=== PATIENT | female | born 1945 | race Caucasian/White ===

== ENCOUNTER 2024-10-20 11:34 | Emergency (ER) | payer MEDICARE, MEDICAID, SELFPAY ==
[2024-10-20 11:34] VITALS: BP 163/87; PULSE 62; TEMP 36.4; O2SAT 97; BMI 58.2
[2024-10-20 11:39] VITALS: O2SAT 97
[2024-10-20 11:56] LABS: Basophils Absolute Auto 0.1 10^3/uL (0.0-0.1); Basophils Percent Auto 0.9 % (0.2-2.0); Eosinophils Absolute Auto 0.3 10^3/uL (0.0-0.7); Eosinophils Percent Auto 4.3 % (0.9-7.0); Hematocrit 43.7 % (36.0-48.0); Hemoglobin 13.5 g/dL (12.0-16.0); Immature Granulocytes Abs Auto 0.02 10^3/uL (0.00-0.03); Immature Granulocytes Pct Auto 0.3 % (0.0-0.5); Lymphocytes Absolute Auto 1.3 10^3/uL (1.2-3.8); Mean Corpuscular HGB Conc 30.9 g/dL (29.9-35.2); Mean Corpuscular Hemoglobin 28.8 pg (26.7-34.0); Mean Corpuscular Volume 93.4 fL (81.0-99.0); Mean Platelet Volume 10.5 fL (9.5-13.5); Monocytes Absolute Auto 0.4 10^3/uL (0.3-0.8); Monocytes Percent Auto 5.5 % (1.7-12.0); Neutrophils Absolute Auto 4.4 10^3/uL (1.4-6.5); Platelet Count 215 10^3/uL (150-450); Red Blood Count 4.68 10^6/uL (4.20-5.40); White Blood Count 6.3 10^3/uL (4.0-11.0)
[2024-10-20 12:16] LABS: Alanine Aminotransferase 19 U/L (14-59); Albumin Globulin Ratio 0.6; Albumin Level 2.6 g/dL (3.4-5.0); Alkaline Phosphatase 56 U/L (46-116); Anion Gap 7.1; Aspartate Amino Transferase 19 U/L (15-37); BUN Creatinine Ratio 21.7; Bilirubin Total 0.4 mg/dL (0.2-1.0); Calcium 8.5 mg/dL (8.5-10.1); Carbon Dioxide 34.8 mmol/L (21.0-32.0); Chloride 106 mmol/L (98-107); Estimated GFR (African America 37 (>=60 mL/min/1.73m^2); Estimated GFR (Non-African Ame 31 (>=60 mL/min/1.73m^2); Globulin 4.5 g/dL; Glucose 82 mg/dL (74-106); Potassium 3.9 mmol/L (3.5-5.1); Sodium 144 mmol/L (136-145); Total Protein 7.1 g/dL (6.4-8.2)
[2024-10-20 12:19] LABS: Lactate/Lactic Acid 1.1 mmol/L (0.4-2.0)
--- NOTE | 2024-10-20 13:29 | ED_ITS ---
HPI - Altered Mental Status General Chief Complaint: Altered Mental Status Stated Complaint: altered mental status Time Seen by Provider: 10/20/24 11:42 Source: patient Mode of arrival: ambulance Limitations: no limitations History of Present Illness HPI narrative: Patient [facility] us [facility] for concern of altered mental status, although the patient is awake and she was just diagnosed y esterday with UTI and another facility discharged home after she was provided with IV antibiotic 1 dose and p.o. antibiotic prescription to go to the retirement The patient according to the penitentiary facility is not acting herself but here she is awake able to tell us that she was in the hospital yesterday and she is oriented x 3, The patient denies having any complaint and she does not know why she is in the hospital Related Data Home Medications ?Medication ?Instructions ?Recorded ?Confirmed L.acidoph,paracasei,B.animalis 10 10 cell PO DAILY 10/20/24 10/20/24 billion cell capsule acetaminophen 500 mg capsule 500 mg PO Q6H PRN fever or pain 10/20/24 10/20/24 albuterol sulfate 2.5 mg/3 mL 2.5 mg inhalation Q6H PRN 10/20/24 10/20/24 (0.083 %) solution for nebulization shortness of breath or wheezing bisacodyl 10 mg rectal suppository 10 mg ND DAILY PRN constipation 10/20/24 10/20/24 (Dulcolax (bisacodyl)) calcium carbonate 1,500 mg PO Q6H PRN dyspepsia 10/20/24 10/20/24 carvedilol 6.25 mg tablet 6.25 mg PO BID 10/20/24 10/20/24 cephalexin 500 mg capsule 500 mg PO TID 10/20/24 10/20/24 cetirizine 10 mg tablet (Zyrtec) 10 mg PO DAILY 10/20/24 10/20/24 chlorthalidone 25 mg tablet 12.5 mg PO QAM 10/20/24 10/20/24 cholecalciferol (vitamin D3) 25 25 mcg PO DAILY 10/20/24 10/20/24 mcg (1,000 unit) capsule dapagliflozin propanediol 10 mg 10 mg PO QAM 10/20/24 10/20/24 tablet (Farxiga) diclofenac sodium 1 % topical gel 4 g topical BID 10/20/24 10/20/24 (Voltaren Arthritis Pain) ferrous sulfate 325 mg (65 mg 325 mg PO DAILY 10/20/24 10/20/24 iron) tablet fluticasone propionate 50 1 spray intranasal DAILY PRN 10/20/24 10/20/24 mcg/actuation nasal allergy symptoms spray,suspension (Allergy Relief (fluticasone)) ipratropium 20 mcg-albuterol 100 2 puff inhalation Q6H PRN 10/20/24 10/20/24 mcg/actuation mist for inhalation shortness of breath or wheezing (Combivent Respimat) levothyroxine 50 mcg capsule 50 mcg PO DAILY 10/20/24 10/20/24 miconazole nitrate 2 % topical 1 applic topical BID 10/20/24 10/20/24 cream (Antifungal (miconazole)) multivitamin,tx-minerals (Super 1 tab PO DAILY 10/20/24 10/20/24 Thera Shayy M tablet) olopatadine 0.1 % eye drops 1 drp ophthalmic (eye) BID 10/20/24 10/20/24 ondansetron 4 mg disintegrating 4 mg PO Q6H 10/20/24 10/20/24 tablet pregabalin 50 mg capsule 50 mg PO BID 10/20/24 10/20/24 sennosides 8.6 mg-docusate sodium 2 tab-cap PO DAILY 10/20/24 10/20/24 50 mg capsule (Senna Plus) tramadol 50 mg tablet 50 mg PO BID 10/20/24 10/20/24 Allergies Allergy/AdvReac Type Severity Reaction Status Date / Time No Known Drug Allergies Allergy Verified 10/20/24 11:40 Review of Systems ROS Status of ROS 10 or more systems reviewed and unremark able except as noted in history and below Exam Narrative Exam Narrative: Nurses notes and vital signs reviewed and patient is not hypoxic. General: Well-appearing and in no apparent distress. Skin: Warm, dry, no pallor noted. No rash. Head: Normocephalic, atraumatic. Neck: Supple, non-tender. Eye: Pupils are equal, round and EOMI. No scleral icterus. Ears, Nose, Mouth, and Throat: TM are clear, no nasal mucosal hypertrophy. Dry mucous membranes Cardiovascular: Regular Rate and Rhythm without murmur, gallop or rub. Respiratory: Distant breathing sound bilaterally Back: No midline thoracic or lumbar vertebral tenderness. No CVA tenderness Musculoskeletal: normal ROM, no calf or popliteal tenderness, and chronic lower extremity changes GI: Abdomen is soft, non-distended. Normal bowel sounds. No masses appreciated. Neurological: A&O x3No cranial nerve dysfunction observed. Moves all extremities. Sensation intact. Psychiatric: Cooperative but she is screaming when she is trying to get anything instead of asking politely Constitutional Vital Signs, click to edit/add: Last Vital Signs Temp 97.5 F L 10/20/24 11:34 Pulse 62 10/20/24 11:34 Resp 18 10/20/24 11:34 BP 163/87 H 10/20/24 11:34 Pulse Ox 97 10/20/24 11:39 O2 Del Method Nasal Cannula 10/20/24 11:39 O2 Flow Rate 2 10/20/24 11:39 Course Vital Signs Vital signs: Vital Signs Temperature 97.5 F L 10/20/24 11:34 Pulse Rate 62 10/20/24 11:34 Respiratory Rate 18 10/20/24 11:34 Blood Pressure 163/87 H 10/20/24 11:34 Pulse Oximetry 97 10/20/24 11:34 Oxygen Delivery Method Room Air 10/20/24 11:34 Temperature 97.5 F L 10/20/24 11:34 Pulse Rate 62 10/20/24 11:34 Respiratory Rate 18 10/20/24 11:34 Blood Pressure 163/87 H 10/20/24 11:34 Pulse Oximetry 97 10/20/24 11:39 Oxygen Delivery Method Nasal Cannula 10/20/24 11:39 Oxygen Delivery Flow Rate 2 10/20/24 11:39 MDM - Altered Mental Status MDM Narrative Medical decision making narrative: Other than the fact the patient screams every time she wants any attention the patient did not have any clinical findings on exam that shows any neurological deficit The patient blood workup showed no acute pathology and she does have a history of chronic kidney disease with a creatinine 1.6 The patient also had no leukocytosis no no lactic acid elevation and the patient CT head showed no acute pathology Right now just recommended the patient take her Keflex as UTI treatment and monitoring in the penitentiary facility The patient is to follow up with primary care physician in next 2-3 days or to return to the emergency department should any of the signs or symptoms worsen or new symptoms develop. The patient agrees with the following Diagnosis and Treatment plan and the patient will be discharged home. Lab Data Labs: Lab Results 10/20/24 Range/Units 11:47 WBC 6.3 (4.0-11.0) 10^3/uL RBC 4.68 (4.20-5.40) 10^6/uL Hgb 13.5 (12.0-16.0) g/dL Hct 43.7 (36.0-48.0) % MCV 93.4 (81.0-99.0) fL MCH 28.8 (26.7-34.0) pg MCHC 30.9 (29.9-35.2) g/dL RDW 15.0 (11.0-15.0) % Plt Count 215 (150-450) 10^3/uL MPV 10.5 (9.5-13.5) fL Neut % (Auto) 69.0 (43.0-75.0) % Lymph % (Auto) 20.0 L (20.5-60.0) % [place] % (Auto) 5.5 (1.7-12.0) % Eos % (Auto) 4.3 (0.9-7.0) % Baso % (Auto) 0.9 (0.2-2.0) % Neut # (Auto) 4.4 (1.4-6.5) 10^3/uL Lymph # (Auto) 1.3 (1.2-3.8) 10^3/uL [place] # (Auto) 0.4 (0.3-0.8) 10^3/uL Eos # (Auto) 0.3 (0.0-0.7) 10^3/uL Baso # (Auto) 0.1 (0.0-0.1) 10^3/uL Abs Immat Gran (auto) 0.02 (0.00-0.03) 10^3/uL Imm/Tot Granulo (auto) 0.3 (0.0-0.5) % Sodium 144 (136-145) mmol/L Potassium 3.9 (3.5-5.1) mmol/L Chloride 106 (98-107) mmol/L Carbon Dioxide 34.8 H (21.0-32.0) mmol/L Anion Gap 7.1 BUN 35.0 H (7.0-18.0) mg/dL Creatinine 1.61 H (0.55-1.02) mg/dL Est GFR ( Amer) 37 L (>=60 mL/min/1.73m^2) Est GFR (Non-Af Amer) 31 L (>=60 mL/min/1.73m^2) BUN/Creatinine Ratio 21.7 Glucose 82 (74-106) mg/dL Lactate 1.1 (0.4-2.0) mmol/L Calcium 8.5 (8.5-10.1) mg/dL Total Bilirubin 0.4 (0.2-1.0) mg/dL AST 19 (15-37) U/L ALT 19 (14-59) U/L Alkaline Phosphatase 56 (46-116) U/L Total Protein 7.1 (6.4-8.2) g/dL Albumin 2.6 L (3.4-5.0) g/dL Globulin 4.5 g/dL Albumin/Globulin Ratio 0.6 Discharge Plan Discharge Chief Complaint: Altered Mental Status Clinical Impression: UTI (urinary tract infection) Patient Disposition: Home, Self-Care Time of Disposition Decision: 13:40 Condition: Good Prescriptions / Home Meds: No Action acetaminophen 500 mg capsule 500 mg PO Q6H PRN (Reason: fever or pain) albuterol sulfate 2.5 mg /3 mL (0.083 %) solution for nebulization 2.5 mg inhalation Q6H PRN (Reason: shortness of breath or wheezing) calcium carbonate 500 mg calcium (1,250 mg) tablet 1,500 mg PO Q6H PRN (Reason: dyspepsia) carvedilol 6.25 mg tablet 6.25 mg PO BID Rx Instructions: must administer with a meal/food cephalexin 500 mg capsule 500 mg PO TID chlorthalidone 25 mg tablet 12.5 mg PO QAM Combivent Respimat 20-100 mcg/actuation mist 2 puff inhalation Q6H PRN (Reason: shortness of breath or wheezing) bisacodyl [Dulcolax (bisacodyl)] 10 mg suppository 10 mg ND DAILY PRN (Reason: constipation) dapagliflozin propanediol [Farxiga] 10 mg tablet 10 mg PO QAM ferrous sulfate 325 mg (65 mg iron) tablet 325 mg PO DAILY fluticasone propionate [Allergy Relief (fluticasone)] 50 mcg/actuation spray,suspension 1 spray intranasal DAILY PRN (Reason: allergy symptoms) Rx Instructions: administer into each nostril L.acidoph,paracasei,B.animalis 10 billion cell capsule 10 cell PO DAILY levothyroxine 50 mcg capsule 50 mcg PO DAILY miconazole nitrate [Antifungal (miconazole)] 2 % cream 1 applic topical BID olopatadine 0.1 % drops 1 drp ophthalmic (eye) BID Rx Instructions: separate doses by at least 6-8 hours ondansetron 4 mg tablet,disintegrating 4 mg PO Q6H pregabalin 50 mg capsule 50 mg PO BID Senna Plus 8.6-50 mg capsule 2 tab-cap PO DAILY Super Thera Shayy M Tablet 1 tab PO DAILY tramadol 50 mg tablet 50 mg PO BID cholecalciferol (vitamin D3) 25 mcg (1,000 unit) capsule 25 mcg PO DAILY diclofenac sodium [Voltaren Arthritis Pain] 1 % gel 4 g topical BID Rx Instructions: apply to KORY knees and feet do not exceed 32grams/day over all extremities cetirizine [Zyrtec] 10 mg tablet 10 mg PO DAILY Print Language: Czech Instructions: Urinary Tract Infection in Older Adults (ED) Referrals: Maine Knowles MD [Primary Care Provider] - 1 week
== END 2024-10-20 14:58 | disposition home or self-care (01) ==
PROVIDERS: Emergency Provider Emergency Medicine; PCP Internal Medicine
DX: R41.82 Altered mental status, unspecified (principal); N39.0 Urinary tract infection, site not specified
CPT/HCPCS: 36415; 70450; 80053; 83605; 85025; 99285

== ENCOUNTER 2024-11-15 12:07 | Outpatient (REF) | payer MEDICARE, MEDICAID, SELFPAY ==
--- OUTSIDE RECORDS SUMMARY | 2024-11-15 12:13 | XMS_ITS | CCD ---
Author Organization [facility] ion Partnership [facility] Care Team Providers Care Ammonia Print Operator Name Role Phone CrtOli W Unavailable Unavailable Haupricht, Oli W Unavailable Unavailable KAVYA TORRES Consulting Unavailable VANCE, RIP S Admitting Unavailable VANCE, RIP S Attending Unavailable VANCE, RIP S Consulting Unavailable Unavailable Primary Care Provider UnavailJohnson Aquino Attending Unavailable Johnson Gallo Referring Unavailable Sabino ARIZMENDI, PhD, Johnson Unavailable RAJINDER Cantor JR Referring Unavailable RAJINDER LUDWIG JR Primary Care Unavailable LANCE LOUIS Attending Unavailable SANAULLAH, BEATRIS Primary Care Unavailable SHALOM FUNEZ Admitting Unavailable ONLY), IP WOUND CARE SERVICES (INPATIENT Consult ing Unavailable LANCE LOUIS Attending Unavailable LANCE LOUIS Referring Unavailable SANAULLAH, BEATRIS Primary Care Unavailable HUFDHI, RAIED Primary Care Unavailable REJI MENDOZA Attending Unavailable VÍCTOR, ROBBIE M Admitting Unavailable ONLY), IP WOUND CARE SERVICES (INPATIENT Consult ing Unavailable VIDA AGUILAR Attending Unavailable VIDA AGUILAR Referring Unavailable HUFDHI, RAIED Primary Care Unavailable VIDA AGUILAR Attending Unavailable VIDA AGUILAR Referring Unavailable HUFDHI, RAIED Primary Care Unavailable JESUS RILEY Attending Unavailable JESUS RILEY Referring Unavailable HUFDHI, RAIED Primary Care Unavailable HUFDHI, RAIED Primary Care Unavailable DARRELL KOHLI Attending Unavailable HUFDHI, RAIED Primary Care Unavailable SHREE CRANE Attending Unavailable PHYSICIAN, UNKNOWN Referring Unavailable RAJINDER LUDWIG JR Primary Care Unavailable JENNIE GHOTRA Referring Unavailable SANAULLAH, BEATRIS Primary Care Unavailable DARRELL KOHLI Referring Unavailable HUFDHI, RAIED Primary Care Unavailable SHRUTHI MILLS Referring Unavailable HUFDHI, RAIED Primary [facility] Unavailable REF PROV, NOT IN SYSTEM Referring Unavaila ble [facility] Primary Care Unavailable SHREE CRANE Referring Unavailable [facility] Primary Care Unavailable Allergies Allergy Classification Reported Allergen(s) Allergy Type Date of Onset Reaction(s) Facility (1 source) Other Propensity to adverse reactions 02-11-2020 [facility], [place] Medications Current Medications Medication Drug Class(es) Dates Sig (Normalized) Sig (Original) Acetaminophen (2 sources) Start: 02-10-2020 acetaminophen (TYLENOL) tablet 650 mg take 2 tablets by mo uth every six hours as needed Tylenol Extra Strength 500 mg tablet shlomo e 2 tablet by oral route every 6 hours as needed 1000 MG - Active 120 actuat albuterol 0.1 mg/actuat / ipratropium bromide 0.02 mg/actuat inhalation spray (1 source) Anticholinergic, beta2-Adrenergic Agonist take 1 puff(s) by inhalation four times daily as needed, then take 6 puff(s) by inhalation every twenty-four hours as needed Combivent Respimat 20 mcg-100 mcg/actuation solution for inhalation inhale 1 puff by inhalation route 4 times every day ; may take additional puffs as needed not to exceed 6 puffs in 24hrs 1.00 puff - Active amLODIPine 2.5 mg oral tablet (1 source) Dihydropyridine Calcium Channel Amira take 1 tablet by mouth once daily amlodipine 2.5 mg tablet take 1 tablet by oral route every day 2.5 MG - Active 12 hr amoxicillin 1000 mg / clavulanate 62.5 mg extended release oral tablet (1 source) Penicillin-class Antibacterial Start : 02-14 End: 02-19 take 1 tablet by mouth twice daily amoxicillin-clavul anate (AUGMENTIN XR) 1000-62.5 MG per extended release tablet Take 1 tablet by mouth 2 times daily for 5 days 10 tablet 0 02/15/2020 02/20/2020 Active carvedilol 25 mg oral tablet (1 source) alpha-Adrenergic Amira, beta-Adrenergic Amira take 1 tablet by mouth twice daily at mealtime carvedilol 25 mg tablet take 1 tablet by oral route 2 times every day with food 25 MG - Active cetirizine hydrochloride 10 mg oral capsule (1 source) Histamine-1 Receptor Antagonist take 1 capsule by mouth once daily Zyrtec 10 mg capsule take 1 capsule by oral route every day 1 capsule - Active dapagliflozin 10 mg oral tablet (1 source) Sodium-Glucose Cotransporter 2 Inhibitor take 1 tablet by mouth once daily in the morning Farxiga 10 mg tablet take 1 tablet by oral route every day in the morning 10 MG - Active diclofenac sodium 0.01 mg/mg topical gel (1 source) Nonsteroidal Anti-inflammatory Drug Voltaren Arthritis Pain 1 % topical gel apply 2 gram by topical route 4 times every day to the affected area(s) 2.00 gram - Active ferrous sulfate 325 mg oral tablet (1 source) take 1 tablet by mouth once daily ferrous sulfate 325 mg (65 mg iron) tablet take 1 tablet by oral route every day 325 MG - Active 30 actuat fluticasone furoate 0.05 mg/actuat dry powder inhaler (1 source) Corticosteroid take 1 [IU] by mouth twice daily Arnuity Ellipta 50 mcg/actuation powder for inhalation inhale 1 unit by oral route 2 times every day 1 unit - Active furosemide 20 mg oral tablet (1 source) Loop Diuretic take 1 tablet by mouth once daily Lasix 20 mg tablet take 1 tablet by oral route every day 20 MG - Active gabapentin 100 mg oral capsule (3 sources) Anti-epileptic Agent Start : 02-09 End: 04-15 take 1 capsule by mouth four times daily gabapentin (NEURONTIN) 100 MG capsule Take 1 capsule by mouth 4 times daily for 60 days. 120 capsule 1 02/15/2020 04/15/2020 Active 1 ml heparin sodium, porcine 5000 unt/ml prefilled syringe (1 source) Unfractionated Heparin, Anti-coagulant Start : 02-09 inject 1 dose by subcutaneous injection three times daily 5,000 Units, Subcutaneous, EVERY 8 HOURS SCHEDULED (3 times per day), First dose on Sat02/10/20 at 1630 hydroCHLOROthiazide 12.5 mg / lisinopril 10 mg oral tablet (1 source) Thiazide Diuretic, Angiotensin Converting Enzyme Inhibitor take 10-12.5 mg by mouth once lisinopril-hydroCH LOROthiazide (ZESTORETIC) 10-12.5 MG per tablet Take 1 tablet by mouth daily 0 Active Lactobacillus acidophilus (1 source) Acidophilus capsule - Active levothyroxine sodium 0.025 mg oral capsule (1 source) l-Thyroxine take 1 capsule by mouth once daily levothyroxine 25 mcg capsule take 1 capsule by oral route every day 25 MCG - Active loperamide hydrochloride 2 mg oral capsule (1 source) Opioid Agonist take 2 capsules by mouth once daily loperamide 2 mg capsule take 2 capsule by oral route after 1st loose stool, followed by 1 capsule after each subsequent loose stool not to exceed 16 mg/day 4 MG - Active magnesium hydroxide 1200 mg chewable tablet (2 sources) End: 04-01 Milk Of Magnesia Concentrated 2,400 mg/10 mL oral suspension as needed as needed - No Longer Active Dulcolax (magnes ium hydroxide) 1,200 mg chewable tablet - Active melatonin 3 mg oral capsule (1 source) melatonin 3 mg c apsule as needed - Active miconazole nitrate 0.02 mg/mg topical powder (3 sources) Azole Antifungal Start: 02-15-2020 miconazole (MICOTIN) 2 % powder Apply topically 2 times daily. 45 g 1 02/15/2020 Active Start: 02-10-2020 End: 02-12-2020 miconazole (MICOTIN) 2 % pow yordy Multiple Vitamin (THERAPEUTIC MULTIVITAMIN PO) (1 source) Multiple Vitamin (THERAPEUTIC MULTIVITAMIN PO) Take 1 tablet by mouth 0 Active Multivitamin 50 Plus tablet (1 source) Multivitamin 50 Plus tablet as needed - Active olmesartan medoxomil 40 mg oral tablet (1 source) Angiotensin 2 Receptor Amira take 1 tablet by mouth once daily Benicar 40 mg tablet take 1 tablet by oral route every day 40 MG - Active polyethylene glycol 3350 25190 mg powder for oral solution (1 source) Osmotic Laxative Start: 02-10-20 20 17 g, Oral, DAILY PRN, Constipation, Starting Sat02/10/20 at 1604 First line therapy for constipation Potassium Chloride (1 source) Start: 02-10-20 potassium chloride (KLOR-CON M) extended release tablet 40 mEq pregabalin 150 mg oral capsule (1 source) take 1 capsule by mouth twice daily pregabalin 150 mg capsule take 1 capsule by oral route 2 times every day 150 MG - Active Promethazine (1 source) Phenothiazine Start: 02-10-20 promethazine (PHENERGAN) tablet 12.5 mg 3 ml sodium chloride 9 mg/ml injection (6 sources) Start: 06-17-20 20 10 mL, Intravenous, EVERY 12 HOURS SCHEDULED (2 times per day), First dose on Sat02/10/20 at 2100 Start: 02-10-2020 Intravenous, a t 100 mL/hr, CONTINUOUS, Starting Sat02/10/20 at 1630 Start: 02-10-2020 take 10 mL intraveno us route once as needed 10 mL, Intravenous, PRN, Line Care, After every IV line use, Starting Sat02/10/20 at 1604 Start: 02-10-2020 sodium chlorid e flush 0.9 % injection 10 mL Start: 02-10-2020 End: 02-10-2020 0.9 % sodium chloride bolus spironolactone 25 mg oral tablet (1 source) Aldosterone Antagonist take 1 tablet by mouth once daily Aldactone 25 mg tablet take 1 tablet by oral route every day 25 MG - Active Completed/Discontinued Medications Medication Drug Class(es) Dates Sig (Normalized) Sig (Original) ampicillin-sulbacta m (UNASYN) 3 g ivpb minibag (2 sources) Start: 02-10-2020 3 g, Intravenous, EVERY 6 HOURS, First dose on Sat02/10/20 at 1630, Until Discontinued Start: 02-10-2020 End: 02-10-2020 ampicillin-sulbactam (UNASYN ) 3 g ivpb minibag sugar-free cholestyramine resin 4000 mg powder for oral suspension (1 source) Bile Acid Sequestrant End: 04-01-2024 Cholestyramine Light 4 gram oral powder take 1/2 packet by oral route every day dissolved in 2 to 6 ounces of water or noncarbonated beverage before meals 2 G - No Longer Active ioversol (OPTIRAY) 74 % injection 75 mL (1 source) Start: 02-10-2020 End: 02-10-2020 ioversol (OPTIRAY) 74 % injection 75 mL Problems Active Problems Problem Classification Problem Date Documented Da te Episodic/Chronic Cardiac dysrhythmias (1 source) Tachycardia, unspecified; Translations: [Tachycardia, unspecified] Onset: 08-26-2024 Episodic Cataract (3 sources) Combined forms of age-related cataract, bilateral; Translations: [Combined forms of age-related cataract, bilateral] Onset: 04-01-2024 Chronic Chronic kidney disease (1 source) Chronic kidney disease, stage 4 (severe); Translations: [Chronic kidney disease, stage 4 (severe)] Onset: 07-01-2022 Chronic Chronic obstructive pulmonary disease and bronchiectasis (1 source) Chronic obstructive pulmonary disease, unspecified; Translations: [Chronic obstructive pulmonary disease, unspecified] Onset: 11-25-2023 Chronic External cause codes: Fall (1 source) Fall; Translations: [Fall, initial encounter] Inflammation; infection of eye (except that caused by tuberculosis or sexually transmitteddisease) (1 source) Unspecified optic neuritis; 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 Nausea and vomiting (2 sources) Nausea with vomiting, unspecified; Translations: [Vomiting] Onset: 09-22-2024 Episodic Other diseases of kidney and ureters (2 sources) Acute renal insufficiency; Translations: [Acute renal insufficiency] 02-15-2020 Other lower respiratory disease (1 source) Cough Onset: 08-26-2024 Episodic Other nutritional; endocrine; and metabolic disorders (2 sources) Body mass index 40+ - severely obese; Translations: [Morbid obesity with BMI of 50.0-59.9, adult (HCC)] Onset: 02-13-2020 02-13-2020 Chronic Residual codes; unclassified (1 source) Disorientation, unspecified; Translations: [Disorientation, unspecified] Onset: 10-19-2024 Episodic Residual codes; unclassified (1 source) Illness, unspecified; Translations: [Illness, unspecified] Onset: 10-19-2024 Episodic Retinal detachments; defects; vascular occlusion; and retinopathy (3 sources) Puckering of macula, left eye; Translations: [Epiretinal membrane (ERM) of left eye] Onset: 04-01-2024 Chronic Skin and subcutaneous tissue infections (7 sources) Cellulitis of face; Translations: [Cellulitis] Onset: 02-10-2020 02-10-2020 Episodic Unclassified (1 source) Protein level - finding; Translations: [Elevated troponin] Unclassified (1 source) Medical Screening Onset: 10-19-2024 Unclassified (1 source) EMS Onset: 03-14-2024 Urinary tract infections (1 source) Urinary tract infection, site not specified; Translations: [Urinary tract infection, site not specified] Onset: 10-19-2024 Episodic Past or Other Problems Problem Classification Problem Date Documented Da te Episodic/Chronic Acute and unspecified renal failure (1 source) Acute kidney failure, unspecified; Translations: [Acute kidney failure, unspecified] Onset: 03-14-2024 Episodic Fever of unknown origin (1 source) Fever, unspecified; Translations: [Fever, unspecified] Onset: 03-10-2024 Episodic Other circulatory disease (1 source) Low blood pressure Onset: 03-14-2024 Episodic Other lower respiratory disease (1 source) Shortness of breath; Translations: [Shortness of breath] Onset: 03-10-2024 Episodic Pneumonia (except that caused by tuberculosis or sexually transmitted disease) (1 source) Pneumonia, unspecified organism; Translations: [Pneumonia, unspecified organism] Onset: 03-19-2024 Episodic Residual codes; unclassified (1 source) Other specified personal risk factors, not elsewhere classified; Translations: [Other specified personal risk factors, not elsewhere classified] Onset: 03-14-2024 Episodic Septicemia (except in labor) (1 source) Sepsis, unspecified organism; Translations: [Sepsis, unspecified organism] Onset: 03-19-2024 Episodic Shock (1 source) Severe sepsis with septic shock; Translations: [Severe sepsis with septic shock] Onset: 03-19-2024 Episodic Unclassified (1 source) puckering of the macula (chief complaint) Onset: 04-01-2024 Unclassified (1 source) Retinal issues (chief complaint) Onset: 02-28-2023 Results Test Name Value Interpretation Reference Range Facility BLOOD CULTUREon 10-19-2024 Bacteria identified Aer cx Nom (Bld) CULTURE RESULTS NO GROWTH 5 DAYS Normal [facility] Bacteria identified Aer cx Nom (Bld) SPECIMEN NOTES SUBOPTIMAL VOLUME OF BLOOD COLLECTED, RESULTS MAY BE AFFECTED. CULTURE RESULTS NO GROWTH 5 DAYS Normal [facility] Comment on above: Performed By: #### C BRIE MONDRAGON, 36688-1, 11358-7 #### [facility] ([id number]) [address] [place] [address], [place] [address] CBC AND AUTO DIFFon 10-19-19 25 ABSOLUTE BASOPHIL 0.1 X10E9/L Normal 0.0-0.2 [facility] Comment on above: Performed By: #### C BRIE MONDRAGON, 21714-7, 72056-5 #### [facility] ([id number]) [address] [place] [address] 94526 ABSOLUTE NEUTROPHIL 5.2 X10E9/L Normal 1.5-6.[address] [facility] Comment on above: Performed By: #### C GIANCARLO, [facility], 87313-4, 75560-7 #### [facility] ([id number]) [address] [place] [address] 17257 Basophils/100 WBC (Bld) 1.1 % Normal [facility] Comment on above: Performed By: #### C GIANCARLO, [facility], 96272-4, 21156-7 #### [facility] ([id number]) [address] [place] [address] 24168 Eosinophils (Bld) [#/Vol] 0.2 10*3/uL Normal 0.0-0.[address] [facility] Comment on above: Performed By: #### C GIANCARLO, [facility], 32230-1, 87539-5 #### [facility] ([id number]) [address] [place] [address] 26348 Eosinophils/100 WBC (Bld) 2.8 % Normal [facility] Comment on above: Performed By: #### C GIANCARLO, [facility], 04120-3, 56790-4 #### [facility] ([id number]) [address] [place] [address] 82685 Erythrocyte distribution width (RBC) [Ratio] 16.0 % High 11.5-15.[address] [facility] Comment on above: Performed By: #### C GIANCARLO, [facility], 20155-6, 86297-4 #### [facility] ([id number]) [address] [place] [address] 61071 Hematocrit (Bld) [Volume fraction] 41.2 % Normal 35-[address] [facility] Comment on above: Performed By: #### C GIANCARLO, BMP, 10392-5, 21554-5 #### [facility] ([id number]) [address] [place] [address] 58736 Hemoglobin (Bld) [Mass/Vol] 13.3 g/dL Normal 11.7-15.[address] [facility] Comment on above: Performed By: #### C GIANCARLO [facility], 67446-5, 60832-6 #### [facility] ([id number]) [address] [place] [address] 14844 Lymphocytes (Bld) [#/Vol] 2.0 10*3/uL Normal 1.0-3.[address] [facility] Comment on above: Performed By: #### Federico MONDRAGON [facility], 06279-2, 95427-5 #### [facility] ([id number]) [address] [place] [address] 63734 Lymphocytes/100 WBC (Bld) 25.0 % Normal [facility] Comment on above: Performed By: #### Federico MONDRAGON [facility], 63061-4, 27246-3 #### [facility] ([id number]) [address] [place] [address] 36242 MCH (RBC) [Entitic mass] 29.3 pg Normal 27-[address] [facility] Comment on above: Performed By: #### Federico MONDRAGON [facility], 12944-5, 96847-3 #### [facility] ([id number]) [address] [place] [address] 20791 MCHC (RBC) [Mass/Vol] 32.3 g/dL Normal 32-[address] [facility] Comment on above: Performed By: #### Federico MONDRAGON [facility], 95518-8, 07376-8 #### [facility] ([id number]) [address] [place] [address] 04546 MCV (RBC) [Entitic vol] 91 fL Normal 80-[address] [facility] Comment on above: Performed By: #### C GIANCARLO, BMP, 80823-5, 41994-3 #### [facility] ([id number]) [address] [place] [address] 67047 Monocytes (Bld) [#/Vol] 0.5 10*3/uL Normal 0-0.[address] [facility] Comment on above: Performed By: #### Federico MONDRAGON, BMP, 68217-1, 24660-5 #### [facility] ([id number]) [address] [place] [address] 17946 Monocytes/100 WBC (Bld) 6.3 % Normal [facility] Comment on above: Performed By: #### Federico MONDRAGON, BMP, 28876-5, 56066-0 #### [facility] ([id number]) [address] [place] [address] 98894 Neutrophils/100 WBC (Bld) 64.8 % Normal [facility] Comment on above: Performed By: #### Federico MONDRAGON, [facility], 50594-1, 29188-6 #### [facility] ([id number]) [address] [place] [address] 96911 Platelet mean volume (Bld) [Entitic vol] 9.1 fL Normal 7-[address] [facility] Comment on above: Performed By: #### Federico MONDRAGON, BMP, 44348-0, 12943-8 #### [facility] ([id number]) [address] [place] [address] 96701 Platelets (Bld) [#/Vol] 230 10*3/uL Normal 150-[address] [facility] Comment on above: Performed By: #### Federico BCA, BMP, 64648-7, 71127-5 #### [facility] ([id number]) [address] [place] [address] 73807 RBC COUNT 4.55 X10E12/L Normal 3.80-5.[address] [facility] Comment on above: Performed By: #### C BCA, BMP, 00702-5, 84530-5 #### [facility] ([id number]) [address] [place] [address] 82506 WBC (Bld) [#/Vol] 8.0 10*3/uL Normal 4.0-11.0 [facility] Comment on above: Performed By: #### C BCA, BMP, 03035-4, 11822-9 #### [facility] ([id number]) [address] [place] [address] 15829 COMPREHENSIVE METABOLIC PANE Fernando 10-19-2024 Albumin [Mass/Vol] 3.3 g/dL Normal 3.2-5.[address] [facility] Comment on above: Performed By: #### C BCA, BMP, 76688-0, 33634-0 #### [facility] ([id number]) [address] [place] [address] 68543 ALP [Catalytic activity/Vol] 51 U/L Normal 39-[address] [facility] Comment on above: Performed By: #### C BCA, BMP, 57160-3, 39531-8 #### [facility] ([id number]) [address] [place] [address] 59315 ALT [Catalytic activity/Vol] 15 U/L Normal 0-[address] [facility] Comment on above: Performed By: #### C BCA, BMP, 64599-0, 59750-5 #### [facility] ([id number]) [address] [place] [address] 35169 Anion gap [Moles/Vol] 7 mmol/L Normal 5-[address] [facility] Comment on above: Performed By: #### C BCA, BMP, 38196-3, 81913-1 #### [facility] ([id number]) [address] [place] [address] 67888 AST [Catalytic activity/Vol] 22 U/L Normal 0-[address] [facility] Comment on above: Performed By: #### C BCA, BMP, 78760-3, 76799-4 #### [facility] ([id number]) [address] [place] [address] 96530 Bilirubin [Mass/Vol] 0.8 mg/dL Normal 0.3-1.[address] [facility] Comment on above: Performed By: #### C BCA, BMP, 13209-7, 49285-1 #### [facility] ([id number]) [address] [place] [address] 64735 Calcium [Mass/Vol] 8.2 mg/dL Low 8.5-10.[address] [facility] Comment on above: Performed By: #### C BCA, BMP, 67257-9, 39753-9 #### [facility] ([id number]) [address] [place] [address] 69776 Chloride [Moles/Vol] 102 mmol/L Normal 98-[address] [facility] Comment on above: Performed By: #### C BCA, BMP, 57427-6, 61678-7 #### [facility] ([id number]) [address] [place] [address] 56731 CO2 [Moles/Vol] 31 mmol/L Normal 22-[address] [facility] Comment on above: Performed By: #### C BCA, BMP, 41200-0, 64144-7 #### [facility] ([id number]) [address] [place] [address] 82553 Creatinine [Mass/Vol] 1.74 mg/dL High 0.40-1.[address] [facility] Comment on above: Result Comment: METH OD TRACEABLE TO IDMS STANDARD Performed By: #### C BCA, BMP, 04132-3, 68040-1 #### [facility] ([id number]) [address] [place] [address] 90976 GFR/1.73 sq M.predicted among non-blacks MDRD (S/P/Bld) [Vol rate/Area] 29 mL/min/{1.73_m2} Low >[address] [facility] Comment on above: Result Comment: Reported eGFR is based on the CKD-EPI 2020 equation that does not use a race coefficient. Performed By: #### C BRIE MONDRAGON, 63627-7, 53466-3 #### [facility] ([id number]) [address] [place] [address] 62773 Glucose [Mass/Vol] 93 mg/dL Normal 65-[address] [facility] Comment on above: Performed By: #### C BRIE MONDRAGON, 29890-3, 40372-8 #### [facility] ([id number]) [address] [place] [address] 10829 Potassium [Moles/Vol] 3.7 mmol/L Normal 3.5-5.[address] [facility] Comment on above: Performed By: #### C BRIE MONDRAGON, 88700-3, 64517-3 #### [facility] ([id number]) [address] [place] [address] 10290 Protein [Mass/Vol] 7.1 g/dL Normal 6.0-8.[address] [facility] Comment on above: Performed By: #### C BRIE MONDRAGON, 00683-4, 07701-0 #### [facility] ([id number]) [address] [place] [address] 86932 Sodium [Moles/Vol] 140 mmol/L Normal 134-[address] [facility] [facility] Comment on above: Performed By: #### C BRIE MONDRAGON, 89154-8, 69991-9 #### [facility] ([id number]) [address] [place] [address] 60345 Urea nitrogen [Mass/Vol] 37 mg/dL High 5-27 [facility] Comment on above: Performed By: #### C BRIE MONDRAGON, 33663-4, 04355-3 #### [facility] ([id number]) [address] [place] [address], [place] [address] CT [address] [place] CONT[place] CT BRAIN WO CONT CT BRAIN WO CONT CT BRAIN WO CONT: 10/19/2024 PROVIDED HISTORY: * 79 years old Female * Mental status change, unknown cause COMPARISON: CT brain 03/04/2020 TECHNIQUE: 1. CT of the Head without intravenous contrast. Sagittal and coronal reformats created and reviewed in brain, bone, and soft tissue windows. 2. All CT scans at this facility use dose modulation, iterative reconstruction, and/or weight based dosing when appropriate to reduce radiation dose to as low as reasonably achievable. FINDINGS: Examination degraded due to motion, habitus, and artifact from the calvarium, particularly limiting evaluations of the posterior fossa and parietal lobes. No acute intracranial hemorrhage. No territorial loss of wilkins-white differentiation. Brain parenchymal volume loss. Dilated supratentorial ventricular system, though concordant with brain parenchymal volume and degree of sulcal prominence (likely ex vacuo). Periventricular, subcortical, and deep white matter hypodensities, nonspecific, though can be seen in the setting of chronic microangiopathy. Nonspecific flattening of the pituitary parenchyma along the floor of the sella. No shift of midline structures. No extra-axial fluid collections. Basal cisterns are patent. No displaced or depressed calvarial fracture. Intracranial atherosclerosis. Visualized orbits are unremarkable for technique. Visualized mastoid air cells are well aerated. Visualized paranasal sinuses are well aerated. IMPRESSION: No acute intracranial abnormality, within limitations described. Please note, MRI is more sensitive for the detection of acute/occult intracranial processes. Finalized by Delbert Robbins MD on 10/19/2024 5:44 PM [address] [facility] Lactate (P west) [Moles/Vol]o n 10-19-2024 LACTATE W/REFLEX 0.9 mmol/L Normal 0.4-2.0 [facility] Comment on above: Result Comment: Result did not trigger repeat Lactate, re-order if needed. Performed By: #### C BRIE MONDRAGON, 16178-2, 27370-2 #### [facility] ([id number]) [address] [place] [address] 17578 MAGNESIUMon 10-19-2024 Magnesium [Mass/Vol] 2.1 mg/dL Normal 1.8-2.[address] [facility] Comment on above: Performed By: #### C BRIE MONDRAGON, 52428-9, 29684-7 #### [facility] ([id number]) [address] [place] [address] 65612 Natriuretic peptide B [Mass/ Vol]on 10-19-2024 Natriuretic peptide B (Bld) [Mass/Vol] 328 pg/mL High <100.[address] [facility] Comment on above: Performed By: #### C BRIE MONDRAGON, 58769-7, 44206-7 #### [facility] ([id number]) [address] [place] [address] 19486 PROTIME AND INRon 10-19-2024 INR Coag (PPP) [Relative time] 1.2 {INR} Normal 0.9-1.[address] [facility] Comment on above: Performed By: #### C BIRE MONDRAGON, 48502-0, 16763-7 #### [facility] ([id number]) [address] [place] [address] 68711 PT Coag (PPP) [Time] 13.9 s High 9.8-13.[address] [facility] Comment on above: Result Comment: NEW REFERENCE RANGE Performed By: #### C BRIE MONDRAGON, 91070-1, 81853-4 #### [facility] ([id number]) [address] [place] [address] 51237 RESP PATHOGENS/YQKT-[id number]-[id number] 10-19-2024 Respiratory pathogens DNA and RNA panel LETICIA+non-probe (Nph) SPECIMEN SOURCE NASO PHARYNX ADENOVIRUS Not detected (qualifier value) CORONAVIRUS 229E Not detected (qualifier value) CORONAVIRUS HKU1 Not detected (qualifier value) CORONAVIRUS NL63 Not detected (qualifier value) CORONAVIRUS OC43 Not detected (qualifier value) HUMAN METAPNEUVIRUS Not detected (qualifier value) RHINO/ENTEROVIRUS Not detected (qualifier value) INFLUENZA A Not detected (qualifier value) INFLUENZA B Not detected (qualifier value) PARAINFLUENZA 1 Not detected (qualifier value) PARAINFLUENZA 2 Not detected (qualifier value) PARAINFLUENZA 3 Not detected (qualifier value) PARAINFLUENZA 4 Not detected (qualifier value) RESP SYNCYTIAL VIRUS Not detected (qualifier value) BORD PARAPERTUSSIS Not detected (qualifier value) BORDETELLA PERTUSSIS Not detected (qualifier value) CHLAM.PNEUMONIAE Not detected (qualifier value) MYCO. PNEUMONIAE Not detected (qualifier value) SARS CoV 2 Not detected (qualifier value) NOTE The [employer] Respiratory Panel 2.1 (RP2.1) is a multiplexed nucleic acid test intended for the simultaneous qualitative detection and differentiation of nucleic acid from multiple viral and bacterial respiratory organisms, including nucleic acid from Severe Acute Respiratory Syndrome Coronavirus 2 (SARS-CoV-2), in nasopharyngeal swabs obtained from individuals suspected of COVID-19 by their healthcare provider. Testing is limited to laboratories certified under the Clinical Laboratory Improvement Amendments of 1988 (CLIA), to perform high complexity or moderate complexity tests. SARS-CoV-2 RNA and nucleic acids from the other respiratory viral and bacterial organisms identified by this test are generally detectable in nasopharyngeal swabs during the acute phase of infection. The detection and identification of specific viral and bacterial nucleic acids from individuals exhibiting signs and/or symptoms of respiratory infection is indicative of the presence of the identified microorganism and aids in the diagnosis of respiratory infection if used in conjunction with other clinical and epidemiological information. Positive results are indicative of the presence of the identified organism, but do not rule out co-infection with other pathogens. The agent(s) detected by the [employer] RP2.1 may not be the definite cause of disease and clinical correlation with patient history and other diagnostic information is necessary to determine patient infection status. Negative results in the setting of a respiratory illness may be due to infection with pathogens not detected by this test, or lower respiratory tract infection that may not be detected by a nasopharyngeal specimen. Negative results do not preclude SARS-CoV-2 infection and should not be used as the sole basis for patient management decisions. Negative ESTEFANIA-CoV-2 results must be combined with clinical observations, patient history and epidemiological information. Negative results for other organisms identified by the test may require additional laboratory testing when evaluating a patient with possible respiratory tract infection. Normal [facility] Comment on above: Performed By: #### 8 2159-5 #### [facility] ([id number]) [address] [facility], [address] [place] [address] Troponin I.cardiac High sens itivity method [Mass/Vol]on 10-19-2024 1 HOUR TROP I, HIGH SENSITIVITY 16 ng/L High <[address] [facility] Comment on above: Result Comment: Elevations of hs-Troponin may be due to causes other than myocardial ischemia. Recommend serial hs-Troponin testing be performed. For the initial evaluation and management of chest pain patients, refer to the algorithms linked below. Emergency Patient: [email or web address] [email or web address] Inpatient: [email or web address] aea Performed By: #### C BRIE MONDRAGON, 98602-9, 41254-0 #### [facility] ([id number]) [address] [place] [address], [place] [address] TROPONIN I, HIGH SENSITIVITY 18 ng/L High <[address] [facility] Comment on above: Result Comment: Elevations of hs-Troponin may be due to causes other than myocardial ischemia. Recommend serial hs-Troponin testing be performed. For the initial evaluation and management of chest pain patients, refer to the algorithms linked below. Emergency Patient: [email or web address] aea Inpatient: [email or web address] aea Performed By: #### C BRIE MONDRAGON, 40086-1, 71325-7 #### [facility] ([id number]) [address] [place] [address] 30578 URINE CULTUREon 10-19-2024 Bacteria identified Cx Nom (U) CULTURE RESULTS >100,000 ORGANISMS/mL ESCHERICHIA COLI [ S = SUSCEPTIBLE R = RESISTANT I = INTERMEDIATE S-DO = Susceptible-dose dependent NS = Non-suscceptible NO = No Interpretation ] Organism: ESCHERICHIA COLI Antibiotic Interpretation DARRIN Status AMPICILLIN S 4 F AMP/SULBACTAM S <=2/1 F CEFAZOLIN S <=4 F CEFTRIAXONE S <=0.25 F CIPROFLOXACIN R >=4 F GENTAMICIN S <=1 F LEVOFLOXACIN R >=8 F NITROFURANTOIN S <=16 F PIPERACIL/TAZOBACTAM S <=4 F TOBRAMYCIN S <=1 F TRIMETH/SULFAMETHOXAZOLE S <=/19 F Susceptible [facility] Comment on above: Performed By: #### C GIANCARLO [facility], 20062-4, 02637-0 #### [facility] ([id number]) [address] [place] [address] 25528 URN MACROSCOPIC NURon 2024 BILIRUBIN LYDIA Negative Normal [facility] Comment on above: Performed By: #### C GIANCARLO [facility], 83484-9, 54416-2 #### [facility] ([id number]) [address] [place] [address] 22730 BLOOD/HGB LYDIA MODERATE Abnormal NEG [facility] Comment on above: Performed By: #### C BRIE MONDRAGON, 75190-2, 32512-5 #### [facility] ([id number]) [address] [place] [address] 33390 GLUCOSE LYDIA 500 mg/dL Abnormal NEG [facility] Comment on above: Performed By: #### C BRIE MONDRAGON, 13238-4, 99379-9 #### [facility] ([id number]) [address] [place] [address] 88788 KETONES LYDIA Negative Normal NEG [facility] Comment on above: Performed By: #### C BCA, BMP, 15147-4, 47534-8 #### [facility] ([id number]) [address] [place] [address] [place] [address] LEUKOCYTE ESTERASE LYDIA Large Abnormal NEG [facility] Comment on above: Performed By: #### C BCA, BMP, 15832-1, 34199-7 #### [facility] ([id number]) [address] [place] [address] [place] [address] NITRITE LYDIA Positive Abnormal NEG [facility] Comment on above: Performed By: #### C BCA, BMP, 78110-9, 73256-2 #### [facility] ([id number]) [address] [place] [address] 87243 PH LYDIA 6.0 Normal 5.0-8.[address] [facility] Comment on above: Performed By: #### C BCA, BMP, 18151-9, 60698-5 #### [facility] ([id number]) [address] [place] [address] 14971 PROTEIN LYDIA >=[address] Ab[address]G [facility] Comment on above: Performed By: #### C BCA, BMP, 63866-5, 03367-7 #### [facility] ([id number]) [address] [place] [address] 89000 SPECIFIC GRAVITY LYDIA 1.025 Normal 1.003-1.[address] [facility] Comment on above: Performed By: #### C BCA, BMP, 52584-4, 86102-7 #### [facility] ([id number]) [address] [place] [address] 97207 UROBILINOGEN LYDIA 0.2 eu/dL Normal <1.1 [facility] Comment on above: Performed By: #### C BCA, BMP, 89153-0, 80859-9 #### [facility] ([id number]) [address] [place] [address] 44913 aPTT Coag (PPP) [Time]on aPTT Coag (Bld) [Time] 27 s Normal 26-[address] [facility] Comment on above: Result Comment: NEW REFERENCE RANGE Performed By: #### BRIE Caballero BCA, 76463-2, 46279-8 #### [facility] ([id number]) [address] [place] [address] 64902 CBC AND AUTO DIFFon 09-22-19 25 ABSOLUTE BASOPHIL 0.0 X10E9/L Normal 0.0-0.2 [facility] Comment on above: Performed By: #### Federico MONDRAGON [facility], 27241-9, 47381-7 #### [facility] ([id number]) [address] [place] [address] 24983 ABSOLUTE NEUTROPHIL 6.9 X10E9/L High 1.5-6.[address] [facility] Comment on above: Performed By: #### Federico MONDRAGON [facility], 61661-6, 43090-3 #### [facility] ([id number]) [address] [place] [address] 42110 Basophils/100 WBC (Bld) 0.2 % Normal [facility] Comment on above: Performed By: #### Federico MONDRAGON [facility], 37180-6, 10985-6 #### [facility] ([id number]) [address] [place] [address] 87596 Eosinophils (Bld) [#/Vol] 0.0 10*3/uL Normal 0.0-0.[address] [facility] Comment on above: Performed By: #### BRIE Caballero BCA, 40377-1, 28910-5 #### [facility] ([id number]) [address] [place] [address] 00706 Eosinophils/100 WBC (Bld) 0.3 % Normal [facility] Comment on above: Performed By: #### C GIANCARLO, [facility], 68267-8, 49025-6 #### [facility] ([id number]) [address] [place] [address] 16778 Erythrocyte distribution width (RBC) [Ratio] 16.3 % High 11.5-15.[address] [facility] Comment on above: Performed By: #### C GIANCARLO, [facility], 47004-5, 04754-1 #### [facility] ([id number]) [address] [place] [address] 14108 Hematocrit (Bld) [Volume fraction] 43.0 % Normal 35-[address] [facility] Comment on above: Performed By: #### C GIANCARLO [facility], , 43054-7 #### [facility] ([id number]) [address] [place] [address] 58129 Hemoglobin (Bld) [Mass/Vol] 14.2 g/dL Normal 11.7-15.[address] [facility] Comment on above: Performed By: #### C GIANCARLO [facility], , 47314-1 #### [facility] ([id number]) [address] [place] [address] 73915 Lymphocytes (Bld) [#/Vol] 0.8 10*3/uL Low 1.0-3.[address] [facility] Comment on above: Performed By: #### C GIANCARLO [facility], 78221-2, 48748-7 #### [facility] ([id number]) [address] [place] [address] 88124 Lymphocytes/100 WBC (Bld) 10.3 % Normal [facility] Comment on above: Performed By: #### C GIANCARLO, BRIE, 74061-7, 72115-6 #### [facility] ([id number]) [address] [place] [address] 49777 MCH (RBC) [Entitic mass] 29.5 pg Normal 27-[address] [facility] Comment on above: Performed By: #### BRIE Caballero BCA, 48395-9, 65139-2 #### [facility] ([id number]) [address] [place] [address] 67641 MCHC (RBC) [Mass/Vol] 33.1 g/dL Normal 32-[address] [facility] Comment on above: Performed By: #### BRIE Caballero BCA, 71147-3, 78886-1 #### [facility] ([id number]) [address] [place] [address] 23642 MCV (RBC) [Entitic vol] 89 fL Normal 80-[address] [facility] Comment on above: Performed By: #### BRIE Caballero BCA, 80488-0, 72639-7 #### [facility] ([id number]) [address] [place] [address] 25457 Monocytes (Bld) [#/Vol] 0.2 10*3/uL Normal 0-0.[address] [facility] Comment on above: Performed By: #### BRIE Caballero BCA, 55692-2, 48508-9 #### [facility] ([id number]) [address] [place] [address] 46167 Monocytes/100 WBC (Bld) 2.7 % Normal [facility] Comment on above: Performed By: #### BRIE Caballero BCA, , 00871-5 #### [facility] ([id number]) [address] [place] [address] 52190 Neutrophils/100 WBC (Bld) 86.5 % Normal [facility] Comment on above: Performed By: #### BRIE Caballero BCA, 45621-2, 55487-3 #### [facility] ([id number]) [address] [place] [address] 25001 Platelet mean volume (Bld) [Entitic vol] 8.4 fL Normal 7-[address] [facility] Comment on above: Performed By: #### C BCA, BMP, 06830-1, 96556-9 #### [facility] ([id number]) [address] [place] [address] 31501 Platelets (Bld) [#/Vol] 231 10*3/uL Normal 150-[address] [facility] Comment on above: Performed By: #### C BCA, BMP, 39527-4, 65533-2 #### [facility] ([id number]) [address] [place] [address] 38974 RBC COUNT 4.83 X10E12/L Normal 3.80-5.[address] [facility] Comment on above: Performed By: #### Federico BCA, BMP, 32357-4, 32958-9 #### [facility] ([id number]) [address] [place] [address] 14859 WBC (Bld) [#/Vol] 8.0 10*3/uL Normal 4.0-11.0 [facility] Comment on above: Performed By: #### C BCA, BMP, 84203-8, 55703-9 #### [facility] ([id number]) [address] [place] [address] 33063 COMPREHENSIVE METABOLIC PANE Fernando 09-22-2024 Albumin [Mass/Vol] 3.5 g/dL Normal 3.2-5.[address] [facility] Comment on above: Performed By: #### C BCA, BMP, 91114-4, 85074-8 #### [facility] ([id number]) [address] [place] [address] 42614 ALP [Catalytic activity/Vol] 55 U/L Normal 39-[address] [facility] Comment on above: Performed By: #### C BCA, BMP, 01867-2, 49757-6 #### [facility] ([id number]) [address] [place] [address] 78820 ALT [Catalytic activity/Vol] 16 U/L Normal 0-[address] [facility] Comment on above: Performed By: #### C BCA, BMP, 16590-6, 40003-1 #### [facility] ([id number]) [address] [place] [address] 74021 Anion gap [Moles/Vol] 9 mmol/L Normal 5-[address] [facility] Comment on above: Performed By: #### C BCA, BMP, 11161-0, 94522-0 #### [facility] ([id number]) [address] [place] [address] 45253 AST [Catalytic activity/Vol] 25 U/L Normal 0-[address] [facility] Comment on above: Performed By: #### C BCA, BMP, 97319-8, 74250-2 #### [facility] ([id number]) [address] [place] [address] 75986 Bilirubin [Mass/Vol] 0.9 mg/dL Normal 0.3-1.[address] [facility] Comment on above: Performed By: #### C BCA, BMP, 89958-2, 80432-5 #### [facility] ([id number]) [address] [place] [address] 34989 Calcium [Mass/Vol] 8.6 mg/dL Normal 8.5-10.[address] [facility] Comment on above: Performed By: #### C BCA, BMP, 79718-6, 06896-9 #### [facility] ([id number]) [address] [place] [address] 17022 Chloride [Moles/Vol] 101 mmol/L Normal 98-[address] [facility] Comment on above: Performed By: #### C BCA, BMP, 71920-0, 37467-9 #### [facility] ([id number]) [address] [place] [address] CO2 [Moles/Vol] 29 mmol/L Normal 22-[address] [facility] Comment on above: Performed By: #### C BRIE MONDRAGON, 79954-2, 25045-0 #### [facility] ([id number]) [address] [place] [address] 73612 Creatinine [Mass/Vol] 1.26 mg/dL High 0.40-1.[address] [facility] Comment on above: Result Comment: METH OD TRACEABLE TO IDMS STANDARD Performed By: #### C BRIE MONDRAGON, 63527-4, 11277-5 #### [facility] ([id number]) [address] [place] [address] 58470 GFR/1.73 sq M.predicted among non-blacks MDRD (S/P/Bld) [Vol rate/Area] 44 mL/min/{1.73_m2} Low >[address] [facility] Comment on above: Result Comment: Reported eGFR is based on the CKD-EPI 2020 equation that does not use a race coefficient. Performed By: #### C BRIE MONDRAGON, 55752-4, 12431-1 #### [facility] ([id number]) [address] [place] [address] 23171 Glucose [Mass/Vol] 121 mg/dL High 65-[address] [facility] Comment on above: Performed By: #### C BRIE MONDRAGON, 27951-0, 05780-3 #### [facility] ([id number]) [address] [place] [address] 70841 Potassium [Moles/Vol] 3.7 mmol/L Normal 3.5-5.[address] [facility] Comment on above: Performed By: #### C GIANCARLO BMP, 79206-8, 25378-6 #### [facility] ([id number]) [address] [place] [address] 36448 Protein [Mass/Vol] 7.5 g/dL Normal 6.0-8.[address] [facility] Comment on above: Performed By: #### C GIANCARLO BMP, 77330-1, 79551-6 #### [facility] ([id number]) [address] [place] [address] 24263 Sodium [Moles/Vol] 139 mmol/L Normal 134-[address] [facility] Comment on above: Performed By: #### C GIANCARLO, BMP, 90268-4, 95404-2 #### [facility] ([id number]) [address] [place] [address] 73494 Urea nitrogen [Mass/Vol] 21 mg/dL Normal 5-[address] [facility] Comment on above: Performed By: #### C GIANCARLO BMP, 93456-5, 07065-6 #### [facility] ([id number]) [address] [place] [address] 22743 LIPASEon 09-22-2024 Lipase [Catalytic activity/Vol] 25 U/L Normal 17-[address] [facility] Comment on above: Performed By: #### C BRIE MONDRAGON, 59862-7, 00039-7 #### [facility] ([id number]) [address] [place] [address] 39417 Natriuretic peptide B [Mass/ Vol]on 09-22-2024 Natriuretic peptide B (Bld) [Mass/Vol] 184 pg/mL High <100.[address] [facility] Comment on above: Performed By: #### C GIANCARLO, BMP, 84033-7, 02286-5 #### [facility] ([id number]) [address] [place] [address] 01976 Troponin I.cardiac High sens itivity method [Mass/Vol]on 09-22-2024 1 HOUR TROP I, HIGH SENSITIVITY 5 ng/L Normal <[address] [facility] Comment on above: Performed By: #### C GIANCARLO, BMP, 46447-5, 92971-3 #### [facility] ([id number]) [address] [facility], [place] [address] TROPONIN I, HIGH SENSITIVITY 5 ng/L Normal <16 [facility] Comment on above: Performed By: #### C BCA, BMP, 56661-6, 26736-6 #### [facility] ([id number]) 715 [facility], [place] [address] CBC With Platelet and Differ entialon 09-11-2024 Basophils (Bld) [#/Vol] 0.0 10*3/uL Normal 0.0-0.2 [facility] Comment on above: Order Comment: [facility]. [phone], FAX: [phone] CALL doctor [facility] tel. [phone], FAX: [phone] Performed By: #### C BCWD #### [facility] [address] [place] [address] Basophils/100 WBC (Bld) 0.7 % Normal [facility] Comment on above: Order Comment: CALL doctor [facility] tel. [phone], FAX: [phone] CALL doctor [facility] tel. [phone], FAX: [phone] Performed By: #### C BCWD #### [facility] [address] [place] [address] Eosinophils (Bld) [#/Vol] 0.2 10*3/uL Normal 0.0-0.7 [facility] Comment on above: Order Comment: [facility] tel. [phone], FAX: [phone] [facility] tel. [phone], FAX: [phone] Performed By: #### C BCWD #### [facility] [address] [place] [address] Eosinophils/100 WBC (Bld) 2.8 % Normal [facility] Comment on above: Order Comment: CALL doctor [facility] tel. [phone], FAX: [phone] CALL doctor [facility] tel. [phone], FAX: [phone] Performed By: #### C BCWD #### [facility] [address] [place] [address] Erythrocyte distribution width (RBC) [Ratio] 15.2 % Critically high 11.5-14.5 [facility] Comment on above: Order Comment: CALL doctor [facility] tel. [phone], FAX: [phone] CALL doctor [facility] tel. [phone], FAX: [phone] Performed By: #### C BCWD #### [facility] [address] [place] [address] Hematocrit (Bld) [Volume fraction] 44.6 % Normal 37.0-47.0 [facility] Comment on above: Order Comment: CALL doctor [facility] tel. [phone], FAX: [phone] CALL doctor [facility] tel. [phone], FAX: [phone] Performed By: #### C BCWD #### [facility] [address] [place] [address] Hemoglobin (Bld) [Mass/Vol] 13.6 g/dL Normal 12.0-16.0 [facility] Comment on above: Order Comment: CALL doctor [facility] tel. [phone], FAX: [phone] CALL doctor [facility] tel. [phone], FAX: [phone] Performed By: #### C BCWD #### [facility] [address] [place] [address] Lymphocytes (Bld) [#/Vol] 1.4 10*3/uL Normal 1.0-4.8 [facility] Comment on above: Order Comment: CALL doctor [facility] tel. [phone], FAX: [phone] CALL doctor [facility] tel. [phone], FAX: [phone] Performed By: #### C BCWD #### [facility] [address] [place] [address] Lymphocytes/100 WBC (Bld) 23.4 % Normal [facility] Comment on above: Order Comment: CALL doctor [facility] tel. [phone], FAX: [phone] CALL doctor [facility] tel. [phone], FAX: [phone] Performed By: #### C BCWD #### [facility] [address] [place] [address] MCH (RBC) [Entitic mass] 28.1 pg Normal 27.0-31.3 [facility] Comment on above: Order Comment: CALL doctor [facility] tel. [phone], FAX: [phone] CALL doctor [facility] tel. [phone], FAX: [phone] Performed By: #### C BCWD #### [facility] [address] [place] [address] MCHC 30.5 % Low 33.0-37.0 [facility] Comment on above: Order Comment: CALL doctor [facility] tel. [phone], FAX: [phone] CALL doctor [facility] tel. [phone], FAX: [phone] Performed By: #### C BCWD #### [facility] [address] [place] [address] MCV (RBC) [Entitic vol] 92.1 fL Normal 79.4-94.8 [facility] Comment on above: Order Comment: CALL doctor [facility] tel. [phone], FAX: [phone] CALL doctor [facility] tel. [phone], FAX: [phone] Performed By: #### C BCWD #### [facility] [address] [place] [address] Monocytes (Bld) [#/Vol] 0.5 10*3/uL Normal 0.2-0.8 [facility] Comment on above: Order Comment: CALL doctor [facility] tel. [phone], FAX: [phone] [facility] tel. [phone], FAX: [phone] Performed By: #### C BCWD #### [facility] [address] [place] [address] Monocytes/100 WBC (Bld) 8.6 % Normal [facility] Comment on above: Order Comment: [facility] tel. [phone], FAX: [phone] [facility] tel. [phone], FAX: [phone] Performed By: #### C BCWD #### [facility] [address] [place] [address] Neutrophils (Bld) [#/Vol] 3.9 10*3/uL Normal 1.4-6.5 [facility] Comment on above: Order Comment: CALL doctor [facility] tel. [phone], FAX: [phone] CALL doctor [facility] tel. [phone], FAX: [phone] Performed By: #### C BCWD #### [facility] [address] [place] [address] Neutrophils/100 WBC (Bld) 64.2 % Normal [facility] Comment on above: Order Comment: [facility] tel. [phone], FAX: [phone] CALL doctor [facility] tel. [phone], FAX: [phone] Performed By: #### C BCWD #### [facility] [address] [place] [address] Platelets (Bld) [#/Vol] 238 10*3/uL Normal 130-400 [facility] Comment on above: Order Comment: CALL doctor [facility] tel. [phone], FAX: [phone] CALL doctor [facility] tel. [phone], FAX: [phone] Performed By: #### C BCWD #### [facility] [address] [place] [address] RBC (Bld) [#/Vol] 4.84 10*6/uL Normal 4.20-5.40 [facility] Comment on above: Order Comment: [facility] tel. [phone], FAX: [phone] [facility] tel. [phone], FAX: [phone] Performed By: #### C BCWD #### [facility] [address] [place] [address] WBC (Bld) [#/Vol] 6.1 10*3/uL Normal 4.8-10.8 [facility] Comment on above: Order Comment: [facility] tel. [phone], FAX: [phone] [facility] tel. [phone], FAX: [phone] Performed By: #### C BCWD #### [facility] [address] [place] [address] Comprehensive Metabolic Pane fernando 09-11-2024 Albumin [Mass/Vol] 3.6 g/dL Normal 3.5-4.6 [facility] Comment on above: Order Comment: [facility] tel. [phone], FAX: [phone] [facility] tel. [phone], FAX: [phone] Performed By: #### C MP #### [facility] [address] [place] [address] ALP [Catalytic activity/Vol] 58 U/L Normal 40-130 [facility] Comment on above: Order Comment: [facility] tel. [phone], FAX: [phone] CALL doctor [facility] tel. [phone], FAX: [phone] Performed By: #### C MP #### [facility] [address] [place] [address] ALT [Catalytic activity/Vol] 9 U/L Normal 0-33 [facility] Comment on above: Order Comment: CALL doctor LC[facility] tel. [phone], FAX: [phone] [facility] tel. [phone], FAX: [phone] Performed By: #### C MP #### [facility] [address] [place] [address] Anion gap [Moles/Vol] 12 mmol/L Normal 9-15 [facility] Comment on above: Order Comment: [facility] tel. [phone], FAX: [phone] CALL doctor [facility] tel. [phone], FAX: [phone] Performed By: #### C MP #### [facility] [address] [place] [address] AST [Catalytic activity/Vol] 19 U/L Normal 0-35 [facility] Comment on above: Order Comment: CALL doctor [facility] tel. [phone], FAX: [phone] CALL doctor [facility] tel. [phone], FAX: [phone] Performed By: #### C MP #### [facility] [address] [place] [address] Bilirubin [Mass/Vol] 0.4 mg/dL Normal 0.2-0.7 [facility] Comment on above: Order Comment: [facility] tel. [phone], FAX: [phone] CALL doctor [facility] tel. [phone], FAX: [phone] Performed By: #### C MP #### [facility] [address] [place] [address] Calcium [Mass/Vol] 8.7 mg/dL Normal 8.5-9.9 [facility] Comment on above: Order Comment: CALL doctor [facility] tel. [phone], FAX: [phone] CALL doctor [facility] tel. [phone], FAX: [phone] Performed By: #### C MP #### [facility] [address] [place] [address] Chloride [Moles/Vol] 99 mmol/L Normal 95-107 [facility] Comment on above: Order Comment: CALL doctor [facility] tel. [phone], FAX: [phone] CALL doctor [facility] tel. [phone], FAX: [phone] Performed By: #### C MP #### [facility] [address] [place] [address] CO2 [Moles/Vol] 31 mmol/L Normal 20-31 [facility] Comment on above: Order Comment: [facility] tel. [phone], FAX: [phone] [facility] tel. [phone], FAX: [phone] Performed By: #### C MP #### [facility] [address] [place] [address] Creatinine [Mass/Vol] 1.44 mg/dL Critically high 0.50-0.90 [facility] Comment on above: Order Comment: CALL doctor [facility] tel. [phone], FAX: [phone] [facility] tel. [phone], FAX: [phone] Performed By: #### C MP #### [facility] [address] [place] [address] GFR 37.0 Low >60 [facility] Comment on above: Order Comment: [facility] tel. [phone], FAX: [phone] [facility] tel. [phone], FAX: [phone] Result Comment: Pedi atric calculator link https://www.kidney.org/professionals/kdoqi/gfr_calculatorped Effective May 28, 2022 These results are not intended for use in patients <18 years of age. eGFR results are calculated without a race factor using the 2020 CKD-EPI equation. Careful clinical correlation is recommended, particularly when comparing to results calculated using previous equations. The CKD-EPI equation is less accurate in patients with extremes of muscle mass, extra-renal metabolism of creatinine, excessive creatinine ingestion, or following therapy that affects renal tubular secretion. Performed By: #### C MP #### [facility] [address] [place] [address] Globulin (S) [Mass/Vol] 3.1 g/dL Normal 2.3-3.5 [facility] Comment on above: Order Comment: [facility] tel. [phone], FAX: [phone] [facility] tel. [phone], FAX: [phone] Performed By: #### C MP #### [facility] [address] [place] [address] Glucose [Mass/Vol] 127 mg/dL Critically high 70-99 [facility] Comment on above: Order Comment: [facility] tel. [phone], FAX: [phone] CALL doctor [facility] tel. [phone], FAX: [phone] Performed By: #### C MP #### [facility] [address] [place] [address] Potassium [Moles/Vol] 3.7 mmol/L Normal 3.4-4.9 [facility] Comment on above: Order Comment: [facility] tel. [phone], FAX: [phone] [facility] tel. [phone], FAX: [phone] Performed By: #### C MP #### [facility] [address] [place] [address] Protein [Mass/Vol] 6.7 g/dL Normal 6.3-8.0 [facility] Comment on above: Order Comment: [facility] tel. [phone], FAX: [phone] [facility] doctor [facility] tel. [phone], FAX: [phone] Performed By: #### C MP #### [facility] [address] [place] [address] Sodium [Moles/Vol] 142 mmol/L Normal 135-144 [facility] Comment on above: Order Comment: CALL doctor [facility] tel. [phone], FAX: [phone] CALL doctor [facility] tel. [phone], FAX: [phone] Performed By: #### C MP #### [facility] [address] [place] [place] [address] Urea nitrogen [Mass/Vol] 23 mg/dL Normal 8-23 [facility] Comment on above: Order Comment: CALL doctor [facility] tel. [phone], FAX: [phone] CALL doctor [facility] tel. [phone], FAX: [phone] Performed By: #### C MP #### [facility] [address] [place] [address] CBC AND AUTO DIFFon 08-31-19 25 ABSOLUTE BASOPHIL 0.1 X10E9/L Normal 0.0-0.2 [facility] Comment on above: Performed By: #### C GIANCARLO BMP, 78277-8, 44674-7 #### [facility] ([id number]) [address] [place] [address] ABSOLUTE NEUTROPHIL 3.8 X10E9/L Normal 1.5-6.[address] [facility] Comment on above: Performed By: #### C GIANCARLO BMP, 82403-8, 67482-5 #### [facility] ([id number]) [address] [place] [address] Basophils/100 WBC (Bld) 0.9 % Normal [facility] Comment on above: Performed By: #### C GIANCARLO, BMP, 95278-7, 48446-7 #### [facility] ([id number]) [address] [place] [address] Eosinophils (Bld) [#/Vol] 0.2 10*3/uL Normal 0.0-0.[address] [facility] Comment on above: Performed By: #### C GIANCARLO BMP, 26430-0, 24928-4 #### [facility] ([id number]) [address] [place] [address] Eosinophils/100 WBC (Bld) 3.8 % Normal [facility] Comment on above: Performed By: #### C GIANCARLO, [facility], 58064-0, 25965-9 #### [facility] ([id number]) [address] [place] [address] Erythrocyte distribution width (RBC) [Ratio] 15.3 % High 11.5-15.[address] [facility] Comment on above: Performed By: #### C GIANCARLO, [facility], 15644-9, 03367-9 #### [facility] ([id number]) [address] [place] [address] Hematocrit (Bld) [Volume fraction] 39.5 % Normal 35-[address] [facility] Comment on above: Performed By: #### C GIANCARLO, [facility], 10005-7, 80319-6 #### [facility] ([id number]) [address] [place] [address] Hemoglobin (Bld) [Mass/Vol] 13.1 g/dL Normal 11.7-15.[address] [facility] Comment on above: Performed By: #### C GIANCARLO, [facility], 98021-4, 55533-7 #### [facility] ([id number]) [address] [place] [address]76[address] Lymphocytes (Bld) [#/Vol] 1.8 10*3/uL Normal 1.0-3.[address] [facility] Comment on above: Performed By: #### C GIANCARLO, [facility], 90196-3, 17677-8 #### [facility] ([id number]) [address] [place] [address] Lymphocytes/100 WBC (Bld) 27.9 % Normal [facility] Comment on above: Performed By: #### C GIANCARLO, BMP, 08437-7, 44514-3 #### [facility] ([id number]) [address] [place] [address] MCH (RBC) [Entitic mass] 29.5 pg Normal 27-[address] [facility] Comment on above: Performed By: #### C BCA, BMP, 73444-5, 16211-0 #### [facility] ([id number]) [address] [place] [address]63[address] MCHC (RBC) [Mass/Vol] 33.0 g/dL Normal 32-[address] [facility] Comment on above: Performed By: #### C BCA, BMP, 05749-4, 74200-9 #### [facility] ([id number]) [address] [place] [address] MCV (RBC) [Entitic vol] 89 fL Normal 80-[address] [facility] Comment on above: Performed By: #### C BCA, BMP, 44949-8, 29861-4 #### [facility] ([id number]) [address] [place] [address]30[address] Monocytes (Bld) [#/Vol] 0.5 10*3/uL Normal 0-0.[address] [facility] Comment on above: Performed By: #### C BCA, BMP, 35361-7, 70720-9 #### [facility] ([id number]) [address] [place] [address] 34596 Monocytes/100 WBC (Bld) 8.1 % Normal [facility] Comment on above: Performed By: #### C BCA, BMP, 07662-4, 77451-7 #### [facility] ([id number]) [address] [place] [address] Neutrophils/100 WBC (Bld) 59.3 % Normal [facility] Comment on above: Performed By: #### C BCA, BMP, 99965-4, 70455-5 #### [facility] ([id number]) [address] [place] [address] 59681 Platelet mean volume (Bld) [Entitic vol] 8.2 fL Normal 7-[address] [facility] Comment on above: Performed By: #### C BCA, BMP, 27488-3, 23260-3 #### [facility] ([id number]) [address] [place] [address] 68222 Platelets (Bld) [#/Vol] 195 10*3/uL Normal 150-[address] [facility] Comment on above: Performed By: #### Federico MONDRAGON, BMP, 83138-4, 97817-9 #### [facility] ([id number]) [address] [place] [address] 00049 RBC COUNT 4.44 X10E12/L Normal 3.80-5.[address] [facility] Comment on above: Performed By: #### C GIANCARLO, BMP, 80499-8, 36064-6 #### [facility] ([id number]) [address] [place] [address] 86835 WBC (Bld) [#/Vol] 6.4 10*3/uL Normal 4.0-11.0 [facility] Comment on above: Performed By: #### Federico MONDRAGON, BMP, 09701-2, 28549-9 #### [facility] ([id number]) [address] [place] [address] 86956 COMPREHENSIVE METABOLIC PANE Fernando 08-31-2024 Albumin [Mass/Vol] 3.0 g/dL Low 3.2-5.[address] [facility] Comment on above: Performed By: #### C BCA, BMP, 90478-3, 87602-1 #### [facility] ([id number]) [address] [place] [address] 57459 ALP [Catalytic activity/Vol] 41 U/L Normal 39-[address] [facility] Comment on above: Performed By: #### C GIANCARLO, BMP, 58799-9, 38955-5 #### [facility] ([id number]) [address] [place] [address] 79472 ALT [Catalytic activity/Vol] 6 U/L Normal 0-[address] [facility] Comment on above: Performed By: #### C BCA, BMP, 59929-7, 27407-9 #### [facility] ([id number]) [address] [place] [address] 00962 Anion gap [Moles/Vol] 10 mmol/L Normal 5-[address] [facility] Comment on above: Performed By: #### C BCA, BMP, 58329-4, 99470-8 #### [facility] ([id number]) [address] [place] [address] 33136 AST [Catalytic activity/Vol] 25 U/L Normal 0-[address] [facility] Comment on above: Performed By: #### C GIANCARLO, BMP, 90124-1, 34455-9 #### [facility] ([id number]) [address] [place] [address] 70112 Bilirubin [Mass/Vol] 0.7 mg/dL Normal 0.3-1.[address] [facility] Comment on above: Performed By: #### C BCA, BMP, 63836-9, 11864-0 #### [facility] ([id number]) [address] [place] [address] 39929 Calcium [Mass/Vol] 8.4 mg/dL Low 8.5-10.[address] [facility] Comment on above: Performed By: #### C BCA, BMP, 54424-9, 00155-9 #### [facility] ([id number]) [address] [place] [address] 21219 Chloride [Moles/Vol] 103 mmol/L Normal 98-[address] [facility] Comment on above: Performed By: #### C BRIE MONDRAGON, 48338-1, 39368-9 #### [facility] ([id number]) [address] [place] [address] 41691 CO2 [Moles/Vol] 26 mmol/L Normal 22-[address] [facility] Comment on above: Performed By: #### C BRIE MONDRAGON, 40724-6, 92266-7 #### [facility] ([id number]) [address] [place] [address] 29820 Creatinine [Mass/Vol] 1.18 mg/dL High 0.40-1.[address] [facility] Comment on above: Result Comment: METH OD TRACEABLE TO IDMS STANDARD Performed By: #### C BRIE MONDRAGON, 23240-4, 76911-8 #### [facility] ([id number]) [address] [place] [address] 24632 GFR/1.73 sq M.predicted among non-blacks MDRD (S/P/Bld) [Vol rate/Area] 47 mL/min/{1.73_m2} Low >[address] [facility] Comment on above: Result Comment: Reported eGFR is based on the CKD-EPI 2020 equation that does not use a race coefficient. Performed By: #### C BRIE MONDRAGON, 15873-3, 25132-1 #### [facility] ([id number]) [address] [place] [address] 66577 Glucose [Mass/Vol] 90 mg/dL Normal 65-[address] [facility] Comment on above: Performed By: #### C BRIE MONDRAGON, 35817-2, 62292-8 #### [facility] ([id number]) [address] [place] [address] 72816 Potassium [Moles/Vol] 3.8 mmol/L Normal 3.5-5.[address] [facility] Comment on above: Performed By: #### C BRIE MONDRAGON, 16994-2, 61681-9 #### [facility] ([id number]) [address] [place] [address] 38777 Protein [Mass/Vol] 6.4 g/dL Normal 6.0-8.[address] [facility] Comment on above: Performed By: #### C BRIE MONDRAGON, 63623-1, 36676-5 #### [facility] ([id number]) [address] [place] [address] 30521 Sodium [Moles/Vol] 139 mmol/L Normal 134-[address] [facility] Comment on above: Performed By: #### C BRIE OMNDRAGON, , 43575-5 #### [facility] ([id number]) [address] [place] [address] 78435 Urea nitrogen [Mass/Vol] 16 mg/dL Normal 5-[address] [facility] Comment on above: Performed By: #### [facility], 27104-1, 82251-7 #### [facility] ([id number]) [address] [place] [address] 19397 MAGNESIUMon 08-31-2024 Magnesium [Mass/Vol] 2.6 mg/dL Normal 1.8-2.[address] [facility] Comment on above: Performed By: #### BRIE Caballero [facility], 52511-2, 15706-4 #### [facility] ([id number]) [address] [place] [address] 65078 Magnesium [Mass/Vol] 1.9 mg/dL Normal 1.8-2.[address] [facility] Comment on above: Performed By: #### C GIANCARLO, BRIE, , 69244-0 #### [facility] ([id number]) [address] [place] [address] 60169 POTASSIUMon 08-31-2024 Potassium [Moles/Vol] 3.9 mmol/L Normal 3.5-5.[address] [facility] Comment on above: Performed By: #### C BCA, BMP, 56391-3, 68622-1 #### [facility] ([id number]) [address] [place] [address] 08404 CBC AND AUTO DIFFon 08-30-19 25 ABSOLUTE BASOPHIL 0.0 X10E9/L Normal 0.0-0.2 [facility] Comment on above: Performed By: #### B MP, LIVR, 3016-3 #### [facility] ([id number]) [address] [place] [address] 95583 #### 18140-2, 94733-3 #### [facility] ([id number]) [address], [address] [place] [address] ABSOLUTE NEUTROPHIL 3.4 X10E9/L Normal 1.5-6.[address] [facility] Comment on above: Performed By: #### Rosa Isela MP, LIVR, 3016-3 #### [facility] ([id number]) [address] [place] [address] 57365 #### 58613-4, 37635-5 #### [facility] ([id number]) [address], [address] [place] [address] Basophils/100 WBC (Bld) 0.8 % Normal [facility] Comment on above: Performed By: #### Rosa Isela MP, LIVR, 3016-3 #### [facility] ([id number]) [address] [place] [address] 48832 #### 48964-0, 85293-1 #### [facility] ([id number]) [address], [address] [place] [address] Eosinophils (Bld) [#/Vol] 0.3 10*3/uL Normal 0.0-0.[address] [facility] Comment on above: Performed By: #### B MP, LIVR, 3016-3 #### [facility] ([id number]) [address] [place] [address] 55228 #### 17749-9, 40299-6 #### [facility] ([id number]) [address], [address] [place] [address] Eosinophils/100 WBC (Bld) 4.5 % Normal [facility] Comment on above: Performed By: #### B TYREL, LIVR, 6-3 #### [facility] ([id number]) [address] [place] [address] 79876 #### 71539-0, 73437-6 #### [facility] ([id number]) [address], [address] [place] [address] Erythrocyte distribution width (RBC) [Ratio] 15.5 % High 11.5-15.[address] [facility] Comment on above: Performed By: #### Rosa Isela SARAH, LIVR, 6-3 #### [facility] ([id number]) [address] [place] [address] 59877 #### 45933-0, 57709-6 #### [facility] ([id number]) [address] [place] [address] Hematocrit (Bld) [Volume fraction] 39.0 % Normal 35-[address] [facility] Comment on above: Performed By: #### Rosa Isela SARAH, LIVR, 6-3 #### [facility] ([id number]) [address] [place] [address] 19111 #### 19571-3, 78510-7 #### [facility] ([id number]) [address] [place] [address] Hemoglobin (Bld) [Mass/Vol] 12.9 g/dL Normal 11.7-15.[address] [facility] Comment on above: Performed By: #### B MP, LIVR, 3016-3 #### [facility] ([id number]) [address] [place] [address] 81495 #### 60526-4, 49944-8 #### [facility] ([id number]) [address], [address] [place] [address] Lymphocytes (Bld) [#/Vol] 1.5 10*3/uL Normal 1.0-3.[address] [facility] Comment on above: Performed By: #### B TYREL, LIVR, 3016-3 #### [facility] ([id number]) [address] [place] [address] 75163 #### 30500-8, 59942-7 #### [facility] ([id number]) [address], [address] [place] [address] Lymphocytes/100 WBC (Bld) 26.6 % Normal [facility] Comment on above: Performed By: #### Rosa Isela SARAH, LIVR, 3016-3 #### [facility] ([id number]) [address] [place] [address] 27293 #### 01437-8, 75376-1 #### [facility] ([id number]) [address], [address] [place] [address] MCH (RBC) [Entitic mass] 29.5 pg Normal 27-[address] [facility] Comment on above: Performed By: #### Rosa Isela MP, LIVR, 3016-3 #### [facility] ([id number]) [address] [place] [address] 54215 #### 09971-0, 58975-0 #### [facility] ([id number]) [address], [address] [place] [address] MCHC (RBC) [Mass/Vol] 33.0 g/dL Normal 32-[address] [facility] Comment on above: Performed By: #### Rosa Isela SARAH, LIVR, 6-3 #### [facility] ([id number]) [address] [place] [address] 38834 #### 76689-8, 52475-6 #### [facility] ([id number]) [address], [address] [place] [address] MCV (RBC) [Entitic vol] 89 fL Normal 80-[address] [facility] Comment on above: Performed By: #### B TYREL, LIVR, 3015-3 #### [facility] ([id number]) [address] [place] [address] 69834 #### 78660-8, 72757-0 #### [facility] ([id number]) [address], [address] [place] [address] Monocytes (Bld) [#/Vol] 0.4 10*3/uL Normal 0-0.[address] [facility] Comment on above: Performed By: #### Rosa Isela SARAH, LIVR, 6-3 #### [facility] ([id number]) [address] [place] [address] 58706 #### 25932-6, 97471-6 #### [facility] ([id number]) [address], [address] [place] [address] Monocytes/100 WBC (Bld) 7.4 % Normal [facility] Comment on above: Performed By: #### Rosa Isela SARAH, LIVR, 6-3 #### [facility] ([id number]) [address] [place] [address] 44839 #### 08256-2, 43910-1 #### [facility] ([id number]) [address], [address] [place] [address] Neutrophils/100 WBC (Bld) 60.7 % Normal [facility] Comment on above: Performed By: #### Rosa Isela SARAH, LIVR, 6-3 #### [facility] ([id number]) [address] [place] [address] 00543 #### 62175-7, 99456-0 #### [facility] ([id number]) [address], [address] [place] [address] Platelet mean volume (Bld) [Entitic vol] 8.4 fL Normal 7-[address] [facility] Comment on above: Performed By: #### B TYREL, LIVR, 6-3 #### [facility] ([id number]) [address] [place] [address] 49100 #### 96234-9, 07390-2 #### [facility] ([id number]) [address], [address] [place] [address] Platelets (Bld) [#/Vol] 201 10*3/uL Normal 150-[address] [facility] Comment on above: Performed By: #### Rosa Isela SARAH, LIVR, 3016-3 #### [facility] ([id number]) [address] [place] [address] 94135 #### 41660-7, 92708-2 #### [facility] ([id number]) [address] [place] [address] RBC COUNT 4.37 X10E12/L Normal 3.80-5.[address] [facility] Comment on above: Performed By: #### Rosa Isela SARAH, LIVR, 3016-3 #### [facility] ([id number]) [address] [place] [address] 09811 #### 05413-7, 66267-5 #### [facility] ([id number]) [address], [address] [place] [address] WBC (Bld) [#/Vol] 5.6 10*3/uL Normal 4.0-11.0 [facility] Comment on above: Performed By: #### B TYREL, LIVR, 3016-3 #### [facility] ([id number]) [address] [place] [address] 47525 #### 79519-4, 53911-6 #### [facility] ([id number]) [address] [facility], [address] [place] [address] COMPREHENSIVE METABOLIC P[facility] 08-30-2024 Albumin [Mass/Vol] 3.1 g/dL Low 3.2-5.[address] [facility] Comment on above: Performed By: #### C BCA, BMP, 50683-8, 18905-0 #### [facility] ([id number]) [address] [place] [address] 06483 ALP [Catalytic activity/Vol] 44 U/L Normal 39-[address] [facility] Comment on above: Performed By: #### C BCA, BMP, 36102-3, 03337-5 #### [facility] ([id number]) [address] [place] [address] 27980 ALT [Catalytic activity/Vol] 6 U/L Normal 0-[address] [facility] Comment on above: Performed By: #### C BCA, BMP, 35607-7, 35871-5 #### [facility] ([id number]) [address] [place] [address] 35245 Anion gap [Moles/Vol] 8 mmol/L Normal 5-[address] [facility] Comment on above: Performed By: #### C BCA, BMP, 12742-0, 97970-0 #### [facility] ([id number]) [address] [place] [address] 66710 AST [Catalytic activity/Vol] 18 U/L Normal 0-[address] [facility] Comment on above: Performed By: #### C BCA, BMP, 98528-2, 10562-3 #### [facility] ([id number]) [address] [place] [address] 26589 Bilirubin [Mass/Vol] 0.6 mg/dL Normal 0.3-1.[address] [facility] Comment on above: Performed By: #### C BCA, BMP, 09731-9, 91243-3 #### [facility] ([id number]) [address] [place] [address] 13461 Calcium [Mass/Vol] 8.5 mg/dL Normal 8.5-10.[address] [facility] Comment on above: Performed By: #### C BCA, BMP, 49697-5, 02280-9 #### [facility] ([id number]) [address] [place] [address] 96060 Chloride [Moles/Vol] 102 mmol/L Normal 98-[address] [facility] Comment on above: Performed By: #### C BCA, BMP, 05334-9, 55028-2 #### [facility] ([id number]) [address] [place] [address] 55716 CO2 [Moles/Vol] 30 mmol/L Normal 22-[address] [facility] Comment on above: Performed By: #### C BCA, BMP, 51943-1, 97145-0 #### [facility] ([id number]) [address] [place] [address] 70820 Creatinine [Mass/Vol] 1.24 mg/dL High 0.40-1.[address] [facility] Comment on above: Result Comment: METH OD TRACEABLE TO IDMS STANDARD Performed By: #### C GIANCARLO, BMP, 90092-9, 92393-6 #### [facility] ([id number]) [address] [place] [address] 40840 GFR/1.73 sq M.predicted among non-blacks MDRD (S/P/Bld) [Vol rate/Area] 45 mL/min/{1.73_m2} Low >[address] [facility] Comment on above: Result Comment: Reported eGFR is based on the CKD-EPI 2020 equation that does not use a race coefficient. Performed By: #### C BRIE [place], 09213-6, 53072-7 #### [facility] ([id number]) [address] [place] [address] 68785 Glucose [Mass/Vol] 95 mg/dL Normal 65-[address] [facility] Comment on above: Performed By: #### C BRIE MONDRAGON, 95112-5, 02871-2 #### [facility] ([id number]) [address] [place] [address] 32260 Potassium [Moles/Vol] 3.5 mmol/L Normal 3.5-5.[address] [facility] Comment on above: Performed By: #### C GIANCARLO BMP, 87146-3, 85310-9 #### [facility] ([id number]) [address] [place] [address] 03198 Protein [Mass/Vol] 6.7 g/dL Normal 6.0-8.[address] [facility] Comment on above: Performed By: #### C GIANCARLO BMP, 29549-5, 14639-7 #### [facility] ([id number]) [address] [place] [address] 88071 Sodium [Moles/Vol] 140 mmol/L Normal 134-[address] [facility] Comment on above: Performed By: #### C GIANCARLO, BMP, 94149-0, 75599-3 #### [facility] ([id number]) [address] [place] [address] 77414 Urea nitrogen [Mass/Vol] 18 mg/dL Normal 5-[address] [facility] Comment on above: Performed By: #### C GIANCARLO, BMP, 66411-1, 16173-2 #### [facility] ([id number]) [address] [place] [address] 59733 MAGNESIUMon 08-30-2024 Magnesium [Mass/Vol] 2.2 mg/dL Normal 1.8-2.[address] [facility] Comment on above: Performed By: #### C BCA, BMP, 96965-6, 77726-3 #### [facility] ([id number]) [address] [place] [address] 45672 CBC AND AUTO DIFFon 08-29-19 25 ABSOLUTE BASOPHIL 0.0 X10E9/L Normal 0.0-0.2 [facility] Comment on above: Performed By: #### ROLAND Natarajan MP, 3016-3 #### [facility] ([id number]) [address] [place] [address] 51871 #### 85857-1, 96957-2 #### [facility] ([id number]) [address] [facility], [address] [place] [address] ABSOLUTE NEUTROPHIL 3.7 X10E9/L Normal 1.5-6.[address] [facility] Comment on above: Performed By: #### ROLAND Natarajan MP, 6-3 #### [facility] ([id number]) [address] [place] [address] 85725 #### 72093-5, 48818-0 #### [facility] ([id number]) [address] [facility], [address] [place] [address] Basophils/100 WBC (Bld) 0.7 % Normal [facility] Comment on above: Performed By: #### Rosa Isela SARAH LIVR, 6-3 #### [facility] ([id number]) [address] [place] [address] 53526 #### 70650-1, 59400-2 #### [facility] ([id number]) [address] [facility], [address] [place] [address] Eosinophils (Bld) [#/Vol] 0.2 10*3/uL Normal 0.0-0.[address] [facility] Comment on above: Performed By: #### ROLAND Natarajan MP, 3015-10 #### [facility] ([id number]) [address] [place] [address] 27595 #### 00667-9, 50003-7 #### [facility] ([id number]) [address] [facility], [address] [place] [address] Eosinophils/100 WBC (Bld) 4.0 % Normal [facility] Comment on above: Performed By: #### ROLAND Natarajan MP, 3015-10 #### [facility] ([id number]) [address] [place] [address] 07301 #### 11151-6, 71957-0 #### [facility] ([id number]) [address] [facility], [address] [place] [address] Erythrocyte distribution width (RBC) [Ratio] 15.5 % High 11.5-15.[address] [facility] Comment on above: Performed By: #### ROLAND Natarajan MP, 3 #### [facility] ([id number]) [address] [place] [address] 82278 #### 89506-1, 62073-5 #### [facility] ([id number]) [address] [facility], [address] [place] [address] Hematocrit (Bld) [Volume fraction] 38.3 % Normal 35-[address] [facility] Comment on above: Performed By: #### ROLAND Natarajan MP, 3 #### [facility] ([id number]) [address] [place] [address] 03465 #### 40351-1, 63123-5 #### [facility] ([id number]) [address] [place] [address] Hemoglobin (Bld) [Mass/Vol] 12.8 g/dL Normal 11.7-15.[address] [facility] Comment on above: Performed By: #### ROLAND Natarajan MP, 6-3 #### [facility] ([id number]) [address] [place] [address] 23617 #### 47292-2, 41454-1 #### [facility] ([id number]) [address] [place] [address] Lymphocytes (Bld) [#/Vol] 1.4 10*3/uL Normal 1.0-3.[address] [facility] Comment on above: Performed By: #### ROLAND Natarajan MP, 3015-10 #### [facility] ([id number]) [address] [place] [address] 13955 #### 27658-7, 50794-3 #### [facility] ([id number]) [address] [place] [address] Lymphocytes/100 WBC (Bld) 23.7 % Normal [facility] Comment on above: Performed By: #### ROLAND Natarajan MP, 63 #### [facility] ([id number]) [address] [place] [address] 92557 #### 88361-4, 17306-3 #### [facility] ([id number]) [address] [place] [address] MCH (RBC) [Entitic mass] 29.6 pg Normal 27-[address] [facility] Comment on above: Performed By: #### ROLAND Natarajan MP, 63 #### [facility] ([id number]) [address] [place] [address] 33232 #### 44458-9, 37715-3 #### [facility] ([id number]) [address] [place] [address] MCHC (RBC) [Mass/Vol] 33.4 g/dL Normal 32-[address] [facility] Comment on above: Performed By: #### Rosa Isela SARAH LIVR, 3016-3 #### [facility] ([id number]) [address] [place] [address] 24358 #### 69937-7, 40973-2 #### [facility] ([id number]) [address] [facility], [address] [place] [address] MCV (RBC) [Entitic vol] 89 fL Normal 80-[address] [facility] Comment on above: Performed By: #### Rosa Isela SARAH LIVR, 6-3 #### [facility] ([id number]) [address] [place] [address] 17845 #### 34812-6, 23972-7 #### [facility] ([id number]) [address] [facility], [address] [place] [address] Monocytes (Bld) [#/Vol] 0.4 10*3/uL Normal 0-0.[address] [facility] Comment on above: Performed By: #### Rosa Isela SARAH LIVR, 6-3 #### [facility] ([id number]) [address] [place] [address] 69423 #### 91681-8, 32090-9 #### [facility] ([id number]) [address] [facility], [address] [place] [address] Monocytes/100 WBC (Bld) 7.7 % Normal [facility] Comment on above: Performed By: #### Rosa Isela SARAH, LIVR, 6-3 #### [facility] ([id number]) [address] [place] [address] 73710 #### 74817-2, 76585-1 #### [facility] ([id number]) [address] [place] [address] Neutrophils/100 WBC (Bld) 63.9 % Normal [facility] Comment on above: Performed By: #### Rosa Isela SARAH LIVR, 3016-3 #### [facility] ([id number]) [address] [place] [address] 41480 #### 15408-4, 75340-3 #### [facility] ([id number]) [address] [facility], [address] [place] [address] Platelet mean volume (Bld) [Entitic vol] 9.1 fL Normal 7-[address] [facility] Comment on above: Performed By: #### Rosa Isela SARAH LIVR, 3016-3 #### [facility] ([id number]) [address] [place] [address] 09321 #### 89503-1, 32157-9 #### [facility] ([id number]) [address] [facility], [address] [place] [address] Platelets (Bld) [#/Vol] 174 10*3/uL Normal 150-[address] [facility] Comment on above: Performed By: #### Rosa Isela SARAH LIVR, 3016-3 #### [facility] ([id number]) [address] [place] [address] 86916 #### 92386-3, 61676-5 #### [facility] ([id number]) [address] [facility], [address] [place] [address] RBC COUNT 4.31 X10E12/L Normal 3.80-5.[address] [facility] Comment on above: Performed By: #### Rosa Isela SARAH, LIVR, 3016-3 #### [facility] ([id number]) [address] [place] [address] 41955 #### 74238-4, 26138-6 #### [facility] ([id number]) [address] [place] [address] WBC (Bld) [#/Vol] 5.8 10*3/uL Normal 4.0-11.0 [facility] Comment on above: Performed By: #### Rosa Isela SARAH, LIVR, 6-3 #### [facility] ([id number]) [address] [place] [address] #### 39347-9, 81729-9 #### [facility] ([id number]) [address] [facility], [address] [place] [address] COMPREHENSIVE METABOLIC PANE Fernando 08-29-2024 Albumin [Mass/Vol] 2.9 g/dL Low 3.2-5.[address] [facility] Comment on above: Performed By: #### Rosa Isela SARAH, LIVR, 6-3 #### [facility] ([id number]) [address] [place] [address] #### 71245-3, 21587-4 #### [facility] ([id number]) [address] [facility], [address] [place] [address] ALP [Catalytic activity/Vol] 46 U/L Normal 39-[address] [facility] Comment on above: Performed By: #### Rosa Isela SARAH, LIVR, 6-3 #### [facility] ([id number]) [address] [place] [address] #### 89951-0, 60610-2 #### [facility] ([id number]) [address] [facility], [address] [place] [address] ALT [Catalytic activity/Vol] 5 U/L Normal 0-[address] [facility] Comment on above: Performed By: #### Rosa Isela SARAH, LIVR, 6-3 #### [facility] ([id number]) [address] [place] [address] #### 85672-9, 58551-5 #### [facility] ([id number]) [address] [place] [address], [address] [place] [address] Anion gap [Moles/Vol] 9 mmol/L Normal 5-[address] [facility] Comment on above: Performed By: #### Rosa Isela SARAH LIVR, 3016-3 #### [facility] ([id number]) [address] [place] [address] #### 14001-7, 59006-2 #### [facility] ([id number]) [address] [place] [address], [address] [place] [address] AST [Catalytic activity/Vol] 19 U/L Normal 0-[address] [facility] Comment on above: Performed By: #### Rosa Isela SARAH LIVR, 3016-3 #### [facility] ([id number]) [address] [place] [address] #### 62936-8, 12135-8 #### [facility] ([id number]) [address] [place] [address], [address] [place] [address] Bilirubin [Mass/Vol] 0.3 mg/dL Normal 0.3-1.[address] [facility] Comment on above: Performed By: #### Rosa Isela SARAH, LIVR, 3016-3 #### [facility] ([id number]) [address] [place] [address] #### 74471-5, 12288-8 #### [facility] ([id number]) [address] [place] [address], [address] [place] [address] Calcium [Mass/Vol] 8.2 mg/dL Low 8.5-10.[address] [facility] Comment on above: Performed By: #### Rosa Isela SARAH, LIVR, 3016-3 #### [facility] ([id number]) [address] [place] [address] [place] [address] #### 65319-8, 47292-0 #### [facility] ([id number]) [address] [facility], [address] [place], [place] [address] Chloride [Moles/Vol] 100 mmol/L Normal 98-[address] [facility] Comment on above: Performed By: #### ROLAND Natarajan MP, 3016-3 #### [facility] ([id number]) [address] [place] [address] 94514 #### 38039-6, 19490-3 #### [facility] ([id number]) Critical access hospital0 [facility], [address] [place] [address] CO2 [Moles/Vol] 29 mmol/L Normal 22-[address] [facility] Comment on above: Performed By: #### ROLAND Natarajan MP, 3016-3 #### [facility] ([id number]) [address] [place] [address] 66610 #### 65034-1, 33221-1 #### [facility] ([id number]) [address] [place] [address], [address] [place] [address] Creatinine [Mass/Vol] 1.24 mg/dL High 0.40-1.[address] [facility] Comment on above: Result Comment: METH OD TRACEABLE TO IDMS STANDARD Performed By: #### ROLAND Natarajan MP, 3016-3 #### [facility] ([id number]) [address] [place] [address] 90363 #### 93951-8, 35744-1 #### [facility] ([id number]) [address] [facility], [address] [place] [address] GFR/1.73 sq M.predicted among non-blacks MDRD (S/P/Bld) [Vol rate/Area] 45 mL/min/{1.73_m2} Low >[address] [facility] Comment on above: Result Comment: Reported eGFR is based on the CKD-EPI 2020 equation that does not use a race coefficient. Performed By: #### ROLAND Natarajan MP, 6-3 #### [facility] ([id number]) [address] [place] [address] 97732 #### 95723-0, 35834-9 #### [facility] ([id number]) [address], [address] [place] [address] Glucose [Mass/Vol] 92 mg/dL Normal 65-[address] [facility] Comment on above: Performed By: #### ROLAND Natarajan MP, 6-3 #### [facility] ([id number]) [address] [place] [address] 78232 #### 71641-2, 75819-1 #### [facility] ([id number]) [address], [address] [place] [address] Potassium [Moles/Vol] 3.0 mmol/L Low 3.5-5.[address] [facility] Comment on above: Performed By: #### ROLAND Natarajan MP, 6-3 #### [facility] ([id number]) [address] [place] [address] 34818 #### 50656-9, 54262-7 #### [facility] ([id number]) [address], [address] [place] [address] Protein [Mass/Vol] 6.4 g/dL Normal 6.0-8.[address] [facility] Comment on above: Performed By: #### ROLAND Natarajan MP, 3016-3 #### [facility] ([id number]) [address] [place] [address] 84564 #### 61929-7, 42670-0 #### [facility] ([id number]) [address], [address] [place] [address] Sodium [Moles/Vol] 138 mmol/L Normal 134-[address] [facility] Comment on above: Performed By: #### ROLAND Natarajan MP, 3015-10 #### [facility] ([id number]) [address] [place] [address] 92044 #### 62063-0, 25332-9 #### [facility] ([id number]) [address] [facility], [address] [place] [address] Urea nitrogen [Mass/Vol] 23 mg/dL Normal 5-[address] [facility] Comment on above: Performed By: #### ROLAND Natarajan MP, 3015-10 #### [facility] ([id number]) [address] [place] [address]10 #### 97992-2, 13166-5 #### [facility] ([id number]) [address] [facility], [address] [place] [address] CRP [Mass/Vol]on 08-29-2024 C REACTIVE PROTEIN 11.3 mg/dL High 0.000-0.[address] [facility] Comment on above: Performed By: #### ROLAND Natarajan MP, 3015-10 #### [facility] ([id number]) [address] [place] [address] 30768 #### 92486-0, 86812-6 #### [facility] ([id number]) [address], [address] [place] [address] ESR Photometric method (Bld) [Velocity]on 08-29-2024 ESR, ERYTHROCYTE SEDIMENTATION RATE 53 mm/h High 0-[address] [facility] Comment on above: Performed By: #### ROLAND Natarajan MP, 3 #### [facility] ([id number]) [address] [place] [address] 39394 #### 57589-2, 74379-0 #### [facility] ([id number]) [address], [address] [place] [address] MAGNESIUMon 08-29-2024 Magnesium [Mass/Vol] 2.3 mg/dL Normal 1.8-2.[address] [facility] Comment on above: Performed By: #### Rosa Isela SARAH, LIVR, 3016-3 #### [facility] ([id number]) [address] [place] [address] 05875 #### 71494-5, 83071-0 #### [facility] ([id number]) [address] [facility], [address] [place] [address] POTASSIUMon 08-29-2024 Potassium [Moles/Vol] 3.7 mmol/L Normal 3.5-5.[address] [facility] Comment on above: Performed By: #### Rosa Isela SARAH, LIVR, 6-3 #### [facility] ([id number]) [address] [place] [address] 36311 #### 02675-8, 68068-7 #### [facility] ([id number]) [address] [facility], [address] [place] [address] BLOOD CULTUREon 08-28-2024 Bacteria identified Aer cx Nom (Bld) SPECIMEN NOTES LHAND CULTURE RESULTS NO GROWTH 5 DAYS Normal [facility] Comment on above: Performed By: #### Rosa Isela SARAH, LIVR, 3016-3 #### [facility] ([id number]) [address] [place] [address] 56853 #### 83696-9, 22140-1 #### [facility] ([id number]) [address] [facility], [address] [place] [address] Bacteria identified Aer cx Nom (Bld) SPECIMEN NOTES lac CULTURE RESULTS NO GROWTH 5 DAYS Normal [facility] Comment on above: Performed By: #### Rosa Isela SARAH, LIVR, 3016-3 #### [facility] ([id number]) [address] [place] [address] #### 91244-7, 41064-4 #### [facility] ([id number]) [address], [address] [place] [address] CBC AND AUTO DIFFon 08-28-19 25 ABSOLUTE BASOPHIL 0.1 X10E9/L Normal 0.0-0.2 [facility] Comment on above: Performed By: #### ROLAND Natarajan MP, 3016-3 #### [facility] ([id number]) [address] [place] [address] 35985 #### 79188-6, 94468-5 #### [facility] ([id number]) [address] [facility], [address] [place] [address] ABSOLUTE NEUTROPHIL 7.0 X10E9/L High 1.5-6.[address] [facility] Comment on above: Performed By: #### ROLAND Natarajan MP, 3015-3 #### [facility] ([id number]) [address] [place] [address] 76826 #### 02265-5, 94475-7 #### [facility] ([id number]) [address] [facility], [address] [place] [address] Basophils/100 WBC (Bld) 0.6 % Normal [facility] Comment on above: Performed By: #### Rosa Isela SARAH LIVR, 6-3 #### [facility] ([id number]) [address] [place] [address] 53773 #### 92685-7, 79766-2 #### [facility] ([id number]) [address] [facility], [address] [place] [address] Eosinophils (Bld) [#/Vol] 0.2 10*3/uL Normal 0.0-0.[address] [facility] Comment on above: Performed By: #### Rosa Isela ASRAH, LIVR, 3015-3 #### [facility] ([id number]) [address] [place] [address] 86848 #### 25664-3, 40506-3 #### [facility] ([id number]) [address] [facility], [address] [place] [address] Eosinophils/100 WBC (Bld) 1.9 % Normal [facility] Comment on above: Performed By: #### ROLAND Natarajan MP, 3015-3 #### [facility] ([id number]) [address] [place] [address] 20830 #### 60088-2, 96517-9 #### [facility] ([id number]) [address] [facility], [address] [place] [address] Erythrocyte distribution width (RBC) [Ratio] 15.8 % High 11.5-15.[address] [facility] Comment on above: Performed By: #### ROLAND Natarajan MP, 3 #### [facility] ([id number]) [address] [place] [address] 66154 #### 18437-2, 40556-4 #### [facility] ([id number]) [address] [facility], [address] [place] [address] Hematocrit (Bld) [Volume fraction] 38.5 % Normal 35-[address] [facility] Comment on above: Performed By: #### ROLAND Natarajan MP, 3 #### [facility] ([id number]) [address] [place] [address] 92211 #### 62219-0, 01956-4 #### [facility] ([id number]) [address], [address] [place] [address] Hemoglobin (Bld) [Mass/Vol] 12.5 g/dL Normal 11.7-15.[address] [facility] Comment on above: Performed By: #### ROLAND Natarajan MP, 3015-3 #### [facility] ([id number]) [address] [place] [address] 74604 #### 68233-2, 34170-0 #### [facility] ([id number]) [address], [address] [place] [address] Lymphocytes (Bld) [#/Vol] 1.4 10*3/uL Normal 1.0-3.[address] [facility] Comment on above: Performed By: #### B MP, LIVR, 6-3 #### [facility] ([id number]) [address] [place] [address] 64672 #### 68455-1, 27364-4 #### [facility] ([id number]) [address], [address] [place] [address] Lymphocytes/100 WBC (Bld) 15.7 % Normal [facility] Comment on above: Performed By: #### Rosa Isela MP, LIVR, 3016-3 #### [facility] ([id number]) [address] [place] [address] 05741 #### 91041-9, 04816-0 #### [facility] ([id number]) [address], [address] [place] [address] MCH (RBC) [Entitic mass] 29.1 pg Normal 27-[address] [facility] Comment on above: Performed By: #### Rosa Isela MP, LIVR, 6-3 #### [facility] ([id number]) [address] [place] [address] 84035 #### 34238-2, 72858-6 #### [facility] ([id number]) [address], [address] [place] [address] MCHC (RBC) [Mass/Vol] 32.5 g/dL Normal 32-[address] [facility] Comment on above: Performed By: #### B MP, LIVR, 6-3 #### [facility] ([id number]) [address] [place] [address] 96345 #### 31426-6, 63573-8 #### [facility] ([id number]) [address], [address] [place] [address] MCV (RBC) [Entitic vol] 90 fL Normal 80-[address] [facility] Comment on above: Performed By: #### B MP, LIVR, 6-3 #### [facility] ([id number]) [address] [place] [address] 62000 #### 64859-1, 25940-8 #### [facility] ([id number]) [address], [address] [place] [address] Monocytes (Bld) [#/Vol] 0.4 10*3/uL Normal 0-0.[address] [facility] Comment on above: Performed By: #### Rosa Isela SARAH, LIVR, 6-3 #### [facility] ([id number]) [address] [place] [address] 87580 #### 94934-1, 02950-4 #### [facility] ([id number]) [address], [address] [place] [address] Monocytes/100 WBC (Bld) 4.6 % Normal [facility] Comment on above: Performed By: #### Rosa Isela MP, LIVR, 6-3 #### [facility] ([id number]) [address] [place] [address] 84369 #### 08185-9, 47736-4 #### [facility] ([id number]) [address], [address] [place] [address] Neutrophils/100 WBC (Bld) 77.2 % Normal [facility] Comment on above: Performed By: #### B MP, LIVR, 3016-3 #### [facility] ([id number]) [address] [place] [address] 67142 #### 13112-0, 36254-1 #### [facility] ([id number]) [address], [address] [place] [address] Platelet mean volume (Bld) [Entitic vol] 9.1 fL Normal 7-[address] [facility] Comment on above: Performed By: #### B MP, LIVR, 3016-3 #### [facility] ([id number]) [address] [place] [address] 67533 #### 65380-7, 73902-9 #### [facility] ([id number]) [address], [address] [place] [address] Platelets (Bld) [#/Vol] 158 10*3/uL Normal 150-[address] [facility] Comment on above: Performed By: #### B TYREL, LIVR, 3016-3 #### [facility] ([id number]) [address] [place] [address] 52712 #### 83882-8, 18026-4 #### [facility] ([id number]) [address], [address] [place] [address] RBC COUNT 4.29 X10E12/L Normal 3.80-5.[address] [facility] Comment on above: Performed By: #### B TYREL, LIVR, 3016-3 #### [facility] ([id number]) [address] [place] [address] 42584 #### 64743-0, 91209-4 #### [facility] ([id number]) [address], [address] [place] [address] WBC (Bld) [#/Vol] 9.0 10*3/uL Normal 4.0-11.0 [facility] Comment on above: Performed By: #### Rosa Isela SARAH LIVR, 6-3 #### [facility] ([id number]) [address] [place] [address] 30491 #### 02826-5, 08087-7 #### [facility] ([id number]) [address], [address] [place] [address] COMPREHENSIVE METABOLIC PANE Fernando 08-28-2024 Albumin [Mass/Vol] 2.9 g/dL Low 3.2-5.[address] [facility] Comment on above: Performed By: #### Rosa Isela SARAH LIVR, 6-3 #### [facility] ([id number]) [address] [place] [address] 83370 #### 77171-2, 06331-9 #### [facility] ([id number]) [address], [address] [place] [address] ALP [Catalytic activity/Vol] 45 U/L Normal 39-[address] [facility] Comment on above: Performed By: #### Rosa Isela SARAH, LIVR, 6-3 #### [facility] ([id number]) [address] [place] [address] 25595 #### 68976-7, 81263-8 #### [facility] ([id number]) [address], [address] [place] [address] ALT [Catalytic activity/Vol] 10 U/L Normal 0-[address] [facility] Comment on above: Performed By: #### Rosa Isela SARAH, LIVR, 6-3 #### [facility] ([id number]) [address] [place] [address] 77067 #### 10218-3, 01384-6 #### [facility] ([id number]) [address], [address] [place] [address] Anion gap [Moles/Vol] 9 mmol/L Normal 5-[address] [facility] Comment on above: Performed By: #### Rosa Isela SARAH LIVR, 3016-3 #### [facility] ([id number]) [address] [place] [address] 68203 #### 37169-1, 15384-4 #### [facility] ([id number]) [address], [address] [place] [address] AST [Catalytic activity/Vol] 17 U/L Normal 0-[address] [facility] Comment on above: Performed By: #### Rosa Isela SARAH LIVR, 3016-3 #### [facility] ([id number]) [address] [place] [address] 52111 #### 53792-6, 82007-4 #### [facility] ([id number]) [address], [address] [place] [address] Bilirubin [Mass/Vol] 0.3 mg/dL Normal 0.3-1.[address] [facility] Comment on above: Performed By: #### PERLA Natarajan MPR, 3016-3 #### [facility] ([id number]) [address] [place] [address] 71200 #### 83086-3, 17186-8 #### [facility] ([id number]) [address], [address] [place] [address] Calcium [Mass/Vol] 8.1 mg/dL Low 8.5-10.[address] [facility] Comment on above: Performed By: #### Rosa Isela SARAH LIVR, 3016-3 #### [facility] ([id number]) [address] [place] [address] 79917 #### 51452-9, 69131-9 #### [facility] ([id number]) [address], [address] [place] [address] Chloride [Moles/Vol] 103 mmol/L Normal 98-[address] [facility] Comment on above: Performed By: #### B ROLAND SARAH, 3015-3 #### [facility] ([id number]) [address] [place] [address] 12721 #### 53450-8, 88161-1 #### [facility] ([id number]) [address], [address] [place] [address] CO2 [Moles/Vol] 29 mmol/L Normal 22-[address] [facility] Comment on above: Performed By: #### ROLAND Natarajan MP, 3 #### [facility] ([id number]) [address] [place] [address] 11406 #### 00095-4, 18338-8 #### [facility] ([id number]) [address] [facility], [address] [place] [address] Creatinine [Mass/Vol] 1.44 mg/dL High 0.40-1.[address] [facility] Comment on above: Result Comment: METH OD TRACEABLE TO IDMS STANDARD Performed By: #### B ROLAND SARAH, 3015-10 #### [facility] ([id number]) [address] [place] [address] 04356 #### 14284-4, 12860-4 #### [facility] ([id number]) [address], [address] [place] [address] GFR/1.73 sq M.predicted among non-blacks MDRD (S/P/Bld) [Vol rate/Area] 37 mL/min/{1.73_m2} Low >[address] [facility] Comment on above: Result Comment: Reported eGFR is based on the CKD-EPI 2020 equation that does not use a race coefficient. Performed By: #### ROLAND Natarajan MP, 3015-3 #### [facility] ([id number]) [address] [place] [address] 80135 #### 78337-1, 01527-6 #### [facility] ([id number]) [address] [place] [address], [address] [place] [address] Glucose [Mass/Vol] 99 mg/dL Normal 65-[address] [facility] Comment on above: Performed By: #### Rosa Isela SARAH LIVR, 3016-3 #### [facility] ([id number]) [address] [place] [address] 73661 #### 33985-2, 75655-9 #### [facility] ([id number]) [address] [place] [address], [address] [place] [address] Potassium [Moles/Vol] 3.3 mmol/L Low 3.5-5.[address] [facility] Comment on above: Performed By: #### ROLAND Natarajan MP, 3016-3 #### [facility] ([id number]) [address] [place] [address] 96731 #### 46530-4, 48309-6 #### [facility] ([id number]) [address] [place] [address], [address] [place] [address] Protein [Mass/Vol] 6.3 g/dL Normal 6.0-8.[address] [facility] Comment on above: Performed By: #### ROLAND Natarajan MP, 3016-3 #### [facility] ([id number]) [address] [place] [address] 26253 #### 99545-8, 33294-3 #### [facility] ([id number]) [address] [place] [address], [address] [place] [address] Sodium [Moles/Vol] 141 mmol/L Normal 134-[address] [facility] Comment on above: Performed By: #### Rosa Isela SARAH LIVR, 3016-3 #### [facility] ([id number]) [address] [place] [address] [place] [address] #### 76558-2, 18017-3 #### [facility] ([id number]) [address] [facility], [address] [place] [address] Urea nitrogen [Mass/Vol] 28 mg/dL High 5-[address] [facility] Comment on above: Performed By: #### B ROLAND SARAH, 3016-3 #### [facility] ([id number]) [address] [place] [address] 75502 #### 31435-8, 94937-5 #### [facility] ([id number]) [address] [facility], [address] [place] [address] CRP [Mass/Vol]on 08-28-2024 C REACTIVE PROTEIN 19.1 mg/dL High 0.000-0.[address] [facility] Comment on above: Performed By: #### ROLAND Natarajan MP, 6-3 #### [facility] ([id number]) [address] [place] [address] 37170 #### [id number], [id number] #### [facility] ([id number]) [address] [facility], [address] [place] [address] ESR Photometric method (Bld) [Velocity]on 08-28-2024 ESR, ERYTHROCYTE SEDIMENTATION RATE 67 mm/h High 0-[address] [facility] Comment on above: Performed By: #### Rosa Isela SARAH LIVR, 6-3 #### [facility] ([id number]) [address] [place] [address] #### [id number], 00280-6 #### [facility] ([id number]) [address] [facility], [address] [place] [address] MAGNESIUMon 08-28-2024 Magnesium [Mass/Vol] 2.3 mg/dL Normal 1.8-2.[address] [facility] Comment on above: Performed By: #### B TYREL, LIVR, 6-3 #### [facility] ([id number]) [address] [place] [address] #### 25003-3, 87506-8 #### [facility] ([id number]) [address], [address] [place] [address] CBC AND AUTO DIFFon 08-27-19 25 ABSOLUTE BASOPHIL 0.0 X10E9/L Normal 0.0-0.2 [facility] Comment on above: Performed By: #### B TYREL, LIVR, 63 #### [facility] ([id number]) [address] [place] [address] #### [id number], 35582-4 #### [facility] ([id number]) [address] [facility], [address] [place] [address] ABSOLUTE NEUTROPHIL 15.1 X10E9/L High 1.5-6.[address] [facility] Comment on above: Performed By: #### Rosa Isela SARAH, LIVR, 6-3 #### [facility] ([id number]) [address] [place] [address] #### 79906-7, 08585-9 #### [facility] ([id number]) [address], [address] [place] [address] Basophils/100 WBC (Bld) 0.2 % Normal [facility] Comment on above: Performed By: #### Rosa Isela MP, LIVR, 6-3 #### [facility] ([id number]) [address] [place] [address] #### 46557-4, 53208-0 #### [facility] ([id number]) [address], [address] [place] [address] Eosinophils (Bld) [#/Vol] 0.0 10*3/uL Normal 0.0-0.[address] [facility] Comment on above: Performed By: #### Rosa Isela SARAH, LIVR, 3016-3 #### [facility] ([id number]) [address] [place] [address] #### 19779-8, 44011-5 #### [facility] ([id number]) [address], [address] [place] [address] Eosinophils/100 WBC (Bld) 0.1 % Normal [facility] Comment on above: Performed By: #### B TYREL, LIVR, 6-3 #### [facility] ([id number]) [address] [place] [address] #### 56481-4, 33509-5 #### [facility] ([id number]) [address], [address] [place] [address] Erythrocyte distribution width (RBC) [Ratio] 15.5 % High 11.5-15.[address] [facility] Comment on above: Performed By: #### Roas Isela SARAH, LIVR, 6-3 #### [facility] ([id number]) [address] [place] [address] #### 94586-9, 94833-0 #### [facility] [facility] ([id number]) [address], [address] [place] [address] Hematocrit (Bld) [Volume fraction] 39.4 % Normal 35-[address] [facility] Comment on above: Performed By: #### Rosa Isela SARAH, LIVR, 3016-3 #### [facility] ([id number]) [address] [place] [address] 55216 #### 98430-0, 08501-4 #### [facility] ([id number]) [address], [address] [place] [address] Hemoglobin (Bld) [Mass/Vol] 12.8 g/dL Normal 11.7-15.[address] [facility] Comment on above: Performed By: #### ROLAND Natarajan MP, 6-3 #### [facility] ([id number]) [address] [place] [address] 75992 #### 55941-1, 70882-2 #### [facility] ([id number]) [address], [address] [place] [address] Lymphocytes (Bld) [#/Vol] 1.1 10*3/uL Normal 1.0-3.[address] [facility] Comment on above: Performed By: #### ROLAND Natarajan MP, 63 #### [facility] ([id number]) [address] [place] [address] 30641 #### 85716-5, 84043-4 #### [facility] ([id number]) [address], [address] [place] [address] Lymphocytes/100 WBC (Bld) 6.4 % Normal [facility] Comment on above: Performed By: #### ROLAND Natarajan MP, 63 #### [facility] ([id number]) [address] [place] [address] 90237 #### 69336-9, 77350-9 #### [facility] ([id number]) [address], [address] [place] [address] MCH (RBC) [Entitic mass] 29.0 pg Normal 27-[address] [facility] Comment on above: Performed By: #### ROLAND Natarajan MP, 6-3 #### [facility] ([id number]) [address] [place] [address] 78020 #### 61123-2, 80586-3 #### [facility] ([id number]) [address], [address] [place] [address] MCHC (RBC) [Mass/Vol] 32.4 g/dL Normal 32-[address] [facility] Comment on above: Performed By: #### ROLAND Natarajan MP, 63 #### [facility] ([id number]) [address] [place] [address] 15641 #### 63503-2, 66922-1 #### [facility] ([id number]) [address], [address] [place] [address] MCV (RBC) [Entitic vol] 90 fL Normal 80-[address] [facility] Comment on above: Performed By: #### ROLAND Natarajan MP, 3015-10 #### [facility] ([id number]) [address] [place] [address] 03145 #### 20277-5, 48137-8 #### [facility] ([id number]) [address], [address] [place] [address] Monocytes (Bld) [#/Vol] 0.6 10*3/uL Normal 0-0.[address] [facility] Comment on above: Performed By: #### ROLAND Natarajan MP, 3015-10 #### [facility] ([id number]) [address] [place] [address] 58637 #### 80412-1, 42014-3 #### [facility] ([id number]) [address], [address] [place] [address] Monocytes/100 WBC (Bld) 3.3 % Normal [facility] Comment on above: Performed By: #### ROLAND Natarajan MP, 3 #### [facility] ([id number]) [address] [place] [address] 77818 #### 00789-9, 50655-1 #### [facility] ([id number]) [address], [address] [place] [address] Neutrophils/100 WBC (Bld) 90.0 % Normal [facility] Comment on above: Performed By: #### ROLAND Natarajan MP, 3016-3 #### [facility] ([id number]) [address] [place] [address] 83521 #### 49188-1, 96057-4 #### [facility] ([id number]) [address] [facility], [address] [place] [address] Platelet mean volume (Bld) [Entitic vol] 9.3 fL Normal 7-[address] [facility] Comment on above: Performed By: #### ROLAND Natarajan MP, 63 #### [facility] ([id number]) [address] [place] [address] 53025 #### 77275-2, 44105-6 #### [facility] ([id number]) [address] [facility], [address] [place] [address] Platelets (Bld) [#/Vol] 172 10*3/uL Normal 150-[address] [facility] Comment on above: Performed By: #### ROLAND Natarajan MP, 6-3 #### [facility] ([id number]) [address] [place] [address] 24779 #### 72469-4, 03352-5 #### [facility] ([id number]) [address], [address] [place] [address] RBC COUNT 4.40 X10E12/L Normal 3.80-5.[address] [facility] Comment on above: Performed By: #### ROLAND Natarajan MP, 3016-3 #### [facility] ([id number]) [address] [place] [address] 23838 #### 03097-5, 62065-7 #### [facility] ([id number]) [address] [facility], [address] [place] [address] WBC (Bld) [#/Vol] 16.8 10*3/uL High 4.0-11.0 [facility] Comment on above: Performed By: #### ROLAND Natarajan MP, 6-3 #### [facility] ([id number]) [address] [place] [address] 64657 #### 52217-7, 88725-4 #### [facility] ([id number]) [address] [facility], [address] [place] [address] COMPREHENSIVE METABOLIC PANE Fernando 08-27-2024 Albumin [Mass/Vol] 3.0 g/dL Low 3.2-5.[address] [facility] Comment on above: Performed By: #### ROLAND Natarajan MP, 63 #### [facility] ([id number]) [address] [place] [address] 21657 #### 40529-3, 69129-0 #### [facility] ([id number]) [address] [facility], [address] [place] [address] ALP [Catalytic activity/Vol] 47 U/L Normal 39-[address] [facility] Comment on above: Performed By: #### ROLAND Natarajan MP, 6-3 #### [facility] ([id number]) [address] [place] [address] 89199 #### 10617-2, 78463-7 #### [facility] ([id number]) [address] [facility], [address] [place] [address] ALT [Catalytic activity/Vol] 16 U/L Normal 0-[address] [facility] Comment on above: Performed By: #### Rosa Isela SARAH LIVR, 6-3 #### [facility] ([id number]) [address] [place] [address] 23568 #### 47546-4, 89546-0 #### [facility] ([id number]) [address] [facility], [address] [place] [address] Anion gap [Moles/Vol] 9 mmol/L Normal 5-[address] [facility] Comment on above: Performed By: #### Rosa Isela SARAH LIVRowan, 3016-3 #### [facility] ([id number]) [address] [place] [address] 43600 #### 82077-2, 38526-5 #### [facility] ([id number]) [address] [facility], [address] [place] [address] AST [Catalytic activity/Vol] 22 U/L Normal 0-[address] [facility] Comment on above: Performed By: #### ROLAND Natarajan MP, 3016-3 #### [facility] ([id number]) [address] [place] [address] 26986 #### 21446-3, 81575-5 #### [facility] ([id number]) [address] [facility], [address] [place] [address] Bilirubin [Mass/Vol] 0.4 mg/dL Normal 0.3-1.[address] [facility] Comment on above: Performed By: #### Rosa Isela SARAH LIVRowan, 3016-3 #### [facility] ([id number]) [address] [place] [address] 24521 #### 29608-9, 53492-7 #### [facility] ([id number]) [address] [place] [address], [address] [place] [address] Calcium [Mass/Vol] 8.0 mg/dL Low 8.5-10.[address] [facility] Comment on above: Performed By: #### Rosa Isela SARAH LIVR, 3016-3 #### [facility] ([id number]) [address] [place] [address] 61032 #### 54321-9, 35306-9 #### [facility] ([id number]) [address] [place] [address] Chloride [Moles/Vol] 101 mmol/L Normal 98-[address] [facility] Comment on above: Performed By: #### B ROLAND SARAH, 3016-3 #### [facility] ([id number]) [address] [place] [address] 95901 #### 74693-7, 32861-6 #### [facility] ([id number]) [address], [address] [place] [address] CO2 [Moles/Vol] 29 mmol/L Normal 22-[address] [facility] Comment on above: Performed By: #### B ROLAND SARAH, 3016-3 #### [facility] ([id number]) [address] [place] [address] 89344 #### 43681-1, 64771-1 #### [facility] ([id number]) [address], [address] [place] [address] Creatinine [Mass/Vol] 1.54 mg/dL High 0.40-1.[address] [facility] Comment on above: Result Comment: METH OD TRACEABLE TO IDMS STANDARD Performed By: #### B ROLAND SARAH, 3016-3 #### [facility] ([id number]) [address] [place] [address] 90277 #### 77643-5, 32983-3 #### [facility] ([id number]) [address], [address] [place] [address] GFR/1.73 sq M.predicted among non-blacks MDRD (S/P/Bld) [Vol rate/Area] 34 mL/min/{1.73_m2} Low >[address] [facility] Comment on above: Result Comment: Reported eGFR is based on the CKD-EPI 2020 equation that does not use a race coefficient. Performed By: #### B MP, LIVR, 6-3 #### [facility] ([id number]) [address] [place] [address] 18716 #### 30218-0, 88457-9 #### [facility] ([id number]) [address] [place] [address] Glucose [Mass/Vol] 129 mg/dL High 65-[address] [facility] Comment on above: Performed By: #### Rosa Isela SARAH, LIVR, 6-3 #### [facility] ([id number]) [address] [place] [address] 92519 #### 16866-2, 49312-4 #### [facility] ([id number]) [address] [place] [address] Potassium [Moles/Vol] 3.5 mmol/L Normal 3.5-5.[address] [facility] Comment on above: Performed By: #### Rosa Isela SARAH, LIVR, 6-3 #### [facility] ([id number]) [address] [place] [address] 39464 #### 47664-4, 26450-1 #### [facility] ([id number]) [address] [place] [address] Protein [Mass/Vol] 6.3 g/dL Normal 6.0-8.[address] [facility] Comment on above: Performed By: #### Rosa Isela SARAH, LIVR, 6-3 #### [facility] ([id number]) [address] [place] [address] 64854 #### 14292-9, 18039-9 #### [facility] ([id number]) [address] [place] [address] Sodium [Moles/Vol] 139 mmol/L Normal 134-[address] [facility] Comment on above: Performed By: #### B TYREL, LIVR, 3015-10 #### [facility] ([id number]) [address] [place] [address] 86715 #### 96916-0, 20424-3 #### [facility] ([id number]) [address], [address] [place] [address] Urea nitrogen [Mass/Vol] 30 mg/dL High 5-[address] [facility] Comment on above: Performed By: #### Rosa Isela SARAH LIVR, 3015-10 #### [facility] ([id number]) [address] [place] [address] 48370 #### 31235-3, 29341-7 #### [facility] ([id number]) [address], [address] [place] [address] CRP [Mass/Vol]on 08-27-2024 C REACTIVE PROTEIN 18.0 mg/dL High 0.000-0.[address] [facility] Comment on above: Performed By: #### Rosa Isela SARAH LIVR, 3 #### [facility] ([id number]) [address] [place] [address] 98181 #### 21708-8, 21752-8 #### [facility] ([id number]) [address] [place] [address] Calcium.ionized (Bld) [Moles /Vol]on 08-27-2024 PORTABLE ICA 4.3 mg/dL Low 4.5-5.[address] [facility] Comment on above: Performed By: #### Rosa Isela SARAH, LIVR, 3 #### [facility] ([id number]) [address] [place] [address] 20135 #### 34463-0, 45668-7 #### [facility] ([id number]) [address] [place] [address] ESR Photometric method (Bld) [Velocity]on 08-27-2024 ESR, ERYTHROCYTE SEDIMENTATION RATE 47 mm/h High 0-[address] [facility] Comment on above: Performed By: #### ROLAND Natarajan MP, 6-3 #### [facility] ([id number]) [address] [place] [address] 97857 #### 18579-1, 37192-0 #### [facility] ([id number]) [address] [place] [address], [facility] [address] [place] [address] MAGNESIUMon 08-27-2024 Magnesium [Mass/Vol] 1.8 mg/dL Normal 1.8-2.[address] [facility] Comment on above: Performed By: #### ROLAND Natarajan MP, 6-3 #### [facility] ([id number]) [address] [place] [address] 45895 #### 35483-4, 33809-1 #### [facility] ([id number]) [address] [place] [address], [facility] [address] [place] [address] BLOOD CULTUREon 08-26-2024 Bacteria identified Aer cx Nom (Bld) SPECIMEN NOTES 5ML LH 2ND CULTURE RESULTS STREPTOCOCCUS AGALACTIAE (GROUP B) Streptococcus agalactiae detected by PCR. [ S = SUSCEPTIBLE R = RESISTANT I = INTERMEDIATE S-DO = Susceptible-dose dependent NS = Non-suscceptible NO = No Interpretation ] Organism: STREPTOCOCCUS AGALACTIAE (GROUP B) Antibiotic Interpretation DARRIN Status AMPICILLIN S <=0.25 F LEVOFLOXACIN S 1 F ERYTHROMYCIN R >=8 F CLINDAMYCIN R >=1 F VANCOMYCIN S 0.5 F Susceptible [facility] Comment on above: Performed By: #### ROLAND Natarajan MP, 6-3 #### [facility] ([id number]) [address] [place] [address] 99299 #### 75487-2, 27374-8 #### [facility] ([id number]) [address] [place] [address] [address] [place] [address] Bacteria identified Aer cx Nom (Bld) SPECIMEN NOTES 5ML LH 1ST CULTURE RESULTS NO GROWTH 5 DAYS Normal [facility] Comment on above: Performed By: #### ROLAND Natarajan MP, 6-3 #### [facility] ([id number]) [address] [place] [address] 37657 #### 46884-9, 04805-4 #### [facility] ([id number]) [address], [address] [place] [address] CBC AND AUTO DIFFon 08-26-19 25 ABSOLUTE BASOPHIL 0.0 X10E9/L Normal 0.0-0.2 [facility] Comment on above: Performed By: #### ROLAND Natarajan MP, 3015-10 #### [facility] ([id number]) [address] [place] [address] 20341 #### 65782-5, 87672-6 #### [facility] ([id number]) [address], [address] [place] [address] ABSOLUTE NEUTROPHIL 12.7 X10E9/L High 1.5-6.[address] [facility] Comment on above: Performed By: #### ROLAND Natarajan MP, 3015-10 #### [facility] ([id number]) [address] [place] [address] 18631 #### 05662-8, 55382-1 #### [facility] ([id number]) [address], [address] [place] [address] Basophils/100 WBC (Bld) 0.3 % Normal [facility] Comment on above: Performed By: #### ROLAND Natarajan MP, 3 #### [facility] ([id number]) [address] [place] [address] 36981 #### 88543-3, 69887-4 #### [facility] ([id number]) [address], [address] [place] [address] Eosinophils (Bld) [#/Vol] 0.1 10*3/uL Normal 0.0-0.[address] [facility] Comment on above: Performed By: #### Rosa Isela SARAH LIVR, 3016-3 #### [facility] ([id number]) [address] [place] [address] 91395 #### 50868-5, 52655-4 #### [facility] ([id number]) [address] [facility], [address] [place] [address] Eosinophils/100 WBC (Bld) 0.6 % Normal [facility] Comment on above: Performed By: #### Rosa Isela SARAH LIVR, 3016-3 #### [facility] ([id number]) [address] [place] [address] 71650 #### 06854-0, 68693-3 #### [facility] ([id number]) [address] [facility], [address] [place] [address] Erythrocyte distribution width (RBC) [Ratio] 15.5 % High 11.5-15.[address] [facility] Comment on above: Performed By: #### Rosa Isela SAARH LIVR, 6-3 #### [facility] ([id number]) [address] [place] [address] 91587 #### 01001-2, 41989-2 #### [facility] ([id number]) [address] [facility], [address] [place] [address] Hematocrit (Bld) [Volume fraction] 43.3 % Normal 35-[address] [facility] Comment on above: Performed By: #### Rosa Isela SARAH, LIVR, 6-3 #### [facility] ([id number]) [address] [place] [address] 60049 #### 28803-9, 88331-7 #### [facility] ([id number]) [address], [address] [place] [address] Hemoglobin (Bld) [Mass/Vol] 14.0 g/dL Normal 11.7-15.[address] [facility] Comment on above: Performed By: #### Rosa Isela SARAH, LIVR, 6-3 #### [facility] ([id number]) [address] [place] [address] 78888 #### 55594-7, 74975-3 #### [facility] ([id number]) [address] [place] [address] Lymphocytes (Bld) [#/Vol] 0.7 10*3/uL Low 1.0-3.[address] [facility] Comment on above: Performed By: #### Rosa Isela SARAH, LIVR, 6-3 #### [facility] ([id number]) [address] [place] [address] 96605 #### 93884-4, 34693-2 #### [facility] ([id number]) [address], [address] [place] [address] Lymphocytes/100 WBC (Bld) 4.8 % Normal [facility] Comment on above: Performed By: #### Rosa Isela SARAH, LIVR, 6-3 #### [facility] ([id number]) [address] [place] [address] 21429 #### 79899-5, 69966-1 #### [facility] ([id number]) [address], [address] [place] [address] MCH (RBC) [Entitic mass] 28.8 pg Normal 27-[address] [facility] Comment on above: Performed By: #### Rosa Isela SARAH, LIVR, 6-3 #### [facility] ([id number]) [address] [place] [address] 11135 #### 46062-9, 76979-8 #### [facility] ([id number]) [address] [facility], [address] [place] [address] MCHC (RBC) [Mass/Vol] 32.3 g/dL Normal 32-[address] [facility] Comment on above: Performed By: #### Rosa Isela SARAH, LIVR, 3016-3 #### [facility] ([id number]) [address] [place] [address] 20996 #### 68053-8, 10777-2 #### [facility] ([id number]) [address] [facility], [address] [place] [address] MCV (RBC) [Entitic vol] 89 fL Normal 80-[address] [facility] Comment on above: Performed By: #### Rosa Isela SARAH, LIVR, 6-3 #### [facility] ([id number]) [address] [place] [address] 41821 #### 53483-2, 74574-1 #### [facility] ([id number]) [address] [facility], [address] [place] [address] Monocytes (Bld) [#/Vol] 0.7 10*3/uL Normal 0-0.[address] [facility] Comment on above: Performed By: #### Rosa Isela SARAH, LIVR, 3015-3 #### [facility] ([id number]) [address] [place] [address] 14277 #### 04262-0, 33260-2 #### [facility] ([id number]) Critical access hospital0 [facility], [address] [place] [address] Monocytes/100 WBC (Bld) 4.7 % Normal [facility] Comment on above: Performed By: #### Rosa Isela SARAH, LIVR, 3015-3 #### [facility] ([id number]) [address] [place] [address] 49746 #### 02819-9, 13080-1 #### [facility] ([id number]) [address], [address] [place] [address] Neutrophils/100 WBC (Bld) 89.6 % Normal [facility] Comment on above: Performed By: #### Rosa Isela SARAH, LIVR, 3016-3 #### [facility] ([id number]) [address] [place] [address] #### 77507-9, 76120-8 #### [facility] ([id number]) [address] [facility] [address], [address] [place] [address] Platelet mean volume (Bld) [Entitic vol] 9.2 fL Normal 7-[address] [facility] Comment on above: Performed By: #### Rosa Isela SARAH, LIVR, 3016-3 #### [facility] ([id number]) [address] [place] [address] #### 19922-0, 50570-5 #### [facility] ([id number]) [address] [place] [address], [address] [place] [address] Platelets (Bld) [#/Vol] 177 10*3/uL Normal 150-[address] [facility] Comment on above: Performed By: #### Rosa Isela SARAH, LIVR, 3016-3 #### [facility] ([id number]) [address] [place] [address] #### 30563-6, 00011-3 #### [facility] ([id number]) [address] [place] [address], [address] [place] [address] RBC COUNT 4.85 X10E12/L Normal 3.80-5.[address] [facility] Comment on above: Performed By: #### Rosa Isela SARAH, LIVR, 6-3 #### [facility] ([id number]) [address] [place] [address]95[address] #### 14710-8, 58163-9 #### [facility] ([id number]) [address], [address] [place] [address] WBC (Bld) [#/Vol] 14.2 10*3/uL High 4.0-11.0 [facility] Comment on above: Performed By: #### ROLAND Natarajan MP, 3015-3 #### [facility] ([id number]) [address] [place] [address] #### 84350-7, 95430-1 #### [facility] ([id number]) [address], [address] [place] [address] COMPREHENSIVE METABOLIC PANE Fernando 08-26-2024 Albumin [Mass/Vol] 3.6 g/dL Normal 3.2-5.[address] [facility] Comment on above: Performed By: #### Rosa Isela SARAH LIVRowan, 3015-3 #### [facility] ([id number]) [address] [place] [address] #### 36149-9, 49992-9 #### [facility] ([id number]) [address], [address] [place] [address] ALP [Catalytic activity/Vol] 58 U/L Normal 39-[address] [facility] Comment on above: Performed By: #### Rosa Isela SARAH LIVR, 3 #### [facility] ([id number]) [address] [place] [address] #### 41313-0, 97169-6 #### [facility] ([id number]) [address], [address] [place] [address] ALT [Catalytic activity/Vol] 19 U/L Normal 0-[address] [facility] Comment on above: Performed By: #### Rosa Isela SARAH, LIVR, 3015-3 #### [facility] ([id number]) [address] [place] [address] #### 82010-3, 59375-6 #### [facility] ([id number]) [address] [facility], [address] [place] [address] Anion gap [Moles/Vol] 12 mmol/L Normal 5-[address] [facility] Comment on above: Performed By: #### ROLAND Natarajan MP, 3015-3 #### [facility] ([id number]) [address] [place] [address] 86698 #### 14814-9, 20991-4 #### [facility] ([id number]) [address] [facility], [address] [place] [address] AST [Catalytic activity/Vol] 31 U/L Normal 0-[address] [facility] Comment on above: Performed By: #### ROLAND Natarajan MP, 3 #### [facility] ([id number]) [address] [place] [address] 13853 #### 87531-4, 56458-4 #### [facility] ([id number]) [address] [facility], [address] [place] [address] Bilirubin [Mass/Vol] 0.8 mg/dL Normal 0.3-1.[address] [facility] Comment on above: Performed By: #### ROLAND Natarajan MP, 3 #### [facility] ([id number]) [address] [place] [address] 97977 #### 21776-3, 11429-2 #### [facility] ([id number]) [address] [facility], [address] [place] [address] Calcium [Mass/Vol] 8.7 mg/dL Normal 8.5-10.[address] [facility] Comment on above: Performed By: #### Rosa Isela SARAH LIVR, 3015-3 #### [facility] ([id number]) [address] [place] [address] 15334 #### 62718-8, 36038-5 #### [facility] ([id number]) [address] [facility], [address] [place] [address] Chloride [Moles/Vol] 100 mmol/L Normal 98-[address] [facility] Comment on above: Performed By: #### ROLAND Natarajan MP, 3016-3 #### [facility] ([id number]) [address] [place] [address] 45739 #### 14008-0, 57501-7 #### [facility] ([id number]) [address] [facility], [address] [place] [address] CO2 [Moles/Vol] 27 mmol/L Normal 22-[address] [facility] Comment on above: Performed By: #### ROLAND Natarajan MP, 3016-3 #### [facility] ([id number]) [address] [place] [address] 28573 #### 75322-4, 88796-4 #### [facility] ([id number]) [address] [facility], [address] [place] [address] Creatinine [Mass/Vol] 1.49 mg/dL High 0.40-1.[address] [facility] Comment on above: Result Comment: METH OD TRACEABLE TO IDMS STANDARD Performed By: #### ROLAND Natarajan MP, 6-3 #### [facility] ([id number]) [address] [place] [address] 05587 #### 31779-2, 41136-3 #### [facility] ([id number]) [address] [facility], [address] [place] [address] GFR/1.73 sq M.predicted among non-blacks MDRD (S/P/Bld) [Vol rate/Area] 36 mL/min/{1.73_m2} Low >[address] [facility] Comment on above: Result Comment: Reported eGFR is based on the CKD-EPI 2020 equation that does not use a race coefficient. Performed By: #### ROLAND Natarajan MP, 6-3 #### [facility] ([id number]) [address] [place] [address] 41707 #### 63229-1, 98129-2 #### [facility] ([id number]) [address] [facility], [address] [place] [address] Glucose [Mass/Vol] 149 mg/dL High 65-[address] [facility] Comment on above: Performed By: #### ROLAND Natarajan MP, 63 #### [facility] ([id number]) [address] [place] [address] 75599 #### 64298-8, 35866-0 #### [facility] ([id number]) [address] [facility], [address] [place] [address] Potassium [Moles/Vol] 3.5 mmol/L Normal 3.5-5.[address] [facility] Comment on above: Performed By: #### ROLAND Natarajan MP, 6-3 #### [facility] ([id number]) [address] [place] [address] 94515 #### 73895-1, 14395-7 #### [facility] ([id number]) [address] [facility], [address] [place] [address] Protein [Mass/Vol] 7.5 g/dL Normal 6.0-8.[address] [facility] Comment on above: Performed By: #### ROLAND Natarajan MP, 3016-3 #### [facility] ([id number]) [address] [place] [address] 71774 #### 25768-3, 78861-9 #### [facility] ([id number]) [address] [facility], [address] [place] [address] Sodium [Moles/Vol] 139 mmol/L Normal 134-[address] [facility] Comment on above: Performed By: #### B ROLAND SARAH, 3016-3 #### [facility] ([id number]) [address] [place] [address] #### 07211-0, 98376-0 #### [facility] ([id number]) [address] [facility], [address] [place] [address] Urea nitrogen [Mass/Vol] 29 mg/dL High 5-[address] [facility] Comment on above: Performed By: #### B ROLAND SARAH, 3016-3 #### [facility] ([id number]) [address] [place] [address] 95743 #### 40201-0, 66885-0 #### [facility] ([id number]) [address] [facility], [address] [place] [address] CT ABDOMEN AND PELVIS WO CON Ton 08-26-2024 CT ABDOMEN AND PELVIS WO CONT CT ABDOMEN AND PELVIS WO CONT CLINICAL INFORMATION: Abdominal pain, acute, nonlocalized. TECHNIQUE: CT Abdomen and Pelvis without intravenous contrast. All CT scans at this facility use dose modulation, iterative reconstruction, and/or weight based dosing when appropriate to reduce radiation dose to as low as reasonably achievable. COMPARISON: 07/19/2022. FINDINGS: Assessment in the absence of intravenous contrast is suboptimal, especially with respect to vasculature, metastatic disease, and infectious precesses [if clinically relevant]. Despite this constraint, best attempt is made: Confluent bibasilar opacities. Moderate cardiomegaly. Unremarkable adrenal glands. Pancreatic parenchymal volume loss, no peripancreatic inflammatory change. Normal spleen. Hepatic steatosis, pneumobilia, as on prior. Mild renal parenchymal volume loss, no substantial collecting system dilatation. Grossly unremarkable uterus. Pelvic floor weakness. Diverticulosis sigmoid colon. Irbi-ys-qgwxsxjl colonic stool burden. No dilatation or wall thickening the bowel. Normal appendix. Diastases recti, broad ventral hernia with a Vargas-type involvement of nonobstructed small bowel loops. No aggressive osseous lesions, diffuse idiopathic skeletal hyperostosis. IMPRESSION: * No convincing acute process within the abdomen or pelvis. * Substantial hepatic steatosis. Pneumobilia, presumably sequelae prior hepatobiliary interventions [such as sphincterotomy]. Finalized by Jj White MD on 08/26/2024 8:23 PM Normal [facility] HGB A1C (GLYCO-HGB)on 2024 Glucose [Mass/Vol] 123 mg/dL Normal [facility] Comment on above: Performed By: #### B ROLAND SARAH, 3016-3 #### [facility] ([id number]) [address] [place] [address] 80899 #### 01934-7, 49701-9 #### [facility] ([id number]) [address], [address] [place] [address] HbA1c (Bld) [Mass fraction] 5.9 % High 4.4-5.[address] [facility] Comment on above: Result Comment: NOTE ADA Guidelines Result HgbA1c Normal : less than 5.7 % Prediabetes : 5.7 % to 6.4 % Diabetes : > 6.4 % Use with caution in patients with abnormal hemoglobin variants as the half-life of red blood cells and in vivo glycation rates are affected. Performed By: #### B ROLAND SARAH, 3016-3 #### [facility] ([id number]) [address] [place] [address] 21725 #### 24766-3, 88142-1 #### [facility] ([id number]) [address], [address] [place] [address] Lactate (P west) [Moles/Vol]o n 08-26-2024 LACTATE W/REFLEX 2.0 mmol/L Normal 0.4-2.0 [facility] Comment on above: Result Comment: Result did not trigger repeat Lactate, re-order if needed. Performed By: #### B TYREL LIVR, 6-3 #### [facility] ([id number]) [address] [place] [address] 48692 #### 03193-3, 33959-7 #### [facility] ([id number]) [address], [address] [place] [address] MAGNESIUMon 08-26-2024 Magnesium [Mass/Vol] 1.8 mg/dL Normal 1.8-2.[address] [facility] Comment on above: Performed By: #### B ROLAND SARAH, 6-3 #### [facility] ([id number]) [address] [place] [address] 47173 #### 46752-7, 53202-0 #### [facility] ([id number]) [address], [address] [place] [address] Natriuretic peptide B [Mass/ Vol]on 08-26-2024 Natriuretic peptide B (Bld) [Mass/Vol] 70 pg/mL Normal <100.[address] [facility] Comment on above: Performed By: #### B ROLAND SARAH, 6-3 #### [facility] ([id number]) [address] [place] [address] 04086 #### 48728-9, 47696-4 #### [facility] ([id number]) [address], [address] [place] [address] SARS/FLU A+B/RSV by NAAT/Mol ecularon 08-26-2024 SARS/FLU A+B/RSV by NAAT/Molecular FLU A PCR Negative (qualifier value) FLU B PCR Negative (qualifier value) RSV by PCR Negative (qualifier value) SARS CoV 2 Not detected (qualifier value) NOTE The Xpert Xpress SARS-CoV-2/Flu/RSV Plus test is a rapid, multiplexed real-time RT-PCR test intended for the simultaneous qualitative detection and differentiation of SARS-CoV-2, influenza A, influenza B and respiratory syncytial virus (RSV) viral RNA from individuals suspected of respiratory viral infection consistent with COVID-19 by their healthcare provider. This test has not been validated in asymptomatic patients. The Xpert Xpress SARS-CoV-2 test is intended for use by qualified and trained operators who are performing tests using either [employer] or [employer] systems and is limited to laboratories that meet the CLIA requirements to perform high and moderate complexity tests. The Xpert Xpress SARS-CoV-2/Flu/RSV Plus is only for use under the Food and Drug Administration's Emergency Use Authorization. Results are for the simultaneous detection and differentiation of SARS-CoV-2, influenza A, influenza B and RSV nucleic acids in clinical specimens. SARS-CoV-2, influenza A, influenza B and RSV RNA identified by this test are generally detectable in upper respiratory samples during the acute phase of infection. Positive results are indicative of the presence of the identified virus, but do not rule out bacterial infection or co-infection with other pathogens not detected by this test. Clinical correlation with patient history and other diagnostic information is necessary to determine patient infection status. The agent detected may not be the definite cause of disease. Negative results do not preclude SARS-CoV-2, influenza A, influenza B and RSV infection and should not be used as the sole basis for treatment or other patient management decisions. Negative results must be combined with clinical observations, patient history and epidemiological information. An Invalid result may occur with specimen-associated inhibition unable to be resolved with specimen repeat. Fact Sheet for Healthcare Providers: https://www.fda.gov/media/1521 62/download Fact Sheet for Patients: https://www.fda.gov/media/1521 66/download Normal [facility] Comment on above: Performed By: #### B ROLAND SARAH, 3016-3 #### [facility] ([id number]) [address] [facility], [place] [address] #### 63431-5, 39560-4 #### [facility] ([id number]) [address] [facility], [address] [place] [address] CLINT Ferrer 2024 BILIRUBIN LYDIA Negative Normal NEG [facility] Comment on above: Performed By: #### Rosa Isela SARAH, LIVR, 3015-10 #### [facility] ([id number]) [address] [place] [address] 09924 #### 80893-6, 63495-2 #### [facility] ([id number]) [address] [place] [address] BLOOD/HGB LYDIA Trace Abnormal NEG [facility] Comment on above: Performed By: #### Rosa Isela SARAH, LIVR, 3 #### [facility] ([id number]) [address] [place] [address] 77390 #### 05887-7, 74905-9 #### [facility] ([id number]) [address] [place] [address] GLUCOSE LYDIA >=[address] [facility] Comment on above: Performed By: #### Ros aIsela SARAH, LIVR, 3015-10 #### [facility] ([id number]) [address] [place] [address] 10903 #### 31411-8, 43965-1 #### [facility] ([id number]) [address] [place] [address] KETONES LYDIA Negative Normal NEG [facility] Comment on above: Performed By: #### Rosa Isela SARAH, LIVR, 3 #### [facility] ([id number]) [address] [place] [address] 83889 #### 01870-4, 22835-6 #### [facility] ([id number]) [address] [place] [address] LEUKOCYTE ESTERASE LYDIA Negative Normal NEG [facility] Comment on above: Performed By: #### Rosa Isela MP, LIVR, 3015-3 #### [facility] ([id number]) [address] [place] [address] 49102 #### 75950-8, 38755-3 #### [facility] ([id number]) [address], [address] [place] [address] NITRITE LYDIA Negative Normal NEG [facility] Comment on above: Performed By: #### B TYREL, LIVR, 3 #### [facility] ([id number]) [address] [place] [address] 20984 #### 89928-4, 04816-5 #### [facility] ([id number]) [address] [facility], [address] [place] [address] PH LYDIA 6.0 Normal 5.0-8.[address] [facility] Comment on above: Performed By: #### Rosa Isela SARAH, LIVR, 3 #### [facility] ([id number]) [address] [place] [address] 56068 #### 28858-6, 17320-8 #### [facility] ([id number]) [address] [facility], [address] [place] [address] PROTEIN LYDIA Negative Normal NEG [facility] Comment on above: Performed By: #### Rosa Isela SARAH, LIVR, 3015-10 #### [facility] ([id number]) [address] [place] [address] 37908 #### 94568-3, 77262-4 #### [facility] ([id number]) [address], [address] [place] [address] SPECIFIC GRAVITY LYDIA 1.015 Normal 1.003-1.[address] [facility] Comment on above: Performed By: #### Rosa Isela MP, LIVR, 3015-3 #### [facility] ([id number]) [address] [place] [address] 54822 #### 10911-5, 34625-1 #### [facility] ([id number]) [address] [facility], [address] [place] [address] UROBILINOGEN LYDIA 0.2 eu/dL Normal <1.1 [facility] Comment on above: Performed By: #### ROLAND Natarajan MP, 3016-3 #### [facility] ([id number]) [address] [place] [address] 03382 #### 94479-1, 69010-6 #### [facility] ([id number]) [address] [facility], [address] [place] [address] XR CHEST 1 VWon 08-26-2024 XR CHEST 1 VW XR CHEST 1 VW Single view chest History: Difficulty breathing, shortness of breath Comparison: 03/14/2024 Impression: No acute pulmonary process. No pneumothorax or pleural effusion. Mild cardiomegaly. Finalized by Jj White MD on 08/26/2024 6:54 PM Normal [facility] CBC AND AUTO DIFFon 03-19-20 24 ABSOLUTE BASOPHIL 0.1 X10E9/L Normal 0.0-0.2 [facility] Comment on above: Performed By: #### ROLAND Natarajan MP, 3016-3 #### [facility] ([id number]) [address] [place] [address] 83587 #### 37065-9, 22935-6 #### [facility] ([id number]) [address] [facility], [address] [place] [address] Basophils/100 WBC (Bld) 1.0 % Normal [facility] Comment on above: Performed By: #### ROLAND Natarajan MP, 3016-3 #### [facility] ([id number]) [address] [place] [address] 19294 #### 32099-5, 82191-8 #### [facility] ([id number]) [address] [facility], [address] [place] [address] Eosinophils (Bld) [#/Vol] 0.4 10*3/uL Normal 0.0-0.[address] [facility] Comment on above: Performed By: #### ROLAND Natarajan MP, 3015-10 #### [facility] ([id number]) [address] [place] [address] 19440 #### 89053-9, 18511-7 #### [facility] ([id number]) [address] [facility], [address] [place] [address] Eosinophils/100 WBC (Bld) 4.0 % Normal [facility] Comment on above: Performed By: #### ROLAND Natarajan MP, 3015-10 #### [facility] ([id number]) [address] [place] [address] 51446 #### 17045-8, 34426-3 #### [facility] ([id number]) [address] [facility], [address] [place] [address] Erythrocyte distribution width (RBC) [Ratio] 14.5 % Normal 11.5-15.[address] [facility] Comment on above: Performed By: #### ROLAND Natarajan MP, 3 #### [facility] ([id number]) [address] [place] [address] 90506 #### 11463-2, 50937-8 #### [facility] ([id number]) [address] [facility], [address] [place] [address] Hematocrit (Bld) [Volume fraction] 36.6 % Normal 35-[address] [facility] Comment on above: Performed By: #### ROLAND Natarajan MP, 3 #### [facility] ([id number]) [address] [place] [address] 27982 #### 83223-5, 95528-8 #### [facility] ([id number]) [address] [place] [address] Hemoglobin (Bld) [Mass/Vol] 12.1 g/dL Normal 11.7-15.[address] [facility] Comment on above: Performed By: #### ROLAND Natarajan MP, 6-3 #### [facility] ([id number]) [address] [place] [address] 60740 #### 87663-1, 54839-3 #### [facility] ([id number]) [address] [place] [address] Lymphocytes (Bld) [#/Vol] 1.4 10*3/uL Normal 1.0-3.[address] [facility] Comment on above: Performed By: #### ROLAND Natarajan MP, 3015-10 #### [facility] ([id number]) [address] [place] [address] 65548 #### 82429-8, 63075-3 #### [facility] ([id number]) [address] [place] [address] Lymphocytes/100 WBC (Bld) 14.0 % Normal [facility] Comment on above: Performed By: #### ROLAND Natarajan MP, 63 #### [facility] ([id number]) [address] [place] [address] 69135 #### 91721-9, 55775-8 #### [facility] ([id number]) [address] [place] [address] MCH (RBC) [Entitic mass] 30.3 pg Normal 27-[address] [facility] Comment on above: Performed By: #### ROLAND Natarajan MP, 63 #### [facility] ([id number]) [address] [place] [address] 82318 #### 72715-2, 99774-4 #### [facility] ([id number]) [address], [address] [place] [address] MCHC (RBC) [Mass/Vol] 33.1 g/dL Normal 32-[address] [facility] Comment on above: Performed By: #### Rosa Isela SARAH LIVR, 3016-3 #### [facility] ([id number]) [address] [place] [address] 38774 #### 52795-5, 28639-2 #### [facility] ([id number]) [address] [facility], [address] [place] [address] MCV (RBC) [Entitic vol] 92 fL Normal 80-[address] [facility] Comment on above: Performed By: #### Rosa Isela SARAH LIVRowan, 3016-3 #### [facility] ([id number]) [address] [place] [address]87 #### 54389-3, 94261-6 #### [facility] ([id number]) [address] [facility], [address] [place] [address] Monocytes (Bld) [#/Vol] 1.0 10*3/uL High 0-0.[address] [facility] Comment on above: Performed By: #### Rosa Isela SARAH LIVR, 6-3 #### [facility] ([id number]) [address] [place] [address] 98066 #### 63935-5, 64405-8 #### [facility] ([id number]) [address] [facility], [address] [place] [address] Monocytes/100 WBC (Bld) 10.0 % Normal [facility] Comment on above: Performed By: #### Rosa Isela SARAH, LIVR, 6-3 #### [facility] ([id number]) [address] [place] [address]9986 #### 34426-5, 02003-0 #### [facility] ([id number]) [address] [place] [address] Neutrophils (Bld) [#/Vol] 7.0 10*3/uL High 1.5-6.[address] [facility] Comment on above: Performed By: #### Rosa Isela SARAH, LIVR, 3016-3 #### [facility] ([id number]) [address] [place] [address] #### 64596-6, 49280-4 #### [facility] ([id number]) [address] [place] [address] Platelet mean volume (Bld) [Entitic vol] 8.4 fL Normal 7-[address] [facility] Comment on above: Performed By: #### Rosa Isela SARAH, LIVR, 3016-3 #### [facility] ([id number]) [address] [place] [address]99 #### 39771-2, 12252-4 #### [facility] ([id number]) [address], [address] [place] [address] Platelets (Bld) [#/Vol] 400 10*3/uL Normal 150-[address] [facility] Comment on above: Performed By: #### Rosa Isela SARAH, LIVR, 3016-3 #### [facility] ([id number]) [address] [place] [address] #### 60465-7, 89172-5 #### [facility] ([id number]) [address], [address] [place] [address] RBC COUNT 3.99 X10E12/L Normal 3.80-5.[address] [facility] Comment on above: Performed By: #### Rosa Isela SARAH, LIVR, 3016-3 #### [facility] ([id number]) [address] [place] [address] #### 50505-4, 46717-9 #### [facility] ([id number]) [address], [address] [place] [address] SEG NEUTROPHIL 71.0 % Normal [facility] Comment on above: Performed By: #### Rosa Isela SARAH, LIVR, 3016-3 #### [facility] ([id number]) [address] [place] [address] #### [id number], 88271-9 #### [facility] ([id number]) [address], [address] [place] [address] STOMATOCYTE 2+ Abnormal NONE [facility] Comment on above: Performed By: #### Rosa Isela SARAH, LIVR, 3016-3 #### [facility] ([id number]) [address] [place] [address] 55047 #### 60939-2, 02750-2 #### [facility] ([id number]) [address], [address] [place] [address] WBC (Bld) [#/Vol] 10.3 10*3/uL Normal 4.0-11.0 [facility] Comment on above: Performed By: #### Rosa Isela SARAH, LIVR, 3016-3 #### [facility] ([id number]) [address] [place] [address] 40580 #### 94703-5, 89832-0 #### [facility] ([id number]) [address], [address] [place] [address] COMPREHENSIVE METABOLIC PANE Fernando 03-19-2024 Albumin [Mass/Vol] 3.2 g/dL Normal 3.2-5.[address] [facility] Comment on above: Performed By: #### Rosa Isela SARAH, LIVR, 6-3 #### [facility] ([id number]) [address] [place] [address] 82959 #### 55895-8, 45015-2 #### [facility] ([id number]) [address] [facility], [address] [place] [address] ALP [Catalytic activity/Vol] 67 U/L Normal 39-[address] [facility] Comment on above: Performed By: #### Rosa Isela SARAH, LIVR, 6-3 #### [facility] ([id number]) [address] [place] [address] 78393 #### 58007-8, 73979-1 #### [facility] ([id number]) [address] [facility], [address] [place] [address] ALT [Catalytic activity/Vol] 23 U/L Normal 0-[address] [facility] Comment on above: Performed By: #### Rosa Isela SARAH, LIVR, 6-3 #### [facility] ([id number]) [address] [place] [address] 98351 #### 91837-2, 02893-2 #### [facility] ([id number]) [address] [facility], [address] [place] [address] Anion gap [Moles/Vol] 13 mmol/L Normal 5-[address] [facility] Comment on above: Performed By: #### Rosa Isela SARAH, LIVR, 6-3 #### [facility] ([id number]) [address] [place] [address] 08723 #### 12097-0, 54821-7 #### [facility] ([id number]) [address] [facility], [address] [place] [address] AST [Catalytic activity/Vol] 32 U/L Normal 0-[address] [facility] Comment on above: Performed By: #### Rosa Isela MP, LIVR, 6-3 #### [facility] ([id number]) [address] [place] [address] 08364 #### 58647-7, 54778-8 #### [facility] ([id number]) [address], [address] [place] [address] Bilirubin [Mass/Vol] 0.6 mg/dL Normal 0.3-1.[address] [facility] Comment on above: Performed By: #### Rosa Isela SARAH, LIVR, 6-3 #### [facility] ([id number]) [address] [place] [address] 62455 #### 99305-8, 36198-2 #### [facility] ([id number]) [address] [facility], [address] [place] [address] Calcium [Mass/Vol] 8.7 mg/dL Normal 8.5-10.[address] [facility] Comment on above: Performed By: #### Rosa Isela SARAH, LIVR, 6-3 #### [facility] ([id number]) [address] [place] [address] 09161 #### 87011-1, 14933-3 #### [facility] ([id number]) [address] [facility], [address] [place] [address] Chloride [Moles/Vol] 99 mmol/L Normal 98-[address] [facility] Comment on above: Performed By: #### Rosa Isela SARAH, LIVR, 6-3 #### [facility] ([id number]) [address] [place] [address] 39996 #### 52043-9, 51103-5 #### [facility] ([id number]) [address], [address] [place] [address] CO2 [Moles/Vol] 30 mmol/L Normal 22-[address] [facility] Comment on above: Performed By: #### Rosa Isela SARAH, LIVR, 3015-3 #### [facility] ([id number]) [address] [place] [address] 50614 #### 66193-8, 65769-6 #### [facility] ([id number]) [address], [address] [place] [address] Creatinine [Mass/Vol] 1.73 mg/dL High 0.40-1.[address] [facility] Comment on above: Result Comment: METH OD TRACEABLE TO IDMS STANDARD Performed By: #### B ROLAND SARAH, 3016-3 #### [facility] ([id number]) [address] [place] [address] 76577 #### 27269-0, 32041-0 #### [facility] ([id number]) [address], [facility] [address] [place] [address] GFR/1.73 sq M.predicted among non-blacks MDRD (S/P/Bld) [Vol rate/Area] 30 mL/min/{1.73_m2} Low >[address] [facility] Comment on above: Result Comment: Reported eGFR is based on the CKD-EPI 1 equation that does not use a race coefficient. Performed By: #### ROLAND Natarajan MP, 6-3 #### [facility] ([id number]) [address] [place] [address] 50869 #### 73405-6, 02638-8 #### [facility] ([id number]) [address], [address] [place] [address] Glucose [Mass/Vol] 110 mg/dL High 65-[address] [facility] Comment on above: Performed By: #### ROLAND Natarajan MP, 3016-3 #### [facility] ([id number]) [address] [place] [address] 80329 #### 25126-6, 46694-8 #### [facility] ([id number]) [address], [address] [place] [address] Potassium [Moles/Vol] 3.4 mmol/L Low 3.5-5.[address] [facility] Comment on above: Performed By: #### Rosa Isela SARAH LIVR, 3016-3 #### [facility] ([id number]) [address] [place] [address] 97298 #### 36953-8, 18321-1 #### [facility] ([id number]) [address], [address] [place] [address] Protein [Mass/Vol] 7.9 g/dL Normal 6.0-8.[address] [facility] Comment on above: Performed By: #### Rosa Isela SARAH, LIVR, 3016-3 #### [facility] ([id number]) [address] [place] [address] 16783 #### 38131-3, 53188-1 #### [facility] ([id number]) [address], [address] [place] [address] Sodium [Moles/Vol] 142 mmol/L Normal 134-[address] [facility] Comment on above: Performed By: #### Rosa Isela SARAH, LIVR, 3016-3 #### [facility] ([id number]) [address] [place] [address] 33220 #### 00809-3, 08546-4 #### [facility] ([id number]) [address], [address] [place] [address] Urea nitrogen [Mass/Vol] 44 mg/dL High 5-[address] [facility] Comment on above: Performed By: #### Rosa Isela SARAH, LIVR, 3016-3 #### [facility] ([id number]) [address] [place] [address] 33927 #### 19657-8, 87331-7 #### [facility] ([id number]) [address], [address] [place] [address] Vancomycin trough [Mass/Vol] on 03-19-2024 VANCOMYCIN TROUGH 14.9 ug/mL Normal 5.0-20.0 [facility] Comment on above: Performed By: #### ROLAND Natarajan MP, 3 #### [facility] ([id number]) [address] [place] [address] 89476 #### 24839-6, 44640-1 #### [facility] ([id number]) [address], [address] [place] [address] CBC AND AUTO DIFFon 03-17-20 Eosinophils (Bld) [#/Vol] 0.2 10*3/uL Normal 0.0-0.[address] [facility] Comment on above: Performed By: #### ROLAND Natarajan MP, 3015-10 #### [facility] ([id number]) [address] [place] [address] 20385 #### 67369-1, 40853-6 #### [facility] ([id number]) [address], [address] [place] [address] Eosinophils/100 WBC (Bld) 2.0 % Normal [facility] Comment on above: Performed By: #### ROLAND Natarajan MP, 3015-10 #### [facility] ([id number]) [address] [place] [address] 04619 #### 72956-2, 68294-4 #### [facility] ([id number]) [address], [address] [place] [address] Erythrocyte distribution width (RBC) [Ratio] 14.4 % Normal 11.5-15.[address] [facility] Comment on above: Performed By: #### ROLAND Natarajan MP, 3 #### [facility] ([id number]) [address] [place] [address] 94584 #### 07811-1, 39926-1 #### [facility] ([id number]) [address], [address] [place] [address] Hematocrit (Bld) [Volume fraction] 32.5 % Low 35-[address] [facility] Comment on above: Performed By: #### Rosa Isela SARAH LIVR, 3 #### [facility] ([id number]) [address] [place] [address] 40644 #### 94777-9, 23331-0 #### [facility] ([id number]) [address], [address] [place] [address] Hemoglobin (Bld) [Mass/Vol] 10.5 g/dL Low 11.7-15.[address] [facility] Comment on above: Performed By: #### Rosa Isela SARAH LIVRowan, 3015-10 #### [facility] ([id number]) [address] [place] [address] 92798 #### 67438-9, 35089-4 #### [facility] ([id number]) [address], [address] [place] [address] Lymphocytes (Bld) [#/Vol] 1.8 10*3/uL Normal 1.0-3.[address] [facility] Comment on above: Performed By: #### Rosa Isela SARAH LIVR, 3015-10 #### [facility] ([id number]) [address] [place] [address] 55702 #### 65056-7, 36974-8 #### [facility] ([id number]) [address], [address] [place] [address] Lymphocytes/100 WBC (Bld) 18.6 % Normal [facility] Comment on above: Performed By: #### Rosa Isela SARAH, LIVR, 3 #### [facility] ([id number]) [address] [place] [address] 95911 #### 36335-1, 82424-1 #### [facility] ([id number]) [address], [address] [place] [address] MCH (RBC) [Entitic mass] 29.6 pg Normal 27-[address] [facility] Comment on above: Performed By: #### PERLA Natarajan MPR, 6-3 #### [facility] ([id number]) [address] [place] [address] 41263 #### 44652-7, 27707-0 #### [facility] ([id number]) [address] [facility], [address] [place] [address] MCHC (RBC) [Mass/Vol] 32.2 g/dL Normal 32-[address] [facility] Comment on above: Performed By: #### ROLAND Natarajan MP, 6-3 #### [facility] ([id number]) [address] [place] [address] 96703 #### 19538-9, 37727-5 #### [facility] ([id number]) [address] [facility], [address] [place] [address] MCV (RBC) [Entitic vol] 92 fL Normal 80-[address] [facility] Comment on above: Performed By: #### ROLAND Natarajan MP, 6-3 #### [facility] ([id number]) [address] [place] [address] 39564 #### 92722-4, 82451-0 #### [facility] ([id number]) [address] [facility], [address] [place] [address] Metamyelocytes/10 0 WBC (Bld) 2.0 % Normal [facility] Comment on above: Performed By: #### Rosa Isela SARAH, LIVR, 6-3 #### [facility] ([id number]) [address] [place] [address] 68693 #### 54494-3, 87621-2 #### [facility] ([id number]) [address] [place] [address] Monocytes (Bld) [#/Vol] 0.7 10*3/uL Normal 0-0.[address] [facility] Comment on above: Performed By: #### Rosa Isela SARAH, LIVR, 3016-3 #### [facility] ([id number]) [address] [place] [address] 53413 #### 75938-5, 72661-5 #### [facility] ([id number]) [address], [address] [place] [address] Monocytes/100 WBC (Bld) 6.9 % Normal [facility] Comment on above: Performed By: #### Rosa Isela SARAH, LIVR, 3016-3 #### [facility] ([id number]) [address] [place] [address] 02010 #### 21998-9, 02688-7 #### [facility] ([id number]) [address], [address] [place] [address] MYELOCYTE 5.9 % Normal [facility] Comment on above: Performed By: #### Rosa Isela SARAH, LIVR, 3016-3 #### [facility] ([id number]) [address] [place] [address] 80496 #### 81328-5, 44041-7 #### [facility] ([id number]) [address] [place] [address] Neutrophils (Bld) [#/Vol] 6.2 10*3/uL Normal 1.5-6.[address] [facility] Comment on above: Performed By: #### Rosa Isela SARAH, LIVR, 6-3 #### [facility] ([id number]) [address] [place] [address] 82591 #### 06511-1, 06481-1 #### [facility] ([id number]) [address], [address] [place] [address] Platelet mean volume (Bld) [Entitic vol] 8.3 fL Normal 7-[address] [facility] Comment on above: Performed By: #### Rosa Isela SARAH, LIVR, 6-3 #### [facility] ([id number]) [address] [place] [address] 71325 #### 31157-3, 50869-4 #### [facility] ([id number]) [address], [address] [place] [address] Platelets (Bld) [#/Vol] 311 10*3/uL Normal 150-[address] [facility] Comment on above: Performed By: #### Rosa Isela SARAH, LIVR, 3 #### [facility] ([id number]) [address] [place] [address] 09779 #### 85640-5, 26639-4 #### [facility] ([id number]) [address] [place] [address] POLYCHROMASIA 1+ Abnormal NONE [facility] Comment on above: Performed By: #### Rosa Isela SARAH, LIVR, 6-3 #### [facility] ([id number]) [address] [place] [address] 85065 #### 67792-2, 52692-9 #### [facility] ([id number]) [address], [address] [place] [address] RBC COUNT 3.53 X10E12/L Low 3.80-5.[address] [facility] Comment on above: Performed By: #### Rosa Isela SARAH, LIVR, 3015-3 #### [facility] ([id number]) [address] [place] [address] 02618 #### 37844-6, 19955-8 #### [facility] ([id number]) [address] [place] [address] SEG NEUTROPHIL 64.6 % Normal [facility] Comment on above: Performed By: #### Rosa Isela SARAH LIVR, 3015-3 #### [facility] ([id number]) [address] [place] [address] 93209 #### 62577-8, 66957-8 #### [facility] ([id number]) [address] [place] [address] WBC (Bld) [#/Vol] 9.6 10*3/uL Normal 4.0-11.0 [facility] Comment on above: Performed By: #### Rosa Isela SARAH LIVR, 3015-10 #### [facility] ([id number]) [address] [place] [address] 98571 #### 58459-8, 62012-8 #### [facility] ([id number]) [address] [place] [address] COMPREHENSIVE METABOLIC PANE Fernando 03-17-2024 Albumin [Mass/Vol] 2.7 g/dL Low 3.2-5.[address] [facility] Comment on above: Performed By: #### Rosa Isela SARAH LIVR, 3 #### [facility] ([id number]) [address] [place] [address] 55257 #### 30848-8, 52356-4 #### [facility] ([id number]) [address] [place] [address] ALP [Catalytic activity/Vol] 62 U/L Normal 39-[address] [facility] Comment on above: Performed By: #### Rosa Isela SARAH, LIVR, 3015-3 #### [facility] ([id number]) [address] [place] [address] 31177 #### 16236-1, 10545-8 #### [facility] ([id number]) [address] [facility], [address] [place] [address] ALT [Catalytic activity/Vol] 20 U/L Normal 0-[address] [facility] Comment on above: Performed By: #### Rosa Isela SARAH, LIVR, 3016-3 #### [facility] ([id number]) [address] [place] [address] 06824 #### 00393-7, 93603-4 #### [facility] ([id number]) [address] [facility], [address] [place] [address] Anion gap [Moles/Vol] 6 mmol/L Normal 5-[address] [facility] Comment on above: Performed By: #### Rosa Isela SARAH, LIVR, 3016-3 #### [facility] ([id number]) [address] [place] [address] 01119 #### 40246-0, 47570-2 #### [facility] ([id number]) [address] [facility], [address] [place] [address] AST [Catalytic activity/Vol] 26 U/L Normal 0-[address] [facility] Comment on above: Performed By: #### Rosa Isela SARAH, LIVR, 3016-3 #### [facility] ([id number]) [address] [place] [address] 17707 #### 95224-7, 68430-5 #### [facility] ([id number]) [address] [facility], [address] [place] [address] Bilirubin [Mass/Vol] 0.4 mg/dL Normal 0.3-1.[address] [facility] Comment on above: Performed By: #### Rosa Isela SARAH, LIVR, 6-3 #### [facility] ([id number]) [address] [place] [address] 26436 #### 72127-3, 22893-4 #### [facility] ([id number]) [address] [place] [address] Calcium [Mass/Vol] 8.1 mg/dL Low 8.5-10.[address] [facility] Comment on above: Performed By: #### Rosa Isela SARAH, LIVR, 3016-3 #### [facility] ([id number]) [address] [place] [address] 90749 #### 22187-2, 99974-5 #### [facility] ([id number]) [address] [facility], [address] [place] [address] Chloride [Moles/Vol] 107 mmol/L Normal 98-[address] [facility] Comment on above: Performed By: #### Rosa Isela SARAH, LIVR, 3016-3 #### [facility] ([id number]) [address] [place] [address] 33127 #### 09986-1, 07944-1 #### [facility] ([id number]) [address] [facility], [address] [place] [address] CO2 [Moles/Vol] 28 mmol/L Normal 22-[address] [facility] Comment on above: Performed By: #### Rosa Isela SARAH, LIVR, 3016-3 #### [facility] ([id number]) [address] [place] [address] 41464 #### 30649-7, 41874-0 #### [facility] ([id number]) [address] [place] [address] Creatinine [Mass/Vol] 1.59 mg/dL High 0.40-1.[address] [facility] Comment on above: Result Comment: METH OD TRACEABLE TO IDMS STANDARD Performed By: #### Rosa Isela SARAH, LIVR, 3016-3 #### [facility] ([id number]) [address] [place] [address] 61545 #### 14164-5, 41667-9 #### [facility] ([id number]) [address] [place] [address] GFR/1.73 sq M.predicted among non-blacks MDRD (S/P/Bld) [Vol rate/Area] 33 mL/min/{1.73_m2} Low >[address] [facility] Comment on above: Result Comment: Reported eGFR is based on the CKD-EPI 2020 equation that does not use a race coefficient. Performed By: #### Rosa Isela SARAH LIVR, 3016-3 #### [facility] ([id number]) [address] [place] [address] 72499 #### 04197-4, 54996-4 #### [facility] ([id number]) [address] [place] [address] Glucose [Mass/Vol] 93 mg/dL Normal 65-[address] [facility] Comment on above: Performed By: #### Rosa Isela SARAH LIVR, 3016-3 #### [facility] ([id number]) [address] [place] [address] 79888 #### 08854-9, 53544-4 #### [facility] ([id number]) [address] [place] [address] Potassium [Moles/Vol] 3.9 mmol/L Normal 3.5-5.[address] [facility] Comment on above: Performed By: #### Rosa Isela SARAH, LIVR, 3016-3 #### [facility] ([id number]) [address] [place] [address] #### 97148-8, 17651-2 #### [facility] ([id number]) [address], [address] [place] [address] Protein [Mass/Vol] 6.6 g/dL Normal 6.0-8.[address] [facility] Comment on above: Performed By: #### Rosa Isela SARAH, LIVR, 3016-3 #### [facility] ([id number]) [address] [place] [address] #### 22149-8, 34705-3 #### [facility] ([id number]) [address], [address] [place] [address] Sodium [Moles/Vol] 141 mmol/L Normal 134-[address] [facility] Comment on above: Performed By: #### Rosa Isela SARAH, LIVR, 3016-3 #### [facility] ([id number]) [address] [place] [address] #### 54328-1, 39745-2 #### [facility] ([id number]) [address], [address] [place] [address] Urea nitrogen [Mass/Vol] 47 mg/dL High 5-[address] [facility] Comment on above: Performed By: #### Rosa Isela SARAH, LIVR, 3016-3 #### [facility] ([id number]) [address] [place] [address] #### 77109-8, 09165-6 #### [facility] ([id number]) [address], [address] [place] [address] MAGNESIUMon 03-17-2024 Magnesium [Mass/Vol] 2.4 mg/dL Normal 1.8-2.[address] [facility] Comment on above: Performed By: #### Rosa Isela SARAH, LIVR, 3016-3 #### [facility] ([id number]) [address] [place] [address] #### 46270-9, 55943-9 #### [facility] ([id number]) [address] [place] [address] CBC AND AUTO DIFFon 07-22-20 24 Eosinophils (Bld) [#/Vol] 0.2 10*3/uL Normal 0.0-0.[address] [facility] Comment on above: Performed By: #### ROLAND Natarajan MP, 6-3 #### [facility] ([id number]) [address] [place] [address] #### 46852-0, 59803-4 #### [facility] ([id number]) [address] [facility], [address] [place] [address] Eosinophils/100 WBC (Bld) 2.0 % Normal [facility] Comment on above: Performed By: #### ROLAND Natarajan MP, 3 #### [facility] ([id number]) [address] [place] [address] #### 86317-4, 68890-1 #### [facility] ([id number]) [address] [facility], [address] [place] [address] Erythrocyte distribution width (RBC) [Ratio] 14.8 % Normal 11.5-15.[address] [facility] Comment on above: Performed By: #### ROLAND Natarajan MP, 3 #### [facility] ([id number]) [address] [place] [address] #### 18501-0, 34847-0 #### [facility] ([id number]) [address] [facility], [address] [place] [address] Hematocrit (Bld) [Volume fraction] 32.3 % Low 35-[address] [facility] Comment on above: Performed By: #### ROLAND Natarajan MP, 63 #### [facility] [facility] ([id number]) [address] [place] [address] 10351 #### 10491-1, 63408-3 #### [facility] ([id number]) [address] [facility], [address] [place] [address] Hemoglobin (Bld) [Mass/Vol] 10.6 g/dL Low 11.7-15.[address] [facility] Comment on above: Performed By: #### ROLAND Natarajan MP, 3015-10 #### [facility] ([id number]) [address] [place] [address] 05242 #### 73140-5, 23386-2 #### [facility] ([id number]) [address] [facility], [address] [place] [address] LYMPHOCYTE, ATYPICAL 1.0 % Normal [facility] Comment on above: Performed By: #### ROLAND Natarajan MP, 3015-10 #### [facility] ([id number]) [address] [place] [address] 77510 #### 29905-8, 18006-6 #### [facility] ([id number]) [address] [facility], [address] [place] [address] Lymphocytes (Bld) [#/Vol] 1.3 10*3/uL Normal 1.0-3.[address] [facility] Comment on above: Performed By: #### ROLAND Natarajan MP, 3 #### [facility] ([id number]) [address] [place] [address] 25490 #### 72731-3, 41384-8 #### [facility] ([id number]) [address] [facility], [address] [place] [address] Lymphocytes/100 WBC (Bld) 11.0 % Normal [facility] Comment on above: Performed By: #### ROLAND Natarajan MP, 3 #### [facility] ([id number]) [address] [place] [address] 93651 #### 76481-7, 40392-9 #### [facility] ([id number]) [address], [address] [place] [address] MCH (RBC) [Entitic mass] 30.2 pg Normal 27-[address] [facility] Comment on above: Performed By: #### ROLAND Natarajan MP, 3015-10 #### [facility] ([id number]) [address] [place] [address] 61987 #### 76684-0, 11856-2 #### [facility] ([id number]) [address], [address] [place] [address] MCHC (RBC) [Mass/Vol] 32.8 g/dL Normal 32-[address] [facility] Comment on above: Performed By: #### ROLAND Natarajan MP, 3015-10 #### [facility] ([id number]) [address] [place] [address] 81699 #### 09539-0, 52396-4 #### [facility] ([id number]) [address], [address] [place] [address] MCV (RBC) [Entitic vol] 92 fL Normal 80-[address] [facility] Comment on above: Performed By: #### ROLAND Natarajan MP, 3015-10 #### [facility] ([id number]) [address] [place] [address] 37060 #### 18894-4, 01753-1 #### [facility] ([id number]) [address], [address] [place] [address] Monocytes (Bld) [#/Vol] 1.0 10*3/uL High 0-0.[address] [facility] Comment on above: Performed By: #### ROLAND Natarajan MP, 3015-10 #### [facility] ([id number]) [address] [place] [address] 42360 #### 02474-5, 64745-5 #### [facility] ([id number]) [address], [address] [place] [address] Monocytes/100 WBC (Bld) 9.0 % Normal [facility] Comment on above: Performed By: #### ROLAND Natarajan MP, 6-3 #### [facility] ([id number]) [address] [place] [address] 09462 #### 79739-1, 16045-0 #### [facility] ([id number]) [address] [facility], [address] [place] [address] Neutrophils (Bld) [#/Vol] 8.1 10*3/uL High 1.5-6.[address] [facility] Comment on above: Performed By: #### Rosa Isela SARAH LIVRowan, 6-3 #### [facility] ([id number]) [address] [place] [address] 87773 #### 43933-6, 90724-5 #### [facility] ([id number]) [address], [address] [place] [address] Platelet mean volume (Bld) [Entitic vol] 8.3 fL Normal 7-[address] [facility] Comment on above: Performed By: #### Rosa Isela SARAH LIVR, 6-3 #### [facility] ([id number]) [address] [place] [address] 85157 #### 07945-2, 44217-8 #### [facility] ([id number]) [address], [address] [place] [address] Platelets (Bld) [#/Vol] 297 10*3/uL Normal 150-[address] [facility] Comment on above: Performed By: #### Rosa Isela SARAH, LIVR, 6-3 #### [facility] ([id number]) [address] [place] [address] 92152 #### 46024-5, 56923-6 #### [facility] ([id number]) [address], [address] [place] [address] RBC COUNT 3.50 X10E12/L Low 3.80-5.[address] [facility] Comment on above: Performed By: #### PERLA Natarajan MPR, 3016-3 #### [facility] ([id number]) [address] [place] [address] 19344 #### 83327-2, 09702-5 #### [facility] ([id number]) [address], [address] [place] [address] RBC morphology finding Nom (Bld) REVIEWED Normal [facility] Comment on above: Performed By: #### ROLAND Natarajan MP, 3016-3 #### [facility] ([id number]) [address] [place] [address] 88155 #### 26216-3, 64426-9 #### [facility] ([id number]) [address], [address] [place] [address] SEG NEUTROPHIL 77.0 % Normal [facility] Comment on above: Performed By: #### Rosa Isela SARAH LIVR, 6-3 #### [facility] ([id number]) [address] [place] [address] 66928 #### 73660-7, 80479-9 #### [facility] ([id number]) [address], [address] [place] [address] WBC (Bld) [#/Vol] 10.6 10*3/uL Normal 4.0-11.0 [facility] Comment on above: Performed By: #### Rosa Isela SARAH, LIVR, 6-3 #### [facility] ([id number]) [address] [place] [address] 54863 #### 97753-5, 02619-3 #### [facility] ([id number]) [address], [address] [place] [address] COMPREHENSIVE METABOLIC PANE Fernando 03-16-2024 Albumin [Mass/Vol] 2.6 g/dL Low 3.2-5.[address] [facility] Comment on above: Performed By: #### Rosa Isela SARAH, LIVR, 3016-3 #### [facility] ([id number]) [address] [place] [address] 19778 #### 85825-1, 16428-4 #### [facility] ([id number]) [address] [facility], [address] [place] [address] ALP [Catalytic activity/Vol] 66 U/L Normal 39-[address] [facility] Comment on above: Performed By: #### Rosa Isela SARAH, LIVR, 6-3 #### [facility] ([id number]) [address] [place] [address] 20537 #### 03047-1, 28636-6 #### [facility] ([id number]) [address] [facility], [address] [place] [address] ALT [Catalytic activity/Vol] 19 U/L Normal 0-[address] [facility] Comment on above: Performed By: #### Rosa Isela SARAH, LIVR, 6-3 #### [facility] ([id number]) [address] [place] [address] 53561 #### 75658-3, 07592-6 #### [facility] ([id number]) [address], [address] [place] [address] Anion gap [Moles/Vol] 9 mmol/L Normal 5-[address] [facility] Comment on above: Performed By: #### Rosa Isela MP, LIVR, 6-3 #### [facility] ([id number]) [address] [place] [address] 87685 #### 67421-0, 16694-0 #### [facility] ([id number]) [address], [address] [place] [address] AST [Catalytic activity/Vol] 29 U/L Normal 0-[address] [facility] Comment on above: Performed By: #### Rosa Isela SARAH, LIVR, 3016-3 #### [facility] ([id number]) [address] [place] [address] 32469 #### 03666-9, 14871-5 #### [facility] ([id number]) [address] [facility], [address] [place] [address] Bilirubin [Mass/Vol] 0.4 mg/dL Normal 0.3-1.[address] [facility] Comment on above: Performed By: #### RosaI sela SARAH LIVR, 6-3 #### [facility] ([id number]) [address] [place] [address] 00436 #### 83503-0, 05430-1 #### [facility] ([id number]) [address] [facility], [address] [place] [address] Calcium [Mass/Vol] 8.3 mg/dL Low 8.5-10.[address] [facility] Comment on above: Performed By: #### Rosa Isela SARAH LIVR, 6-3 #### [facility] ([id number]) [address] [place] [address] 74715 #### 70896-9, 81517-5 #### [facility] ([id number]) [address], [address] [place] [address] Chloride [Moles/Vol] 112 mmol/L High 98-[address] [facility] Comment on above: Performed By: #### Rosa Isela SARAH, LIVR, 6-3 #### [facility] ([id number]) [address] [place] [address] 02588 #### 47910-4, 94928-5 #### [facility] ([id number]) [address], [address] [place] [address] CO2 [Moles/Vol] 22 mmol/L Normal 22-[address] [facility] Comment on above: Performed By: #### ROLAND Natarajan MP, 3016-3 #### [facility] ([id number]) [address] [place] [address] 33633 #### 26709-0, 82691-3 #### [facility] ([id number]) [address], [address] [place] [address] Creatinine [Mass/Vol] 1.68 mg/dL High 0.40-1.[address] [facility] Comment on above: Result Comment: METH OD TRACEABLE TO IDMS STANDARD Performed By: #### ROLAND Natarajan MP, 3016-3 #### [facility] ([id number]) [address] [place] [address] 72761 #### 11318-7, 06885-1 #### [facility] ([id number]) [address], [address] [place] [address] GFR/1.73 sq M.predicted among non-blacks MDRD (S/P/Bld) [Vol rate/Area] 31 mL/min/{1.73_m2} Low >[address] [facility] Comment on above: Result Comment: Reported eGFR is based on the CKD-EPI 2020 equation that does not use a race coefficient. Performed By: #### B ROLAND SARAH, 3016-3 #### [facility] ([id number]) [address] [place] [address] 01642 #### 42951-3, 52346-0 #### [facility] ([id number]) [address], [address] [place] [address] Glucose [Mass/Vol] 92 mg/dL Normal 65-[address] [facility] Comment on above: Performed By: #### Rosa Isela SARAH, LIVR, 6-3 #### [facility] ([id number]) [address] [place] [address] 84021 #### 01627-2, 11840-4 #### [facility] ([id number]) [address], [address] [place] [address] Potassium [Moles/Vol] 4.2 mmol/L Normal 3.5-5.[address] [facility] Comment on above: Performed By: #### Rosa Isela SARAH, LIVR, 6-3 #### [facility] ([id number]) [address] [place] [address] 94887 #### 22541-9, 37266-6 #### [facility] ([id number]) [address], [address] [place] [address] Protein [Mass/Vol] 6.6 g/dL Normal 6.0-8.[address] [facility] Comment on above: Performed By: #### Rosa Isela SARAH, LIVR, 6-3 #### [facility] ([id number]) [address] [place] [address] 39752 #### 68304-8, 56352-9 #### [facility] ([id number]) [address], [address] [place] [address] Sodium [Moles/Vol] 143 mmol/L Normal 134-[address] [facility] Comment on above: Performed By: #### Rosa Isela SARAH, LIVR, 6-3 #### [facility] ([id number]) [address] [place] [address] 64593 #### 36355-3, 02074-1 #### [facility] ([id number]) [address], [address] [place] [address] Urea nitrogen [Mass/Vol] 56 mg/dL High 5-[address] [facility] Comment on above: Performed By: #### ROLAND Natarajan MP, 3 #### [facility] ([id number]) [address] [place] [address] 77477 #### 47488-1, 24065-3 #### [facility] ([id number]) [address], [address] [place] [address] MAGNESIUMon 03-16-2024 Magnesium [Mass/Vol] 2.6 mg/dL Normal 1.8-2.[address] [facility] Comment on above: Performed By: #### ROLAND Natarajan MP, 3015-10 #### [facility] ([id number]) [address] [place] [address] 78043 #### 58256-7, 97790-5 #### [facility] ([id number]) [address] [facility], [address] [place] [address] Vancomycin trough [Mass/Vol] on 03-16-2024 VANCOMYCIN TROUGH 11.7 ug/mL Normal 5.0-20.0 [facility] Comment on above: Performed By: #### ROLAND Natarajan MP, 3015-10 #### [facility] ([id number]) [address] [place] [address] 93420 #### 82887-8, 67488-9 #### [facility] ([id number]) [address], [address] [place] [address] CBC AND AUTO DIFFon 03-15-20 24 ABSOLUTE BASOPHIL 0.1 X10E9/L Normal 0.0-0.2 [facility] Comment on above: Performed By: #### Rosa Isela SARAH, LIVR, 3 #### [facility] ([id number]) [address] [place] [address] 06238 #### 93675-3, 57731-1 #### [facility] ([id number]) [address], [address] [place] [address] Basophils/100 WBC (Bld) 1.0 % Normal [facility] Comment on above: Performed By: #### ROLAND Natarajan MP, 6-3 #### [facility] ([id number]) [address] [place] [address] 38876 #### 40112-1, 62659-9 #### [facility] ([id number]) [address], [address] [place] [address] Eosinophils (Bld) [#/Vol] 1.0 10*3/uL High 0.0-0.[address] [facility] Comment on above: Performed By: #### ROLAND Natarajan MP, 3015-10 #### [facility] ([id number]) [address] [place] [address] 83070 #### 44910-2, 86409-7 #### [facility] ([id number]) [address], [address] [place] [address] Eosinophils/100 WBC (Bld) 7.7 % Normal [facility] Comment on above: Performed By: #### ROLAND Natarajan MP, 63 #### [facility] ([id number]) [address] [place] [address] 65827 #### 46193-2, 24214-9 #### [facility] ([id number]) [address], [address] [place] [address] Erythrocyte distribution width (RBC) [Ratio] 14.8 % Normal 11.5-15.[address] [facility] Comment on above: Performed By: #### ROLAND Natarajan MP, 3016-3 #### [facility] ([id number]) [address] [place] [address] 57161 #### 07384-1, 71087-1 #### [facility] ([id number]) [address], [address] [place] [address] Hematocrit (Bld) [Volume fraction] 33.9 % Low 35-[address] [facility] Comment on above: Performed By: #### ROLAND Natarajan MP, 3 #### [facility] ([id number]) [address] [place] [address] 34412 #### 04140-0, 81735-3 #### [facility] ([id number]) [address], [address] [place] [address] Hemoglobin (Bld) [Mass/Vol] 10.8 g/dL Low 11.7-15.[address] [facility] Comment on above: Performed By: #### ROLAND Natarajan MP, 3015-10 #### [facility] ([id number]) [address] [place] [address] 81276 #### 61041-2, 58584-4 #### [facility] ([id number]) [address], [address] [place] [address] Lymphocytes (Bld) [#/Vol] 2.1 10*3/uL Normal 1.0-3.[address] [facility] Comment on above: Performed By: #### ROLAND Natarajan MP, 3015-10 #### [facility] ([id number]) [address] [place] [address] 36472 #### 87245-6, 87501-0 #### [facility] ([id number]) [address], [address] [place] [address] Lymphocytes/100 WBC (Bld) 15.4 % Normal [facility] Comment on above: Performed By: #### Rosa Isela SARAH, LIVR, 3 #### [facility] ([id number]) [address] [place] [address] 26340 #### 66392-3, 30742-6 #### [facility] ([id number]) [address], [address] [place] [address] MCH (RBC) [Entitic mass] 29.6 pg Normal 27-[address] [facility] Comment on above: Performed By: #### ROLAND Natarajan MP, 6-3 #### [facility] ([id number]) [address] [place] [address] 20019 #### 49841-6, 41089-9 #### [facility] ([id number]) [address] [facility], [address] [place] [address] MCHC (RBC) [Mass/Vol] 31.7 g/dL Low 32-[address] [facility] Comment on above: Performed By: #### ROLAND Natarajan MP, 63 #### [facility] ([id number]) [address] [place] [address] 06499 #### 74666-5, 90938-7 #### [facility] ([id number]) [address] [facility], [address] [place] [address] MCV (RBC) [Entitic vol] 93 fL Normal 80-[address] [facility] Comment on above: Performed By: #### ROLAND Natarajan MP, 63 #### [facility] ([id number]) [address] [place] [address] 20573 #### 73606-4, 72668-0 #### [facility] ([id number]) [address], [address] [place] [address] Metamyelocytes/10 0 WBC (Bld) 2.9 % Normal [facility] Comment on above: Performed By: #### ROLAND Natarajan MP, 3 #### [facility] ([id number]) [address] [place] [address] 77512 #### 42940-4, 67835-9 #### [facility] ([id number]) [address], [address] [place] [address] Monocytes (Bld) [#/Vol] 0.9 10*3/uL Normal 0-0.[address] [facility] Comment on above: Performed By: #### Rosa Isela SARAH, LIVR, 3016-3 #### [facility] ([id number]) [address] [place] [address] 32403 #### 36446-9, 41272-3 #### [facility] ([id number]) [address] [facility], [address] [place] [address] Monocytes/100 WBC (Bld) 6.7 % Normal [facility] Comment on above: Performed By: #### Rosa Isela SARAH, LIVR, 3016-3 #### [facility] ([id number]) [address] [place] [address] 98625 #### 04958-9, 13395-8 #### [facility] ([id number]) [address] [facility] [place] [address] Neutrophils (Bld) [#/Vol] 9.0 10*3/uL High 1.5-6.[address] [facility] Comment on above: Performed By: #### Rosa Isela SARAH, LIVR, 3016-3 #### [facility] ([id number]) [address] [place] [address] 76106 #### 89173-2, 70288-7 #### [facility] ([id number]) [address] [place] [address] Platelet mean volume (Bld) [Entitic vol] 8.3 fL Normal 7-[address] [facility] Comment on above: Performed By: #### Rosa Isela SARAH, LIVR, 3016-3 #### [facility] ([id number]) [address] [place] [address] 57752 #### 14745-4, 35114-6 #### [facility] ([id number]) [address] [place] [address] Platelets (Bld) [#/Vol] 274 10*3/uL Normal 150-[address] [facility] Comment on above: Performed By: #### Rosa Isela SARAH, LIVR, 3016-3 #### [facility] ([id number]) [address] [place] [address] 14365 #### 22603-9, 97761-5 #### [facility] ([id number]) [address] [facility] [address] [place] [address] RBC COUNT 3.64 X10E12/L Low 3.80-5.[address] [facility] Comment on above: Performed By: #### Rosa Isela SARAH, LIVR, 3016-3 #### [facility] ([id number]) [address] [place] [address] 21831 #### [id number], 36195-8 #### [facility] ([id number]) [address] [place] [address] SEG NEUTROPHIL 66.3 % Normal [facility] Comment on above: Performed By: #### Rosa Isela SARAH, LIVR, 3016-3 #### [facility] ([id number]) [address] [place] [address] 52369 #### [id number], 58585-1 #### [facility] ([id number]) [address] [facility], [address] [place] [address] WBC (Bld) [#/Vol] 13.5 10*3/uL High 4.0-11.0 [facility] Comment on above: Performed By: #### Rosa Isela MP, LIVR, 3016-3 #### [facility] ([id number]) [address] [place] [address]1374 #### 15175-4, 24393-7 #### [facility] ([id number]) [address] [facility], [address] [place] [address] COMPREHENSIVE METABOLIC PANE Fernando 03-15-2024 Albumin [Mass/Vol] 2.9 g/dL Low 3.2-5.[address] [facility] Comment on above: Performed By: #### ROLAND Natarajan MP, 3016-3 #### [facility] ([id number]) [address] [place] [address]3272 #### 53529-0, 30807-3 #### [facility] ([id number]) [address] [facility], [address] [place] [address] ALP [Catalytic activity/Vol] 73 U/L Normal 39-[address] [facility] Comment on above: Performed By: #### ROLAND Natarajan MP, 3 #### [facility] ([id number]) [address] [place] [address] 49473 #### [id number], 39210-5 #### [facility] ([id number]) [address] [facility], [address] [place] [address] ALT [Catalytic activity/Vol] 20 U/L Normal 0-[address] [facility] Comment on above: Performed By: #### Rosa Isela SARAH LIVR, 3 #### [facility] ([id number]) [address] [place] [address] 81976 #### [id number], 41414-9 #### [facility] ([id number]) [address] [facility], [address] [place] [address] Anion gap [Moles/Vol] 10 mmol/L Normal 5-[address] [facility] Comment on above: Performed By: #### Rosa Isela SARAH, LIVR, 3015-3 #### [facility] ([id number]) [address] [place] [address]6319 #### 07070-7, 76289-6 #### [facility] ([id number]) [address] [facility], [address] [place] [address] AST [Catalytic activity/Vol] 24 U/L Normal 0-[address] [facility] Comment on above: Performed By: #### ROLAND Natarajan MP, 3016-3 #### [facility] ([id number]) [address] [place] [address] 40694 #### 74701-0, 58176-4 #### [facility] ([id number]) [address] [facility], [address] [place] [address] Bilirubin [Mass/Vol] 0.5 mg/dL Normal 0.3-1.[address] [facility] Comment on above: Performed By: #### ROLAND Natarajan MP, 3 #### [facility] ([id number]) [address] [place] [address] 22220 #### 69914-9, 45321-9 #### [facility] ([id number]) Critical access hospital0 [facility], [address] [place] [address] Calcium [Mass/Vol] 8.2 mg/dL Low 8.5-10.[address] [facility] Comment on above: Performed By: #### ROLAND Natarajan MP, 3 #### [facility] ([id number]) [address] [place] [address] 60603 #### 08931-0, 86102-9 #### [facility] ([id number]) [address] [facility], [address] [place] [address] Chloride [Moles/Vol] 111 mmol/L High 98-[address] [facility] Comment on above: Performed By: #### Rosa Isela SARAH LIVR, 3015-3 #### [facility] ([id number]) [address] [place] [address] 37712 #### 95523-3, 64640-3 #### [facility] ([id number]) [address], [address] [place] [address] CO2 [Moles/Vol] 21 mmol/L Low 22-[address] [facility] Comment on above: Performed By: #### ROLAND Natarajan MP, 3016-3 #### [facility] ([id number]) [address] [place] [address] 46409 #### 44721-3, 86881-7 #### [facility] ([id number]) [address], [address] [place] [address] Creatinine [Mass/Vol] 2.08 mg/dL High 0.40-1.[address] [facility] Comment on above: Result Comment: METH OD TRACEABLE TO IDMS STANDARD Performed By: #### ROLAND Natarajan MP, 3 #### [facility] ([id number]) [address] [place] [address] 95436 #### 61382-9, 83832-2 #### [facility] ([id number]) [address], [address] [place] [address] GFR/1.73 sq M.predicted among non-blacks MDRD (S/P/Bld) [Vol rate/Area] 24 mL/min/{1.73_m2} Low >[address] [facility] Comment on above: Result Comment: Reported eGFR is based on the CKD-EPI 1 equation that does not use a race coefficient. Performed By: #### RLOAND Natarajan MP, 6-3 #### [facility] ([id number]) [address] [place] [address] 06086 #### 74206-6, 85631-3 #### [facility] ([id number]) [address], [address] [place] [address] Glucose [Mass/Vol] 83 mg/dL Normal 65-[address] [facility] Comment on above: Performed By: #### ROLAND Natarajan MP, 6-3 #### [facility] ([id number]) [address] [place] [address] 99748 #### 18757-8, 81894-1 #### [facility] ([id number]) [address], [address] [place] [address] Potassium [Moles/Vol] 4.2 mmol/L Normal 3.5-5.[address] [facility] Comment on above: Performed By: #### ROLAND Natarajan MP, 3 #### [facility] ([id number]) [address] [place] [address] 59757 #### 36772-8, 26996-9 #### [facility] ([id number]) [address], [address] [place] [address] Protein [Mass/Vol] 6.8 g/dL Normal 6.0-8.[address] [facility] Comment on above: Performed By: #### ROLAND Natarajan MP, 3 #### [facility] ([id number]) [address] [place] [address] 35359 #### 56795-3, 25569-6 #### [facility] ([id number]) [address], [address] [place] [address] Sodium [Moles/Vol] 142 mmol/L Normal 134-[address] [facility] Comment on above: Performed By: #### ROLAND Natarajan MP, 6-3 #### [facility] ([id number]) [address] [place] [address] 77936 #### 97924-8, 69884-0 #### [facility] ([id number]) [address], [address] [place] [address] Urea nitrogen [Mass/Vol] 65 mg/dL High 5-[address] [facility] Comment on above: Performed By: #### ROLAND Natarajan MP, 3016-3 #### [facility] ([id number]) [address] [place] [address] 25467 #### 34767-4, 43058-6 #### [facility] ([id number]) [address] [place] [address], [address] [place] [address] MAGNESIUMon 03-15-2024 Magnesium [Mass/Vol] 2.6 mg/dL Normal 1.8-2.[address] [facility] Comment on above: Performed By: #### ROLAND Natraajan MP, 3016-3 #### [facility] ([id number]) [address] [place] [address] 53684 #### 22026-4, 01162-3 #### [facility] ([id number]) [address] [place] [address], [address] [place] [address] BASIC METABOLIC PANLon 03-14 Anion gap [Moles/Vol] 11 mmol/L Normal 5-[address] [facility] Comment on above: Performed By: #### C BCA, BMP, 32129-9, 56062-1 #### [facility] ([id number]) [address] [place] [address] Calcium [Mass/Vol] 8.3 mg/dL Low 8.5-10.[address] [facility] Comment on above: Performed By: #### C BCA, BMP, 02365-7, 53708-4 #### [facility] ([id number]) [address] [place] [address] Chloride [Moles/Vol] 108 mmol/L Normal 98-[address] [facility] Comment on above: Performed By: #### C BCA, BMP, 73033-8, 64813-6 #### [facility] ([id number]) [address] [place] [address] CO2 [Moles/Vol] 23 mmol/L Normal 22-[address] [facility] Comment on above: Performed By: #### C BRIE MONDRAGON, 24885-0, 77785-6 #### [facility] ([id number]) [address] [place] [address] Creatinine [Mass/Vol] 2.51 mg/dL High 0.40-1.[address] [facility] Comment on above: Result Comment: METH OD TRACEABLE TO IDMS STANDARD Performed By: #### C BRIE MONDRAGON, 47086-1, 77063-3 #### [facility] ([id number]) [address] [place] [address] GFR/1.73 sq M.predicted among non-blacks MDRD (S/P/Bld) [Vol rate/Area] 19 mL/min/{1.73_m2} Low >[address] [facility] Comment on above: Result Comment: Reported eGFR is based on the CKD-EPI 2020 equation that does not use a race coefficient. Performed By: #### C BRIE MONDRAGON, 61659-1, 43067-2 #### [facility] ([id number]) [address] [place] [address] 02653 Glucose [Mass/Vol] 99 mg/dL Normal 65-[address] [facility] Comment on above: Performed By: #### C BRIE MONDRAGON, 06833-6, 46453-5 #### [facility] ([id number]) [address] [place] [address] 77766 Potassium [Moles/Vol] 4.1 mmol/L Normal 3.5-5.[address] [facility] Comment on above: Performed By: #### C BRIE MONDRAGON, 75296-1, 31188-4 #### [facility] ([id number]) [address] [place] [address] 79032 Sodium [Moles/Vol] 142 mmol/L Normal 134-[address] [facility] Comment on above: Performed By: #### C GIANCARLO BMP, 72190-7, 89127-0 #### [facility] ([id number]) [address] [place] [address] Urea nitrogen [Mass/Vol] 66 mg/dL High 5-[address] [facility] Comment on above: Performed By: #### C BCA, BMP, 87455-7, 76937-5 #### [facility] ([id number]) [address] [place] [address] 18741 BLOOD CULTUREon 03-14-2024 Bacteria identified Aer cx Nom (Bld) SPECIMEN NOTES left wrist CULTURE RESULTS NO GROWTH 5 DAYS Normal [facility] Comment on above: Performed By: #### B TYREL, LIVR, 3016-3 #### [facility] ([id number]) [address] [place] [address] 88498 #### 43738-2, 22544-0 #### [facility] ([id number]) [address] [facility], [address] [place] [address] Bacteria identified Aer cx Nom (Bld) SPECIMEN NOTES RIGHT AC CULTURE RESULTS NO GROWTH 5 DAYS Normal [facility] Comment on above: Performed By: #### B TYREL, LIVR, 3016-3 #### [facility] ([id number]) [address] [place] [address] 85557 #### 69303-3, 56475-5 #### [facility] ([id number]) [address] [facility], [address] [place] [address] CBC AND AUTO DIFFon 03-14-20 24 Eosinophils (Bld) [#/Vol] 0.2 10*3/uL Normal 0.0-0.[address] [facility] Comment on above: Performed By: #### C GIANCARLO, BMP, 61686-0, 59353-4 #### [facility] ([id number]) [address] [place] [address] 82146 Eosinophils/100 WBC (Bld) 1.0 % Normal [facility] Comment on above: Performed By: #### C GIANCARLO, BRIE, 14842-2, 27712-0 #### [facility] ([id number]) [address] [place] [address] 24604 Erythrocyte distribution width (RBC) [Ratio] 14.7 % Normal 11.5-15.[address] [facility] Comment on above: Performed By: #### C GIANCARLO, [facility], 49980-4, 68314-0 #### [facility] ([id number]) [address] [place] [address] 85768 Hematocrit (Bld) [Volume fraction] 33.6 % Low 35-[address] [facility] Comment on above: Performed By: #### C GIANCARLO, [facility], , 74537-8 #### [facility] ([id number]) [address] [place] [address] 07141 Hemoglobin (Bld) [Mass/Vol] 10.8 g/dL Low 11.7-15.[address] [facility] Comment on above: Performed By: #### Federico MONDRAGON, BRIE, , 86985-7 #### [facility] ([id number]) [address] [place] [address] 99829 Lymphocytes (Bld) [#/Vol] 1.0 10*3/uL Normal 1.0-3.[address] [facility] Comment on above: Performed By: #### C GIANCARLO, BMP, 00049-3, 39518-9 #### [facility] ([id number]) [address] [place] [address] 41668 Lymphocytes/100 WBC (Bld) 5.8 % Normal [facility] Comment on above: Performed By: #### C GINACARLO, BMP, 04290-2, 08632-8 #### [facility] ([id number]) [address] [place] [address] 92377 MCH (RBC) [Entitic mass] 29.6 pg Normal 27-[address] [facility] Comment on above: Performed By: #### C GIANCARLO, BMP, 60718-4, 29951-9 #### [facility] ([id number]) [address] [place] [address] 54855 MCHC (RBC) [Mass/Vol] 32.1 g/dL Normal 32-[address] [facility] Comment on above: Performed By: #### C GIANCARLO, BMP, 77479-4, 27666-3 #### [facility] ([id number]) [address] [place] [address] 93511 MCV (RBC) [Entitic vol] 92 fL Normal 80-[address] [facility] Comment on above: Performed By: #### C GIANCARLO, BMP, 96171-1, 28058-0 #### [facility] ([id number]) [address] [place] [address] 25583 Monocytes (Bld) [#/Vol] 0.7 10*3/uL Normal 0-0.[address] [facility] Comment on above: Performed By: #### Federico MONDRAGON, BMP, 23043-5, 50459-4 #### [facility] ([id number]) [address] [place] [address] 61287 Monocytes/100 WBC (Bld) 3.9 % Normal [facility] Comment on above: Performed By: #### C BCA, BMP, 25261-6, 54240-1 #### [facility] ([id number]) [address] [place] [address] 91783 MYELOCYTE 2.9 % Normal [facility] Comment on above: Performed By: #### Federico MONDRAGON, BMP, 06173-5, 94620-9 #### [facility] ([id number]) [address] [place] [address] 33096 Neutrophils (Bld) [#/Vol] 14.5 10*3/uL High 1.5-6.[address] [facility] Comment on above: Performed By: #### C GIANCARLO, BMP, 85214-2, 89327-5 #### [facility] ([id number]) [address] [place] [address] 47768 Platelet mean volume (Bld) [Entitic vol] 8.2 fL Normal 7-[address] [facility] Comment on above: Performed By: #### C GIANCARLO, BMP, 96752-5, 97571-6 #### [facility] ([id number]) [address] [place] [address] 89496 Platelets (Bld) [#/Vol] 263 10*3/uL Normal 150-[address] [facility] Comment on above: Performed By: #### Federico BCA, BMP, 47449-0, 42859-6 #### [facility] ([id number]) [address] [place] [address] 48946 RBC COUNT 3.65 X10E12/L Low 3.80-5.[address] [facility] Comment on above: Performed By: #### Federico MONDRAGON, BMP, 33871-2, 03994-5 #### [facility] ([id number]) [address] [place] [address] 46193 SEG NEUTROPHIL 86.4 % Normal [facility] Comment on above: Performed By: #### Federico BCA, BMP, 27782-7, 14881-9 #### [facility] ([id number]) [address] [place] [address] 21774 WBC (Bld) [#/Vol] 16.8 10*3/uL High 4.0-11.0 [facility] Comment on above: Performed By: #### C BCA, BMP, 13455-4, 82128-9 #### [facility] ([id number]) [address] [place] [address] 08008 Glucose Glucometer (BldC) [M ass/Vol]on 03-14-2024 Glucose [Mass/Vol] 83 mg/dL Normal 65-[address] [facility] Lactate (P west) [Moles/Vol]o n 03-14-2024 LACTATE W/REFLEX 1.3 mmol/L Normal 0.4-2.0 [facility] Comment on above: Result Comment: Result did not trigger repeat Lactate, re-order if needed. Performed By: #### C BRIE MONDRAGON, 64212-2, 12362-4 #### [facility] ([id number]) [address] [place] [address] 07371 Procalcitonin IA [Mass/Vol]o n 03-14-2024 PROCALCITONIN 2.59 ng/mL High <0.[address] [facility] Comment on above: Result Comment: NOTE <0.50 ng/mL - Low risk of severe sepsis and/or septic shock. <2.00 ng/mL - Recommend retesting within 6-24 hours. >2.00 ng/mL - High risk of sepsis and/or septic shock. Performed By: #### C BRIE MONDRAGON, 82909-5, 44919-5 #### [facility] ([id number]) [address] [place] [address] 07583 URINE CULTUREon 03-14-2024 Bacteria identified Cx Nom (U) CULTURE RESULTS NO GROWTH AT <1000 CFU/mL Normal [facility] Comment on above: Performed By: #### B MP, LIVR, 3016-3 #### [facility] ([id number]) [address] [place] [address] 08785 #### 13464-3, 95242-3 #### [facility] ([id number]) [address], [address] [place] [address] XR CHEST 1 VWon 03-14-2024 XR CHEST 1 VW XR CHEST 1 VW XR CHEST 1 VW 03/14/2024 10:44 AM INDICATION: f/u pna COMPARISON: Priors dating back to 02/08/2017 TECHNIQUE: AP portable upright view the chest was obtained FINDINGS: Low lung volumes and patient positioning likely accentuated bibasilar strandy opacities. No focal consolidations.There is no pneumothorax. There is no pleural effusion. The cardiomediastinal silhouette is unremarkable. No acute osseous abnormalities. IMPRESSION: Basilar stranding patchy opacities are nonspecific possibly related to infectious process. However patient positioning of the lung volumes limit evaluation. Finalized by Johnson Watts on 03/14/2024 10:56 AM Normal [facility] BASIC METABOLIC PANLon 11-24 Anion gap [Moles/Vol] 5 mmol/L Normal 5-[address] [facility] Comment on above: Performed By: #### ROLAND Natarajan MP, 3016-3 #### [facility] ([id number]) [address] [place] [address] 39199 #### 06713-9, 36629-4 #### [facility] ([id number]) [address] [facility], [address] [place] [address] Calcium [Mass/Vol] 8.3 mg/dL Low 8.5-10.[address] [facility] Comment on above: Performed By: #### ROLAND Natarajan MP, 3016-3 #### [facility] ([id number]) [address] [place] [address] 59415 #### 67221-9, 14739-8 #### [facility] ([id number]) [address] [facility], [address] [place] [address] Chloride [Moles/Vol] 108 mmol/L Normal 98-[address] [facility] Comment on above: Performed By: #### ROLAND Natarajan MP, 3016-3 #### [facility] ([id number]) [address] [place] [address] 91504 #### 24153-1, 05153-2 #### [facility] ([id number]) [address], [address] [place] [address] CO2 [Moles/Vol] 24 mmol/L Normal 22-[address] [facility] Comment on above: Performed By: #### ROLAND Natarajan MP, 3016-3 #### [facility] ([id number]) [address] [place] [address] 69404 #### 86495-1, 13030-4 #### [facility] ([id number]) [address] [facility], [address] [place] [address] Creatinine [Mass/Vol] 1.53 mg/dL High 0.40-1.[address] [facility] Comment on above: Result Comment: METH OD TRACEABLE TO IDMS STANDARD Performed By: #### ROLAND Natarajan MP, 6-3 #### [facility] ([id number]) [address] [place] [address] 04488 #### 09033-4, 20940-5 #### [facility] ([id number]) [address] [facility], [address] [place] [address] 55672 GFR/1.73 sq M.predicted among non-blacks MDRD (S/P/Bld) [Vol rate/Area] 35 mL/min/{1.73_m2} Low >[address] [facility] Comment on above: Result Comment: Reported eGFR is based on the CKD-EPI 1 equation that does not use a race coefficient. Performed By: #### ROLAND Natarajan MP, 3016-3 #### [facility] ([id number]) [address] [place] [address] 42906 #### 45919-7, 33937-4 #### [facility] ([id number]) [address], [address] [place] [address] Glucose [Mass/Vol] 81 mg/dL Normal 65-[address] [facility] Comment on above: Performed By: #### Rosa Isela SARAH LIVR, 6-3 #### [facility] ([id number]) [address] [place] [address] 41861 #### 85043-3, 68697-2 #### [facility] ([id number]) [address], [address] [place] [address] Potassium [Moles/Vol] 5.1 mmol/L High 3.5-5.[address] [facility] Comment on above: Performed By: #### Rosa Isela SARAH LIVR, 6-3 #### [facility] ([id number]) [address] [place] [address] 91735 #### 55217-2, 77558-8 #### [facility] ([id number]) [address], [address] [place] [address] Sodium [Moles/Vol] 137 mmol/L Normal 134-[address] [facility] Comment on above: Performed By: #### Rosa Isela SARAH LIVR, 6-3 #### [facility] ([id number]) [address] [place] [address] 53156 #### 47421-1, 83864-7 #### [facility] ([id number]) [address], [address] [place] [address] Urea nitrogen [Mass/Vol] 37 mg/dL High 5-[address] [facility] Comment on above: Performed By: #### Rosa Isela SARAH, LIVR, 6-3 #### [facility] ([id number]) [address] [place] [address] 08407 #### 24267-9, 96379-7 #### [facility] ([id number]) [address], [address] [place] [address] HGB A1C (GLYCO-HGB)on 2023 Glucose [Mass/Vol] 108 mg/dL Normal [facility] Comment on above: Performed By: #### ROLAND Natarajan MP, 6-3 #### [facility] ([id number]) [address] [place] [address] 85776 #### 72673-8, 44995-1 #### [facility] ([id number]) [address], [address] [place] [address] HbA1c (Bld) [Mass fraction] 5.4 % Normal 4.4-5.[address] [facility] Comment on above: Result Comment: NOTE ADA Guidelines Result HgbA1c Normal : less than 5.7 % Prediabetes : 5.7 % to 6.4 % Diabetes : > 6.4 % Use with caution in patients with abnormal hemoglobin variants as the half-life of red blood cells and in vivo glycation rates are affected. Performed By: #### ROLAND Natarajan MP, 6-3 #### [facility] ([id number]) [address] [place] [address] 38114 #### 87525-6, 55426-4 #### [facility] ([id number]) [address], [address] [place] [address] LIVER PANELon 11-25-2023 Albumin [Mass/Vol] 3.2 g/dL Normal 3.2-5.[address] [facility] Comment on above: Performed By: #### ROLAND Natarajan MP, 6-3 #### [facility] ([id number]) [address] [place] [address] #### 79401-4, 36288-2 #### [facility] ([id number]) [address], [address] [place] [address] ALP [Catalytic activity/Vol] 57 U/L Normal 39-[address] [facility] Comment on above: Performed By: #### Rosa Isela SARAH, LIVR, 3016-3 #### [facility] ([id number]) [address] [place] [address]227 #### 41272-1, 75055-6 #### [facility] ([id number]) [address], [address] [place] [address] ALT [Catalytic activity/Vol] 15 U/L Normal 0-[address] [facility] Comment on above: Performed By: #### Rosa Isela SARAH, LIVR, 3016-3 #### [facility] ([id number]) [address] [place] [address] #### 06211-4, 37759-5 #### [facility] ([id number]) [address], [address] [place] [address] AST [Catalytic activity/Vol] 17 U/L Normal 0-[address] [facility] Comment on above: Performed By: #### Rosa Isela SARAH, LIVR, 3016-3 #### [facility] ([id number]) [address] [place] [address]24 #### 87484-7, 55319-0 #### [facility] ([id number]) [address], [address] [place] [address] Bilirubin [Mass/Vol] 0.4 mg/dL Normal 0.3-1.[address] [facility] Comment on above: Performed By: #### Rosa Isela SARAH, LIVR, 3016-3 #### [facility] ([id number]) [address] [place] [address]494 #### 71296-1, 71858-6 #### [facility] ([id number]) [address], [address] [place] [address] Bilirubin.direct [Mass/Vol] 0.1 mg/dL Normal 0.0-0.[address] [facility] Comment on above: Performed By: #### ROLAND Natarajan MP, 3016-3 #### [facility] ([id number]) [address] [place] [address] #### 22589-2, 43259-1 #### [facility] ([id number]) [address], [address] [place] [address] Protein [Mass/Vol] 6.5 g/dL Normal 6.0-8.[address] [facility] Comment on above: Performed By: #### ROLAND Natarajan MP, 3016-3 #### [facility] ([id number]) [address] [place] [address] #### 50188-8, 39753-4 #### [facility] ([id number]) [address] [facility], [address] [place] [address] Lipid 1996 panelon 4 Cholesterol [Mass/Vol] 176 mg/dL Normal 150-[address] [facility] Comment on above: Performed By: #### ROLAND Natarajan MP, 6-3 #### [facility] ([id number]) [address] [place] [address] #### 28778-4, 95207-3 #### [facility] ([id number]) [address], [address] [place] [address] Cholesterol in HDL [Mass/Vol] 42 mg/dL Normal >[address] [facility] Comment on above: Result Comment: HDL <40 mg/dL - High Risk HDL > or = 40mg/dL- Desirable HDL >60 mg/dL - Negative Risk Performed By: #### Rosa Isela SARAH, LIVRowan, 6-3 #### [facility] ([id number]) [address] [place] [address] #### 50200-5, 44210-4 #### [facility] ([id number]) [address], [address] [place] [address] Cholesterol in LDL [Mass/Vol] 113 mg/dL Normal <[address] [facility] Comment on above: Result Comment: LDL <100 mg/dL - Desirable LDL >160 mg/dL - High Risk Performed By: #### ROLAND Natarajna MP, 3016-3 #### [facility] ([id number]) [address] [place] [address]286 #### 59240-3, 18820-7 #### [facility] ([id number]) [address], [address] [place] [address] Cholesterol in VLDL [Mass/Vol] 21 mg/dL Normal 0-[address] [facility] Comment on above: Performed By: #### ROLAND Natarajan MP, 3016-3 #### [facility] ([id number]) [address] [place] [address] 62100 #### 75294-0, 89749-0 #### [facility] ([id number]) [address], [address] [place] [address] CHOLESTEROL:HDL 4.2 Normal 1.0-5.[address] [facility] Comment on above: Performed By: #### ROLAND Natarajan MP, 3016-3 #### [facility] ([id number]) [address] [place] [address] 13605 #### 42397-3, 90634-0 #### [facility] ([id number]) [address], [address] [place] [address] Triglyceride [Mass/Vol] 107 mg/dL Normal 27-[address] [facility] Comment on above: Performed By: #### ROLAND Natarajan MP, 3016-3 #### [facility] ([id number]) [address] [place] [address]234 #### 67328-7, 13720-7 #### [facility] ([id number]) [address] [facility], [address] [place] [address] TSH Qnon 11-25-2023 TSH 2.13 uIU/mL Normal 0.49-4.[address] [facility] Comment on above: Performed By: #### ROLAND Natarajan MP, 3016-3 #### [facility] ([id number]) [address] [place] [address]305 #### 08899-3, 12954-7 #### [facility] ([id number]) [address] [facility], [address] [place] [address] Vitamin D+Metabolites [Mass/ Vol]on 11-25-2023 VITAMIN D 25 HYD TOT 18.8 ng/mL Low 30-[address] [facility] Comment on above: Result Comment: Vitamin D status 25 [place] Vitamin D Deficiency <20 ng/mL Insufficiency 20-29 ng/mL Sufficiency 30-100 ng/mL Toxicity >100 ng/mL NOTE: A pediatric reference range has not been established by the instructional supervisor of this kit. The [place] [employer] recommends a Vitamin D level of = or >20ng/mL in infants and children. Performed By: #### ROLAND Natarajan MP, 3016-3 #### [facility] ([id number]) [address] [place] [address]1975 #### 57692-9, 27485-6 #### [facility] ([id number]) [address] [facility], [address] [place] [address] Basic Metab w/rfx MGon 02-15 (cont.) Normal [facility] Comment on above: Result Comment: Aver age GFR for 70 or more years old: 75 mL/min/1.73sq m Chronic Kidney Disease: <60 mL/min/1.73sq m Kidney failure: <15 mL/min/1.73sq m eGFR calculated using average adult body mass. Additional eGFR calculator available at: http://www.olook/multiple_crcl_2012.htm Performed By: #### ANNE PEREZ, CP #### [facility] [address] [facility] [place] [address] Livestock Feeder: Aftab Mack DO Anion gap [Moles/Vol] 10 mmol/L Normal 9-17 [facility] Comment on above: Performed By: #### ANNE PEREZ, CP #### [facility] [address] [facility] [place] [address] Livestock Feeder: Aftab Mack DO Calcium [Mass/Vol] 8.5 mg/dL Low 8.6-10.4 [facility] Comment on above: Performed By: #### ANNE PEREZ, CP #### [facility] [address] [facility] [place] [address] Livestock Feeder: Aftab Mack DO Chloride [Moles/Vol] 109 mmol/L High 98-107 [facility] Comment on above: Performed By: #### ANNE PEREZ, CP #### [facility] [address] [facility] [place] [address] Livestock Feeder: Aftab Mack DO CO2 [Moles/Vol] 24 mmol/L Normal 20-31 [facility] Comment on above: Performed By: #### ANNE PEREZ, CP #### [facility] [address] [facility] [place] [address] Livestock Feeder: Aftab Mack DO Creatinine [Mass/Vol] 0.67 mg/dL Normal 0.50-0.90 [facility] Comment on above: Performed By: #### ANNE PEREZ, CP #### [facility] [address] [place] [address] Livestock Feeder: Aftab Mack DO GFR, Amer >60 Normal >60 [facility] Comment on above: Performed By: #### ANNE PEREZ, CP #### [facility] [address] [place] [address] Livestock Feeder: Aftab Mack DO GFR,non Amer >60 Normal >60 [facility] Comment on above: Performed By: #### ANNE PEREZ, CP #### [facility] [address] [place] [address] Livestock Feeder: Aftab Mack DO Glucose [Mass/Vol] 84 mg/dL Normal 70-99 [facility] Comment on above: Performed By: #### ANNE PEREZ, CP #### [facility] [address] [place] [address] Livestock Feeder: Aftab Mack DO Potassium [Moles/Vol] 4.0 mmol/L Normal 3.7-5.3 [facility] Comment on above: Performed By: #### ANNE PEREZ, CP #### [facility] [address] [place] [address] Livestock Feeder: Aftab Mack DO Sodium [Moles/Vol] 143 mmol/L Normal 135-144 [facility] Comment on above: Performed By: #### ANNE PEREZ, CP #### [facility] [address] [place] [address] Livestock Feeder: Aftab Mack DO Urea nitrogen [Mass/Vol] 13 mg/dL Normal 8-23 [facility] Comment on above: Performed By: #### E ANNE ISAACS, CP #### [facility] [address] [facility] [place] [address] Livestock Feeder: Aftab Mack DO BUN/CRE Ratio NOT REPORTED Normal 9-20 [facility] Comment on above: Performed By: #### E ANNE ISAACS, CP #### [facility] [address] [facility] [place] [address] Livestock Feeder: Aftab Mack DO Staging: NOT REPORTED Normal [facility] Comment on above: Performed By: #### ANNE PEREZ, CP #### [facility] [address] [facility] [place] [address] Livestock Feeder: Aftab Mack DO Basic Metabolic Panel w/ Ref vidal to MGon 02-16-2020 Anion gap [Moles/Vol] 10 mmol/L 9 - 17 mmol/L [place] Bun/Cre Ratio NOT REPORTED [place] Calcium [Mass/Vol] 8.5 mg/dL Low 8.6 - 10.4 mg/dL [place] Chloride [Moles/Vol] 109 mmol/L High 98 - 107 mmol/L [place] CO2 [Moles/Vol] 24 mmol/L 20 - 31 mmol/L [place] Creatinine [Mass/Vol] 0.67 mg/dL 0.5 - 0.9 mg/dL [place] GFR >60 >60 mL/min [place] GFR Non- >60 >60 mL/min [place] GFR/1.73 sq M predicted among non-blacks MDRD (S/P/Bld) [Vol rate/Area] NOT REPORTED [place] GFR/1.73 sq M predicted among non-blacks MDRD (S/P/Bld) [Vol rate/Area] [place] Comment on above: Average GFR for 70 o r more years old: 75 mL/min/1.73sq m Chronic Kidney Disease: <60 mL/min/1.73sq m Kidney failure: <15 mL/min/1.73sq m eGFR calculated using average adult body mass. Additional eGFR calculator available at: http://www.olook/multiple_crcl_2012.htm Glucose [Mass/Vol] 84 mg/dL 70 - 99 mg/dL [place] Interpretation and review of laboratory results Abnormal [place] Potassium [Moles/Vol] 4.0 mmol/L 3.7 - 5.3 mmol/L [place] Sodium [Moles/Vol] 143 mmol/L 135 - 144 mmol/L [place] Urea nitrogen [Mass/Vol] 13 mg/dL 8 - 23 mg/dL [place] CBC auto differentialon 01-25 Basophils (Bld) [#/Vol] 0.10 10*3/uL [place] Basophils/100 WBC (Bld) 1 % 0 - 2 % [place] Differential Type NOT REPORTED [place] Eosinophils (Bld) [#/Vol] 0.30 10*3/uL [place] Eosinophils/100 WBC (Bld) 5 % High 0 - 4 % [place] Erythrocyte distribution width (RBC) [Ratio] 15.2 % High 11.5 - 14.9 % [place] Hematocrit (Bld) [Volume fraction] 33.8 % Low 36 - 46 % [place] Hemoglobin (Bld) [Mass/Vol] 10.6 g/dL Low 12 - 16 g/dL [place] Interpretation and review of laboratory results Abnormal [place] Lymphocytes (Bld) [#/Vol] 2.00 10*3/uL [place] Lymphocytes/100 WBC (Bld) 30 % 24 - 44 % [place] MCH (RBC) [Entitic mass] 27.2 pg 26 - 34 pg [place] MCHC (RBC) [Mass/Vol] 31.5 g/dL 31 - 37 g/dL [place] MCV (RBC) [Entitic vol] 86.3 fL 80 - 100 fL [place] Monocytes (Bld) [#/Vol] 0.50 10*3/uL [place] Monocytes/100 WBC (Bld) 7 % 1 - 7 % [place] Platelet mean volume (Bld) [Entitic vol] 7.4 fL 6 - 12 fL [place] Platelets (Bld) [#/Vol] NOT REPORTED [place] Platelets (Bld) [#/Vol] 298 10*3/uL [place] RBC (Bld) [#/Vol] 3.92 10*6/uL Low 4 - 5.2 m/uL [place] RBC morphology finding Nom (Bld) NOT REPORTED [place] Segmented neutrophils/100 WBC (Bld) 57 % 36 - 66 % [place] Segs Absolute 3.90 [place] WBC (Bld) [#/Vol] 6.7 10*3/uL [place] WBC (Bld) [#/Vol] NOT REPORTED per 100 WBC [place] WBC Morphology NOT REPORTED [place] CBC with Diffon 02-16-2020 Abs. Basophil 0.10 k/uL Normal 0.0-0.2 [facility] Comment on above: Performed By: #### E ANNE ISAACS, CP #### [facility] [address] [facility] [place] [address] Livestock Feeder: Aftab Mack DO Abs.Neutrophil (Seg) 3.90 k/uL Normal 1.3-9.1 [facility] Comment on above: Performed By: #### E ANNE ISAACS, CP #### [facility] [address] [facility] [place] [address] Livestock Feeder: Aftab Mack DO Basophils/100 WBC (Bld) 1 % Normal 0-2 [facility] Comment on above: Performed By: #### ANNE PEREZ, CP #### [facility] [facility] [place] [address] Livestock Feeder: Aftab Mack DO Eosinophils (Bld) [#/Vol] 0.30 10*3/uL Normal 0.0-0.4 [facility] Comment on above: Performed By: #### ANNE PEREZ, CP #### [facility] [address] [place] [address] Livestock Feeder: Aftab Mack DO Eosinophils/100 WBC (Bld) 5 % High 0-4 [facility] Comment on above: Performed By: #### ANNE PEREZ, CP #### [facility] [address] [place] [address] Livestock Feeder: Aftab Mack DO Erythrocyte distribution width (RBC) [Ratio] 15.2 % High 11.5-14.9 [facility] Comment on above: Performed By: #### ANNE PEREZ, CP #### [facility] [address] [place] [address] Livestock Feeder: Aftab Mack DO Hematocrit (Bld) [Volume fraction] 33.8 % Low 36-46 [facility] Comment on above: Performed By: #### ANNE PEREZ, CP #### [facility] [address] [place] [address] Livestock Feeder: Aftab Mack DO Hemoglobin (Bld) [Mass/Vol] 10.6 g/dL Low 12.0-16.0 [facility] Comment on above: Performed By: #### ANNE PEREZ, CP #### [facility] [address] [place] [address] Livestock Feeder: Aftab Mack DO Lymphocytes (Bld) [#/Vol] 2.00 10*3/uL Normal 1.0-4.8 [facility] Comment on above: Performed By: #### ANNE PEREZ, CP #### [facility] [address] [place] [address] Livestock Feeder: Aftab Mack DO Lymphocytes/100 WBC (Bld) 30 % Normal 24-44 [facility] Comment on above: Performed By: #### ANNE PEREZ, CP #### [facility] [address] [place] [address] Livestock Feeder: Aftab Mack DO MCH (RBC) [Entitic mass] 27.2 pg Normal 26-34 [facility] Comment on above: Performed By: #### ANNE PEREZ, CP #### [facility] [address] [place] [address] Livestock Feeder: Aftab Mack DO MCHC (RBC) [Mass/Vol] 31.5 g/dL Normal 31-37 [facility] Comment on above: Performed By: #### ANNE PEREZ, CP #### [facility] [address] [place] [address] Livestock Feeder: Aftab Mack DO MCV (RBC) [Entitic vol] 86.3 fL Normal 80-100 [facility] Comment on above: Performed By: #### ANNE PEREZ, CP #### [facility] [address] [place] [address] Livestock Feeder: Aftab Mack DO Monocytes (Bld) [#/Vol] 0.50 10*3/uL Normal 0.1-1.3 [facility] Comment on above: Performed By: #### ANNE PEREZ, CP #### [facility] [address] [place] [address] Livestock Feeder: Aftab Mack DO Monocytes/100 WBC (Bld) 7 % Normal 1-7 [facility] Comment on above: Performed By: #### ANNE PEREZ, CP #### [facility] [address] [place] [address] Livestock Feeder: Aftab Mack DO Neutrophil (Seg) 57 % Normal 36-66 [facility] Comment on above: Performed By: #### ANNE PEREZ, CP #### [facility] [address] [place] [address] Livestock Feeder: Aftab Mack DO Platelet mean volume (Bld) [Entitic vol] 7.4 fL Normal 6.0-12.0 [facility] Comment on above: Performed By: #### ANNE PEREZ, CP #### [facility] [facility] [place] [address] Livestock Feeder: Aftab Mack DO Platelets (Bld) [#/Vol] 298 10*3/uL Normal 150-450 [facility] Comment on above: Performed By: #### ANNE PEREZ, CP #### [facility] [place] [address] Livestock Feeder: Aftab Mack DO RBC (Bld) [#/Vol] 3.92 10*6/uL Low 4.0-5.2 [facility] Comment on above: Performed By: #### ANNE PERZE, CP #### [facility] [place] [address] Livestock Feeder: Aftab Mack DO WBC (Bld) [#/Vol] 6.7 10*3/uL Normal 3.5-11.0 [facility] Comment on above: Performed By: #### ANNE PEREZ, CP #### [facility] [place] [address] Livestock Feeder: Aftab Mack DO Abs.Imm.Granulocy te NOT REPORTED Normal 0.00-0.30 [facility] Comment on above: Performed By: #### ANNE PEREZ, CP #### [facility] [address] [place] [address] Livestock Feeder: Aftab Mack DO Auto Diff Performed NOT REPORTED Normal [facility] Comment on above: Performed By: #### ANNE PEREZ, CP #### [facility] [address] [place] [address] Livestock Feeder: Aftab Mack DO Immature granulocytes (Bld) [#/Vol] NOT REPORTED Normal 0 [facility] Comment on above: Performed By: #### ANNE PEREZ, CP #### [facility] [address] [place] [address] Livestock Feeder: Aftab Mack DO NRBC Automated NOT REPORTED Normal [facility] Comment on above: Performed By: #### ANNE PEREZ, CP #### [facility] [address] [place] [address] Livestock Feeder: Aftab Mack DO Platelets (Bld) [#/Vol] NOT REPORTED Normal [facility] Comment on above: Performed By: #### ANNE PEREZ, CP #### [facility] [address] [place] [address] Livestock Feeder: Aftab Mack DO RBC morphology finding Nom (Bld) NOT REPORTED Normal [facility] Comment on above: Performed By: #### ANNE PEREZ, CP #### [facility] [address] [place] [address] Livestock Feeder: Aftab Mack DO WBC Morphology NOT REPORTED Normal [facility] Comment on above: Performed By: #### ANNE PEREZ, CP #### [facility] [address] [facility] [place] [address] Livestock Feeder: Aftab Mack DO Otheron 02-16-2020 Immature granulocytes (Bld) [#/Vol] NOT REPORTED 0 % [facility], [place] Basic Metab w/rfx MGon 02-14 (cont.) Normal [facility] Comment on above: Result Comment: Aver age GFR for 70 or more years old: 75 mL/min/1.73sq m Chronic Kidney Disease: <60 mL/min/1.73sq m Kidney failure: <15 mL/min/1.73sq m eGFR calculated using average adult body mass. Additional eGFR calculator available at: http://www.olook/multiple_crcl_2012.htm Performed By: #### ANNE PEREZ, CP #### [facility] [address] [facility] [place] [address] Livestock Feeder: Aftab Mack DO Anion gap [Moles/Vol] 11 mmol/L Normal 9-17 [facility] Comment on above: Performed By: #### ANNE PEREZ, CP #### [facility] [address] [facility] [place] [address] Livestock Feeder: Aftab Mack DO Calcium [Mass/Vol] 8.5 mg/dL Low 8.6-10.4 [facility] Comment on above: Performed By: #### ANNE PEREZ, CP #### [facility] [address] [facility] [place] [address] Livestock Feeder: Aftab Mack DO Chloride [Moles/Vol] 106 mmol/L Normal 98-107 [facility] Comment on above: Performed By: #### ANNE PEREZ, CP #### [facility] [address] [facility] [place] [address] Livestock Feeder: Aftab Mack DO CO2 [Moles/Vol] 23 mmol/L Normal 20-31 [facility] Comment on above: Performed By: #### ANNE PEREZ, CP #### [facility] [address] [place] [address] Livestock Feeder: Aftab Mack DO Creatinine [Mass/Vol] 0.67 mg/dL Normal 0.50-0.90 [facility] Comment on above: Performed By: #### ANNE PEREZ, CP #### [facility] [address] [place] [address] Livestock Feeder: Aftab Mack DO GFR, Amer >60 Normal >60 [facility] Comment on above: Performed By: #### ANNE PEREZ, CP #### [facility] [address] [place] [address] Livestock Feeder: Aftab Mack DO GFR,non Amer >60 Normal >60 [facility] Comment on above: Performed By: #### ANNE PEREZ, CP #### [facility] [address] [place] [address] Livestock Feeder: Aftab Mack DO Glucose [Mass/Vol] 83 mg/dL Normal 70-99 [facility] Comment on above: Performed By: #### ANNE PEREZ, CP #### [facility] [address] [place] [address] Livestock Feeder: Aftab Mack DO Potassium [Moles/Vol] 3.9 mmol/L Normal 3.7-5.3 [facility] Comment on above: Performed By: #### ANNE PEREZ, CP #### [facility] [address] [place] [address] Livestock Feeder: Aftab Mack DO Sodium [Moles/Vol] 140 mmol/L Normal 135-144 [facility] Comment on above: Performed By: #### ANNE PEREZ, CP #### [facility] [address] [facility] [place] [address] Livestock Feeder: Aftab Mack DO Urea nitrogen [Mass/Vol] 11 mg/dL Normal 8-23 [facility] Comment on above: Performed By: #### ANNE PEREZ, CP #### [facility] [address] [facility] [place] [address] Livestock Feeder: Atfab Mack DO BUN/CRE Ratio NOT REPORTED Normal 9-20 [facility] Comment on above: Performed By: #### ANNE PEREZ, CP #### [facility] [address] [facility] [place] [address] Livestock Feeder: Aftab Mack DO Staging: NOT REPORTED Normal [facility] Comment on above: Performed By: #### ANEN PEERZ, CP #### [facility] [address] [facility] [place] [address] Livestock Feeder: Aftab Mack DO Basic Metabolic Panel w/ Ref vidal to MGon 02-15-2020 Anion gap [Moles/Vol] 11 mmol/L 9 - 17 mmol/L [place] Bun/Cre Ratio NOT REPORTED [place] Calcium [Mass/Vol] 8.5 mg/dL Low 8.6 - 10.4 mg/dL [place] Chloride [Moles/Vol] 106 mmol/L 98 - 107 mmol/L [place] CO2 [Moles/Vol] 23 mmol/L 20 - 31 mmol/L [place] Creatinine [Mass/Vol] 0.67 mg/dL 0.5 - 0.9 mg/dL [place] GFR >60 >60 mL/min [place] GFR Non- >60 >60 mL/min [place] GFR/1.73 sq M predicted among non-blacks MDRD (S/P/Bld) [Vol rate/Area] NOT REPORTED [place] GFR/1.73 sq M predicted among non-blacks MDRD (S/P/Bld) [Vol rate/Area] [place] Comment on above: Average GFR for 70 o r more years old: 75 mL/min/1.73sq m Chronic Kidney Disease: <60 mL/min/1.73sq m Kidney failure: <15 mL/min/1.73sq m eGFR calculated using average adult body mass. Additional eGFR calculator available at: http://www.olook/multiple_crcl_2011.htm Glucose [Mass/Vol] 83 mg/dL 70 - 99 mg/dL [place] Interpretation and review of laboratory results Abnormal [place] Potassium [Moles/Vol] 3.9 mmol/L 3.7 - 5.3 mmol/L [place] Sodium [Moles/Vol] 140 mmol/L 135 - 144 mmol/L [place] Urea nitrogen [Mass/Vol] 11 mg/dL 8 - 23 mg/dL [place] CBC auto differentialon 01-25 Basophils (Bld) [#/Vol] 0.10 10*3/uL [place] Basophils/100 WBC (Bld) 1 % 0 - 2 % [place] Differential Type NOT REPORTED [place] Eosinophils (Bld) [#/Vol] 0.20 10*3/uL [place] Eosinophils/100 WBC (Bld) 4 % 0 - 4 % [place] Erythrocyte distribution width (RBC) [Ratio] 15.1 % High 11.5 - 14.9 % [place] Hematocrit (Bld) [Volume fraction] 33.5 % Low 36 - 46 % [place] Hemoglobin (Bld) [Mass/Vol] 10.6 g/dL Low 12 - 16 g/dL [place] Interpretation and review of laboratory results Abnormal [place] Lymphocytes (Bld) [#/Vol] 1.60 10*3/uL [place] Lymphocytes/100 WBC (Bld) 25 % 24 - 44 % [place] MCH (RBC) [Entitic mass] 27.4 pg 26 - 34 pg [place] MCHC (RBC) [Mass/Vol] 31.7 g/dL 31 - 37 g/dL [place] MCV (RBC) [Entitic vol] 86.4 fL 80 - 100 fL [place] Monocytes (Bld) [#/Vol] 0.40 10*3/uL [place] Monocytes/100 WBC (Bld) 7 % 1 - 7 % [place] Platelet mean volume (Bld) [Entitic vol] 7.7 fL 6 - 12 fL [place] Platelets (Bld) [#/Vol] NOT REPORTED [place] Platelets (Bld) [#/Vol] 270 10*3/uL [place] RBC (Bld) [#/Vol] 3.88 10*6/uL Low 4 - 5.2 m/uL [place] RBC morphology finding Nom (Bld) NOT REPORTED [place] Segmented neutrophils/100 WBC (Bld) 63 % 36 - 66 % [place] Segs Absolute 4.00 [place] WBC (Bld) [#/Vol] NOT REPORTED per 100 WBC [place] WBC (Bld) [#/Vol] 6.3 10*3/uL [place] WBC Morphology NOT REPORTED [place] CBC with Diffon 02-15-2020 Abs. Basophil 0.10 k/uL Normal 0.0-0.2 [facility] Comment on above: Performed By: #### ANNE PEREZ CP #### [facility] [address] [place] [address] Livestock Feeder: Aftab Mack DO Abs.Neutrophil (Seg) 4.00 k/uL Normal 1.3-9.1 [facility] Comment on above: Performed By: #### ANNE PEREZ, CP #### [facility] [address] [facility] [place] [address] Livestock Feeder: Aftab Mack DO Basophils/100 WBC (Bld) 1 % Normal 0-2 [facility] Comment on above: Performed By: #### ANNE PEREZ, CP #### [facility] [place] [address] Livestock Feeder: Aftab Mack DO Eosinophils (Bld) [#/Vol] 0.20 10*3/uL Normal 0.0-0.4 [facility] Comment on above: Performed By: #### ANNE PEREZ, CP #### [facility] [place] [address] Livestock Feeder: Aftab Mack DO Eosinophils/100 WBC (Bld) 4 % Normal 0-4 [facility] Comment on above: Performed By: #### ANNE PEREZ, CP #### [facility] [address] [place] [address] Livestock Feeder: Aftab Mack DO Erythrocyte distribution width (RBC) [Ratio] 15.1 % High 11.5-14.9 [facility] Comment on above: Performed By: #### ANNE PEREZ, CP #### [facility] [address] [place] [address] Livestock Feeder: Aftab Mack DO Hematocrit (Bld) [Volume fraction] 33.5 % Low 36-46 [facility] Comment on above: Performed By: #### ANNE PEREZ, CP #### [facility] [address] [place] [address] Livestock Feeder: Aftab Mack DO Hemoglobin (Bld) [Mass/Vol] 10.6 g/dL Low 12.0-16.0 [facility] Comment on above: Performed By: #### ANNE PEREZ, CP #### [facility] [place] [address] Livestock Feeder: Aftab Mack DO Lymphocytes (Bld) [#/Vol] 1.60 10*3/uL Normal 1.0-4.8 [facility] Comment on above: Performed By: #### ANNE PEREZ, CP #### [facility] [address] [place] [address] Livestock Feeder: Aftab Mack DO Lymphocytes/100 WBC (Bld) 25 % Normal 24-44 [facility] Comment on above: Performed By: #### ANNE PEREZ, CP #### [facility] [address] [place] [address] Livestock Feeder: Aftab Mack DO MCH (RBC) [Entitic mass] 27.4 pg Normal 26-34 [facility] Comment on above: Performed By: #### ANNE PEREZ, CP #### [facility] [address] [place] [address] Livestock Feeder: Aftab Mack DO MCHC (RBC) [Mass/Vol] 31.7 g/dL Normal 31-37 [facility] Comment on above: Performed By: #### ANNE PEREZ, CP #### [facility] [address] [place] [address] Livestock Feeder: Aftab Mack DO MCV (RBC) [Entitic vol] 86.4 fL Normal 80-100 [facility] Comment on above: Performed By: #### ANNE PEREZ, CP #### [facility] [address] [place] [address] Livestock Feeder: Aftab Mack DO Monocytes (Bld) [#/Vol] 0.40 10*3/uL Normal 0.1-1.3 [facility] Comment on above: Performed By: #### ANNE PEREZ, CP #### [facility] [address] [facility] [place] [address] Livestock Feeder: Aftab Mack DO Monocytes/100 WBC (Bld) 7 % Normal 1-7 [facility] Comment on above: Performed By: #### ANNE PEREZ, CP #### [facility] [address] [place] [address] Livestock Feeder: Aftab Mack DO Neutrophil (Seg) 63 % Normal 36-66 [facility] Comment on above: Performed By: #### ANNE PEREZ, CP #### [facility] [place] [address] Livestock Feeder: Aftab Mack DO Platelet mean volume (Bld) [Entitic vol] 7.7 fL Normal 6.0-12.0 [facility] Comment on above: Performed By: #### ANNE PEREZ, CP #### [facility] [address] [place] [address] Livestock Feeder: Aftab Mack DO Platelets (Bld) [#/Vol] 270 10*3/uL Normal 150-450 [facility] Comment on above: Performed By: #### ANNE PEREZ, CP #### [facility] [address] [place] [address] Livestock Feeder: Aftab Mack DO RBC (Bld) [#/Vol] 3.88 10*6/uL Low 4.0-5.2 [facility] Comment on above: Performed By: #### ANNE PEREZ, CP #### [facility] [place] [address] Livestock Feeder: Aftab Mack DO WBC (Bld) [#/Vol] 6.3 10*3/uL Normal 3.5-11.0 [facility] Comment on above: Performed By: #### ANNE PEREZ, CP #### [facility] [place] [address] Livestock Feeder: Aftab Mack DO Abs.Imm.Granulocy te NOT REPORTED Normal 0.00-0.30 [facility] Comment on above: Performed By: #### ANNE PEREZ, CP #### [facility] [address] [place] [address] Livestock Feeder: Aftab Mack DO Auto Diff Performed NOT REPORTED Normal [facility] Comment on above: Performed By: #### ANNE PEREZ, CP #### [facility] [address] [place] [address] Livestock Feeder: Aftab Mack DO Immature granulocytes (Bld) [#/Vol] NOT REPORTED Normal 0 [facility] Comment on above: Performed By: #### ANNE PEREZ, CP #### [facility] [address] [place] [address] Livestock Feeder: Aftab Mack DO NRBC Automated NOT REPORTED Normal [facility] Comment on above: Performed By: #### ANNE PEREZ, CP #### [facility] [address] [place] [address] Livestock Feeder: Aftab Mack DO Platelets (Bld) [#/Vol] NOT REPORTED Normal [facility] Comment on above: Performed By: #### ANNE PEREZ, CP #### [facility] [address] [place] [address] Livestock Feeder: Aftab Mack DO RBC morphology finding Nom (Bld) NOT REPORTED Normal [facility] Comment on above: Performed By: #### ANNE PEREZ, [place] #### [facility] [address] [facility] [place] [address] Livestock Feeder: Aftab Mack DO WBC Morphology NOT REPORTED Normal [facility] Comment on above: Performed By: #### ANNE PEREZ, CP #### [facility] [address] [facility] [place] [address] Livestock Feeder: Aftab Mack DO Otheron 02-15-2020 Immature granulocytes (Bld) [#/Vol] NOT REPORTED [facility] [place], [place] Basic Metab w/rfx MGon 02-13 (cont.) Normal [facility] Comment on above: Result Comment: Aver age GFR for 70 or more years old: 75 mL/min/1.73sq m Chronic Kidney Disease: <60 mL/min/1.73sq m Kidney failure: <15 mL/min/1.73sq m eGFR calculated using average adult body mass. Additional eGFR calculator available at: http://www.Pegastech.Syniverse/multiple_crcl_2012.htm Performed By: #### ANNE PEREZ, [place] #### [facility] [address] [facility] [place] [address] Livestock Feeder: Aftab Mack DO Anion gap [Moles/Vol] 10 mmol/L Normal 9-17 [facility] Comment on above: Performed By: #### ANNE PEREZ, [place] #### [facility] [address] [facility] [place] [address] Livestock Feeder: Aftab Mack DO Calcium [Mass/Vol] 8.4 mg/dL Low 8.6-10.4 [facility] Comment on above: Performed By: #### ANNE PEREZ, [place] #### [facility] [address] [facility] [place] [address] Livestock Feeder: Aftab Mack DO Chloride [Moles/Vol] 106 mmol/L Normal 98-107 [facility] Comment on above: Performed By: #### ANNE PEREZ, CP #### [facility] [address] [place] [address] Livestock Feeder: Aftab Mack DO CO2 [Moles/Vol] 23 mmol/L Normal 20-31 [facility] Comment on above: Performed By: #### ANNE PEREZ, CP #### [facility] [address] [facility] [place] [address] Livestock Feeder: Aftab Mack DO Creatinine [Mass/Vol] 0.76 mg/dL Normal 0.50-0.90 [facility] Comment on above: Performed By: #### ANNE PEREZ, CP #### [facility] [address] [place] [address]. [place] [address] Livestock Feeder: Aftab Mack DO GFR, Amer >60 Normal >60 [facility] Comment on above: Performed By: #### ANNE PEREZ, CP #### [facility] [address] [place] [address]. [place] [address] Livestock Feeder: Aftab Mack DO GFR,non Amer >60 Normal >60 [facility] Comment on above: Performed By: #### ANNE PEREZ, CP #### [facility] [address] [place] [address] Livestock Feeder: Aftab Mack DO Glucose [Mass/Vol] 92 mg/dL Normal 70-99 [facility] Comment on above: Performed By: #### ANNE PEREZ, CP #### [facility] [place] [address] Livestock Feeder: Aftab Mack DO Potassium [Moles/Vol] 3.7 mmol/L Normal 3.7-5.3 [facility] Comment on above: Performed By: #### ANNE PEREZ, CP #### [facility] [address] [facility] [place] [address] Livestock Feeder: Aftab Mack DO Sodium [Moles/Vol] 139 mmol/L Normal 135-144 [facility] Comment on above: Performed By: #### ANNE PEREZ, CP #### [facility] [address] [facility] [place] [address] Livestock Feeder: Aftab Mack DO Urea nitrogen [Mass/Vol] 15 mg/dL Normal 8-23 [facility] Comment on above: Performed By: #### ANNE PEREZ, CP #### [facility] [address] [facility] [place] [address] Livestock Feeder: Aftab Mack DO BUN/CRE Ratio NOT REPORTED Normal - [facility] Comment on above: Performed By: #### ANNE PEREZ, CP #### [facility] [address] [facility] [place] [address] Livestock Feeder: Aftab Mack DO Staging: NOT REPORTED Normal [facility] Comment on above: Performed By: #### ANNE PEREZ, CP #### [facility] [address] [place] [address]. [place] [address] Livestock Feeder: Aftab Mack DO Basic Metabolic Panel w/ Ref vidal to MGon 02-14-2020 Anion gap [Moles/Vol] 10 mmol/L 9 - 17 mmol/L [facility], [place] Bun/Cre Ratio NOT REPORTED [place] Calcium [Mass/Vol] 8.4 mg/dL Low 8.6 - 10.4 mg/dL [place] Chloride [Moles/Vol] 106 mmol/L 98 - 107 mmol/L [facility], [place] CO2 [Moles/Vol] 23 mmol/L 20 - 31 mmol/L [place] Creatinine [Mass/Vol] 0.76 mg/dL 0.5 - 0.9 mg/dL [place] GFR >60 >60 mL/min [place] GFR Non- >60 >60 mL/min [place] GFR/1.73 sq M predicted among non-blacks MDRD (S/P/Bld) [Vol rate/Area] [place] Comment on above: Average GFR for 70 o r more years old: 75 mL/min/1.73sq m Chronic Kidney Disease: <60 mL/min/1.73sq m Kidney failure: <15 mL/min/1.73sq m eGFR calculated using average adult body mass. Additional eGFR calculator available at: http://www.olook/multiple_crcl_2012.htm GFR/1.73 sq M predicted among non-blacks MDRD (S/P/Bld) [Vol rate/Area] NOT REPORTED [place] Glucose [Mass/Vol] 92 mg/dL 70 - 99 mg/dL [place] Interpretation and review of laboratory results Abnormal [place] Potassium [Moles/Vol] 3.7 mmol/L 3.7 - 5.3 mmol/L [place] Sodium [Moles/Vol] 139 mmol/L 135 - 144 mmol/L [place] Urea nitrogen [Mass/Vol] 15 mg/dL 8 - 23 mg/dL [place] CBC auto differentialon 01-25 Basophils (Bld) [#/Vol] 0.10 10*3/uL [place] Basophils/100 WBC (Bld) 1 % 0 - 2 % [place] Differential Type NOT REPORTED [place] Eosinophils (Bld) [#/Vol] 0.20 10*3/uL [place] Eosinophils/100 WBC (Bld) 3 % 0 - 4 % [place] Erythrocyte distribution width (RBC) [Ratio] 14.9 % 11.5 - 14.9 % [place] Hematocrit (Bld) [Volume fraction] 32.6 % Low 36 - 46 % [place] Hemoglobin (Bld) [Mass/Vol] 10.5 g/dL Low 12 - 16 g/dL [place] Interpretation and review of laboratory results Abnormal [place] Lymphocytes (Bld) [#/Vol] 1.50 10*3/uL [place] Lymphocytes/100 WBC (Bld) 24 % 24 - 44 % [place] MCH (RBC) [Entitic mass] 28.0 pg 26 - 34 pg [place] MCHC (RBC) [Mass/Vol] 32.2 g/dL 31 - 37 g/dL [place] MCV (RBC) [Entitic vol] 87.1 fL 80 - 100 fL [place] Monocytes (Bld) [#/Vol] 0.50 10*3/uL [place] Monocytes/100 WBC (Bld) 8 % High 1 - 7 % [place] Platelet mean volume (Bld) [Entitic vol] 7.2 fL 6 - 12 fL [place] Platelets (Bld) [#/Vol] 257 10*3/uL [place] Platelets (Bld) [#/Vol] NOT REPORTED [place] RBC (Bld) [#/Vol] 3.74 10*6/uL Low 4 - 5.2 m/uL [place] RBC morphology finding Nom (Bld) NOT REPORTED [place] Segmented neutrophils/100 WBC (Bld) 64 % 36 - 66 % [place] Segs Absolute 3.90 [place] WBC (Bld) [#/Vol] 6.1 10*3/uL [place] WBC (Bld) [#/Vol] NOT REPORTED per 100 WBC [place] WBC Morphology NOT REPORTED [place] CBC with Diffon 02-14-2020 Abs. Basophil 0.10 k/uL Normal 0.0-0.2 [facility] Comment on above: Performed By: #### E SHITAL, CDP, CP #### [facility] [address] [facility] [place] [address] Livestock Feeder: Aftab Mack DO Abs.Neutrophil (Seg) 3.90 k/uL Normal 1.3-9.1 [facility] Comment on above: Performed By: #### ANNE PEREZ, CP #### [facility] [place] [address] Livestock Feeder: Aftab Mack DO Basophils/100 WBC (Bld) 1 % Normal 0-2 [facility] Comment on above: Performed By: #### ANNE PEREZ, CP #### [facility] [address] [place] [address]. [place] [address] Livestock Feeder: Aftab Mack DO Eosinophils (Bld) [#/Vol] 0.20 10*3/uL Normal 0.0-0.4 [facility] Comment on above: Performed By: #### ANNE PEREZ, CP #### [facility] [address] [place] [address] Livestock Feeder: Aftab Mack DO Eosinophils/100 WBC (Bld) 3 % Normal 0-4 [facility] Comment on above: Performed By: #### ANNE PEREZ, CP #### [facility] [address] [place] [address]. [place] [address] Livestock Feeder: Aftab Mack DO Erythrocyte distribution width (RBC) [Ratio] 14.9 % Normal 11.5-14.9 [facility] Comment on above: Performed By: #### ANNE PEREZ, CP #### [facility] [address] [place] [address] Livestock Feeder: Aftab Mack DO Hematocrit (Bld) [Volume fraction] 32.6 % Low 36-46 [facility] Comment on above: Performed By: #### ANNE PEREZ, CP #### [facility] [address] [place] [address] Livestock Feeder: Aftab Mack DO Hemoglobin (Bld) [Mass/Vol] 10.5 g/dL Low 12.0-16.0 [facility] Comment on above: Performed By: #### ANNE PEREZ, CP #### [facility] [facility] [place] [address] Livestock Feeder: Aftab Mack DO Lymphocytes (Bld) [#/Vol] 1.50 10*3/uL Normal 1.0-4.8 [facility] Comment on above: Performed By: #### ANNE PEREZ, CP #### [facility] [address] [place] [address]. [place] [address] Livestock Feeder: Aftab Mack DO Lymphocytes/100 WBC (Bld) 24 % Normal 24-44 [facility] Comment on above: Performed By: #### ANNE PEREZ, CP #### [facility] [address] [place] [address]. [place] [address] Livestock Feeder: Aftab Mack DO MCH (RBC) [Entitic mass] 28.0 pg Normal 26-34 [facility] Comment on above: Performed By: #### ANNE PEREZ, CP #### [facility] [address] [place] [address]. [place] [address] Livestock Feeder: Aftab Mack DO MCHC (RBC) [Mass/Vol] 32.2 g/dL Normal 31-37 [facility] Comment on above: Performed By: #### ANNE PEREZ, CP #### [facility] [address] [place], [place] [address] [place] [address] Livestock Feeder: Aftab Mack DO MCV (RBC) [Entitic vol] 87.1 fL Normal 80-100 [facility] Comment on above: Performed By: #### ANNE PEREZ, CP #### [facility] [address] [facility] [place] [address] Livestock Feeder: Aftab Mack DO Monocytes (Bld) [#/Vol] 0.50 10*3/uL Normal 0.1-1.3 [facility] Comment on above: Performed By: #### ANNE PEREZ, CP #### [facility] [place] [address] Livestock Feeder: Aftab Mack DO Monocytes/100 WBC (Bld) 8 % High 1-7 [facility] Comment on above: Performed By: #### ANNE PEREZ, CP #### [facility] [address] [place] [address] Livestock Feeder: Aftab Mack DO Neutrophil (Seg) 64 % Normal 36-66 [facility] Comment on above: Performed By: #### ANNE PEREZ, CP #### [facility] [address] [place] [address] Livestock Feeder: Aftab Mack DO Platelet mean volume (Bld) [Entitic vol] 7.2 fL Normal 6.0-12.0 [facility] Comment on above: Performed By: #### ANNE PEREZ, CP #### [facility] [address] [place] [address] Livestock Feeder: Aftab Mack DO Platelets (Bld) [#/Vol] 257 10*3/uL Normal 150-450 [facility] Comment on above: Performed By: #### ANNE PEREZ, CP #### [facility] [place] [address] Livestock Feeder: Aftab Mack DO RBC (Bld) [#/Vol] 3.74 10*6/uL Low 4.0-5.2 [facility] Comment on above: Performed By: #### ANNE PEREZ, CP #### [facility] [address] [place] [address] Livestock Feeder: Aftab Mack DO WBC (Bld) [#/Vol] 6.1 10*3/uL Normal 3.5-11.0 [facility] Comment on above: Performed By: #### ANNE PEREZ, CP #### [facility] [address] [place] [address] Livestock Feeder: Aftab Mack DO Abs.Imm.Granulocy te NOT REPORTED Normal 0.00-0.30 [facility] Comment on above: Performed By: #### ANNE PEREZ, CP #### [facility] [address] [place] [address] Livestock Feeder: Aftab Mack DO Auto Diff Performed NOT REPORTED Normal [facility] Comment on above: Performed By: #### ANNE PEREZ, CP #### [facility] [address] [place] [address] Livestock Feeder: Aftab Mack DO Immature granulocytes (Bld) [#/Vol] NOT REPORTED Normal 0 [facility] Comment on above: Performed By: #### ANNE PEREZ, CP #### [facility] [address] [place] [address] Livestock Feeder: Aftab Mack DO NRBC Automated NOT REPORTED Normal [facility] Comment on above: Performed By: #### ANNE PEREZ, CP #### [facility] [address] [place] [address] Livestock Feeder: Aftab Mack DO Platelets (Bld) [#/Vol] NOT REPORTED Normal [facility] Comment on above: Performed By: #### ANNE PEREZ, CP #### [facility] [address] [facility] [place] [address] Livestock Feeder: Aftab Mack DO RBC morphology finding Nom (Bld) NOT REPORTED Normal [facility] Comment on above: Performed By: #### ANNE PEREZ, CP #### [facility] [address] [facility] [place] [address] Livestock Feeder: Aftab Mack DO WBC Morphology NOT REPORTED Normal [facility] Comment on above: Performed By: #### ANNE PEREZ, CP #### [facility] [place] [address] Livestock Feeder: Aftab Mack DO Otheron 02-14-2020 Immature granulocytes (Bld) [#/Vol] NOT REPORTED [place] Basic Metab w/rfx MGon 02-12 (cont.) Normal [facility] Comment on above: Result Comment: Aver age GFR for 70 or more years old: 75 mL/min/1.73sq m Chronic Kidney Disease: <60 mL/min/1.73sq m Kidney failure: <15 mL/min/1.73sq m eGFR calculated using average adult body mass. Additional eGFR calculator available at: http://www.Pegastech.Syniverse/multiple_crcl_2012.htm Performed By: #### ANNE PEREZ, CP #### [facility] [address] [facility] [place] [address] Livestock Feeder: Aftab Mack DO Anion gap [Moles/Vol] 10 mmol/L Normal 9-17 [facility] Comment on above: Performed By: #### ANNE PEREZ, CP #### [facility] [address] [facility] [place] [address] Livestock Feeder: Aftab Mack DO Calcium [Mass/Vol] 8.3 mg/dL Low 8.6-10.4 [facility] Comment on above: Performed By: #### ANNE PEREZ, CP #### [facility] [address] [facility] [place] [address] Livestock Feeder: Aftab Mack DO Chloride [Moles/Vol] 108 mmol/L High 98-107 [facility] Comment on above: Performed By: #### ANNE PEREZ, CP #### [facility] [address] [place] [address] Livestock Feeder: Aftab Mack DO CO2 [Moles/Vol] 23 mmol/L Normal 20-31 [facility] Comment on above: Performed By: #### ANNE PEREZ, CP #### [facility] [place] [address] Livestock Feeder: Aftab Mack DO Creatinine [Mass/Vol] 0.83 mg/dL Normal 0.50-0.90 [facility] Comment on above: Performed By: #### ANNE PEREZ, CP #### [facility]0 [facility] [place] [address] Livestock Feeder: Aftab Mack DO GFR, Amer >60 Normal >60 [facility] Comment on above: Performed By: #### ANNE PEREZ, CP #### [facility]0 [facility] [place] [address] Livestock Feeder: Aftab Mack DO GFR,non Amer >60 Normal >60 [facility] Comment on above: Performed By: #### ANNE PEREZ, CP #### [facility] [address] [place] [address] Livestock Feeder: Aftab Mack DO Glucose [Mass/Vol] 90 mg/dL Normal 70-99 [facility] Comment on above: Performed By: #### E CENZ, CDP, CP #### [facility] [address] [facility] [place] [address] Livestock Feeder: Aftab Mack DO Potassium [Moles/Vol] 4.3 mmol/L Normal 3.7-5.3 [facility] Comment on above: Performed By: #### ANNE PEREZ, CP #### [facility] [address] [facility] [place] [address] Livestock Feeder: Aftab Mack DO Sodium [Moles/Vol] 141 mmol/L Normal 135-144 [facility] Comment on above: Performed By: #### ANNE PEREZ, CP #### [facility] [address] [place] [address]. [place] [address] Livestock Feeder: Aftab Mack DO Urea nitrogen [Mass/Vol] 17 mg/dL Normal 8-23 [facility] Comment on above: Performed By: #### ANNE PEREZ, CP #### [facility]0 [facility] [place] [address] Livestock Feeder: Aftab Mack DO BUN/CRE Ratio NOT REPORTED Normal - [facility] Comment on above: Performed By: #### ANNE PEREZ, CP #### [facility]0 [facility] [place] [address] Livestock Feeder: Aftab Mack DO Staging: NOT REPORTED Normal [facility] Comment on above: Performed By: #### NANE PEREZ, CP #### [facility] [address] [place] [address]. [place] [address] Livestock Feeder: Aftab Mack DO Basic Metabolic Panel w/ Ref vidal to MGon 02-13-2020 Anion gap [Moles/Vol] 10 mmol/L 9 - 17 mmol/L [facility], [place] Bun/Cre Ratio NOT REPORTED [place] Calcium [Mass/Vol] 8.3 mg/dL Low 8.6 - 10.4 mg/dL [place] Chloride [Moles/Vol] 108 mmol/L High 98 - 107 mmol/L [place] CO2 [Moles/Vol] 23 mmol/L 20 - 31 mmol/L [place] Creatinine [Mass/Vol] 0.83 mg/dL 0.5 - 0.9 mg/dL [place] GFR >60 >60 mL/min [place] GFR Non- >60 >60 mL/min [place] GFR/1.73 sq M predicted among non-blacks MDRD (S/P/Bld) [Vol rate/Area] [place] Comment on above: Average GFR for 70 o r more years old: 75 mL/min/1.73sq m Chronic Kidney Disease: <60 mL/min/1.73sq m Kidney failure: <15 mL/min/1.73sq m eGFR calculated using average adult body mass. Additional eGFR calculator available at: http://www.olook/multiple_crcl_2012.htm GFR/1.73 sq M predicted among non-blacks MDRD (S/P/Bld) [Vol rate/Area] NOT REPORTED [place] Glucose [Mass/Vol] 90 mg/dL 70 - 99 mg/dL [place] Interpretation and review of laboratory results Abnormal [place] Potassium [Moles/Vol] 4.3 mmol/L 3.7 - 5.3 mmol/L [place] Sodium [Moles/Vol] 141 mmol/L 135 - 144 mmol/L [place] Urea nitrogen [Mass/Vol] 17 mg/dL 8 - 23 mg/dL [place] CBC auto differentialon -2 0-2020 Basophils (Bld) [#/Vol] 0.10 10*3/uL [place] Basophils/100 WBC (Bld) 1 % 0 - 2 % [place] Differential Type NOT REPORTED [place] Eosinophils (Bld) [#/Vol] 0.20 10*3/uL [place] Eosinophils/100 WBC (Bld) 3 % 0 - 4 % [place] Erythrocyte distribution width (RBC) [Ratio] 14.9 % 11.5 - 14.9 % [place] Hematocrit (Bld) [Volume fraction] 31.7 % Low 36 - 46 % [place] Hemoglobin (Bld) [Mass/Vol] 10.2 g/dL Low 12 - 16 g/dL [place] Interpretation and review of laboratory results Abnormal [place] Lymphocytes (Bld) [#/Vol] 1.10 10*3/uL [place] Lymphocytes/100 WBC (Bld) 22 % Low 24 - 44 % [place] MCH (RBC) [Entitic mass] 27.8 pg 26 - 34 pg [place] MCHC (RBC) [Mass/Vol] 32.2 g/dL 31 - 37 g/dL [place] MCV (RBC) [Entitic vol] 86.1 fL 80 - 100 fL [place] Monocytes (Bld) [#/Vol] 0.40 10*3/uL [place] Monocytes/100 WBC (Bld) 8 % High 1 - 7 % [place] Platelet mean volume (Bld) [Entitic vol] 7.5 fL 6 - 12 fL [place] Platelets (Bld) [#/Vol] NOT REPORTED [place] Platelets (Bld) [#/Vol] 234 10*3/uL [place] RBC (Bld) [#/Vol] 3.68 10*6/uL Low 4 - 5.2 m/uL [place] RBC morphology finding Nom (Bld) NOT REPORTED [place] Segmented neutrophils/100 WBC (Bld) 66 % 36 - 66 % [place] Segs Absolute 3.40 [place] WBC (Bld) [#/Vol] 5.2 10*3/uL [place] WBC (Bld) [#/Vol] NOT REPORTED per 100 WBC [place] WBC Morphology NOT REPORTED [place] CBC with Diffon 02-13-2020 Abs. Basophil 0.10 k/uL Normal 0.0-0.2 [facility] Comment on above: Performed By: #### ANNE PEREZ, CP #### [facility] [address] [facility] [place] [address] Livestock Feeder: Aftab Mack DO Abs.Neutrophil (Seg) 3.40 k/uL Normal 1.3-9.1 [facility] Comment on above: Performed By: #### ANNE PEREZ, CP #### [facility] [address] [place] [address]. [place] [address] Livestock Feeder: Aftab Mack DO Basophils/100 WBC (Bld) 1 % Normal 0-2 [facility] Comment on above: Performed By: #### ANNE PEREZ, CP #### [facility] [place] [address] Livestock Feeder: Aftab Mack DO Eosinophils (Bld) [#/Vol] 0.20 10*3/uL Normal 0.0-0.4 [facility] Comment on above: Performed By: #### ANNE PEREZ, CP #### [facility] [address] [place] [address] Livestock Feeder: Aftab Mack DO Eosinophils/100 WBC (Bld) 3 % Normal 0-4 [facility] Comment on above: Performed By: #### ANNE PEREZ, CP #### [facility]0 [facility] [place] [address] Livestock Feeder: Aftab Mack DO Erythrocyte distribution width (RBC) [Ratio] 14.9 % Normal 11.5-14.9 [facility] Comment on above: Performed By: #### ANNE PEREZ, CP #### [facility] [address] [place] [address] Livestock Feeder: Aftab Mack DO Hematocrit (Bld) [Volume fraction] 31.7 % Low 36-46 [facility] Comment on above: Performed By: #### ANNE PEREZ, CP #### [facility] [address] [place] [facility] [place] [address] Livestock Feeder: Aftab Mack DO Hemoglobin (Bld) [Mass/Vol] 10.2 g/dL Low 12.0-16.0 [facility] Comment on above: Performed By: #### ANNE PEREZ, CP #### [facility]0 [place] [facility] [place] [address] Livestock Feeder: Aftab Mack DO Lymphocytes (Bld) [#/Vol] 1.10 10*3/uL Normal 1.0-4.8 [facility] Comment on above: Performed By: #### ANNE PEREZ, CP #### [facility]0 [facility] [place] [address] Livestock Feeder: Aftab Mack DO Lymphocytes/100 WBC (Bld) 22 % Low 24-44 [facility] Comment on above: Performed By: #### ANNE PEREZ, CP #### [facility] [address] [place] [address]. [place] [address] Livestock Feeder: Aftab Mack DO MCH (RBC) [Entitic mass] 27.8 pg Normal 26-34 [facility] Comment on above: Performed By: #### ANNE PEREZ, CP #### [facility] [facility] [place] [address] Livestock Feeder: Aftab Mack DO MCHC (RBC) [Mass/Vol] 32.2 g/dL Normal 31-37 [facility] Comment on above: Performed By: #### ANNE PEREZ, CP #### [facility] [address] [place] [address] Livestock Feeder: Aftab Mack DO MCV (RBC) [Entitic vol] 86.1 fL Normal 80-100 [facility] Comment on above: Performed By: #### ANNE PEREZ, CP #### [facility] [place] [address] Livestock Feeder: Aftab Mack DO Monocytes (Bld) [#/Vol] 0.40 10*3/uL Normal 0.1-1.3 [facility] Comment on above: Performed By: #### ANNE PEREZ, CP #### [facility] [place] [address] Livestock Feeder: Aftab Mack DO Monocytes/100 WBC (Bld) 8 % High 1-7 [facility] Comment on above: Performed By: #### ANNE PEREZ, CP #### [facility] [place] [address] Livestock Feeder: Aftab Mack DO Neutrophil (Seg) 66 % Normal 36-66 [facility] Comment on above: Performed By: #### ANNE PEREZ, CP #### [facility] [address] [place] [address] Livestock Feeder: Aftab Mack DO Platelet mean volume (Bld) [Entitic vol] 7.5 fL Normal 6.0-12.0 [facility] Comment on above: Performed By: #### ANNE PEREZ, CP #### [facility] [address] [place] [address] Livestock Feeder: Aftab Mack DO Platelets (Bld) [#/Vol] 234 10*3/uL Normal 150-450 [facility] Comment on above: Performed By: #### ANNE PEREZ, CP #### [facility] [address] [facility] [place] [address] Livestock Feeder: Aftab Mack DO RBC (Bld) [#/Vol] 3.68 10*6/uL Low 4.0-5.2 [facility] Comment on above: Performed By: #### ANNE PEREZ, CP #### [facility] [address] [place] [address] Livestock Feeder: Aftab Mack DO WBC (Bld) [#/Vol] 5.2 10*3/uL Normal 3.5-11.0 [facility] Comment on above: Performed By: #### ANNE PEREZ, CP #### [facility] [address] [place] [address] Livestock Feeder: Aftab Mack DO Abs.Imm.Granulocy te NOT REPORTED Normal 0.00-0.30 [facility] Comment on above: Performed By: #### ANNE PEREZ, CP #### [facility] [address] [place] [address] Livestock Feeder: Aftab Mack DO Auto Diff Performed NOT REPORTED Normal [facility] Comment on above: Performed By: #### ANNE PEREZ, CP #### [facility] [address] [place] [address] Livestock Feeder: Aftab Mack DO Immature granulocytes (Bld) [#/Vol] NOT REPORTED Normal 0 [facility] Comment on above: Performed By: #### ANNE PEREZ, CP #### [facility] [address] [place] [address] Livestock Feeder: Aftab Mack DO NRBC Automated NOT REPORTED Normal [facility] Comment on above: Performed By: #### ANNE PEREZ, CP #### [facility] [address] [facility] [place] [address] Livestock Feeder: Aftab Mack DO Platelets (Bld) [#/Vol] NOT REPORTED Normal [facility] Comment on above: Performed By: #### ANNE PEREZ, CP #### [facility] [address] [facility] [place] [address] Livestock Feeder: Aftab Mack DO RBC morphology finding Nom (Bld) NOT REPORTED Normal [facility] Comment on above: Performed By: #### ANNE PEREZ, CP #### [facility] [address] [facility] [place] [address] Livestock Feeder: Aftab Mack DO WBC Morphology NOT REPORTED Normal [facility] Comment on above: Performed By: #### ANNE PEREZ, CP #### [facility] [address] [facility] [place] [address] Livestock Feeder: Aftab Mack DO Otheron 02-13-2020 Immature granulocytes (Bld) [#/Vol] NOT REPORTED 0 % [place] Basic Metab w/rfx MGon 02-11 (cont.) Normal [facility] Comment on above: Result Comment: Aver age GFR for 70 or more years old: 75 mL/min/1.73sq m Chronic Kidney Disease: <60 mL/min/1.73sq m Kidney failure: <15 mL/min/1.73sq m eGFR calculated using average adult body mass. Additional eGFR calculator available at: http://www.Pegastech.com/multiple_crcl_2012.htm Performed By: #### ANNE PEREZ, CP #### [facility] [address] [facility] [place] [address] Livestock Feeder: Aftab Mack DO Anion gap [Moles/Vol] 11 mmol/L Normal 9-17 [facility] Comment on above: Performed By: #### ANNE PEREZ, CP #### [facility] [address] [facility] [place] [address] Livestock Feeder: Aftab Mack DO Calcium [Mass/Vol] 8.2 mg/dL Low 8.6-10.4 [facility] Comment on above: Performed By: #### ANNE PEREZ, CP #### [facility] [address] [place] [address] Livestock Feeder: Aftab Mack DO Chloride [Moles/Vol] 106 mmol/L Normal 98-107 [facility] Comment on above: Performed By: #### ANNE PEREZ, CP #### [facility]0 [facility] [place] [address] Livestock Feeder: Aftab Mack DO CO2 [Moles/Vol] 23 mmol/L Normal 20-31 [facility] Comment on above: Performed By: #### ANNE PEREZ, CP #### [facility]0 [facility] [place] [address] Livestock Feeder: Aftab Mack DO Creatinine [Mass/Vol] 0.84 mg/dL Normal 0.50-0.90 [facility] Comment on above: Performed By: #### ANNE PEREZ, CP #### [facility] [place] [address] Livestock Feeder: Aftab Mack DO GFR, Amer >60 Normal >60 [facility] Comment on above: Performed By: #### ANNE PEREZ, CP #### [facility] [address] [place] [address] Livestock Feeder: Aftab Mack DO GFR,non Amer >60 Normal >60 [facility] Comment on above: Performed By: #### ANNE PEREZ, CP #### [facility] [address] [facility] [place] [address] Livestock Feeder: Aftab Mack DO Glucose [Mass/Vol] 88 mg/dL Normal 70-99 [facility] Comment on above: Performed By: #### ANNE PEREZ, CP #### [facility] [address] [facility] [place] [address] Livestock Feeder: Aftab Mack DO Potassium [Moles/Vol] 3.8 mmol/L Normal 3.7-5.3 [facility] Comment on above: Performed By: #### ANNE PEREZ, CP #### [facility] [address] [facility] [place] [address] Livestock Feeder: Aftab Mack DO Sodium [Moles/Vol] 140 mmol/L Normal 135-144 [facility] Comment on above: Performed By: #### ANNE PEREZ, CP #### [facility] [address] [facility] [place] [address] Livestock Feeder: Aftab Mack DO Urea nitrogen [Mass/Vol] 20 mg/dL Normal 8-23 [facility] Comment on above: Performed By: #### ANNE PEREZ, CP #### [facility]0 [facility] [place] [address] Livestock Feeder: Aftab Mack DO BUN/CRE Ratio NOT REPORTED Normal 9-20 [facility] Comment on above: Performed By: #### ANNE PEREZ, CP #### [facility] [address] [facility] [place] [address] Livestock Feeder: Aftab Mack DO Staging: NOT REPORTED Normal [facility] Comment on above: Performed By: #### ANNE PEREZ, CP #### [facility] [address] [place] [address] Livestock Feeder: Aftab Mack DO Basic Metabolic Panel w/ Ref vidal to MGon 02-12-2020 Anion gap [Moles/Vol] 11 mmol/L 9 - 17 mmol/L [place] Bun/Cre Ratio NOT REPORTED [place] Calcium [Mass/Vol] 8.2 mg/dL Low 8.6 - 10.4 mg/dL [place] Chloride [Moles/Vol] 106 mmol/L 98 - 107 mmol/L [place] CO2 [Moles/Vol] 23 mmol/L 20 - 31 mmol/L [place] Creatinine [Mass/Vol] 0.84 mg/dL 0.5 - 0.9 mg/dL [place] GFR >60 >60 mL/min [place] GFR Non- >60 >60 mL/min [place] GFR/1.73 sq M predicted among non-blacks MDRD (S/P/Bld) [Vol rate/Area] NOT REPORTED [place] GFR/1.73 sq M predicted among non-blacks MDRD (S/P/Bld) [Vol rate/Area] [place] Comment on above: Average GFR for 70 o r more years old: 75 mL/min/1.73sq m Chronic Kidney Disease: <60 mL/min/1.73sq m Kidney failure: <15 mL/min/1.73sq m eGFR calculated using average adult body mass. Additional eGFR calculator available at: http://www.Pegastech.Syniverse/multiple_crcl_2012.htm Glucose [Mass/Vol] 88 mg/dL 70 - 99 mg/dL [place] Interpretation and review of laboratory results Abnormal [place] Potassium [Moles/Vol] 3.8 mmol/L 3.7 - 5.3 mmol/L [place] Sodium [Moles/Vol] 140 mmol/L 135 - 144 mmol/L [place] Urea nitrogen [Mass/Vol] 20 mg/dL 8 - 23 mg/dL [place] CBC auto differentialon 01-24 Basophils (Bld) [#/Vol] 0.00 10*3/uL [place] Basophils/100 WBC (Bld) 1 % 0 - 2 % [place] Differential Type NOT REPORTED [place] Eosinophils (Bld) [#/Vol] 0.10 10*3/uL [place] Eosinophils/100 WBC (Bld) 2 % 0 - 4 % [place] Erythrocyte distribution width (RBC) [Ratio] 14.9 % 11.5 - 14.9 % [place] Hematocrit (Bld) [Volume fraction] 31.6 % Low 36 - 46 % [place] Hemoglobin (Bld) [Mass/Vol] 10.4 g/dL Low 12 - 16 g/dL [place] Interpretation and review of laboratory results Abnormal [place] Lymphocytes (Bld) [#/Vol] 1.20 10*3/uL [place] Lymphocytes/100 WBC (Bld) 21 % Low 24 - 44 % [place] MCH (RBC) [Entitic mass] 28.4 pg 26 - 34 pg [place] MCHC (RBC) [Mass/Vol] 32.9 g/dL 31 - 37 g/dL [place] MCV (RBC) [Entitic vol] 86.3 fL 80 - 100 fL [place] Monocytes (Bld) [#/Vol] 0.60 10*3/uL [place] Monocytes/100 WBC (Bld) 9 % High 1 - 7 % [place] Platelet mean volume (Bld) [Entitic vol] 7.6 fL 6 - 12 fL [place] Platelets (Bld) [#/Vol] 216 10*3/uL [place] Platelets (Bld) [#/Vol] NOT REPORTED [place] RBC (Bld) [#/Vol] 3.66 10*6/uL Low 4 - 5.2 m/uL [place] RBC morphology finding Nom (Bld) NOT REPORTED [place] Segmented neutrophils/100 WBC (Bld) 67 % High 36 - 66 % [place] Segs Absolute 4.00 [place] WBC (Bld) [#/Vol] 6.0 10*3/uL [place] WBC (Bld) [#/Vol] NOT REPORTED per 100 WBC [place] WBC Morphology NOT REPORTED [place] CBC with Diffon 02-12-2020 Abs. Basophil 0.00 k/uL Normal 0.0-0.2 [facility] Comment on above: Performed By: #### ANNE PEREZ, CP #### [facility] [place] [address] Livestock Feeder: Aftab Mack DO Abs.Neutrophil (Seg) 4.00 k/uL Normal 1.3-9.1 [facility] Comment on above: Performed By: #### ANNE PEREZ, CP #### [facility] [address] [place] [address]. [place] [address] Livestock Feeder: Aftab Mack DO Basophils/100 WBC (Bld) 1 % Normal 0-2 [facility] Comment on above: Performed By: #### ANNE PEREZ, CP #### [facility] [address] [place] [address]. [place] [address] Livestock Feeder: Aftab Mack DO Eosinophils (Bld) [#/Vol] 0.10 10*3/uL Normal 0.0-0.4 [facility] Comment on above: Performed By: #### ANNE PEREZ, CP #### [facility] [address] [place] [address]. [place] [address] Livestock Feeder: Aftab Mack DO Eosinophils/100 WBC (Bld) 2 % Normal 0-4 [facility] Comment on above: Performed By: #### ANNE PEREZ, CP #### [facility] [address] [place] [address]. [place] [address] Livestock Feeder: Aftab Mack DO Erythrocyte distribution width (RBC) [Ratio] 14.9 % Normal 11.5-14.9 [facility] Comment on above: Performed By: #### ANNE PEREZ, CP #### [facility] [address] [place] [address] Livestock Feeder: Aftab Mack DO Hematocrit (Bld) [Volume fraction] 31.6 % Low 36-46 [facility] Comment on above: Performed By: #### NANE PEREZ, CP #### [facility] [address] [place] [address] Livestock Feeder: Aftab Mack DO Hemoglobin (Bld) [Mass/Vol] 10.4 g/dL Low 12.0-16.0 [facility] Comment on above: Performed By: #### ANNE PEREZ, CP #### [facility] [facility] [place] [address] Livestock Feeder: Aftab Mack DO Lymphocytes (Bld) [#/Vol] 1.20 10*3/uL Normal 1.0-4.8 [facility] Comment on above: Performed By: #### ANNE PEREZ, CP #### [facility] [facility] [place] [address] Livestock Feeder: Aftab Mack DO Lymphocytes/100 WBC (Bld) 21 % Low 24-44 [facility] Comment on above: Performed By: #### ANNE PEREZ, CP #### [facility] [place] [address] Livestock Feeder: Aftab Mack DO MCH (RBC) [Entitic mass] 28.4 pg Normal 26-34 [facility] Comment on above: Performed By: #### ANNE PEREZ, CP #### [facility] [address] [facility] [place] [address] Livestock Feeder: Aftab Mack DO MCHC (RBC) [Mass/Vol] 32.9 g/dL Normal 31-37 [facility] Comment on above: Performed By: #### ANNE PEREZ, CP #### [facility] [place] [address] Livestock Feeder: Aftab Mack DO MCV (RBC) [Entitic vol] 86.3 fL Normal 80-100 [facility] Comment on above: Performed By: #### ANNE PEREZ, CP #### [facility]0 [facility] [place] [address] Livestock Feeder: Aftab Mack DO Monocytes (Bld) [#/Vol] 0.60 10*3/uL Normal 0.1-1.3 [facility] Comment on above: Performed By: #### ANNE PEREZ, CP #### [facility] [place] [address] Livestock Feeder: Aftab Mack DO Monocytes/100 WBC (Bld) 9 % High 1-7 [facility] Comment on above: Performed By: #### ANNE PEREZ, CP #### [facility] [address] [place] [address] Livestock Feeder: Aftab Mack DO Neutrophil (Seg) 67 % High 36-66 [facility] Comment on above: Performed By: #### ANNE PEREZ, CP #### [facility] [address] [place] [address] Livestock Feeder: Aftab Mack DO Platelet mean volume (Bld) [Entitic vol] 7.6 fL Normal 6.0-12.0 [facility] Comment on above: Performed By: #### ANNE PEREZ, CP #### [facility] [address] [place] [address] Livestock Feeder: Aftab Mack DO Platelets (Bld) [#/Vol] 216 10*3/uL Normal 150-450 [facility] Comment on above: Performed By: #### ANNE PEREZ, CP #### [facility] [place] [address] Livestock Feeder: Aftab Mack DO RBC (Bld) [#/Vol] 3.66 10*6/uL Low 4.0-5.2 [facility] Comment on above: Performed By: #### ANNE PEREZ, CP #### [facility] [place] [address] Livestock Feeder: Aftab Mack DO WBC (Bld) [#/Vol] 6.0 10*3/uL Normal 3.5-11.0 [facility] Comment on above: Performed By: #### ANNE PEREZ, CP #### [facility] [address] [place] [address] Livestock Feeder: Aftab Mack DO Abs.Imm.Granulocy te NOT REPORTED Normal 0.00-0.30 [facility] Comment on above: Performed By: #### ANNE PEREZ, CP #### [facility] [address] [place] [address] Livestock Feeder: Aftab Mack DO Auto Diff Performed NOT REPORTED Normal [facility] Comment on above: Performed By: #### ANNE PEREZ, CP #### [facility] [address] [place] [address] Livestock Feeder: Aftab Mack DO Immature granulocytes (Bld) [#/Vol] NOT REPORTED Normal 0 [facility] Comment on above: Performed By: #### ANNE PEREZ, CP #### [facility] [address] [facility] [place] [address] Livestock Feeder: Aftab Mack DO NRBC Automated NOT REPORTED Normal [facility] Comment on above: Performed By: #### ANNE PEREZ, CP #### [facility] [place] [address] Livestock Feeder: Aftab Mack DO Platelets (Bld) [#/Vol] NOT REPORTED Normal [facility] Comment on above: Performed By: #### ANNE PEREZ, CP #### [facility] [place] [address] Livestock Feeder: Aftab Mack DO RBC morphology finding Nom (Bld) NOT REPORTED Normal [facility] Comment on above: Performed By: #### NANE PEREZ, CP #### [facility] [place] [address] Livestock Feeder: Aftba Mack DO WBC Morphology NOT REPORTED Normal [facility] Comment on above: Performed By: #### ANNE PEREZ, CP #### [facility] [place] [address] Livestock Feeder: Aftab Mack DO COVID-19on 02-12-2020 SARS-CoV-2 Not Detected Not Detected [place] Comment on above: The specimen is NEGATIVE for SARS-CoV-2, the novel coronavirus associated with COVID-19. A negative result does not rule out COVID-19. This test has been authorized by the FDA under an Emergency Use Authorization (EUA) for use by authorized laboratories. Fact sheet for Healthcare Providers: https://www.fda.gov/media/560182/download Fact sheet for Patients: https://www.fda.gov/media/312563/download METHODOLOGY: RT-PCR SARS-CoV-2, PCR [place] SARS-CoV-2, Rapid [place] Source .NASOPHARYNGEAL SWAB [place] Otheron 02-12-2020 Immature granulocytes (Bld) [#/Vol] NOT REPORTED 0 % [place] [id number] 02-12-2020 SARS-CoV-2 Normal [facility] Comment on above: Performed By: #### E ANNE ISAACS, CP #### [facility] [address] [facility]. [place], [place] [id number] Livestock Feeder: Aftab Mack DO SARS-CoV-2 Not Detected Normal NOTDET [facility] Comment on above: Result Comment: The specimen is NEGATIVE for SARS-CoV-2, the novel coronavirus associated with COVID-19. A negative result does not rule out COVID-19. This test has been authorized by the FDA under an Emergency Use Authorization (EUA) for use by authorized laboratories. Fact sheet for Healthcare Providers: https://www.fda.gov/media/022145/download Fact sheet for Patients: https://www.fda.gov/media/260248/download METHODOLOGY: RT-PCR Performed By: #### ANNE PEREZ, MO #### [facility] [address] [facility] [place] [address] Livestock Feeder: Aftab Mack DO Basic Metab w/rfx MGon 02-10 (cont.) Normal [facility] Comment on above: Result Comment: Aver age GFR for 70 or more years old: 75 mL/min/1.73sq m Chronic Kidney Disease: <60 mL/min/1.73sq m Kidney failure: <15 mL/min/1.73sq m eGFR calculated using average adult body mass. Additional eGFR calculator available at: http://www.Pegastech.com/multiple_crcl_2012.htm Performed By: #### E ANNE ISAACS, CP #### [facility] [address] [facility]. [place], [place] [id number] Livestock Feeder: Aftab Mack DO Anion gap [Moles/Vol] 14 mmol/L Normal 9-17 [facility] Comment on above: Performed By: #### ANNE PEREZ, CP #### [facility] [address] [place] [address] Livestock Feeder: Aftab Mack DO Calcium [Mass/Vol] 8.3 mg/dL Low 8.6-10.4 [facility] Comment on above: Performed By: #### ANNE PEREZ, CP #### [facility] [address] [place] [address] Livestock Feeder: Aftab Mack DO Chloride [Moles/Vol] 104 mmol/L Normal 98-107 [facility] Comment on above: Performed By: #### ANNE PEREZ, CP #### [facility] [address] [place] [address] Livestock Feeder: Aftab Mack DO CO2 [Moles/Vol] 22 mmol/L Normal 20-31 [facility] Comment on above: Performed By: #### ANNE PEREZ, CP #### [facility] [address] [facility] [place] [address] Livestock Feeder: Aftab Mack DO Creatinine [Mass/Vol] 1.05 mg/dL High 0.50-0.90 [facility] Comment on above: Performed By: #### ANNE PEREZ, CP #### [facility] [address] [place] [address] Livestock Feeder: Aftab Mack DO GFR, Amer >60 Normal >60 [facility] Comment on above: Performed By: #### ANNE PEREZ, CP #### [facility] [address] [place] [address] Livestock Feeder: Aftab Mack DO GFR,non Amer 51 mL/min Low >60 [facility] Comment on above: Performed By: #### ANNE PEREZ, CP #### [facility] [address] [facility] [place] [address] Livestock Feeder: Aftab Mack DO Glucose [Mass/Vol] 99 mg/dL Normal 70-99 [facility] Comment on above: Performed By: #### ANNE PEREZ, CP #### [facility] [address] [place] [address] Livestock Feeder: Aftab Mack DO Potassium [Moles/Vol] 3.8 mmol/L Normal 3.7-5.3 [facility] Comment on above: Performed By: #### ANNE PEREZ, CP #### [facility] [address] [place] [address] Livestock Feeder: Aftab Mack DO Sodium [Moles/Vol] 140 mmol/L Normal 135-144 [facility] Comment on above: Performed By: #### ANNE PEREZ, CP #### [facility] [place] [address] Livestock Feeder: Aftab Mack DO Urea nitrogen [Mass/Vol] 25 mg/dL High 8-23 [facility] Comment on above: Performed By: #### ANNE PEREZ, CP #### [facility] [address] [place] [address] Livestock Feeder: Aftab Mack DO BUN/CRE Ratio NOT REPORTED Normal 9-20 [facility] Comment on above: Performed By: #### ANNE PEREZ, CP #### [facility] [place] [address] Livestock Feeder: Aftab Mack DO Staging: NOT REPORTED Normal [facility] Comment on above: Performed By: #### E CENZ, CDP, CP #### [facility] [address] [place] [address] Livestock Feeder: Aftab Mack DO Basic Metabolic Panel w/ Ref vidal to MGon 02-11-2020 Anion gap [Moles/Vol] 14 mmol/L 9 - 17 mmol/L [place] Bun/Cre Ratio NOT REPORTED [place] Calcium [Mass/Vol] 8.3 mg/dL Low 8.6 - 10.4 mg/dL [place] Chloride [Moles/Vol] 104 mmol/L 98 - 107 mmol/L [place] CO2 [Moles/Vol] 22 mmol/L 20 - 31 mmol/L [place] Creatinine [Mass/Vol] 1.05 mg/dL High 0.5 - 0.9 mg/dL [place] GFR >60 >60 mL/min [place] GFR Non- 51 mL/min Low >60 [place] GFR/1.73 sq M predicted among non-blacks MDRD (S/P/Bld) [Vol rate/Area] [place] Comment on above: Average GFR for 70 o r more years old: 75 mL/min/1.73sq m Chronic Kidney Disease: <60 mL/min/1.73sq m Kidney failure: <15 mL/min/1.73sq m eGFR calculated using average adult body mass. Additional eGFR calculator available at: http://www.Pegastech.Syniverse/multiple_crcl_2012.htm GFR/1.73 sq M predicted among non-blacks MDRD (S/P/Bld) [Vol rate/Area] NOT REPORTED [place] Glucose [Mass/Vol] 99 mg/dL 70 - 99 mg/dL [place] Interpretation and review of laboratory results Abnormal [place] Potassium [Moles/Vol] 3.8 mmol/L 3.7 - 5.3 mmol/L [place] Sodium [Moles/Vol] 140 mmol/L 135 - 144 mmol/L [place] Urea nitrogen [Mass/Vol] 25 mg/dL High 8 - 23 mg/dL [place] CBC auto differentialon 01-24 Basophils (Bld) [#/Vol] 0.00 10*3/uL [place] Basophils/100 WBC (Bld) 0 % 0 - 2 % [place] Differential Type NOT REPORTED [place] Eosinophils (Bld) [#/Vol] 0.00 10*3/uL [place] Eosinophils/100 WBC (Bld) 0 % 0 - 4 % [place] Erythrocyte distribution width (RBC) [Ratio] 15.0 % High 11.5 - 14.9 % [place] Hematocrit (Bld) [Volume fraction] 32.7 % Low 36 - 46 % [place] Hemoglobin (Bld) [Mass/Vol] 10.7 g/dL Low 12 - 16 g/dL [place] Interpretation and review of laboratory results Abnormal [place] Lymphocytes (Bld) [#/Vol] 0.70 10*3/uL Low [place] Lymphocytes/100 WBC (Bld) 8 % Low 24 - 44 % [place] MCH (RBC) [Entitic mass] 28.3 pg 26 - 34 pg [place] MCHC (RBC) [Mass/Vol] 32.6 g/dL 31 - 37 g/dL [place] MCV (RBC) [Entitic vol] 86.9 fL 80 - 100 fL [place] Monocytes (Bld) [#/Vol] 0.50 10*3/uL [place] Monocytes/100 WBC (Bld) 5 % 1 - 7 % [place] Platelet mean volume (Bld) [Entitic vol] 7.4 fL 6 - 12 fL [place] Platelets (Bld) [#/Vol] 209 10*3/uL [place] Platelets (Bld) [#/Vol] NOT REPORTED [place] RBC (Bld) [#/Vol] 3.77 10*6/uL Low 4 - 5.2 m/uL [place] RBC morphology finding Nom (Bld) NOT REPORTED [place] Segmented neutrophils/100 WBC (Bld) 87 % High 36 - 66 % [place] Segs Absolute 8.00 [place] WBC (Bld) [#/Vol] NOT REPORTED per 100 WBC [place] WBC (Bld) [#/Vol] 9.3 10*3/uL [place] WBC Morphology NOT REPORTED [place] CBC with Diffon 02-11-2020 Abs. Basophil 0.00 k/uL Normal 0.0-0.2 [facility] Comment on above: Performed By: #### ANNE PEREZ, CP #### [facility] [address] [place] [address] Livestock Feeder: Aftab Mack DO Abs.Neutrophil (Seg) 8.00 k/uL Normal 1.3-9.1 [facility] Comment on above: Performed By: #### ANNE PEREZ, CP #### [facility] [address] [place] [address] Livestock Feeder: Aftab Mack DO Basophils/100 WBC (Bld) 0 % Normal 0-2 [facility] Comment on above: Performed By: #### ANNE PEREZ, CP #### [facility] [address] [place] [address] Livestock Feeder: Aftab Mack DO Eosinophils (Bld) [#/Vol] 0.00 10*3/uL Normal 0.0-0.4 [facility] Comment on above: Performed By: ###ANNE UNDERWOOD, CP #### [facility] [address] [place] [address] Livestock Feeder: Aftab Mack DO Eosinophils/100 WBC (Bld) 0 % Normal 0-4 [facility] Comment on above: Performed By: #### ANNE PEREZ, CP #### [facility] [address] [facility] [place] [address] Livestock Feeder: Aftab Mack DO Erythrocyte distribution width (RBC) [Ratio] 15.0 % High 11.5-14.9 [facility] Comment on above: Performed By: #### ANNE PEREZ, CP #### [facility] [place] [facility] [place] [address] Livestock Feeder: Aftab Mack DO Hematocrit (Bld) [Volume fraction] 32.7 % Low 36-46 [facility] Comment on above: Performed By: #### ANNE PEREZ, CP #### [facility] [address] [place], [place] [address] [place] [address] Livestock Feeder: Aftab Mack DO Hemoglobin (Bld) [Mass/Vol] 10.7 g/dL Low 12.0-16.0 [facility] Comment on above: Performed By: #### ANNE PEREZ, CP #### [facility] [address] [place] [address]. [place] [address] Livestock Feeder: Aftab Mack DO Lymphocytes (Bld) [#/Vol] 0.70 10*3/uL Low 1.0-4.8 [facility] Comment on above: Performed By: #### ANNE PEREZ, CP #### [facility] [address] [place] [address] Livestock Feeder: Aftba Mack DO Lymphocytes/100 WBC (Bld) 8 % Low 24-44 [facility] Comment on above: Performed By: #### ANNE PEREZ, CP #### [facility] [place] [address] Livestock Feeder: Aftab Mack DO MCH (RBC) [Entitic mass] 28.3 pg Normal 26-34 [facility] Comment on above: Performed By: #### ANNE PEREZ, CP #### [facility] [address] [place] [address] Livestock Feeder: Aftab Mack DO MCHC (RBC) [Mass/Vol] 32.6 g/dL Normal 31-37 [facility] Comment on above: Performed By: #### ANNE PEREZ, CP #### [facility] [place] [address] Livestock Feeder: Aftab Mack DO MCV (RBC) [Entitic vol] 86.9 fL Normal 80-100 [facility] Comment on above: Performed By: #### ANNE PEREZ, CP #### [facility] [address] [place] [address] Livestock Feeder: Aftab Mack DO Monocytes (Bld) [#/Vol] 0.50 10*3/uL Normal 0.1-1.3 [facility] Comment on above: Performed By: #### ANNE PEREZ, CP #### [facility] [place] [address] Livestock Feeder: Aftab Mack DO Monocytes/100 WBC (Bld) 5 % Normal 1-7 [facility] Comment on above: Performed By: #### ANNE PEREZ, CP #### [facility] [address] [place] [address] Livestock Feeder: Aftab Mack DO Neutrophil (Seg) 87 % High 36-66 [facility] Comment on above: Performed By: #### ANNE PEREZ, CP #### [facility] [place] [address] Livestock Feeder: Aftab Mack DO Platelet mean volume (Bld) [Entitic vol] 7.4 fL Normal 6.0-12.0 [facility] Comment on above: Performed By: #### ANNE PEREZ, CP #### [facility] [address] [place] [address] Livestock Feeder: Aftab Mack DO Platelets (Bld) [#/Vol] 209 10*3/uL Normal 150-450 [facility] Comment on above: Performed By: #### ANNE PEREZ, CP #### [facility] [address] [place] [address] Livestock Feeder: Aftab Mack DO RBC (Bld) [#/Vol] 3.77 10*6/uL Low 4.0-5.2 [facility] Comment on above: Performed By: #### ANNE PEREZ, CP #### [facility] [place] [address] Livestock Feeder: Aftab Mack DO WBC (Bld) [#/Vol] 9.3 10*3/uL Normal 3.5-11.0 [facility] Comment on above: Performed By: #### ANNE PEREZ, CP #### [facility] [place] [address] Livestock Feeder: Aftab Mack DO Abs.Imm.Granulocy te NOT REPORTED Normal 0.00-0.30 [facility] Comment on above: Performed By: #### ANNE PEREZ, CP #### [facility] [address] [place] [facility] [place] [address] Livestock Feeder: Aftab Mack DO Auto Diff Performed NOT REPORTED Normal [facility] Comment on above: Performed By: #### ANNE PEREZ, CP #### [facility] [address] [facility] [place] [address] Livestock Feeder: Fanelly, Aftab, DO Immature granulocytes (Bld) [#/Vol] NOT REPORTED Normal 0 [facility] Comment on above: Performed By: #### E ANNE ISAACS, CP #### [facility] [address] [facility] [place] [address] Livestock Feeder: Aftab Mack DO NRBC Automated NOT REPORTED Normal [facility] Comment on above: Performed By: #### ANNE PEREZ, CP #### [facility] [address] [facility] [place] [address] Livestock Feeder: Aftab Mack DO Platelets (Bld) [#/Vol] NOT REPORTED Normal [facility] Comment on above: Performed By: #### E ANNE ISAACS, CP #### [facility] [address] [facility] [place] [address] Livestock Feeder: Aftab Mack DO RBC morphology finding Nom (Bld) NOT REPORTED Normal [facility] Comment on above: Performed By: #### ANNE PEREZ, CP #### [facility] [address] [place] [address]. [place] [address] Livestock Feeder: Aftab Mack DO WBC Morphology NOT REPORTED Normal [facility] Comment on above: Performed By: #### E ANNE ISAACS, CP #### [facility] [address] [place] [address]. [place] [address] Livestock Feeder: Aftab Mack DO EKG 12 Leadon 02-11-2020 Atrial Rate [address] [facility] [place] P [place] [address] [facility] [place] P-R Interval [address] [facility] [place] Q-T Interval [address] [facility] [place] QRS Duration [address] [facility] [place] QTc Calculation ([place]az[place]) [address] [facility] [place] R [place] 36 degrees [facility] T [place] [address] [facility] [place] Ventricular Rate [address] [facility] [place], Mhpn Incoming E kg Results From [facility] [place] - 02/11/2020 9:03 AM EDT Poor data quality, interpretation may be adversely affected Sinus tachycardia Otherwise normal ECG When compared with ECG of 03-NOV-2018 12:56, No significant change was found [facility], [place] Poor data qualit y, interpretation may be adversely affected Sinus tachycardia Otherwise normal ECG When compared with ECG of 03-NOV-2018 12:56, No significant change was found [facility] Atrial Rate 91 BPM [facility], [place] P Sunset 59 degrees [facility], [place] P-R Interval 168 ms [facility] Q-T Interval 342 ms [facility] [place] QRS Duration 82 ms [facility] QTc Calculation (Bazett) 420 ms [facility], [place] R [place] 40 degrees [facility] [place] T [place] 57 degrees [facility] [place] Ventricular Rate 91 BPM [facility], [place] Jaxson, Mhpn Incoming E kg Results From [facility] - 02/11/2020 9:02 AM EDT Normal sinus rhythm Normal ECG When compared with ECG of 10-FEB-2020 10:40, (unconfirmed) No significant change was found [place] Normal sinus rhythm Normal ECG When compared with ECG of 10-FEB-2020 10:40, (unconfirmed) No significant change was found [place] Otheron 02-11-2020 Immature granulocytes (Bld) [#/Vol] NOT REPORTED [place] [id number] 02-11-2020 SARS-CoV-2,Rapid Normal [facility] Comment on above: Performed By: #### E ANNE ISAACS, CP #### [facility] [address] [facility] [place] [address] Livestock Feeder: Aftab Mack DO SARS-CoV-2 Source .NASOPHARYNGEAL SWAB Normal [facility] Comment on above: Performed By: #### E ANNE ISAACS, CP #### [facility] [address] [facility] [place] [address] Livestock Feeder: Aftab Mack DO Troponinon 02-11-2020 Troponin I.cardiac [Mass/Vol] 36 ng/L High 0-14 [facility] Comment on above: Result Comment: High Sensitivity Troponin values cannot be compared with other Troponin methodologies. Patients with high levels of Biotin oral intake (i.e >5mg/day) may have falsely decreased Troponin levels. Samples collected within 8 hours of biotin intake may require additional information for diagnosis. Performed By: #### E ANNE ISAACS, CP #### [facility] [address] [facility] [place] [address] Livestock Feeder: Aftab Mack DO Troponin I.cardiac [Mass/Vol] NOT REPORTED Normal [facility] Comment on above: Performed By: #### E ANNE ISAACS, CP #### [facility] [address] [facility] [place] [address] Livestock Feeder: Aftab Mack DO Interpretation and review of laboratory results Abnormal [place] Troponin I.cardiac [Mass/Vol] NOT REPORTED [place] Troponin T.cardiac [Mass/Vol] NOT REPORTED <0.03 ng/mL [place] Troponin, High Sensitivity 36 ng/L High 0 - 14 ng/L [place] Comment on above: High Sensitivity Troponin values cannot be compared with other Troponin methodologies. Patients with high levels of Biotin oral intake (i.e >5mg/day) may have falsely decreased Troponin levels. Samples collected within 8 hours of biotin intake may require additional information for diagnosis. CBC Auto Differentialon 01-24 Absolute Bands # 2.13 High [place] Bands 10 % 0 - 10 % [place] Basophils (Bld) [#/Vol] 0.00 10*3/uL [place] Basophils/100 WBC (Bld) 0 % 0 - 2 % [place] Differential Type NOT REPORTED [place] Eosinophils (Bld) [#/Vol] 0.00 10*3/uL [place] Eosinophils/100 WBC (Bld) 0 % 0 - 4 % [place] Interpretation and review of laboratory results Abnormal [place] Lymphocytes (Bld) [#/Vol] 0.85 10*3/uL Low [place] Lymphocytes/100 WBC (Bld) 4 % Low 24 - 44 % [place] Monocytes (Bld) [#/Vol] 1.28 10*3/uL [place] Monocytes/100 WBC (Bld) 6 % 1 - 7 % [place] Morphology Adam (Bld) [Interp] Normal [place] Platelets (Bld) [#/Vol] NOT REPORTED [place] RBC morphology finding Nom (Bld) NOT REPORTED [place] Segmented neutrophils/100 WBC (Bld) 80 % High 36 - 66 % [place] Segs Absolute 17.04 High [place] WBC (Bld) [#/Vol] NOT REPORTED per 100 WBC [place] WBC Morphology NOT REPORTED [place] CBC with Diffon 02-10-2020 Abs. Bands 2.13 k/uL High 0.0-1.0 [facility] Comment on above: Performed By: #### ANNE PEREZ, CP #### [facility] [address] [place] [id number] Livestock Feeder: Aftab Mack DO Abs. Basophil 0.00 k/uL Normal 0.0-0.2 [facility] Comment on above: Performed By: #### ANNE PEREZ, CP #### [facility] [place] [address] Livestock Feeder: Aftab Mack DO Abs.Neutrophil (Seg) 17.04 k/uL High 1.3-9.1 [facility] Comment on above: Performed By: #### ANNE PEREZ, CP #### [facility] [address] [place] [address] Livestock Feeder: Aftab Mack DO Bands 10 % Normal 0-10 [facility] Comment on above: Performed By: #### ANNE PEREZ, CP #### [facility] [address] [place] [address] Livestock Feeder: Aftab Mack DO Basophils/100 WBC (Bld) 0 % Normal 0-2 [facility] Comment on above: Performed By: #### ANNE PEREZ, CP #### [facility] [address] [place] [address] Livestock Feeder: Aftab Mack DO Eosinophils (Bld) [#/Vol] 0.00 10*3/uL Normal 0.0-0.4 [facility] Comment on above: Performed By: #### ANNE PEREZ, CP #### [facility] [address] [facility] [place] [address] Livestock Feeder: Aftab Mack DO Eosinophils/100 WBC (Bld) 0 % Normal 0-4 [facility] Comment on above: Performed By: #### ANNE PEREZ, CP #### [facility] [facility] [place] [address] Livestock Feeder: Aftab Mack DO Lymphocytes (Bld) [#/Vol] 0.85 10*3/uL Low 1.0-4.8 [facility] Comment on above: Performed By: #### ANNE PEREZ, CP #### [facility] [facility] [place] [address] Livestock Feeder: Aftab Mack DO Lymphocytes/100 WBC (Bld) 4 % Low 24-44 [facility] Comment on above: Performed By: #### ANNE PEREZ, CP #### [facility] [address] [facility] [place] [address] Livestock Feeder: Aftab Mack DO Monocytes (Bld) [#/Vol] 1.28 10*3/uL Normal 0.1-1.3 [facility] Comment on above: Performed By: #### ANNE PEREZ, CP #### [facility] [address] [place] [address] Livestock Feeder: Aftab Mack DO Monocytes/100 WBC (Bld) 6 % Normal 1-7 [facility] Comment on above: Performed By: #### ANNE PEREZ, CP #### [facility] [address] [place] [address] Livestock Feeder: Aftab Mack DO Morphology Adam (Bld) [Interp] Normal Normal [facility] Comment on above: Performed By: #### ANNE PEREZ, CP #### [facility] [address] [place] [address] Livestock Feeder: Aftab Mack DO Neutrophil (Seg) 80 % High 36-66 [facility] Comment on above: Performed By: #### ANNE PEREZ, CP #### [facility] [address] [place] [address] Livestock Feeder: Aftab Mack DO Abs.Imm.Granulocy te NOT REPORTED Normal 0.00-0.30 [facility] Comment on above: Performed By: #### ANNE PEREZ, CP #### [facility] [address] [place] [address] Livestock Feeder: Aftab Mack DO Auto Diff Performed NOT REPORTED Normal [facility] Comment on above: Performed By: #### ANNE PEREZ, CP #### [facility] [address] [place] [address] Livestock Feeder: Aftab Mack DO Immature granulocytes (Bld) [#/Vol] NOT REPORTED Normal 0 [facility] Comment on above: Performed By: #### ANNE PEREZ, CP #### [facility] [address] [facility] [place] [address] Livestock Feeder: Aftab Mack DO NRBC Automated NOT REPORTED Normal [facility] Comment on above: Performed By: #### ANNE PEREZ, CP #### [facility] [address] [facility] [place] [address] Livestock Feeder: Aftab Mack DO Platelets (Bld) [#/Vol] NOT REPORTED Normal [facility] Comment on above: Performed By: #### ANNE PEREZ, CP #### [facility] [address] [facility] [place] [address] Livestock Feeder: Aftab Mack DO RBC morphology finding Nom (Bld) NOT REPORTED Normal [facility] Comment on above: Performed By: #### ANNE PEREZ, CP #### [facility] [address] [facility] [place] [address] Livestock Feeder: Aftab Mack DO WBC Morphology NOT REPORTED Normal [facility] Comment on above: Performed By: #### ANNE PEREZ, CP #### [facility] [facility] [place] [address] Livestock Feeder: Aftab Mack DO Erythrocyte distribution width (RBC) [Ratio] 14.9 % Normal 11.5-14.9 [place] Comment on above: Performed By: #### ANNE PEREZ, CP #### [facility] [address] [facility] [place] [address] Livestock Feeder: Aftab Mack DO Hematocrit (Bld) [Volume fraction] 36.3 % Normal 36-46 [place] Comment on above: Performed By: #### ANNE PEREZ, CP #### [facility] [address] [facility] [place] [address] Livestock Feeder: Aftab Mack DO Hemoglobin (Bld) [Mass/Vol] 11.8 g/dL Low 12.0-16.0 [place] Comment on above: Performed By: #### ANNE PEREZ, CP #### [facility] [address] [place] [address] Livestock Feeder: Aftab Mack DO MCH (RBC) [Entitic mass] 27.9 pg Normal 26-34 [place] Comment on above: Performed By: #### ANNE PEREZ, CP #### [facility] [facility] [place] [address] Livestock Feeder: Aftab Mack DO MCHC (RBC) [Mass/Vol] 32.4 g/dL Normal 31-37 [place] Comment on above: Performed By: #### ANNE PEREZ, CP #### [facility] [facility] [place] [address] Livestock Feeder: Aftab Mack DO MCV (RBC) [Entitic vol] 86.0 fL Normal 80-100 [place] Comment on above: Performed By: #### ANNE PEREZ, CP #### [facility] [facility] [place] [address] Livestock Feeder: Aftab Mack DO Platelet mean volume (Bld) [Entitic vol] 7.8 fL Normal 6.0-12.0 [place] Comment on above: Performed By: #### ANNE PEREZ, CP #### [facility] [facility] [place] [address] Livestock Feeder: Aftab Mack DO Platelets (Bld) [#/Vol] 240 10*3/uL Normal 150-450 [place] Comment on above: Performed By: #### ANNE PEREZ, CP #### [facility] [address] [place] [address] Livestock Feeder: Aftab Mack DO RBC (Bld) [#/Vol] 4.22 10*6/uL Normal 4.0-5.2 [place] Comment on above: Performed By: #### ANNE PEREZ, CP #### [facility] [address] [place] [address] Livestock Feeder: Aftab Mack DO WBC (Bld) [#/Vol] 21.3 10*3/uL High 3.5-11.0 [place] Comment on above: Performed By: #### ANNE PEREZ, CP #### [facility] [address] [place] [address] Livestock Feeder: Aftab Mack DO CT FACIAL BONES W CONTRASTon 02-10-2020 CT FACIAL BONES W CONTRAST EXAMINATION: CT OF THE FACE WITH CONTRAST 02/10/2020 TECHNIQUE: CT of the face was performed with the administration of intravenous contrast. Multiplanar reformatted images are provided for review. Dose modulation, iterative reconstruction, and/or weight based adjustment of the mA/kV was utilized to reduce the radiation dose to as low as reasonably achievable. COMPARISON: None. HISTORY: ORDERING SYSTEM PROVIDED HISTORY: facial swelling TECHNOLOGIST PROVIDED HISTORY: facial swelling Reason for Exam: patient states that she fell out of bed this morning Acuity: Unknown Type of Exam: Unknown FINDINGS: PHARYNX/LARYNX: No abnormality identified. SALIVARY GLANDS: The parotid and submandibular glands appear unremarkable. LYMPH NODES: Small nonspecific submental and upper jugular chain lymph nodes, favored to be reactive. SOFT TISSUES: Right periorbital soft tissue swelling. Mild apparent upper lip swelling. Mild skin thickening overlying the right mandible. BRAIN/ORBITS/SINUSES: The visualized portion of the intracranial contents appear unremarkable. The visualized portion of the orbits, paranasal sinuses and mastoid air cells demonstrate no acute abnormality. BONES: No facial fracture identified. Advanced periodontal disease in the maxillary teeth with periapical lucency in the right maxillary incisor. Dental disease is also noted involving the mandibular teeth. Mucosal thickening in the right maxillary sinus. No layering fluid. IMPRESSION: 1. Soft tissue swelling near the right orbit and upper lip, presumably related to history of fall. Underlying advanced periodontal disease in the maxillary teeth is also noted in the possibility of odontogenic should also be considered in the appropriate clinical setting. 2. No facial fracture identified. 3. Mild right maxillary sinus mucosal thickening, which also may be odontogenic. Interpreted by: Dakota Obregon MD Signed by: Dakota Obregon MD 02/10/20 Final result Normal [facility] 1. Soft tissue swell ing near the right orbit and upper lip, presumably related to history of fall. Underlying advanced periodontal disease in the maxillary teeth is also noted in the possibility of odontogenic should also be considered in the appropriate clinical setting. 2. No facial fracture identified. 3. Mild right maxillary sinus mucosal thickening, which also may be odontogenic. [facility] [place] EXAMINATION: CT OF T HE FACE WITH CONTRAST 02/10/2020 TECHNIQUE: CT of the face was performed with the administration of intravenous contrast. Multiplanar reformatted images are provided for review. Dose modulation, iterative reconstruction, and/or weight based adjustment of the mA/kV was utilized to reduce the radiation dose to as low as reasonably achievable. COMPARISON: None. HISTORY: ORDERING SYSTEM PROVIDED HISTORY: facial swelling TECHNOLOGIST PROVIDED HISTORY: facial swelling Reason for Exam: patient states that she fell out of bed this morning Acuity: Unknown Type of Exam: Unknown FINDINGS: PHARYNX/LARYNX: No abnormality identified. SALIVARY GLANDS: The parotid and submandibular glands appear unremarkable. LYMPH NODES: Small nonspecific submental and upper jugular chain lymph nodes, favored to be reactive. SOFT TISSUES: Right periorbital soft tissue swelling. Mild apparent upper lip swelling. Mild skin thickening overlying the right mandible. BRAIN/ORBITS/SINUSES: The visualized portion of the intracranial contents appear unremarkable. The visualized portion of the orbits, paranasal sinuses and mastoid air cells demonstrate no acute abnormality. BONES: No facial fracture identified. Advanced periodontal disease in the maxillary teeth with periapical lucency in the right maxillary incisor. Dental disease is also noted involving the mandibular teeth. Mucosal thickening in the right maxillary sinus. No layering fluid. [facility] [place] [facility], [facility] Incoming R adiant Results From [facility] - 02/10/2020 12:19 PM EDT EXAMINATION: CT OF THE FACE WITH CONTRAST 02/10/2020 TECHNIQUE: CT of the face was performed with the administration of intravenous contrast. Multiplanar reformatted images are provided for review. Dose modulation, iterative reconstruction, and/or weight based adjustment of the mA/kV was utilized to reduce the radiation dose to as low as reasonably achievable. COMPARISON: None. HISTORY: ORDERING SYSTEM PROVIDED HISTORY: facial swelling TECHNOLOGIST PROVIDED HISTORY: facial swelling Reason for Exam: patient states that she fell out of bed this morning Acuity: Unknown Type of Exam: Unknown FINDINGS: PHARYNX/LARYNX: No abnormality identified. SALIVARY GLANDS: The parotid and submandibular glands appear unremarkable. LYMPH NODES: Small nonspecific submental and upper jugular chain lymph nodes, favored to be reactive. SOFT TISSUES: Right periorbital soft tissue swelling. Mild apparent upper lip swelling. Mild skin thickening overlying the right mandible. BRAIN/ORBITS/SINUSES: The visualized portion of the intracranial contents appear unremarkable. The visualized portion of the orbits, paranasal sinuses and mastoid air cells demonstrate no acute abnormality. BONES: No facial fracture identified. Advanced periodontal disease in the maxillary teeth with periapical lucency in the right maxillary incisor. Dental disease is also noted involving the mandibular teeth. Mucosal thickening in the right maxillary sinus. No layering fluid. IMPRESSION: 1. Soft tissue swelling near the right orbit and upper lip, presumably related to history of fall. Underlying advanced periodontal disease in the maxillary teeth is also noted in the possibility of odontogenic should also be considered in the appropriate clinical setting. 2. No facial fracture identified. 3. Mild right maxillary sinus mucosal thickening, which also may be odontogenic. [facility] [place] [place] Comp Metabolic Profon 2019 (cont.) Normal [facility] Comment on above: Result Comment: Aver age GFR for 70 or more years old: 75 mL/min/1.73sq m Chronic Kidney Disease: <60 mL/min/1.73sq m Kidney failure: <15 mL/min/1.73sq m eGFR calculated using average adult body mass. Additional eGFR calculator available at: http://www.Pegastech.Syniverse/multiple_crcl_2012.htm Performed By: #### E SHITAL, ANNE, CP #### [facility] [address] [place] [address] Livestock Feeder: Aftab Mack DO Albumin [Mass/Vol] 3.7 g/dL Normal 3.5-5.2 [facility] Comment on above: Performed By: #### ANNE PEREZ, CP #### [facility] [address] [place] [address] Livestock Feeder: Aftab Mack DO Alkaline Phos 61 U/L Normal 35-104 [facility] Comment on above: Performed By: #### ANNE PEREZ, CP #### [facility] [address] [place] [address] Livestock Feeder: Aftab Mack DO ALT [Catalytic activity/Vol] 9 U/L Normal 5-33 [facility] Comment on above: Performed By: #### ANNE PEREZ, CP #### [facility] [address] [place] [address] Livestock Feeder: Aftab Mack DO Anion gap [Moles/Vol] 15 mmol/L Normal 9-17 [facility] Comment on above: Performed By: #### ANNE PEREZ, CP #### [facility] [address] [place] [address] Livestock Feeder: Aftab Mack DO AST [Catalytic activity/Vol] 20 U/L Normal <32 [facility] Comment on above: Performed By: #### ANNE PEREZ, CP #### [facility] [address] [place] [address] Livestock Feeder: Aftab Mack DO Bilirubin Ql (U) 0.76 mg/dL Normal 0.3-1.2 [facility] Comment on above: Performed By: #### ANNE PEREZ, CP #### [facility] [address] [place] [address] Livestock Feeder: Aftab Mack DO Calcium [Mass/Vol] 8.9 mg/dL Normal 8.6-10.4 [facility] Comment on above: Performed By: #### ANNE PEREZ, CP #### [facility] [address] [place] [address] Livestock Feeder: Aftab Mack DO Chloride [Moles/Vol] 103 mmol/L Normal 98-107 [facility] Comment on above: Performed By: #### ANNE PEREZ, CP #### [facility] [address] [place] [address] Livestock Feeder: Aftab Mack DO CO2 [Moles/Vol] 23 mmol/L Normal 20-31 [facility] Comment on above: Performed By: #### ANNE PEREZ, CP #### [facility] [address] [facility] [place] [address] Livestock Feeder: Aftab Mack DO Creatinine [Mass/Vol] 1.38 mg/dL High 0.50-0.90 [facility] Comment on above: Performed By: #### ANNE PEREZ, CP #### [facility] [address] [facility] [place] [address] Livestock Feeder: Aftab Mack DO GFR, Amer 45 mL/min Low >60 [facility] Comment on above: Performed By: #### ANNE PEREZ, CP #### [facility] [address] [facility] [place] [address] Livestock Feeder: Aftab Mack DO GFR,non Amer 37 mL/min Low >60 [facility] Comment on above: Performed By: #### ANNE PEREZ, CP #### [facility] [address] [place] [address] Livestock Feeder: Aftab Mack DO Glucose [Mass/Vol] 107 mg/dL High 70-99 [facility] Comment on above: Performed By: #### ANNE PEREZ, CP #### [facility] [address] [place] [address] Livestock Feeder: Aftab Mack DO Potassium [Moles/Vol] 3.4 mmol/L Low 3.7-5.3 [facility] Comment on above: Performed By: #### ANNE PEREZ, CP #### [facility] [address] [place] [address] Livestock Feeder: Aftab Mack DO Protein [Mass/Vol] 7.1 g/dL Normal 6.4-8.3 [facility] Comment on above: Performed By: #### ANNE PEREZ, CP #### [facility] [address] [place] [address] Livestock Feeder: Aftab Mack DO Sodium [Moles/Vol] 141 mmol/L Normal 135-144 [facility] Comment on above: Performed By: #### ANNE PEREZ, CP #### [facility] [address] [facility] [place] [address] Livestock Feeder: Aftab Mack DO Urea nitrogen [Mass/Vol] 21 mg/dL Normal 8-23 [facility] Comment on above: Performed By: #### ANNE PEREZ, CP #### [facility] [address] [facility] [place] [address] Livestock Feeder: Aftab Mack DO Albumin/Globulin [Mass ratio] NOT REPORTED Normal 1.0-2.5 [facility] Comment on above: Performed By: #### ANNE PEREZ, CP #### [facility] [address] [place] [address] Livestock Feeder: Aftab Mack DO BUN/CRE Ratio NOT REPORTED Normal 9-20 [facility] Comment on above: Performed By: #### E ANNE ISAACS, CP #### [facility] [address] [facility] [place] [address] Livestock Feeder: Aftab Mack DO Staging: NOT REPORTED Normal [facility] Comment on above: Performed By: #### E ANNE ISAACS, CP #### [facility] [address] [facility] [place] [address] Livestock Feeder: Aftab Mack DO Comprehensive Metabolic Pane fernando 02-10-2020 Albumin [Mass/Vol] 3.7 g/dL 3.5 - 5.2 g/dL [place] Albumin/Globulin [Mass ratio] NOT REPORTED [place] ALP [Catalytic activity/Vol] 61 U/L 35 - 104 U/L [place] ALT [Catalytic activity/Vol] 9 U/L 5 - 33 U/L [place] Anion gap [Moles/Vol] 15 mmol/L 9 - 17 mmol/L [place] AST [Catalytic activity/Vol] 20 U/L <32 [place] Bilirubin Ql (U) 0.76 mg/dL 0.3 - 1.2 mg/dL [place] Bun/Cre Ratio NOT REPORTED [place] Calcium [Mass/Vol] 8.9 mg/dL 8.6 - 10.4 mg/dL [place] Chloride [Moles/Vol] 103 mmol/L 98 - 107 mmol/L [place] CO2 [Moles/Vol] 23 mmol/L 20 - 31 mmol/L [place] Creatinine [Mass/Vol] 1.38 mg/dL High 0.5 - 0.9 mg/dL [place] GFR 45 mL/min Low >60 [place] GFR Non- 37 mL/min Low >60 [place] GFR/1.73 sq M predicted among non-blacks MDRD (S/P/Bld) [Vol rate/Area] [place] Comment on above: Average GFR for 70 o r more years old: 75 mL/min/1.73sq m Chronic Kidney Disease: <60 mL/min/1.73sq m Kidney failure: <15 mL/min/1.73sq m eGFR calculated using average adult body mass. Additional eGFR calculator available at: http://www.olook/multiple_crcl_2012.htm GFR/1.73 sq M predicted among non-blacks MDRD (S/P/Bld) [Vol rate/Area] NOT REPORTED [place] Glucose [Mass/Vol] 107 mg/dL High 70 - 99 mg/dL [place] Interpretation and review of laboratory results Abnormal [place] Potassium [Moles/Vol] 3.4 mmol/L Low 3.7 - 5.3 mmol/L [place] Protein [Mass/Vol] 7.1 g/dL 6.4 - 8.3 g/dL [place] Sodium [Moles/Vol] 141 mmol/L 135 - 144 mmol/L [place] Urea nitrogen [Mass/Vol] 21 mg/dL 8 - 23 mg/dL [place] Microscopic Urinalysison Amorphous, UA NOT REPORTED None [place] Bacteria, UA MANY Abnormal None [place] Casts UA NOT REPORTED /LPF [place] Crystals, UA NOT REPORTED None /HPF [place] Epithelial Cells UA NOT REPORTED /HPF [place] Interpretation and review of laboratory results Abnormal [place] [place] Mucus, UA NOT REPORTED None [place] Other Observations UA NOT REPORTED NOT REQ. [place] RBC (U) [#/Vol] 0 TO 2 /HPF [place] Renal Epithelial, UA NOT REPORTED 0 /HPF [place] Trichomonas, UA NOT REPORTED None [place] WBC, UA 5 TO 10 /HPF [place] Yeast, UA NOT REPORTED None [place] Otheron 02-10-2020 Immature granulocytes (Bld) [#/Vol] NOT REPORTED 0 % [place] TROP/MYOGLOBINon 02-10-2020 Interpretation and review of laboratory results Abnormal [place] Myoglobin [Mass/Vol] 3932 ng/mL High 25 - 58 ng/mL [place] Troponin I.cardiac [Mass/Vol] NOT REPORTED [place] Troponin T.cardiac [Mass/Vol] NOT REPORTED <0.03 ng/mL [place] Troponin, High Sensitivity 64 ng/L Critically high 0 - 14 ng/L [place] Comment on above: High Sensitivity Troponin values cannot be compared with other Troponin methodologies. Patients with high levels of Biotin oral intake (i.e >5mg/day) may have falsely decreased Troponin levels. Samples collected within 8 hours of biotin intake may require additional information for diagnosis. Interpretation and review of laboratory results Abnormal [place] Myoglobin [Mass/Vol] 3585 ng/mL High 25 - 58 ng/mL [place] Troponin I.cardiac [Mass/Vol] NOT REPORTED [place] Troponin T.cardiac [Mass/Vol] NOT REPORTED <0.03 ng/mL [place] Troponin, High Sensitivity 76 ng/L Critically high 0 - 14 ng/L [place] Comment on above: High Sensitivity Troponin values cannot be compared with other Troponin methodologies. Patients with high levels of Biotin oral intake (i.e >5mg/day) may have falsely decreased Troponin levels. Samples collected within 8 hours of biotin intake may require additional information for diagnosis. Trop/Myoglobinon 02-10-2020 Troponin, High Sens 64 ng/L Critically high 0-14 [facility] Comment on above: Result Comment: High Sensitivity Troponin values cannot be compared with other Troponin methodologies. Patients with high levels of Biotin oral intake (i.e >5mg/day) may have falsely decreased Troponin levels. Samples collected within 8 hours of biotin intake may require additional information for diagnosis. Performed By: #### E SHITAL #### [facility] [address] [place] [address] Livestock Feeder: Aftab Mack DO Myoglobin [Mass/Vol] 3932 ng/mL High 25-58 [facility] Comment on above: Performed By: #### [place] ISAACS #### [facility] [address] [facility] [place] [address] Livestock Feeder: Aftab Mack DO Troponin I.cardiac [Mass/Vol] NOT REPORTED Normal [facility] Comment on above: Performed By: #### [place] ISAACS #### [facility] [address] [facility] [place] [address] Livestock Feeder: Aftab Mack DO Troponin T.cardiac [Mass/Vol] NOT REPORTED Normal <0.03 [facility] Comment on above: Performed By: #### [place] ISAACS #### [facility] [address] [place] [address] Livestock Feeder: Aftab Mack DO Myoglobin [Mass/Vol] 3585 ng/mL High 25-58 [facility] Comment on above: Performed By: #### ANNE PEREZ, CP #### [facility] [address] [facility] [place] [address] Livestock Feeder: Aftab Mack DO Troponin, High Sens 76 ng/L Critically high 0-14 [facility] Comment on above: Result Comment: High Sensitivity Troponin values cannot be compared with other Troponin methodologies. Patients with high levels of Biotin oral intake (i.e >5mg/day) may have falsely decreased Troponin levels. Samples collected within 8 hours of biotin intake may require additional information for diagnosis. Performed By: #### ANNE PEREZ, CP #### [facility] [address] [place] [address] Livestock Feeder: Aftab Mack DO Troponin I.cardiac [Mass/Vol] NOT REPORTED Normal [facility] Comment on above: Performed By: #### ANNE PEREZ, CP #### [facility] [address] [facility] [place] [address] Livestock Feeder: fAtab Mack DO Troponin T.cardiac [Mass/Vol] NOT REPORTED Normal <0.03 [facility] Comment on above: Performed By: #### E SHITAL, CDP, CP #### [facility] [address] [place] [address] Livestock Feeder: Aftab Mack DO Troponinon 02-10-2020 Troponin I.cardiac [Mass/Vol] 52 ng/L Critically high 0-14 [facility] Comment on above: Result Comment: High Sensitivity Troponin values cannot be compared with other Troponin methodologies. Patients with high levels of Biotin oral intake (i.e >5mg/day) may have falsely decreased Troponin levels. Samples collected within 8 hours of biotin intake may require additional information for diagnosis. Performed By: #### T BRANDON #### [facility] [address] [facility] [place] [address] Livestock Feeder: Aftab Mack DO Troponin I.cardiac [Mass/Vol] NOT REPORTED Normal [facility] Comment on above: Performed By: #### T BRANDON #### [facility] [address] [place] [address] Livestock Feeder: Aftab Mack DO Interpretation and review of laboratory results Abnormal [place] Troponin I.cardiac [Mass/Vol] NOT REPORTED [place] Troponin T.cardiac [Mass/Vol] NOT REPORTED <0.03 ng/mL [place] Troponin, High Sensitivity 52 ng/L Critically high 0 - 14 ng/L [place] Comment on above: High Sensitivity Troponin values cannot be compared with other Troponin methodologies. Patients with high levels of Biotin oral intake (i.e >5mg/day) may have falsely decreased Troponin levels. Samples collected within 8 hours of biotin intake may require additional information for diagnosis. UA w/Reflex Cultureon 2019 Acetoacetic Acid,Ur TRACE Abnormal NEG [facility] Comment on above: Performed By: #### U MICAO, UAX #### [facility] [address] [facility] [place] [address] Livestock Feeder: Aftab Mack DO Bilirubin, SemiQt,Ur Negative Normal NEG [facility] Comment on above: Performed By: #### U MICAO, UAX #### [facility] [address] [facility] [place] [address] Livestock Feeder: Aftab Mack DO Color (U) YELLOW Normal YEL [facility] Comment on above: Performed By: #### U JACOB, UAX #### [facility] [address] [facility] [place] [address] Livestock Feeder: Aftab Mack DO Glucose Ql (U) Negative Normal NEG [facility] Comment on above: Performed By: #### U JACOB, UAX #### [facility] [address] [facility] [place] [address] Livestock Feeder: Aftab Mack DO Hemoglobin, Ur SMALL Abnormal NEG [facility] Comment on above: Performed By: #### U MICAO, UAX #### [facility] [address] [facility] [place] [address] Livestock Feeder: Aftab Mack DO Leukocyte esterase Test strip Ql (U) Negative Normal NEG [facility] Comment on above: Performed By: #### U MICAO, UAX #### [facility] [address] [facility] [place] [address] Livestock Feeder: Aftab Mack DO Nitrite,Ur Negative Normal NEG [facility] Comment on above: Performed By: #### U MICAO, UAX #### [facility] [address] [facility] [place] [address] Livestock Feeder: Fanelly, Aftab, DO pH (U) 5.5 [pH] Normal 5.0-8.0 [facility] Comment on above: Performed By: #### U JACOB, UAX #### [facility] [facility] [place] [address] Livestock Feeder: Aftab Mack DO Protein Ql (U) 1+ Abnormal NEG [facility] Comment on above: Performed By: #### U JACOB, UAX #### [facility] [address] [place] [address] Livestock Feeder: Aftab Mack DO Specific gravity (U) [Rel density] 1.018 Normal 1.000-1.030 [facility] Comment on above: Performed By: #### U JACOB, UAX #### [facility] [address] [place] [address] Livestock Feeder: Aftab Mack DO Turbidity CLOUDY Abnormal CLEAR [facility] Comment on above: Performed By: #### U JACOB UAX #### [facility] [address] [place] [address] Livestock Feeder: Aftab Mack DO Urobilinogen,Ur Normal Normal NORM [facility] Comment on above: Performed By: #### U JACOB, UAX #### [facility] [address] [place] [address] Livestock Feeder: Aftab Mack DO Comment NOT REPORTED Normal [facility] Comment on above: Performed By: #### U JACOB, UAX #### [facility] [address] [place] [address] Livestock Feeder: Aftab Mack DO Urinalysis Reflex to Culture on 02-10-2020 Bilirubin Urine Negative NEGATIVE [facility] [place], [place] Color, UA YELLOW YELLOW [facility] [place] Glucose, Ur Negative NEGATIVE [facility], [place] Interpretation and review of laboratory results Abnormal [place] Ketones Ql (U) TRACE Abnormal NEGATIVE [place] Leukocyte esterase Test strip Ql (U) Negative NEGATIVE [place] Nitrite, Urine Negative NEGATIVE [place] pH, UA 5.5 [place] Protein (U) [Mass/Vol] 1+ Abnormal NEGATIVE [place] Specific [place], UA 1.018 [place] Turbidity UA CLOUDY Abnormal CLEAR [place] Urinalysis Comments NOT REPORTED [place] Urine Hgb SMALL Abnormal NEGATIVE [place] Urobilinogen, Urine Normal Normal [place] Urinalysis,Microon 0 ----- Normal [facility] Comment on above: Performed By: #### U JACOB UAX #### [facility] [address] [place] [address] Livestock Feeder: Aftab Mack DO Bacteria LM.HPF (Urine sed) [#/Area] MANY Abnormal [facility] Comment on above: Performed By: #### U JACOB UAX #### [facility] [address] [place] [address] Livestock Feeder: Aftab Mack DO RBC (U) [#/Vol] 0 TO 2 Normal [facility] Comment on above: Performed By: #### U JACOB, UAX #### [facility] [address] [place] [address] Livestock Feeder: Aftab Mack DO WBC (U) [#/Vol] 5 TO 10 Normal [facility] Comment on above: Performed By: #### U JACOB UAX #### [facility] [address] [place] [address] Livestock Feeder: Aftab Mack DO Amorphous sediment LM Ql (Urine sed) NOT REPORTED Normal [facility] Comment on above: Performed By: #### U CAMILLAO, UAX #### [facility] [address] [place] [address] Livestock Feeder: Aftab Mack DO Casts LM.LPF (Urine sed) [#/Area] NOT REPORTED Normal [facility] Comment on above: Performed By: #### U CAMILLAO, UAX #### [facility] [place] [address] Livestock Feeder: Aftab Mack DO Crystals LM Nom (Urine sed) NOT REPORTED Normal NONE [facility] Comment on above: Performed By: #### U CAMILLAO, UAX #### [facility] [place] [address] Livestock Feeder: Aftab Mack DO Epithelial cells LM.HPF (Urine sed) [#/Area] NOT REPORTED Normal [facility] Comment on above: Performed By: #### U MICAO, UAX #### [facility] [place] [address] Livestock Feeder: Aftab Mack DO Epithelial, Renal NOT REPORTED Normal 0 [facility] Comment on above: Performed By: #### U MICAO, UAX #### [facility] [place] [address] Livestock Feeder: Aftab Mack DO Mucus Strands NOT REPORTED Normal NONE [facility] Comment on above: Performed By: #### U MICAO, UAX #### [facility] [place] [address] Livestock Feeder: Aftab Mack DO Other Observations NOT REPORTED Normal NREQ [facility] Comment on above: Performed By: #### U MICAO, UAX #### [facility] [place] [address] Livestock Feeder: Aftab Mack DO Trichomonas NOT REPORTED Normal NONE [facility] Comment on above: Performed By: #### Justino JAMES UAX #### [facility] [address] [place], [place] [id number] Livestock Feeder: Aftab Mack DO Yeast LM Ql (Urine sed) NOT REPORTED Normal NONE [facility] Comment on above: Performed By: #### Justino JAMES UAX #### [facility] [address] [facility]. [place], [place] [id number] Livestock Feeder: Aftab Mack DO XR CHEST PORTABLEon 02-10-20 20 XR CHEST PORTABLE EXAMINATION: ONE XRAY VIEW OF THE CHEST 02/10/2020 11:11 am COMPARISON: 03 November 2018 HISTORY: ORDERING SYSTEM PROVIDED HISTORY: shortness of breath TECHNOLOGIST PROVIDED HISTORY: shortness of breath Reason for Exam: fall today Acuity: Acute Type of Exam: Initial FINDINGS: AP portable view of the chest time stamped at 1050 hours demonstrates overlying cardiac monitoring electrodes. Stable mild cardiomegaly is noted. Lung volumes are low with linear basilar stranding favoring atelectasis. No vascular congestion, focal consolidation, effusion or pneumothorax is noted. Osseous structures and mediastinal contours are unremarkable. IMPRESSION: Stable cardiomegaly. Probable basilar atelectasis. Interpreted by: Claire Washington MD Signed by: Claire Washington MD 02/10/20 Final result Normal [facility] Jaxson, Mhpn Incoming R adiant Results From [facility] - 02/10/2020 11:25 AM EDT EXAMINATION: ONE XRAY VIEW OF THE CHEST 02/10/2020 11:11 am COMPARISON: 03 November 2018 HISTORY: ORDERING SYSTEM PROVIDED HISTORY: shortness of breath TECHNOLOGIST PROVIDED HISTORY: shortness of breath Reason for Exam: fall today Acuity: Acute Type of Exam: Initial FINDINGS: AP portable view of the chest time stamped at 1050 hours demonstrates overlying cardiac monitoring electrodes. Stable mild cardiomegaly is noted. Lung volumes are low with linear basilar stranding favoring atelectasis. No vascular congestion, focal consolidation, effusion or pneumothorax is noted. Osseous structures and mediastinal contours are unremarkable. IMPRESSION: Stable cardiomegaly. Probable bas[facility]electasis. [facility]. [facility]: ONE XRA Y VIEW OF THE CHEST 02/10/2020 11:11 am COMPARISON: 03 November 2018 HISTORY: ORDERING SYSTEM PROVIDED HISTORY: shortness of breath TECHNOLOGIST PROVIDED HISTORY: shortness of breath Reason for Exam: fall today Acuity: Acute Type of Exam: Initial FINDINGS: AP portable view of the chest time stamped at 1050 hours demonstrates overlying cardiac monitoring electrodes. Stable mild cardiomegaly is noted. Lung volumes are low with linear basilar stranding favoring atelectasis. No vascular congestion, focal consolidation, effusion or pneumothorax is noted. Osseous structures and mediastinal contours are unremarkable. [facility] (MIN 2 VIE WS)on 02-10-2020 XR SHOULDER RIGHT (MIN 2 VIEWS) EXAMINATION: THREE XRAY VIEWS OF THE RIGHT SHOULDER 02/10/2020 11:11 am COMPARISON: None. HISTORY: ORDERING SYSTEM PROVIDED HISTORY: Fall, pain TECHNOLOGIST PROVIDED HISTORY: Fall, pain Reason for Exam: fall today Acuity: Acute Type of Exam: Initial FINDINGS: No acute fracture is seen. There is widening of the AC joint at 14 mm. Alignment is maintained. The glenohumeral articulation is preserved. No periarticular soft tissue calcification. The visualized right hemithorax is unremarkable. IMPRESSION: Widened AC joint suggesting possible ligamentous injury. No acute osseous abnormality of the right shoulder. Interpreted by: James Roberts MD Signed by: James Roberts MD 02/10/20 Final result Normal [facility] EXAMINATION: THREE X RAY VIEWS OF THE RIGHT SHOULDER 02/10/2020 11:11 am COMPARISON: None. HISTORY: ORDERING SYSTEM PROVIDED HISTORY: Fall, pain TECHNOLOGIST PROVIDED HISTORY: Fall, pain Reason for Exam: fall today Acuity: Acute Type of Exam: Initial FINDINGS: No acute fracture is seen. There is widening of the AC joint at 14 mm. Alignment is maintained. The glenohumeral articulation is preserved. No periarticular soft tissue calcification. The visualized right hemithorax is unremarkable. [facility] JB Widened AC joint sug gesting possible ligamentous injury. No acute osseous abnormality of the right shoulder. [facility] JB Jaxson, Mhpn Incoming R adiant Results From [facility] - 02/10/2020 11:22 AM EDT EXAMINATION: THREE XRAY VIEWS OF THE RIGHT SHOULDER 02/10/2020 11:11 am COMPARISON: None. HISTORY: ORDERING SYSTEM PROVIDED HISTORY: Fall, pain TECHNOLOGIST PROVIDED HISTORY: Fall, pain Reason for Exam: fall today Acuity: Acute Type of Exam: Initial FINDINGS: No acute fracture is seen. There is widening of the AC joint at 14 mm. Alignment is maintained. The glenohumeral articulation is preserved. No periarticular soft tissue calcification. The visualized right hemithorax is unremarkable. IMPRESSION: Widened AC joint suggesting possible ligamentous injury. No acute osseous abnormality of the right shoulder. [facility], [place] Coding Summaryon 01-21-2018 Coding Summary CODING DATE: [facility] STATUS: Home PAYOR: Medicare MC ADMIT DX: REASON FOR VISIT DX: R10.2 Pelvic and perineal pain FINAL DX: PRINCIPAL: B37.3 Candidiasis of vulva and vagina SECONDARY: B37.2 Candidiasis of skin and nail E66.01 Morbid (severe) obesity due to excess calories Z87.898 Personal history of other specified conditions PROCEDURES DOCTOR NAME DATE NOTE: The code number assigned matches the documented diagnosis and / or procedure in the patient's chart. However, the narrative phrase printed from the coding software may appear abbreviated, or result in slightly different terminology. Coded By: Radha uHff Date Saved: 01/21/2018 04:00 pm [facility] Coding Summary CODING DATE: [facility] STATUS: Home PAYOR: Medicare MC APC DESCRIPTION 5522 Level 2 Imaging without Contrast ADMIT DX: REASON FOR VISIT DX: R10.2 Pelvic and perineal pain FINAL DX: PRINCIPAL: B37.3 Candidiasis of vulva and vagina SECONDARY: B37.2 Candidiasis of skin and nail E66.01 Morbid (severe) obesity due to excess calories Z87.898 Personal history of other specified conditions PYMT PROC APC STAT DESCRIPTION DOCTOR NAME DATE NOTE: The code number assigned matches the documented diagnosis and / or procedure in the patient's chart. However, the narrative phrase printed from the coding software may appear abbreviated, or result in slightly different terminology. Coded By: Radha Huff Date Saved: 01/21/2018 03:59 pm [facility] .Auto Diff 1on 01-16-2018 Auto Baso % 0.6 % Normal 0.2-2.0 [facility] Comment on above: Performed By: #### 7 [id number], [id number], [id number], [id number] ####[facility] (DEFAULT)[address] [place] [address] Auto Todd % 6 % Normal 1-12 [facility] Comment on above: Performed By: #### 7 [id number], [id number], [id number], [id number] ####[facility] (DEFAULT)[address] [place] [address] Auto Neut % 75 % Normal 44-88 [facility] Comment on above: Performed By: #### 7 [id number], [id number], [id number], [id number] ####[facility] (DEFAULT)[address] [place] [address] Baso Abs# 0.0 x10 Normal 0.0-0.2 [facility] Comment on above: Performed By: #### 7 [id number], [id number], [id number], [id number] ####[facility] (DEFAULT)[address] [place] [address] Eos Abs# 0.2 x10 Normal 0.0-0.4 [facility] Comment on above: Performed By: #### 7 [id number], [id number], [id number], [id number] ####[facility] (DEFAULT)[address] [place] [address] Eosinophils/100 leukocytes 2.1 % Normal 0.9-4.0 [facility] Comment on above: Performed By: #### 7 [id number], [id number], [id number], [id number] ####[facility] (DEFAULT)[address] [place] [address] Lymphocytes 1.4 x10 Normal 1.3-2.9 [facility] Comment on above: Performed By: #### 7 [id number], [id number], [id number], [id number] ####[facility] (DEFAULT)[address] [place] [address] Lymphocytes/100 leukocytes 16 % Normal 14-48 [facility] Comment on above: Performed By: #### 7 [id number], [id number], [id number], [id number] ####[facility] (DEFAULT)[address] [place] [address] Todd Abs# 0.5 x10 Normal 0.0-0.8 [facility] Comment on above: Performed By: #### 7 [id number], [id number], [id number], [id number] ####[facility] (DEFAULT)[address] [place] [address] Neut Abs# 6.1 x10 Normal 1.5-9.2 [facility] Comment on above: Performed By: #### 7 [id number], [id number], [id number], [id number] ####[facility] (DEFAULT)[address] [place] [address] CBC w/ Auto Diffon 8 Erythrocyte distribution width Auto Ratio (RBC) 15.1 % High 11.5-15.0 [facility] Comment on above: Performed By: #### 7 [id number], [id number], [id number], [id number] ####[facility] (DEFAULT)[address] [place] [address] Erythrocytes (RBC) 4.67 x10 Normal 3.70-5.30 [facility] Comment on above: Performed By: #### 7 195595, [id number], [id number], [id number] ####[facility] (DEFAULT)[address] [place] [address] Hematocrit (HCT) 39.2 % Normal 33.7-40.4 [facility] Comment on above: Performed By: #### 7 [id number], [id number], [id number], [id number] ####[facility] (DEFAULT)[address] [place] [address] Hemoglobin mass conc (Bld) 12.5 g/dL Normal 11.3-15.9 [facility] Comment on above: Performed By: #### 7 [id number], [id number], [id number], [id number] ####[facility] (DEFAULT)[address] [place] [address] Man Diff? Auto Normal [facility] Comment on above: Performed By: #### 7 551650, [id number], [id number], [id number] ####[facility] (DEFAULT)[address] [place] [address] MCH 27 pg Normal 24-34 [facility] Comment on above: Performed By: #### 7 501126, [id number], [id number], [id number] ####[facility] (DEFAULT)[address] [place] [address] MCHC mass conc (RBC) 32 g/dL Normal 26-37 [facility] Comment on above: Performed By: #### 7 [id number], [id number], [id number], [id number] ####[facility] (DEFAULT)[address] [place] [address] MCV 84 fL Normal 81-100 [facility] Comment on above: Performed By: #### 7 [id number], [id number], [id number], [id number] ####[facility] (DEFAULT)[address] [place] [address] Platelet mean volume (PMV) 9.9 fL Normal 6.3-10.2 [facility] Comment on above: Performed By: #### 7 [id number], [id number], [id number], [id number] ####[facility] (DEFAULT)[address] [place] [address] Platelets 330 x10 Normal 138-427 [facility] Comment on above: Performed By: #### 7 [id number], [id number], [id number], [id number] ####[facility] (DEFAULT)[address] [place] [address] WBC (Leukocytes) 8.2 x10 Invalid Interpretation Code [facility] Comment on above: Performed By: #### 7 667239, [id number], [id number], [id number] ####[facility] (DEFAULT)[address] [place] [address] CMP Standardon 01-16-2018 eGFR (non-black) 59 mL/min/{1.73_m2} Invalid Interpretation Code [facility] Comment on above: Performed By: #### 7 164213, [id number], [id number], [id number] ####[facility] (DEFAULT)[address] [place] [address]8650 eGFR (non-black) mL/min/{1.73_m2} Invalid Interpretation Code [facility] Comment on above: Result Comment: Lithographer Apprentice mark Kidney disease could be indicated at eGFRs of less than 60 ml/min/1.73m2. Kidney Failure is indicated at less than 15 ml/min/1.73m2 Performed By: #### 7 761927, [id number], [id number], [id number] ####[facility] (DEFAULT)[address] [place] [address] Albumin 3.6 g/dL Normal 3.5-5.0 [facility] Comment on above: Performed By: #### 7 334438, [id number], [id number], [id number] ####[facility] (DEFAULT)[address] [place] [address] Albumin/Globulin Ratio 0.9 {ratio} Low 1.4-2.6 [facility] Comment on above: Performed By: #### 7 193427, [id number], [id number], [id number] ####[facility] (DEFAULT)[address] [place] [address] 77296 Alk Phos 63 IU/L Normal 32-91 [facility] Comment on above: Performed By: #### 7 235844, [id number], [id number], [id number] ####[facility] (DEFAULT)[address] [place] [address] 44948 ALT/SGPT 10.0 IU/L Low 14.0-54.0 [facility] Comment on above: Performed By: #### 7 809122, [id number], [id number], [id number] ####[facility] (DEFAULT)[address] [place] [address] 97255 Anion gap 11.0 mmol/L Normal 5.0-19.0 [facility] Comment on above: Performed By: #### 7 471833, [id number], [id number], [id number] ####[facility] (DEFAULT)[address] [place] [address] AST/SGOT 20 IU/L Normal 15-41 [facility] Comment on above: Performed By: #### 7 580691, [id number], [id number], [id number] ####[facility] (DEFAULT)[address] [place] [address] Bili Total 0.5 mg/dL Normal 0.3-1.2 [facility] Comment on above: Performed By: #### 7 413605, [id number], [id number], [id number] ####[facility] (DEFAULT)[address] [place] [address] BUN/Creatinine Ratio 35.0 mg/mg High 4.6-16.2 [facility] Comment on above: Performed By: #### 7 600000, [id number], [id number], [id number] ####[facility] (DEFAULT)[address] [place] [address] Calcium 8.9 mg/dL Normal 8.9-10.3 [facility] Comment on above: Performed By: #### 7 252845, [id number], [id number], [id number] ####[facility] (DEFAULT)[address] [place] [address] Chloride 103 mmol/L Normal 101-111 [facility] Comment on above: Performed By: #### 7 970434, [id number], [id number], [id number] ####[facility] (DEFAULT)[address] [place] [address] 77181 CO2 25 mmol/L Normal 21-32 [facility] Comment on above: Performed By: #### 7 889656, [id number], [id number], [id number] ####[facility] (DEFAULT)[address] [place] [address] Creatinine 0.93 mg/dL Normal 0.60-1.30 [facility] Comment on above: Performed By: #### 7 881468, [id number], [id number], [id number] ####[facility] (DEFAULT)[address] [place] [address] 00662 Globulin 4.1 g/dL Normal 1.5-4.3 [facility] Comment on above: Performed By: #### 7 319111, [id number], [id number], [id number] ####[facility] (DEFAULT)[address] [place] [address] 01463 Glucose mass conc 100.0 mg/dL Normal 74.0-118.0 [facility] Comment on above: Performed By: #### 7 625977, [id number], [id number], [id number] ####[facility] (DEFAULT)[address] [place] [address] 71121 Osmolality 277 mOsm/L Invalid Interpretation Code [facility] Comment on above: Performed By: #### 7 055195, [id number], [id number], [id number] ####[facility] (DEFAULT)[address] [place] [address] 36869 Potassium molar conc 4.2 mmol/L Normal 3.6-5.1 [facility] Comment on above: Performed By: #### 7 699478, 01760165, [id number], [id number] ####[facility] (DEFAULT)[address] [place] [address] 93678 Protein 7.7 g/dL Normal 6.5-8.1 [facility] Comment on above: Performed By: #### 7 896535, 66690415, [id number], [id number] ####[facility] (DEFAULT)[address] [place] [address] 70405 Sodium 135.0 mmol/L Low 136.0-144.0 [facility] Comment on above: Performed By: #### 7 731292, [id number], [id number], [id number] ####[facility] (DEFAULT)[address] [place] [address] 02618 Urea nitrogen 33 mg/dL High 8-26 [facility] Comment on above: Performed By: #### 7 972443, 20005330, [id number], [id number] ####[facility] (DEFAULT)[address] [place] [address] CT Head or Brain w/o Contras ton 01-16-2018 CT Head or Brain w/o Contrast CT HEAD WITHOUT CONTRASTCLINICAL DATA: Dizziness today. Dose reduction technique was utilized forthis study.CT head study was performed without the use of intravenous contrast. There ismild cerebral atrophy which is commensurate with the patient's age. Noevidence of mass effect or midline shift. No acute intracranial hemorrhageis identified. No evidence of focal mass lesion is seen. Areas of milddecreased attenuation are noted in the white matter compatible with chronicischemic changes. Calvarium is intact. Carotid artery calcifications arenoted bilaterally. Visualized mastoid air cells appear grossly unremarkableas do the intraorbital regions.IMPRESSION: CT HEAD STUDY DEMONSTRATES MILD ATROPHY AND MILD WHITE MATTERCHANGES DESCRIBED. NO EVIDENCE OF ACUTE BLEED OR FOCAL MASS.Trung Perkins MDJOB #: [id number]: 01/16/2018T: 01/16/2018 Final Dictated by: Trung Perkins MD SDictated DT/TM: 01/16/18 10:45Signed (Electronic Signature): Trung Perkins MD 01/16/18 2:09 pmTechnologist: LT DILIP Normal [facility] ED Clinical Summaryon 2017 ED Clinical Summary [facility] - Emergency [address] [place] [address] [id number] ed Clinical SummaryPERSON INFORMATIONName: RALETH JENKINS Ruben Age: 72 Years Sex: FEMALEDOB: [birth year] MRN: Acct#:Visit Reason: Urination painful; SYNCOPE Arrival: 01/16/18 09:15:00 Discharge: 01/16/18 12:43:00LOS: 000 03:28 Check In: 01/16/18 09:15:00 Checkout:01/16/18 12:43:00Address:[address] [facility] [address]JCP: Oli Bailey CNP INFORMATIONProvider Role Assigned UnassignedAron Schneider ED Provider 01/16/18 09:25:10Alesha Gallo RN ED Nurse 01/16/18 09:37:18VITALS INFORMATIONVital Sign Triage LatestTemperature TympanicTemperature Temporal ArteryPulse RateO2 SatRespiratory RateBlood Pressure / /MEDICAL INFORMATIONMedications Given:Allergy Information:No known allergiesPHYSICIAN DOCUMENTATIONDISCHARGE INFORMATION:Discharge Disposition: HomeDischarge Location: HomePATIENT EDUCATION INFORMATIONInstructions: Skin Yeast Infection; Vaginal Yeast Infection, AdultFollow-Up:With: Address: When:Oli Bailey [address] [facility], [address] [place] [address] Business (1) Within 3 to 5 daysDIAGNOSIS:Zoila infection of genital region; Candidal intertrigoPatient Understands: Yes - Patient/family/caregiver verbalizes understanding of instructions givenComment: [facility] ED Note - Physicianon 2017 ED Note - Physician Patient: ARLETH JENKINS : 72 years Sex: FEMALE : 45Associated Diagnoses: Zoila infection of genital region; Candidal intertrigoAuthor: Aron Schneider RBasic InformationTime seen: Date & time 01/16/18 09:47:00.History source: Patient.Arrival mode: Private vehicle.History of Present IllnessChief complaint possible dysuria, and pain in the vaginal area. This is a morbidly obese female, bound secondary to morbid obesity. He states that over the last couple weeks she is felt that there is some discomfort when she urinates. She also notes a possible rash in her vaginal area and underneath her breasts. She notes a remote history of syncope approximately 3 weeks ago. Denies any current chest pain, or shortness of breath. Denies any motor or sensory changes at this time.Review of SystemsConstitutional symptoms: No fever, no chills.Skin symptoms: Rash.Respiratory symptoms: No shortness of breath, no cough.Cardiovascular symptoms: No chest pain,Gastrointestinal symptoms: No abdominal pain, no nausea, no vomiting.Genitourinary symptoms: Dysuria.Musculoskeletal symptoms: No back pain, no Muscle pain, no Joint pain.Neurologic symptoms: No headache, no dizziness.Psychiatric symptoms: No anxiety,Hematologic/Lymphatic symptoms: Bleeding tendency negative, bruising tendency negative.Allergy/immunologic symptoms: No impaired immunity,Health StatusAllergies:Allergic Reactions (Selected)No known allergies.Past Medical/ Family/ Social HistoryMedical history:No active or resolved past medical history items have been selected or recorded..Surgical history:No active procedure history items have been selected or recorded..Family history:No family history items have been selected or recorded..Social history:Social & Psychosocial HabitsNo Data Available.Problem list:No qualifying data available.Physical ExaminationGeneral: Alert, mild distress.Skin: Significant beefy erythematous areas beneath the breasts bilaterally consistent with Zoila. There is also significant amount of blood.The redness noted in the groin area extending into the medial gluteal area. This appears to be extensive zoila also..Head: Normocephalic, atraumatic.Neck: Supple, no JVD, no carotid bruit.Eye: Pupils are equal, round and reactive to light, normal conjunctiva.Ears, nose, mouth and throat: Tympanic membranes clear, oral mucosa moist.Cardiovascular: Regular rate and rhythm, No murmur, Normal peripheral perfusion.Respiratory: Lungs are clear to auscultation, respirations are non-labored, breath sounds are equal.Gastrointestinal: Soft, Nontender, Non distended.Genitourinary: No discharge.Back: Nontender, Normal range of motion, Normal alignment, no step-offs.Neurological: Alert and oriented to person, place, time, and situation, No focal neurological deficit observed, CN II-XII intact, normal sensory observed, normal motor observed, normal speech observed, normal coordination observed.Lymphatics: No lymphadenopathy.Psychiatric: Cooperative, appropriate mood & affect.Medical Decision MakingDifferential Diagnosis: Dehydration, electrolyte imbalance, thyroid disorder, urosepsis, dizziness, Skin ailment not otherwise specified.OrdersReexamination/ ReevaluationOn exam the patient does not have any neurologic findings. Cranial nerves II through XII are intact. No focal deficits. She notes a remote history of a near-syncopal episode about 3 weeks ago denies any recent occurrence. Denies any regular dizziness. The rest of the exam was otherwise unremarkable however there is extensive beefy erythematous areas underneath the breast bilaterally. As well as extensive beefy erythematous areas in the groin extending to the buttocks area consistent with Zoila. Urinalysis obtained showed no evidence of acute infection. The patient's white count was in the normal range. There was no significant derangement on her metabolic panel. At this time I did question the patient's ability to clean herself she does have a son who is at the bedside and states that he is able to help assist the patient in cleaning and drying the involved skin area so that ointment to be applied. The patient is also able to tolerate oral medication prescribed once weekly for the next 6 weeks to help with his systemic suggestion of Zoila. The patient does receive a physician who visits her monthly at home she is able to see him earlier about one month if needed. I did request that the patient asked for that. Care instructions were discussed with the patient prior to discharge. The patient voiced understanding.Impression and PlanDiagnosisCandida infection of genital region ([id number] B37.49, Discharge, Medical)Candidal intertrigo ([id number] B37.2, Discharge, Medical)PlanCondition: Stable.Disposition: Discharged: time 01/16/18 12:10:00.Prescriptions: Launch prescriptionsPharmacy:[facility] zole 2% topical cream (Prescribe): 1 cassandra, TOP, Daily, 60 gm, 0 Refill(s).Patient was given the following educational materials: Vaginal Yeast Infection, Adult, Vaginal Yeast Infection, Adult, Skin Yeast Infection, Vaginal Yeast Infection, Adult, Skin Yeast Infection.Follow up with: Oli Bailey Within 3 to 5 days.Counseled: Patient, Family, Regarding diagnosis, Regarding diagnostic results, Regarding treatment plan, Regarding prescription, Patient indicated understanding of instructions.[Electronically Signed on: 01/16/2018 13:10 EDT] Aron Schneider MD[Verified on: 01/16/2018 13:10 EDT] Aron Schneider MD [facility] ED Note-Nursingon 05-24-2018 ED Note-Nursing Dr. ordered straight cath to insure clean urine. When shorts were removed from pt it is noted that she is excoriated from the umibical area down. The pt is washed. It is noted that she also has skin break down in the center of buttucks. Pt states she tries to clean herself but hard to see. Pt states she used to have a nurse come in but then nurse refused to come back due to the house conditions. Pt states she has family that also tries to help her. [facility] ED Note-Nursing Pt comes back to unruly henry via wheelhair. Pt is prepared for EKG and at this time. Under pt breast is excoriated, yeasty smelling and red skin break down. Pt's breast are washed with soap and waterand dried and EKG done at this time. Pt states that she tries to wash well and she puts powder under her breast. Pt does have a yeasty smell. [facility] ED Patient Education Noteon 01-16-2018 ED Patient Education Note Education MaterialsInfectious DiseaseSkin Yeast InfectionSkin yeast infection is a condition in which there is an overgrowth of yeast (zoila) that normally lives on the skin. This condition usually occurs in areas of the skin that are constantly warm and moist, such as the armpits or the groin. What are the causes?This condition is caused by a change in the normal balance of the yeast and bacteria that live on the skin.What increases the risk?This condition is more likely to develop in:? People who are obese.? women.? Women who take control pills.? People who have diabetes.? People who take antibiotic medicines.? People who take steroid medicines.? People who are malnourished.? People who have a weak defense (immune) system.? People who are 65 years of age or older.What are the signs or symptoms?Symptoms of this condition include:? A red, swollen area of the skin.? Bumps on the skin.? Itchiness.How is this diagnosed?This condition is diagnosed with a medical history and physical exam. Your health care provider may check for yeast by taking light scrapings of the skin to be viewed under a microscope.How is this treated?This condition is treated with medicine. Medicines may be prescribed or be available zbce-gqf-gltangt. The medicines may be:? Taken by mouth (orally).? Applied as a cream.Follow these instructions at home:? Take or apply qadh-spy-qvwzccj and prescription medicines only as told by your health care provider.? Eat more yogurt. This may help to keep your yeast infection from returning.? Maintain a healthy weight. If you need help losing weight, talk with your health care provider.? Keep your skin clean and dry.? If you have diabetes, keep your blood sugar under control.Contact a health care provider if:? Your symptoms go away and then return.? Your symptoms do not get better with treatment.? Your symptoms get worse.? Your rash spreads.? You have a fever or chills.? You have new symptoms.? You have new warmth or redness of your skin.This information is not intended to replace advice given to you by your health care provider. Make sure you discuss any questions you have with your health care provider.Document Released: 04/29/2012 Document Revised: 04/07/2017 Document Reviewed: 02/13/2016[employer] Interactive Patient Education ? 2017 [employer].Obstetrics and GynecologyVaginal Yeast infection, AdultVaginal yeast infection is a condition that causes soreness, swelling, and redness (inflammation) of the vagina. It also causes vaginal discharge. This is a common condition. Some women get this infection frequently. What are the causes?This condition is caused by a change in the normal balance of the yeast (zoila) and bacteria that live in the vagina. This change causes an overgrowth of yeast, which causes the inflammation.What increases the risk?This condition is more likely to develop in:? Women who take antibiotic medicines.? Women who have diabetes.? Women who take control pills.? Women who are .? Women who douche often.? Women who have a weak defense (immune) system.? Women who have been taking steroid medicines for a long time.? Women who frequently wear tight clothing.What are the signs or symptoms?Symptoms of this condition include:? White, thick vaginal discharge.? Swelling, itching, redness, and irritation of the vagina. The lips of the vagina (vulva) may be affected as well.? Pain or a burning feeling while urinating.? Pain during sex.How is this diagnosed?This condition is diagnosed with a medical history and physical exam. This will include a pelvic exam. Your health care provider will examine a sample of your vaginal discharge under a microscope. Your health care provider may send this sample for testing to confirm the diagnosis.How is this treated?This condition is treated with medicine. Medicines may be ucqy-veb-yibrlqx or prescription. You may be told to use one or more of the following:? Medicine that is taken orally.? Medicine that is applied as a cream.? Medicine that is inserted directly into the vagina (suppository).Follow these instructions at home:? Take or apply pndg-jbg-ohlyvde and prescription medicines only as told by your health care provider.? Do nothave sex until your health care provider has approved. Tell your sex partner that you have a yeast infection. That person should go to his or her health care provider if he or she develops symptoms.? Do notwear tight clothes, such as pantyhose or tight pants.? Avoid using tampons until your health care provider approves.? Eat more yogurt. This may help to keep your yeast infection from returning.? Try taking a sitz bath to help with discomfort. This is a warm water bath that is taken while you are sitting down. The water should only come up to your hips and should cover your buttocks. Do this 3?4 times per day or as told by your health care provider.? Do notdouche.? Wear breathable, cotton underwear.? If you have diabetes, keep your blood sugar levels under control.Contact a health care provider if:? You have a fever.? Your symptoms go away and then return.? Your symptoms do not get better with treatment.? Your symptoms get worse.? You have new symptoms.? You develop blisters in or around your vagina.? You have blood coming from your vagina and it is not your menstrual period.? You develop pain in your abdomen.This information is not intended to replace advice given to you by your health care provider. Make sure you discuss any questions you have with your health care provider.Document Released: 05/22/2006 Document Revised: 01/23/2017 Document Reviewed: 02/13/2016[employer] Interactive Patient Education ? 2017 [employer] Normal [facility] ED Patient Summaryon 05-24-2 018 ED Patient Summary [facility] - Emergency [address] [place] [address] pATIENT DISCHARGE INSTRUCTIONSPatient InformationName: ARLETH JENKINS Age: 72 YearsDate of : [birth year]MRN: [id number] For Visit: Urination painful; SYNCOPEArrival Time: 01/16/18 09:15:00[facility]: [facility] Physician: Oli Bailey CNP Physician: Aron Schneider RComment:Visit Diagnosis:Diagnoses This Visit Zoila infection of genital region (B37.49) Candidal intertrigo (B37.2) Urination painful ([id number])If you received any narcotics, sedation, or any other medication that causes drowsiness for the next 24 hours, unless otherwise directed:? Do not drive a car.? Do not operate machinery such as power tools, lawn mowers, drills, sewing machines, or stoves? Avoid alcoholic beverages and drugs for allergies, nerves, or sleep? Do not make important personal or business decisions or sign any legal documentsWith: Address: When:Oli Bailey [address] [facility], [address] [place], [place] [id number] Business (1) Within 3 to 5 daysMedication Information:The exam and treatment you received today in the [facility] Emergency Department were for an urgent problem and are not intended as complete care. It is important for you to follow up with a doctor, nurse practitioner, or physician?s accounts receivable assistant for ongoing care. If your symptoms become worse or you do not improve as expected and you are unable to reach your usual health care provider, you should return to the Emergency Department, we are available 24 hours a day.For those patients who have received Radiology results, the interpretation of your X-ray as given to you by our Emergency Department physician is only a preliminary report. The Radiologist will review your films and if there is a change in the diagnosis you will be notified by phone. Please make sure you have provided a working phone number so we can reach you if necessary.In the event that you had a lab culture while you were a patient in the Emergency Department, you will be notified by phone if there is a need to change your antibiotic. Please make sure you have provided a working phone number so we can reach you if necessary.[facility] Emergency Department has provided you with a complete list of medications post discharge. Please inform your digital pre press operator/provider of your visit and for further instruction on these medications. Any specific questions regarding your chronic medications and dosages should be discussed with your primary care physician(s) and/or pharmacist. New MedicationsPrinted Prescriptionsfluconazole (fluconazole 150 mg oral tablet) 1 tab(s) Oral every week. Refills: 0.ketoconazole topical (ketoconazole 2% topical cream) 1 cassandra Topical every day. Refills: 0.Visit InformationAllergies:Substance Reaction Symptoms Type CommentsNo known allergies DrugVital Signs: Vitals and Measurements this Visit (last charted value for your 01/16/2018 visit) Measurements This Visit Height/Length Dosin.020 cm Height/Length Estimated: 160.020 cm Weight Dosin.000 kg Weight Estimated: 132.000 kgProblems List:Problem Onset CommentsNo Problems foundPatient EducationSkin Yeast InfectionSkin yeast infection is a condition in which there is an overgrowth of yeast (zoila) that normally lives on the skin. This condition usually occurs in areas of the skin that are constantly warm and moist, such as the armpits or the groin. What are the causes?This condition is caused by a change in the normal balance of the yeast and bacteria that live on the skin.What increases the risk?This condition is more likely to develop in:? People who are obese.? women.? Women who take control pills.? People who have diabetes.? People who take antibiotic medicines.? People who take steroid medicines.? People who are malnourished.? People who have a weak defense (immune) system.? People who are 65 years of age or older.What are the signs or symptoms?Symptoms of this condition include:? A red, swollen area of the skin.? Bumps on the skin.? Itchiness.How is this diagnosed?This condition is diagnosed with a medical history and physical exam. Your health care provider may check for yeast by taking light scrapings of the skin to be viewed under a microscope.How is this treated?This condition is treated with medicine. Medicines may be prescribed or be available jror-cpk-fqywiim. The medicines may be:? Taken by mouth (orally).? Applied as a cream.Follow these instructions at home:? Take or apply axgb-gkq-xigmhid and prescription medicines only as told by your health care provider.? Eat more yogurt. This may help to keep your yeast infection from returning.? Maintain a healthy weight. If you need help losing weight, talk with your health care provider.? Keep your skin clean and dry.? If you have diabetes, keep your blood sugar under control.Contact a health care provider if:? Your symptoms go away and then return.? Your symptoms do not get better with treatment.? Your symptoms get worse.? Your rash spreads.? You have a fever or chills.? You have new symptoms.? You have new warmth or redness of your skin.This information is not intended to replace advice given to you by your health care provider. Make sure you discuss any questions you have with your health care provider.Document Released: 04/29/2012 Document Revised: 04/07/2017 Document Reviewed: 02/13/2016Hugh Interactive Patient Education ? 2017 [employer].Vaginal Yeast infection, AdultVaginal yeast infection is a condition that causes soreness, swelling, and redness (inflammation) of the vagina. It also causes vaginal discharge. This is a common condition. Some women get this infection frequently. What are the causes?This condition is caused by a change in the normal balance of the yeast (zoila) and bacteria that live in the vagina. This change causes an overgrowth of yeast, which causes the inflammation.What increases the risk?This condition is more likely to develop in:? Women who take antibiotic medicines.? Women who have diabetes.? Women who take control pills.? Women who are .? Women who douche often.? Women who have a weak defense (immune) system.? Women who have been taking steroid medicines for a long time.? Women who frequently wear tight clothing.What are the signs or symptoms?Symptoms of this condition include:? White, thick vaginal discharge.? Swelling, itching, redness, and irritation of the vagina. The lips of the vagina (vulva) may be affected as well.? Pain or a burning feeling while urinating.? Pain during sex.How is this diagnosed?This condition is diagnosed with a medical history and physical exam. This will include a pelvic exam. Your health care provider will examine a sample of your vaginal discharge under a microscope. Your health care provider may send this sample for testing to confirm the diagnosis.How is this treated?This condition is treated with medicine. Medicines may be pinw-ixh-lltoqwx or prescription. You may be told to use one or more of the following:? Medicine that is taken orally.? Medicine that is applied as a cream.? Medicine that is inserted directly into the vagina (suppository).Follow these instructions at home:? Take or apply iaur-gki-xqijdtx and prescription medicines only as told by your health care provider.? Do nothave sex until your health care provider has approved. Tell your sex partner that you have a yeast infection. That person should go to his or her health care provider if he or she develops symptoms.? Do notwear tight clothes, such as pantyhose or tight pants.? Avoid using tampons until your health care provider approves.? Eat more yogurt. This may help to keep your yeast infection from returning.? Try taking a sitz bath to help with discomfort. This is a warm water bath that is taken while you are sitting down. The water should only come up to your hips and should cover your buttocks. Do this 3?4 times per day or as told by your health care provider.? Do notdouche.? Wear breathable, cotton underwear.? If you have diabetes, keep your blood sugar levels under control.Contact a health care provider if:? You have a fever.? Your symptoms go away and then return.? Your symptoms do not get better with treatment.? Your symptoms get worse.? You have new symptoms.? You develop blisters in or around your vagina.? You have blood coming from your vagina and it is not your menstrual period.? You develop pain in your abdomen.This information is not intended to replace advice given to you by your health care provider. Make sure you discuss any questions you have with your health care provider.Document Released: 05/22/2006 Document Revised: 01/23/2017 Document Reviewed: 02/13/2016Hugh Interactive Patient Education ? 2017 [employer] Viruses or BacteriaWhat?s got you sick?Antibiotics only treat bacterial infections. Viral illnesses cannot be treated with antibiotics. When an antibiotic is not prescribed, ask your healthcare professional for tips on how to relieve symptoms and feel better. Usual CauseIllnessVirusesBacteria Antibiotic NeededCold/Runny Nose NOBronchitis/Chest Cold (in otherwise healthy children and adults) NOWhooping Cough YesFlu NOStrep Throat YesSore Throat (except strep) NOFluid in the middle ear (otitis media with effusion) NOUrinary Tract Infection YesAntibiotics Aren?t Always the Answerwww.cdc.gov/getsmart GET SMART Know When Antibiotics [place] Department of Health and Human ServicesTrihealth Bethesda Butler Hospitalers for Disease Control and Prevention April 2014 [facility] Rad - Other Radiology Report on 01-16-2018 Rad - Other Radiology Report [id number] [facility] TSH w/ Reflex to FT4on 01-16 Thyroid stimulating hormone (TSH) 3.76 mcIU/mL Normal 0.45-5.33 [facility] Comment on above: Result Comment: Gene ral Population (males and non- females, aged 21-88) 0.45 - 5.33 Females, 1st Trimester 0.05 - 3.70 Females, 2nd Trimester 0.31 - 4.35 Females, 3rd Trimester 0.41 - 5.18 Performed By: #### 7 [id number], [id number] ####[facility] (DEFAULT)[address] [place] [address] 14211 UA w Culture if Ind Standard on 01-16-2018 Breakpoint UA [facility] Comment on above: Performed By: #### 1 [id number] ####[facility] (DEFAULT)[address] [place] [address] 16296 Culture? Not Indicated Invalid Interpretation Code [facility] Comment on above: Performed By: #### 1 [id number] ####[facility] (DEFAULT)[address] [place] [address] 73226 Micro? Not Indicated Invalid Interpretation Code [facility] Comment on above: Performed By: #### 1 [id number] ####[facility] (DEFAULT)[address] [place] [address] UA Bilirubin Negative Normal [facility] Comment on above: Performed By: #### 1 [id number] ####[facility] (DEFAULT)[address] [place] [address] 54131 UA Blood Negative Normal NEGATIVE [facility] Comment on above: Performed By: #### 1 [id number] ####[facility] (DEFAULT)[address] [place] [address] 15040 UA Clarity CLEAR Normal CLEAR [facility] Comment on above: Performed By: #### 1 [id number] ####[facility] (DEFAULT)[address] [place] [address] 64266 UA Leuk Est Negative Normal NEGATIVE [facility] Comment on above: Performed By: #### 1 [id number] ####[facility] (DEFAULT)[address] [place] [address] 87851 UA Nitrite Negative Normal NEGATIVE [facility] Comment on above: Performed By: #### 1 [id number] ####[facility] (DEFAULT)[address] [place] [address] 95648 UA pH 5.5 Invalid Interpretation Code 5-8 [facility] Comment on above: Performed By: #### 1 [id number] ####[facility] (DEFAULT)[address] [place] [address] 96446 UA Protein Negative Normal NEGATIVE [facility] Comment on above: Performed By: #### 1 [id number] ####[facility] (DEFAULT)[address] [place] [address] 19055 UA Spec Grav 1.025 Invalid Interpretation Code 1.001-1.035 [facility] Comment on above: Performed By: #### 1 [id number] ####[facility] (DEFAULT)[address] [place] [address] 50275 UA Urobilinogen 0.2 mg/dL Normal 0.2-1.0 [facility] Comment on above: Performed By: #### 1 [id number] ####[facility] (DEFAULT)[address] [place] [address] 56034 Urine Source Clean Catch [facility] Comment on above: Performed By: #### 1 [id number] ####[facility] (DEFAULT)[address] [place] [address], [place] [address] Urine, color YELLOW Invalid Interpretation Code [facility] Comment on above: Performed By: #### 1 [id number] ####[facility] (DEFAULT)[address] [place] [address] Urine, glucose Negative Invalid Interpretation Code [facility] Comment on above: Performed By: #### 1 [id number] ####[facility] (DEFAULT)[address] [place] [address] Urine, ketones presence Negative Invalid Interpretation Code [facility] Comment on above: Performed By: #### 1 [id number] ####[facility] (DEFAULT)[address] [place] [address] Vital Signs Date Time Vital Sign Value Performing Clinician Facility 04-01-2024 12:15-0400 Diastolic blood pressure 68 mm[Hg] Johnson Gallo MD, PhD [facility] 04-01-2024 12:15-0400 Systolic blood pressure 151 mm[Hg] Johnson Gallo MD, PhD [facility] 02-16-2020 07:48-0400 Body Temperature 97.9 [degF] [place], [place] 02-16-2020 07:48-0400 BP Diastolic 72 mm[Hg] [place], [place] 02-16-2020 07:48-0400 BP Systolic 163 mm[Hg] [place] 02-16-2020 07:48-0400 Pulse (Heart Rate) 92 /min [place], [place] 02-16-2020 07:48-0400 Pulse Oximetry 96 % [place], [place] 02-16-2020 07:48-0400 Respiratory Rate 16 /min [facility], [place] 02-15-2020 06:00-0400 BMI (Body Mass Index) 56.82 kg/m2 Hair Sharma [place], [place] 02-15-2020 06:00-0400 Body weight 145.5 kg Hair Sharma [place], [place] 02-10-2020 16:15-0400 Height 160 cm [place] Encounters Encounter Date Encounter Type Care Provider Facility Start: 11-03-2024 End: 11-03-2024 ambulatory SHREE CRANE [facility] Start: 10-19-2024 End: 10-19-2024 Emergency department patient visit SUZAN [facility] Start: 10-19-2024 End: 10-19-2024 ambulatory NOT IN SYSTEM REF PROV [facility] Start: 10-05-2024 End: 10-05-2024 ambulatory CELYAMY Fields MILLS [facility] Start: 09-25-2024 End: 09-25-2024 ambulatory DARRELL KOHLI [facility] Start: 09-22-2024 End: 09-23-2024 Emergency department patient visit SUZAN [facility] Start: 08-28-2024 End: 09-01-2024 ambulatory JESUS RILEY [facility] Start: 08-26-2024 End: 09-01-2024 Emergency department patient visit VIDA AGUILAR [facility] Start: 08-26-2024 End: 09-01-2024 Emergency department patient visit V[facility] Start: 08-26-2024 End: 08-31-2024 Evaluation and management of inpatient SUZAN [facility] Start: 04-01-2024 End: 04-01-2024 Office outpatient visit 15 minutes Johnson Gallo Work Phone: [facility] Start: 04-01-2024 ambulatory Johnson Gallo [facility] [place] Start: 03-20-2024 End: 03-20-2024 ambulatory JENNIE GHOTRA [facility] Start: 03-14-2024 End: 03-20-2024 Emergency department patient visit LANCE LOUIS [facility] Start: 03-14-2024 End: 03-19-2024 Evaluation and management of inpatient LANCE LOUIS [facility] Start: 03-10-2024 End: 03-10-2024 ambulatory JOSE NO [facility] Start: 11-25-2023 End: 11-25-2023 ambulatory RAJINDER LUDWIG JR [facility] Start: 02-28-2023 End: 02-28-2023December Rafael Paul Work Phone: [facility] Start: 02-28-2023 End: 02-28-2023 Office outpatient new 30 minutes December Rafael Paul Work Phone: [facility] Start: 02-10-2020 End: 02-16-2020 Patient encounter procedure KAVYA TORRES [facility] Start: 02-10-2020 End: 02-16-2020 Evaluation and management of inpatient Hair Sharma [facility] Med Surg Comment on above: Facial cellulitis (P rimary Dx); Fall, initial encounter; Acute renal insufficiency; Elevated troponin Start: 01-17-2018 End: 01-17-[address] [facility] Facility:[facility] Start: 01-16-2018 End: 01-16-2018 Emergency department patient visit [facility] Facility:[facility] Procedures Date Procedure Procedure Detail Performing Clinician Start: 02-28-2023 End: 02-28-2023 Computerized ophthalmic imaging retina Johnson Gallo MD, PhD Start: 02-16-2020 INITIATE OXYGEN THER APY PROTOCOL KAVYA THUSAY Start: 02-16-2020 Blood count complete auto&auto difrntl wbc KAVYA THUSAY Start: 02-16-2020 Comprehensive metabo lic panel KAVYA THUSAY Start: 02-16-2020 BASIC METABOLIC PANE L W/ REFLEX TO MG FOR LOW K Matias Ali Work Phone: Start: 02-16-2020 Blood count complete auto&auto difrntl wbc Matias Ali Work Phone: Start: 02-16-2020 INTAKE AND OUTPUT INES H THUSAY Start: 02-15-2020 DISCHARGE PATIENT INES H THUSAY Start: 02-15-2020 INITIATE OXYGEN THER APY PROTOCOL KAVYA THUSAY Start: 02-15-2020 Blood count complete auto&auto difrntl wbc KAVYA THUSAY Start: 02-15-2020 Comprehensive metabo lic panel KAVYA THUSAY Start: 02-15-2020 BASIC METABOLIC PANE L W/ REFLEX TO MG FOR LOW K Matias Ali Work Phone: Start: 02-15-2020 Blood count complete auto&auto difrntl wbc Matias Ali Work Phone: Start: 02-15-2020 INTAKE AND OUTPUT INES H THUSAY Start: 02-14-2020 INITIATE OXYGEN THER APY PROTOCOL KAVYA THUSAY Start: 02-14-2020 Blood count complete auto&auto difrntl wbc KAYVA THUSAY Start: 02-14-2020 Comprehensive metabo lic panel KAVYA THUSAY Start: 02-14-2020 BASIC METABOLIC PANE L W/ REFLEX TO MG FOR LOW K Matias Ali Work Phone: Start: 02-14-2020 Blood count complete auto&auto difrntl wbc Matias Ali Work Phone: Start: 02-14-2020 INTAKE AND OUTPUT INES H THUSAY Start: 02-13-2020 INITIATE OXYGEN THER APY PROTOCOL KAVYA THUSAY Start: 02-13-2020 Blood count complete auto&auto difrntl wbc KAVYA THUSAY Start: 02-13-2020 Comprehensive metabo lic panel KAVYA THUSAY Start: 02-13-2020 BASIC METABOLIC PANE L W/ REFLEX TO MG FOR LOW K Matias Ali Work Phone: Start: 02-13-2020 Blood count complete auto&auto difrntl wbc Matias Ali Work Phone: Start: 02-13-2020 INTAKE AND OUTPUT INES H THUSAY Start: 02-12-2020 PATIENT STATUS (DIRECT) KAVYA THUSAY Start: 02-12-2020 INITIATE OXYGEN THER APY PROTOCOL KAVYA THUSAY Start: 02-12-2020 Blood count complete auto&auto difrntl wbc KAVYA THUSAY Start: 02-12-2020 Comprehensive metabo lic panel KAVYA THUSAY Start: 02-12-2020 BASIC METABOLIC PANE L W/ REFLEX TO MG FOR LOW K Matias Ali Work Phone: Start: 02-12-2020 Blood count complete auto&auto difrntl wbc Matias Ali Work Phone: Start: 02-12-2020 INTAKE AND OUTPUT INES H THUSAY Start: 02-11-2020 COVID-19 KAVYA CHERELLE SAY Start: 02-11-2020 COVID-19 Rip S R athore Work Phone: Start: 02-11-2020 INITIATE OXYGEN THER APY PROTOCOL KAVYA TORRES Start: 02-11-2020 Assay of troponin quantitative KAVYA THUSAY Start: 02-11-2020 Blood count complete auto&auto difrntl wbc KAVYA THUSAY Start: 02-11-2020 Comprehensive metabo lic panel KAVYA THUSAY Start: 02-11-2020 Assay of troponin quantitative Matias Tsang Work Phone: Start: 02-11-2020 BASIC METABOLIC PANE L W/ REFLEX TO MG FOR LOW K Matias Ali Work Phone: Start: 02-11-2020 Blood count complete auto&auto difrntl wbc Matias Tsang Work Phone: Start: 02-11-2020 INTAKE AND OUTPUT INES H THUSAY Start: 02-10-2020 Assay of troponin quantitative KAVYA THUSAY Start: 02-10-2020 ELEVATE HEELS OFF OF BED KAVYA THUSAY Start: 02-10-2020 HEAD OF BED 60 DEGRE ES OR LESS KAVYA THUSAY Start: 02-10-2020 IP CONSULT TO [facility] KAVYA TORRES Start: 02-10-2020 NURSING COMMUNICATION M MADELYN THUSNYASIA Start: 02-10-2020 TURN PATIENT KAVYA VILLARREAL SAY Start: 02-10-2020 DIET GENERAL KAVYA VILLARREAL SAY Start: 02-10-2020 FULL CODE KAVYA VILLARREAL SAY Start: 02-10-2020 INITIATE OXYGEN THER APY PROTOCOL KAVYA TORRES Start: 02-10-2020 INTAKE AND OUTPUT INES H THUSAY Start: 02-10-2020 IP CONSULT TO SOCIAL WORK KAVYA THUSNYASIA Start: 02-10-2020 OT EVAL AND TREAT INES H THUSAY Start: 02-10-2020 PT EVAL AND TREAT INES H THUSAY Start: 02-10-2020 REASON FOR NO MECHAN ICAL VTE PROPHYLAXIS KAVYA THUSNYASIA Start: 02-10-2020 TOBACCO CESSATION EDUCATION KAVYA THUSNYASIA Start: 02-10-2020 VITAL SIGNS KAVYA SPRAGUEU SAY Start: 02-10-2020 PATIENT STATUS (FROM ED OR OR/PROCEDURAL) KAVYA TORRES Start: 02-10-2020 Assay of troponin quantitative Matias Tsang Work Phone: Start: 02-10-2020 TROP/MYOGLOBIN KAVYA GIVENS Start: 02-10-2020 IP CONSULT TO PRIMAR Y CARE PROVIDER KAVYA TORRES Start: 02-10-2020 Ecg routine ecg w/le ast 12 lds w/i&r KAVYA THUSAY Start: 02-10-2020 EKG REPORT KAVYA COHEN Start: 02-10-2020 IP CONSULT TO [facility] L SURGERY KAVYA TORRES Start: 02-10-2020 Urinalysis microscopic only KAVYA THUSNYASIA Start: 02-10-2020 Urnls dip stick/tabl et rgnt auto w/o microscopy KAVYA THUSAY Start: 02-10-2020 TROP/MYOGLOBIN Hair R Zachary Start: 02-10-2020 Ct maxillofacial w/c ontrast material KAVYA THUSNYASIA Start: 02-10-2020 Radex shoulder compl ete minimum 2 views KAVYA THUSNYASIA Start: 02-10-2020 Radiologic exam ches t single view KAVYA THUSNYASIA Start: 02-10-2020 Ecg routine ecg w/le ast 12 lds i&r only Hair R Zachary Start: 02-10-2020 EKG REPORT [facility] Scanni ng Start: 02-10-2020 Urinalysis microscopic only Hair R Zachary Start: 02-10-2020 Urnls dip stick/tabl et rgnt auto w/o microscopy Hair R Zachary Start: 02-10-2020 Blood count complete auto&auto difrntl wbc KAVYA THUSNYASIA Start: 02-10-2020 Comprehensive metabo lic panel KAVYA TORRES Start: 02-10-2020 TROP/MYOGLOBIN KAVYA GIVENS Start: 02-10-2020 Ecg routine ecg w/le ast 12 lds w/i&r KAVYA THUSAY Start: 02-10-2020 INSERT PERIPHERAL IV MA SULMA THUSAY Start: 02-10-2020 Ct maxillofacial w/c ontrast material Hair R Zachary Start: 02-10-2020 Radex shoulder compl ete minimum 2 views Hair R Zachary Start: 02-10-2020 Radiologic exam ches t single view Hair R Zachary Start: 02-10-2020 Blood count complete auto&auto difrntl wbc Hair R Zachary Start: 02-10-2020 Comprehensive metabo lic panel Hair R Zachary Start: 02-10-2020 TROP/MYOGLOBIN Hair R Zachary Start: 02-10-2020 Ecg routine ecg w/le ast 12 lds i&r only Hair Sharma Start: 02-10-2020 EKG REPORT [facility] Sc[facility] ng Plan of Treatment Date Care Activity Detail Author Start: 02-09-2027 DTaP/Tdap/Td vaccine (3 - Td) DTaP/Tdap/Td vaccine (3 - Td) [place] Start: 04-07-2025 Arleth Jenkins 12mo FU W OCT [facility] Work Phone: Start: 02-14-2021 Creatinine measurement Creatinine mo nitoring [place], [place] Start: 02-14-2021 Potassium monitoring Potassium monit oring [place] Start: 04-26-2020 Influenza vaccination Flu vacc ine (Season Ended) [place] Start: 2000 Screening for osteoporosis DEXA (modify frequency per FRAX score) [place] Start: 1995 Screening for malign ant neoplasm of breast Breast cancer screen [place], [place] Start: 1995 Screening for malign ant neoplasm of colon Colon cancer screen colonoscopy [place], [place] Start: 1995 Shingles Vaccine (1 of 2) Shingles Vaccine (1 of 2) [place] Start: 1985 Lipid panel Lipid screen [place], [place] Start: 1945 Hepatitis C screening Hepatitis C sc reen [place], [place] Basic Metabolic Pane l w/ Reflex to MG Basic Metabolic Panel w/ Reflex to MG Lab Routine Daily until discontinued starting 02/11/2020, 6 completed [place] Comment on above: Daily until disconti nued starting 02/11/2020, 6 completed CBC auto differential CBC auto d ifferential Lab Routine Daily until discontinued starting 02/11/2020, 6 completed [place] Comment on above: Daily until disconti nued starting 02/11/2020, 6 completed Initiate Oxygen Ther apy Protocol Initiate Oxygen Therapy Protocol Respiratory Care Routine Daily until discontinued starting 02/10/2020 [place] Comment on above: Daily until disconti nued starting 02/10/2020 Payers Date Payer Category Payer Unknown [id number] 2014 Medicaid [id number] 2014 Medicaid MEDICAID [facility] DEPT OF JOB xxxxxxxxxxxx 2014-Present [phone] [address] [place] [address] xxxxxxxxxxxx [id number] 2014 Unknown [id number] 2014 Unknown MOIRA BO ANDREINA xxxxxxxxxxx 2014-Present [phone] [address] [place] [address] xxxxxxxxxxx [id number] 2010 Medicare [id number] 1945 Unknown [id number] 1945 Unknown [id number] [id number] 7 1945 Unknown [id number] 2.16.840.1.752515.3.579.2.128 6 1945 Unknown [id number] 2.16.840.1.901262.3.579.2.128 6 1945 Unknown [id number] 2.16.840.1.062761.3.579.2.128 6 1945 Unknown [id number] 2.16.840.1.384878.3.579.2.128 6 1945 Unknown [id number] 2.16.840.1.563101.3.579.2.128 6 1945 Unknown [id number] 2.16.840.1.669838.3.579.2.128 6 1945 Unknown [id number] 2.16.840.1.491151.3.579.2.128 6 1945 Unknown [id number] 2.16.840.1.713322.3.579.2.128 6 1945 Unknown [id number] 2.16.840.1.078964.3.579.2.128 6 1945 Unknown [id number] 2.16.840.1.806431.3.579.2.128 6 1945 Unknown [id number] 2.16.840.1.232087.3.579.2.128 6 1945 Unknown [id number] 2.16.840.1.501564.3.579.2.128 6 1945 Unknown [id number] 2.16.840.1.609040.3.579.2.128 6 1945 Unknown [id number] 2.16.840.1.333333.3.579.2.128 6 1945 Unknown [id number] [id number] 6 Social History Date Type Detail Facility Start: 02-15-2020 Tobacco smoking status NHIS Never smoker [place] Start: 02-15-2020 Alcohol intake Lifetime non-d jonathan (finding) [place] Start: 11-03-2018 History SDOH Alcohol Frequency 1 [place] Sex Assigned At Not on file [place] Exposure to SARS-CoV-2 (event) Unable to assess [place] Start: 04-01-2024 Alcohol intake Alcohol Use Details [facility] [employer] [facility] Start: 04-01-2024 Tobacco use and exposure Non-Smoking Tobacco Use Details [facility] Sex Assigned At Female [facility] Work Phone: NEGATED: Highlighted rowStart: 04-01-2024 Tobacco smoking status NHIS Unknown if ever smoked [facility] NEGATED: Highlighted rowStart: 04-01-2024 History of tobacco use Current non-smoker [facility] Clinical Note 10-19-2024 Note Date & Type Note Facility 10-19-2024 Note XR CHEST 1 VW History: Cough Procedure: Chest AP portable upright Comparison: 08/26/2024 Findings: The heart and lungs show no acute findings, and the mediastinum and gisselle are grossly negative . No pneumothorax. Impression: No acute pulmonary process. Finalized by Taqueria Ramos MD on 10/19/2024 5:[address] [facility] Evaluation note 04-01-2024 Note Date & Type Note Facility 04-01-2024 Evaluation note Type assessment Epiretinal membrane (ERM) of lef t eye impression Epiretinal membrane (ERM) of lef t eye: H35.372 assessment Combined forms of ag e-related cataract, bilateral impression Combined forms of ag e-related cataract, bilateral: H25.813 [facility] Work Phone: History of Present illness Narrative 04-01-2024 Note Date & Type Note Facility 04-01-2024 History of Presen t illness Narrative Encounter Date puckering of the macula The 78 year old female presents for evaluation of puckering of the macula in the left eye. Patient states she has noticed her vision has become more blurry, double vision, and a wavy look, she believes these are due in part to a progression of cataracts. Patient denies any new onset of flashes, floaters, or ocular pain. Patient does state noticing her eyes water more frequently. Patient using artificial tears daily. Retinal issues The 77 year old female presents for un know retinal evaluation of Retinal issues in the right and left eyes. Patient states that she does see double most of the time, especially when she tries to walk. She says the images are side by side and sometime they go off to the side. Notes from patients paper work states that she has unspecified Exotropia, and visual distortions of shape and sizes. 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-related cataract, bilateral Impression/Lam n Related to Epiretinal membrane (ERM) of left eye [facility] Work Phone: Consult note Note Date & Type Note Facility Consult note No Information [facility] Work Phone: Discharge summary Note Date & Type Note Facility Discharge summary No Information [facility] Work Phone: History and physical note Note Date & Type Note Facility History and physical note No Information [facility] Work Phone: Progress note Note Date & Type Note Facility Progress note No Information [facility] Work Phone: Reason for referral (narrative) Note Date & Type Note Facility Reason for referral (narrati ve) No Information [facility] Work Phone: Summary Purpose Family History No Family History Records Found Family Member Type Diagnosis Age At Onset Problem Family history of cataract Advance Directives No Advanced Directives Records FoundDocuments on File Type Date Recorded 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 Admit Date: 02/10/2020 Discharge Date: 02/16/2020 Length of Stay: 2 Code Status: Full Code Admitting Physician: Rip Chinchilla MD Discharge Physician: Josias Moran MD Active Discharge Diagnoses: Primary Problem Facial cellulitis Hospital Problems Active Hospital Problems Diagnosis Date Noted Acute renal insufficiency [N28.9] Morbid obesity with BMI of 50.0-59.9, adult ([facility]) [E66.01, Z68.43] 02/13/2020 Cellulitis [L03.90] 02/12/2020 Facial cellulitis [L03.211] 02/10/2020 Admission Condition: poor Discharged Condition: fair Hospital Stay: Hospital Course: Arleth Jenkins is a 74 y.o. female who was admitted for the management of . , presented with Fall , Facial cellulitis; Principal Problem: Facial cellulitis Active Problems: Cellulitis Morbid obesity with BMI of 50.0-59.9, adult ([facility]) Acute renal insufficiency Resolved Problems: * No resolved hospital problems. * Significant therapeutic interventions: Patient was admitted with status post fall with significant facial cellulitis and noted to have AKIand morbid obesity BMP: Recent Labs 02/14/20 0546 02/15/20 0619 NA 139 140 K 3.7 3.9 CO2 23 23 BUN 15 11 CREATININE 0.76 0.67 LABGLOM >60 >60 GLUCOSE 92 83 Significant Diagnostic Studies: Labs / Micro: Results for orders placed or performed during the hospital encounter of 02/10/20 CBC Auto Differential Result Value Ref Range WBC 21.3 (H) 3.5 - 11.0 k/uL RBC 4.22 4.0 - 5.2 m/uL Hemoglobin 11.8 (L) 12.0 - 16.0 g/dL Hematocrit 36.3 36 - 46 % MCV 86.0 80 - 100 fL MCH 27.9 26 - 34 pg MCHC 32.4 31 - 37 g/dL RDW 14.9 11.5 - 14.9 % Platelets 240 150 - 450 k/uL MPV 7.8 6.0 - 12.0 fL NRBC Automated NOT REPORTED per 100 WBC Differential Type NOT REPORTED Immature Granulocytes NOT REPORTED 0 % Absolute Immature Granulocyte NOT REPORTED 0.00 - 0.30 k/uL WBC Morphology NOT REPORTED RBC Morphology NOT REPORTED Platelet Estimate NOT REPORTED Seg Neutrophils 80 (H) 36 - 66 % Lymphocytes 4 (L) 24 - 44 % Monocytes 6 1 - 7 % Eosinophils % 0 0 - 4 % Basophils 0 0 - 2 % Bands 10 0 - 10 % Segs Absolute 17.04 (H) 1.3 - 9.1 k/uL Absolute Lymph # 0.85 (L) 1.0 - 4.8 k/uL Absolute Todd # 1.28 0.1 - 1.3 k/uL Absolute Eos # 0.00 0.0 - 0.4 k/uL Basophils Absolute 0.00 0.0 - 0.2 k/uL Absolute Bands # 2.13 (H) 0.0 - 1.0 k/uL Morphology Normal Comprehensive Metabolic Panel Result Value Ref Range Glucose 107 (H) 70 - 99 mg/dL BUN 21 8 - 23 mg/dL CREATININE 1.38 (H) 0.50 - 0.90 mg/dL Bun/Cre Ratio NOT REPORTED 9 - 20 Calcium 8.9 8.6 - 10.4 mg/dL Sodium 141 135 - 144 mmol/L Potassium 3.4 (L) 3.7 - 5.3 mmol/L Chloride 103 98 - 107 mmol/L CO2 23 20 - 31 mmol/L Anion Gap 15 9 - 17 mmol/L Alkaline Phosphatase 61 35 - 104 U/L ALT 9 5 - 33 U/L AST 20 <32 U/L Total Bilirubin 0.76 0.3 - 1.2 mg/dL Total Protein 7.1 6.4 - 8.3 g/dL Alb 3.7 3.5 - 5.2 g/dL Albumin/Globulin Ratio NOT REPORTED 1.0 - 2.5 GFR Non- 37 (L) >60 mL/min GFR 45 (L) >60 mL/min GFR Comment GFR Staging NOT REPORTED Urinalysis Reflex to Culture Result Value Ref Range Color, UA YELLOW YELLOW Turbidity UA CLOUDY (A) CLEAR Glucose, Ur NEGATIVE NEGATIVE Bilirubin Urine NEGATIVE NEGATIVE Ketones, Urine TRACE (A) NEGATIVE Specific [place], UA 1.018 1.000 - 1.030 Urine Hgb SMALL (A) NEGATIVE pH, UA 5.5 5.0 - 8.0 Protein, UA 1+ (A) NEGATIVE Urobilinogen, Urine Normal Normal Nitrite, Urine NEGATIVE NEGATIVE Leukocyte Esterase, Urine NEGATIVE NEGATIVE Urinalysis Comments NOT REPORTED TROP/MYOGLOBIN Result Value Ref Range Troponin, High Sensitivity 76 (HH) 0 - 14 ng/L Troponin T NOT REPORTED <0.03 ng/mL Troponin Interp NOT REPORTED Myoglobin 3,585 (H) 25 - 58 ng/mL TROP/MYOGLOBIN Result Value Ref Range Troponin, High Sensitivity 64 (HH) 0 - 14 ng/L Troponin T NOT REPORTED <0.03 ng/mL Troponin Interp NOT REPORTED Myoglobin 3,932 (H) 25 - 58 ng/mL Microscopic Urinalysis Result Value Ref Range - WBC, UA 5 TO 10 /HPF RBC, UA 0 TO 2 /HPF Casts UA NOT REPORTED /LPF Crystals, UA NOT REPORTED None /HPF Epithelial Cells UA NOT REPORTED /HPF Renal Epithelial, UA NOT REPORTED 0 /HPF Bacteria, UA MANY (A) None Mucus, UA NOT REPORTED None Trichomonas, UA NOT REPORTED None Amorphous, UA NOT REPORTED None Other Observations UA NOT REPORTED NOT REQ. Yeast, UA NOT REPORTED None Troponin Result Value Ref Range Troponin, High Sensitivity 52 (HH) 0 - 14 ng/L Troponin T NOT REPORTED <0.03 ng/mL Troponin Interp NOT REPORTED Basic Metabolic Panel w/ Reflex to MG Result Value Ref Range Glucose 99 70 - 99 mg/dL BUN 25 (H) 8 - 23 mg/dL CREATININE 1.05 (H) 0.50 - 0.90 mg/dL Bun/Cre Ratio NOT REPORTED 9 - 20 Calcium 8.3 (L) 8.6 - 10.4 mg/dL Sodium 140 135 - 144 mmol/L Potassium 3.8 3.7 - 5.3 mmol/L Chloride 104 98 - 107 mmol/L CO2 22 20 - 31 mmol/L Anion Gap 14 9 - 17 mmol/L GFR Non- 51 (L) >60 mL/min GFR >60 >60 mL/min GFR Comment GFR Staging NOT REPORTED CBC auto differential Result Value Ref Range WBC 9.3 3.5 - 11.0 k/uL RBC 3.77 (L) 4.0 - 5.2 m/uL Hemoglobin 10.7 (L) 12.0 - 16.0 g/dL Hematocrit 32.7 (L) 36 - 46 % MCV 86.9 80 - 100 fL MCH 28.3 26 - 34 pg MCHC 32.6 31 - 37 g/dL RDW 15.0 (H) 11.5 - 14.9 % Platelets 209 150 - 450 k/uL MPV 7.4 6.0 - 12.0 fL NRBC Automated NOT REPORTED per 100 WBC Differential Type NOT REPORTED Immature Granulocytes NOT REPORTED 0 % Absolute Immature Granulocyte NOT REPORTED 0.00 - 0.30 k/uL WBC Morphology NOT REPORTED RBC Morphology NOT REPORTED Platelet Estimate NOT REPORTED Seg Neutrophils 87 (H) 36 - 66 % Lymphocytes 8 (L) 24 - 44 % Monocytes 5 1 - 7 % Eosinophils % 0 0 - 4 % Basophils 0 0 - 2 % Segs Absolute 8.00 1.3 - 9.1 k/uL Absolute Lymph # 0.70 (L) 1.0 - 4.8 k/uL Absolute Todd # 0.50 0.1 - 1.3 k/uL Absolute Eos # 0.00 0.0 - 0.4 k/uL Basophils Absolute 0.00 0.0 - 0.2 k/uL Troponin Result Value Ref Range Troponin, High Sensitivity 36 (H) 0 - 14 ng/L Troponin T NOT REPORTED <0.03 ng/mL Troponin Interp NOT REPORTED COVID-19 Result Value Ref Range SARS-CoV-2 Not Detected Not Detected SARS-CoV-2, Rapid Source .NASOPHARYNGEAL SWAB SARS-CoV-2, PCR Basic Metabolic Panel w/ Reflex to MG Result Value Ref Range Glucose 88 70 - 99 mg/dL BUN 20 8 - 23 mg/dL CREATININE 0.84 0.50 - 0.90 mg/dL Bun/Cre Ratio NOT REPORTED 9 - 20 Calcium 8.2 (L) 8.6 - 10.4 mg/dL Sodium 140 135 - 144 mmol/L Potassium 3.8 3.7 - 5.3 mmol/L Chloride 106 98 - 107 mmol/L CO2 23 20 - 31 mmol/L Anion Gap 11 9 - 17 mmol/L GFR Non- >60 >60 mL/min GFR >60 >60 mL/min GFR Comment GFR Staging NOT REPORTED CBC auto differential Result Value Ref Range WBC 6.0 3.5 - 11.0 k/uL RBC 3.66 (L) 4.0 - 5.2 m/uL Hemoglobin 10.4 (L) 12.0 - 16.0 g/dL Hematocrit 31.6 (L) 36 - 46 % MCV 86.3 80 - 100 fL MCH 28.4 26 - 34 pg MCHC 32.9 31 - 37 g/dL RDW 14.9 11.5 - 14.9 % Platelets 216 150 - 450 k/uL MPV 7.6 6.0 - 12.0 fL NRBC Automated NOT REPORTED per 100 WBC Differential Type NOT REPORTED Immature Granulocytes NOT REPORTED 0 % Absolute Immature Granulocyte NOT REPORTED 0.00 - 0.30 k/uL WBC Morphology NOT REPORTED RBC Morphology NOT REPORTED Platelet Estimate NOT REPORTED Seg Neutrophils 67 (H) 36 - 66 % Lymphocytes 21 (L) 24 - 44 % Monocytes 9 (H) 1 - 7 % Eosinophils % 2 0 - 4 % Basophils 1 0 - 2 % Segs Absolute 4.00 1.3 - 9.1 k/uL Absolute Lymph # 1.20 1.0 - 4.8 k/uL Absolute Todd # 0.60 0.1 - 1.3 k/uL Absolute Eos # 0.10 0.0 - 0.4 k/uL Basophils Absolute 0.00 0.0 - 0.2 k/uL Basic Metabolic Panel w/ Reflex to MG Result Value Ref Range Glucose 90 70 - 99 mg/dL BUN 17 8 - 23 mg/dL CREATININE 0.83 0.50 - 0.90 mg/dL Bun/Cre Ratio NOT REPORTED 9 - 20 Calcium 8.3 (L) 8.6 - 10.4 mg/dL Sodium 141 135 - 144 mmol/L Potassium 4.3 3.7 - 5.3 mmol/L Chloride 108 (H) 98 - 107 mmol/L CO2 23 20 - 31 mmol/L Anion Gap 10 9 - 17 mmol/L GFR Non- >60 >60 mL/min GFR >60 >60 mL/min GFR Comment GFR Staging NOT REPORTED CBC auto differential Result Value Ref Range WBC 5.2 3.5 - 11.0 k/uL RBC 3.68 (L) 4.0 - 5.2 m/uL Hemoglobin 10.2 (L) 12.0 - 16.0 g/dL Hematocrit 31.7 (L) 36 - 46 % MCV 86.1 80 - 100 fL MCH 27.8 26 - 34 pg MCHC 32.2 31 - 37 g/dL RDW 14.9 11.5 - 14.9 % Platelets 234 150 - 450 k/uL MPV 7.5 6.0 - 12.0 fL NRBC Automated NOT REPORTED per 100 WBC Differential Type NOT REPORTED Seg Neutrophils 66 36 - 66 % Lymphocytes 22 (L) 24 - 44 % Monocytes 8 (H) 1 - 7 % Eosinophils % 3 0 - 4 % Basophils 1 0 - 2 % Immature Granulocytes NOT REPORTED 0 % Segs Absolute 3.40 1.3 - 9.1 k/uL Absolute Lymph # 1.10 1.0 - 4.8 k/uL Absolute Todd # 0.40 0.1 - 1.3 k/uL Absolute Eos # 0.20 0.0 - 0.4 k/uL Basophils Absolute 0.10 0.0 - 0.2 k/uL Absolute Immature Granulocyte NOT REPORTED 0.00 - 0.30 k/uL WBC Morphology NOT REPORTED RBC Morphology NOT REPORTED Platelet Estimate NOT REPORTED Basic Metabolic Panel w/ Reflex to MG Result Value Ref Range Glucose 92 70 - 99 mg/dL BUN 15 8 - 23 mg/dL CREATININE 0.76 0.50 - 0.90 mg/dL Bun/Cre Ratio NOT REPORTED 9 - 20 Calcium 8.4 (L) 8.6 - 10.4 mg/dL Sodium 139 135 - 144 mmol/L Potassium 3.7 3.7 - 5.3 mmol/L Chloride 106 98 - 107 mmol/L CO2 23 20 - 31 mmol/L Anion Gap 10 9 - 17 mmol/L GFR Non- >60 >60 mL/min GFR >60 >60 mL/min GFR Comment GFR Staging NOT REPORTED CBC auto differential Result Value Ref Range WBC 6.1 3.5 - 11.0 k/uL RBC 3.74 (L) 4.0 - 5.2 m/uL Hemoglobin 10.5 (L) 12.0 - 16.0 g/dL Hematocrit 32.6 (L) 36 - 46 % MCV 87.1 80 - 100 fL MCH 28.0 26 - 34 pg MCHC 32.2 31 - 37 g/dL RDW 14.9 11.5 - 14.9 % Platelets 257 150 - 450 k/uL MPV 7.2 6.0 - 12.0 fL NRBC Automated NOT REPORTED per 100 WBC Differential Type NOT REPORTED Seg Neutrophils 64 36 - 66 % Lymphocytes 24 24 - 44 % Monocytes 8 (H) 1 - 7 % Eosinophils % 3 0 - 4 % Basophils 1 0 - 2 % Immature Granulocytes NOT REPORTED 0 % Segs Absolute 3.90 1.3 - 9.1 k/uL Absolute Lymph # 1.50 1.0 - 4.8 k/uL Absolute Todd # 0.50 0.1 - 1.3 k/uL Absolute Eos # 0.20 0.0 - 0.4 k/uL Basophils Absolute 0.10 0.0 - 0.2 k/uL Absolute Immature Granulocyte NOT REPORTED 0.00 - 0.30 k/uL WBC Morphology NOT REPORTED RBC Morphology NOT REPORTED Platelet Estimate NOT REPORTED Basic Metabolic Panel w/ Reflex to MG Result Value Ref Range Glucose 83 70 - 99 mg/dL BUN 11 8 - 23 mg/dL CREATININE 0.67 0.50 - 0.90 mg/dL Bun/Cre Ratio NOT REPORTED 9 - 20 Calcium 8.5 (L) 8.6 - 10.4 mg/dL Sodium 140 135 - 144 mmol/L Potassium 3.9 3.7 - 5.3 mmol/L Chloride 106 98 - 107 mmol/L CO2 23 20 - 31 mmol/L Anion Gap 11 9 - 17 mmol/L GFR Non- >60 >60 mL/min GFR >60 >60 mL/min GFR Comment GFR Staging NOT REPORTED CBC auto differential Result Value Ref Range WBC 6.3 3.5 - 11.0 k/uL RBC 3.88 (L) 4.0 - 5.2 m/uL Hemoglobin 10.6 (L) 12.0 - 16.0 g/dL Hematocrit 33.5 (L) 36 - 46 % MCV 86.4 80 - 100 fL MCH 27.4 26 - 34 pg MCHC 31.7 31 - 37 g/dL RDW 15.1 (H) 11.5 - 14.9 % Platelets 270 150 - 450 k/uL MPV 7.7 6.0 - 12.0 fL NRBC Automated NOT REPORTED per 100 WBC Differential Type NOT REPORTED Seg Neutrophils 63 36 - 66 % Lymphocytes 25 24 - 44 % Monocytes 7 1 - 7 % Eosinophils % 4 0 - 4 % Basophils 1 0 - 2 % Immature Granulocytes NOT REPORTED 0 % Segs Absolute 4.00 1.3 - 9.1 k/uL Absolute Lymph # 1.60 1.0 - 4.8 k/uL Absolute Todd # 0.40 0.1 - 1.3 k/uL Absolute Eos # 0.20 0.0 - 0.4 k/uL Basophils Absolute 0.10 0.0 - 0.2 k/uL Absolute Immature Granulocyte NOT REPORTED 0.00 - 0.30 k/uL WBC Morphology NOT REPORTED RBC Morphology NOT REPORTED Platelet Estimate NOT REPORTED EKG 12 Lead Result Value Ref Range Ventricular Rate 105 BPM Atrial Rate 105 BPM P-R Interval 174 ms QRS Duration 76 ms Q-T Interval 328 ms QTc Calculation (Bazett) 433 ms P Sunset 49 degrees R Sunset 36 degrees T Sunset 43 degrees EKG 12 Lead Result Value Ref Range Ventricular Rate 91 BPM Atrial Rate 91 BPM P-R Interval 168 ms QRS Duration 82 ms Q-T Interval 342 ms QTc Calculation (Bazett) 420 ms P Sunset 59 degrees R Sunset 40 degrees T Sunset 57 degrees {Radiology: Xr Shoulder Right (min 2 Views) Result Date: 02/10/2020 EXAMINATION: THREE XRAY VIEWS OF THE RIGHT SHOULDER 02/10/2020 11:11 am COMPARISON: None. HISTORY: ORDERING SYSTEM PROVIDED HISTORY: Fall, pain TECHNOLOGIST PROVIDED HISTORY: Fall, pain Reason for Exam: fall today Acuity: Acute Type of Exam: Initial FINDINGS: No acute fracture is seen. There is widen ing of the AC joint at 14 mm. Alignment is maintained. The glenohumeral articulation is preserved. No periarticular soft tissue calcification. The visualized right hemithorax is unremarkable. Widened AC joint suggesting possible ligamentous injury. No acute osseous abnormality of the right shoulder. Ct Facial Bones W Contrast Result Date: 02/10/2020 EXAMINATION: CT OF THE FACE WITH CONTRAST 02/10/2020 TECHNIQUE: CT of the face was performed with the administration of intravenous contrast. Multiplanar reformatted images are provided for review. Dose modulation, iterative reconstruction, and/or weight based adjustment of the mA/kV was utilized to reduce the radiation dose to as low as reasonably achievable. COMPARISON: None. HISTORY: ORDERING SYSTEM PROVIDED HISTORY: facial swelling TECHNOLOGIST PROVIDED HISTORY: facial swelling Reason for Exam: patient states that she fell out of bed this morning Acuity: Unknown Type of Exam: Unknown FINDINGS: PHARYNX/LARYNX: No abnormality identified. SALIVARY GLANDS: The parotid and submandibular glands appear unremarkable. LYMPH NODES: Small nonspecific submental and upper jugular chain lymph nodes,favored to be reactive. SOFT TISSUES: Right periorbital soft tissue swelling. Mild apparent upper lip swelling. Mild skin thickening overlying the right mandible. BRAIN/ORBITS/SINUSES: The visualized portion of the intracranial contents appear unremarkable. The visualized portion of the orbits, paranasal sinuses and mastoid air cells demonstrate no acute abnormality. BONES: No facial fracture identified. Advanced periodontal disease in the maxillary teeth with periapical lucency in the right maxillary incisor. Dental disease is also noted involving the mandibular teeth. Mucosal thickening in the right maxillary sinus. No layering fluid. 1. Soft tissue swelling near the right orbit and upper lip, presumably related to history of fall. Underlying advanced periodontal disease in the maxillary teeth is also noted in the possibility of odontogenic should also be considered in the appropriate clinical setting. 2. No facial fracture identified. 3. Mild right maxillary sinus mucosal thickening, which also may be odontogenic. Xr Chest Portable Result Date: 02/10/2020 EXAMINATION: ONE XRAY VIEW OF THE CHEST 02/10/2020 11:11 am COMPARISON: 03 November 2018 HISTORY: ORDERING SYSTEM PROVIDED HISTORY: shortness of breath TECHNOLOGIST PROVIDED HISTORY: shortness of breath Reason for Exam: fall today Acuity: Acute Type of Exam: Initial FINDINGS: AP portable view of the chest time stamped at 1050 hours demonstrates overlying cardiac monitoring electrodes. Stable mild cardiomegaly is noted. Lung volumes are low with linear basilar stranding favoring atelectasis. No vascular congestion, focal consolidation, effusion or pneumothorax is noted. Osseous structures and mediastinal contours are unremarkable. Stable cardiomegaly. Probable basilar atelectasis. Consultations: Consults: Final Specialist Recommendations/Findings: IP CONSULT TO GENERAL SURGERY IP CONSULT TO PRIMARY CARE PROVIDER IP CONSULT TO SOCIAL WORK IP CONSULT TO SPIRITUAL SERVICES The patient was seen and examined on day of discharge and this discharge summary is in conjunction with any daily progress note from day of discharge. Discharge plan: Disposition: Home Physician Follow Up: With PCP and as specified Requiring Further Evaluation/Follow Up POST HOSPITALIZATION/Incidental Findings: Diet: regular Activity: As tolerated I Discharge Medications: Medication List START taking these medications amoxicillin-clavulanate 1000-62.5 MG per extended release tablet Commonly known as: Augmentin XR Take 1 tablet by mouth 2 times daily for 5 days miconazole 2 % powder Commonly known as: MICOTIN Apply topically 2 times daily. CONTINUE taking these medications gabapentin 100 MG capsule Commonly known as: NEURONTIN Take 1 capsule by mouth 4 times daily for 60 days. THERAPEUTIC MULTIVITAMIN PO Zestoretic 10-12.5 MG per tablet Generic drug: lisinopril-hydroCHLOROthiazide Where to Get Your Medications These medications were sent to [address] [phone] - F [phone] [place] [id number] amoxicillin-clavulanate 1000-62.5 MG per extended release tablet miconazole 2 % powder You can get these medications from any pharmacy Bring a paper prescription for each of these medications gabapentin 100 MG capsule Time spent on discharge planning ; [] less than 30 minutes . [x] more than 30 minutes . Ellectronically signed by Jsoias Moran MD Thank you Dr. Wisdom primary care provider on file. for the opportunity to be involved in this patient's care. Please note that this chart was generated using voice recognition [employer] dictation software. Although every effort was made to ensure the accuracy of this automated lockstitch sleeve maker, some errors in lockstitch sleeve maker may have occurred. documented in this encounter Discharge Instructions * Discharge Instr - Activity* Kimberley Perez RN - 02/16/2020 10:32 AM EDT As tolerated * Discharge Instr - Diet* Kimberley Perez RN - 02/16/2020 10:32 AM EDT ? Good nutrition is important when healing from an illness, injury, or surgery. Follow any nutrition recommendations given to you during your hospital stay. ? If you were given an oral nutrition supplement while in the hospital, continue to take this supplement at home. You can take it with meals, in-between meals, and/or before bedtime. These supplements can be purchased at most local grocery stores, pharmacies, and [employer]-stores. ? If you have any questions about your diet or nutrition, call the hospital and ask for the dietitian. General diet * Discharge Instr - AGUSTÍN* Kimberley Perez RN - 02/11/2020 11:02 AM EDT Continuity of Care Form Patient Name: Arleth Jenkins : 1945 Admit date: 02/10/2020 Discharge date: 02/16/2020 Code Status Order: Full Code Advance Directives: Advance Care Flowsheet Documentation Date/Time Healthcare Directive Type of Healthcare Directive Copy in Chart Healthcare Agent Appointed Healthcare Agent's Name Healthcare Agent's Phone Number 02/10/20 0497 No, patient does not have an advance directive for healthcare treatment Admitting Physician: Rip Chinchilla MD PCP: No primary care provider on file. Discharging Nurse: Kimberley Chu RN Discharging Hospital Unit/Room#: 2063/2063-01 Discharging Unit Emergency Contact: Extended Emergency Contact Information Primary Emergency Contact: dexter Jenkins Relation: Child Secondary Emergency Contact: ciaran Jenkins Relation: Child Past Surgical History: Past Surgical History: Procedure Laterality Date SECTION Immunization History: There is no immunization history on file for this patient. Active Problems: Patient Active Problem List Diagnosis Code Facial cellulitis L03.211 Isolation/Infection: Isolation No Isolation Patient Infection Status None to display Nurse Assessment: Last Vital Signs: BP (!) 142/60 Pulse 93 Temp 98.4 F (36.9 C) (Oral) Resp 16 Ht 5' 3 (1.6 m) Wt 299 lb 13.2 oz (136 kg) SpO2 100% BMI 53.11 kg/m Last documented pain score (0-10 scale): Pain Level: 3 Last Weight: Wt Readings from Last 1 Encounters: 02/11/20 299 lb 13.2 oz (136 kg) Mental Status: oriented and alert IV Access: - None Nursing Mobility/ADLs: Walking Assisted Transfer Assisted Bathing Assisted Dressing Assisted Toileting Assisted Feeding Assisted Cleaning Custodian Assisted Med Delivery whole Wound Care Documentation and Therapy: Elimination: Continence: Bowel: Yes Bladder: Yes Urinary Catheter: None Colostomy/Ileostomy/Ileal Conduit: Yes Date of Last BM: 02/16/2020 Intake/Output Summary (Last 24 hours) at 02/11/2020 1101 Last data filed at 02/11/2020 0606 Gross per 24 hour Intake 2536 ml Output 200 ml Net 2336 ml I/O last 3 completed shifts: In: 2536 [P.O.:960; I.V.:1576] Out: 200 [Urine:200] Safety Concerns: None Impairments/Disabilities: None Nutrition Therapy: Current Nutrition Therapy: - Oral Diet: General Routes of Feeding: Oral Liquids: No Restrictions Daily Fluid Restriction: {CHP DME Yes amt example:[id number]} Last Modified Barium Swallow with Video (Video Swallowing Test): {Done Not Done Date:} Treatments at the Time of Hospital Discharge: Respiratory Treatments: Oxygen Therapy: is not on home oxygen therapy. Ventilator: - No ventilator support Rehab Therapies: Physical Therapy and Occupational Therapy Weight Bearing Status/Restrictions: No weight bearing restirctions Other Medical Equipment (for information only, NOT a DME order): walker Other Treatments: Nursing Home Assessment Per Protocol. Medication Education & Monitoring. Please refer patient to [facility]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 and LE. pt has theraband and UE ExHEP, was left in her reach post therapy today OT Equipment Recommendations Other: TBD if pt able to return home in future OT Individual Minutes Time In: 1107 Time Out: 1114 Minutes: 7 OT Co-Treatment Minutes Time In: 1115(with STATISTICIAN APPLIED for mobility) Time Out: 1157 Minutes: 42 * Kimberley Perez RN - 02/15/2020 10:45 AM EDT Eyes closed, resp. Easy @ 16/min * Kimberley Perez RN - 02/15/2020 9:15 AM EDT Helped pt. To be repositioned in bed * Kimberley Perez RN - 02/15/2020 8:00 AM EDT Took over care of pt. From Edie FRANCO Pt. Has no c/o of pain, or SOB at this time Resp. Easy @ 18/min * Domitila Lu STATISTICIAN APPLIED - 02/14/2020 4:17 PM EDT [facility] Physical Therapy Progress Note Date: 02/14/20 Patient Name: Arleth Jenkins Room: Account: [id number] : 1945 (74 y.o.) Gender: female Discharge Recommendations Patient would benefit from continued therapy after discharge Equipment Needed: (TBD ) Restrictions/Precautions: Fall Risk Past Medical History: has a past medical history of Arthritis, Blood circulation, collateral, Chronic kidney disease, Hypertension, and Psychiatric problem. Past Surgical History: has a past surgical history that includes section. Additional Pertinent Hx: Arleth Jenkins is a 74 y.o. female who presents complaining of fall. Patient is here because she states she fell out of bed this morning was unable to get herself up. Patient does admit that she is not really been able to care for herself well recently. Patient states thatshe is able to get up and get food and get to the bathroom but is very difficult. Patient is unableto get up and get herself cleaned. Overall Orientation Status: Within Normal Limits Orientation Level: Oriented X4 Restrictions/Precautions Restrictions/Precautions: Fall Risk Subjective: Pt talking on phone upon story writer arrival. Pt is pleasant and agreeable to therapy. Comments: JOAN amaya pt for therapy. Lost Charge Card Clerk informed JOAN Poon @ end of tx with transfers if RW is used to have 2-3 for Max A story writer encouraged RN to utilize Davi Steady to ease STS w Max A x2, (Davi Steady attempt for next tx with probable Max A x2) Vital Signs Pulse: 77(sitting EOB) Heart Rate Source: Monitor Patient Currently in Pain: Denies Pain Assessment: 0-10 Pain Level: 0 Oxygen Therapy SpO2: 96 %(sitting EOB-pt has slight wheeze with exhale) Pulse Oximeter Device Mode: Intermittent Pulse Oximeter Device Location: Finger O2 Device: None (Room air) Patient Observation Observations: Pt is motivated to participate with therapy this date and reports she's been wanting to get out of bed since . Lost Charge Card Clerk informed pt to hit call button to ask nursing staff to assist pt with sitting EOB or standing, pt replied Well I feel bad asking them to do that for me. Lost Charge Card Clerk explained to pt that she should be getting out of bed or sitting EOB daily and that nursing staffare here to help assist-pt verbalized understanding. Pt had BM @ start of tx and required cleanup assistance from story writer and 2 nursing aids. Pt urinated in brief @ end of tx and required story writer and nursing aid to assist with cleanup. Bed Mobility Rolling: Maximal assistance;Rolling Left;Rolling Right(heavy use of bed rails-pt will reach at story writer and aids w UE) Supine to Sit: Maximal assistance(Max A 2-3 for trunk and B LE placement ) Sit to Supine: Maximal assistance(Max A 2-3 for trunk and B LE placement ) Scooting: Dependent/Total;2 Person assistance;Minimal assistance(scoot to HOB DEP, scooting along EOB Min A) Comment: Pt able to hold sidelying position with Max-Mod A x2 for brief cleanup ~2 min each side x 2 sets Transfers: Sit to Stand: Maximum Assistance;2 Person Assistance Stand to sit: 2 Person Assistance;Maximum Assistance Comments: Pt wanted to attempt standing with RW today vs Davi Steady. Pt able to stand and reportedthat she was urinating upon standing into her brief. Stairs/Curb Stairs?: No Posture: Fair Sitting - Static: Fair;+ Sitting - Dynamic: Fair Standing - Static: Fair;- Comments: seated EOB and standing with RW Other exercises?: Yes Other exercises 1: Supine B LE therex x12 reps ankle pumps and heel slides with AAROM Other exercises 2: Educated pt over supine B LE therex and instructed her to perform throughout dayto increase strength and endurance and reduce stiffness Other exercises 3: Seated EOB ~10 min with CGA/Robert to maintain seated posture Other exercises 4: Seated LAQ x10 reps Other exercises 5: STS x1 from EOB with RW Other exercises 6: Static standing ~15-20 sec no LOB; pt too fatigued to attemot 2nd stand Other exercises 7: Monitor SpO2 and HR throughout d/t pt becoming SOB/wheeze with exertion Other exercises 8: Educated pt to utilize call button throughout day when she wants to sit EOB or attempt to stand Other Activities Comment: Rest breaks PRN-pt reports she's happy to be EOB/OOB this date Activity Tolerance: Patient limited by fatigue;Patient limited by endurance PT Equipment Recommendations Equipment Needed: (TBD ) Assessment Activity Tolerance: Patient limited by fatigue;Patient limited by endurance Body structures, Functions, Activity limitations: Decreased functional mobility ;Decreased strength;Decreased endurance;Decreased safe awareness;Decreased balance;Increased pain;Decreased ROM;Decreased ADL status Specific instructions for Next Treatment: advance to standing balance and sit <> stand transfers on the Davi Deutsch, instruct in exercise program for strengthening Prognosis: Fair Discharge Recommendations: Patient would benefit from continued therapy after discharge Type of devices: All fall risk precautions in place;Bed alarm in place;Call light within reach;Gaitbelt;Patient at risk for falls;Left in bed;Nurse notified(JOAN Poon notified) Plan Times per week: 5-7 treatments/ week Times per day: (5-7 treatments/ week) Current Treatment Recommendations: Strengthening, Transfer Training, Patient/Caregiver Education & Training, ROM, Equipment Evaluation, Education, & procurement, Balance Training, Gait Training, Home Exercise Program, Safety Education & Training, Functional Mobility Training, Wheelchair Mobility Training, Endurance Training Patient Education New Education Provided: Educated pt to press call button for assistance throughout day when pt desires to sit EOB or stand and educated pt/pt perform gentle supine AROM/therex to B LE and B UE AROM to reduce stiffness and improve strength Learner:patient Method: demonstration and explanation Outcome: acknowledged understanding of educated pt to press call button for assistance throughout day when pt desires to sit EOB or stand and educated pt/pt perform gentle supine AROM/therex to B LE and B UE AROM to reduce stiffness and improve strength throughout demonstrated understanding and needs reinforcement Goals Short term goals Time Frame for Short term goals: 5-7 treatments/ week Short term goal 1: pt to tolerate 1/2 hour of therapuetic exercise and activity Short term goal 2: pt to demonstrate good technique for LE ROM, strengthening and balance activities. Short term goal 3: pt to demonstrate increased strength by 1/2 MMG bilateral LEs to assist positionchange and transfers Short term goal 4: pt to demonstrate rolling in bed and supine <> sit using a rail w/ mod x 2for position change Short term goal 5: pt to demonstrate good sitting balance at the EOB x 20 minutes w/ supervision toengage the core muscles Short term goal 6: pt to demonstrate ability to pull to stand on the Davi Stedy w/ mod x 2 and demonstrate ability to stand 2-3 minutes w/ knee control Short term goal 7: pt to advance to and demonstrate sit <> stand and bed <> chair usingw walker w/ max x 2 when able to demonstrate knee control on the Davi Stedy Short term goal 8: pt to advance to and demonstrate gait 10-20' using w walker w/ max x 2 and W/C follow when able to demonstrate knee control on the Davi Stedy PT Individual Minutes Time In: 1511 Time Out: 1554 Minutes: 43 * Rip Chinchilla MD - 02/14/2020 12:24 PM EDT [facility]PAT[facility] SERV[facility] IN-PATIENT SERVICE [facility] PROGRESS NOTE Date: 02/14/2020 Patient name: Arleth Jenkins Date of admission: 02/10/2020 10:16 AM Account: [id number] Date of : 1945 PCP: No primary care provider on file. Room: [facility] Code Status: Full Code Chief Complaint: Chief Complaint Patient presents with Fall History Obtained From: patient Last 24 hour update Patient seen and examined at bedside this morning. No acute events overnight, no complaints. Patient currently on IV Unasyn, pre-CERT started for [facility] to go [facility]. Otherwise hemodynamically stable and afebrile. Past Medical History: Past Medical History: Diagnosis Date Arthritis bilateral knees Blood circulation, collateral Chronic kidney disease Hypertension Psychiatric problem depression Past SurgicalHistory: Past Surgical History: Procedure Laterality Date SECTION Medications Prior to Admission: Prior to Admission medications Medication Sig Start Date End Date Taking? Authorizing Provider lisinopril-hydroCHLOROthiazide (ZESTORETIC) 10-12.5 MG per tablet Take 1 tablet by mouth daily Yes Historical Provider, gabapentin (NEURONTIN) 100 MG capsule Take 100 mg by mouth 4 times daily. Yes Historical Provider, Multiple Vitamin (THERAPEUTIC MULTIVITAMIN PO) Take 1 tablet by mouth Yes Historical Provider, Allergies: Other Social History: Tobacco: reports that she has never smoked. She has never used smokeless tobacco. Alcohol: reports no history of alcohol use. Drug Use: reports no history of drug use. Family History: No family history on file. Review of Systems: Positive and Negative as described in HPI. Review of Systems Constitutional: Negative for activity change, appetite change and fatigue. HENT: Positive for facial swelling. Respiratory: Negative for apnea, cough, chest tightness and shortness of breath. Cardiovascular: Negative for chest pain, palpitations and leg swelling. Gastrointestinal: Negative for abdominal distention, abdominal pain, constipation, diarrhea, nauseaand vomiting. Genitourinary: Negative for difficulty urinating, frequency and urgency. Musculoskeletal: Negative for arthralgias, back pain and neck pain. Skin: Positive for color change and wound. Neurological: Negative for dizziness, tremors, light-headedness and headaches. Psychiatric/Behavioral: Negative for agitation, behavioral problems, confusion, decreased concentration, self-injury and sleep disturbance. The patient is not nervous/anxious. Physical Exam: BP (!) 162/71 Pulse 84 Temp 97.9 F (36.6 C) (Oral) Resp 20 Ht 5' 3 (1.6 m) Wt (!) 318 lb5.5 oz (144.4 kg) SpO2 97% BMI 56.39 kg/m Temp (24hrs), Av.2 F (36.8 C), Min:97.9 F (36.6 C), Max:98.7 F (37.1 C) No results for input(s): POCGLU in the last 72 hours. Intake/Output Summary (Last 24 hours) at 02/14/2020 1224 Last data filed at 02/14/2020 0852 Gross per 24 hour Intake 3553.61 ml Output 2000 ml Net 1553.61 ml Physical Exam Constitutional: General: She is not in acute distress. Appearance: Normal appearance. She is obese. Eyes: General: Right eye: Discharge present. Cardiovascular: Rate and Rhythm: Normal rate and regular rhythm. Pulses: Normal pulses. Heart sounds: Normal heart sounds. Pulmonary: Effort: Pulmonary effort is normal. Breath sounds: Normal breath sounds. Abdominal: General: Abdomen is flat. Bowel sounds are normal. There is no distension. Palpations: Abdomen is soft. Tenderness: There is no abdominal tenderness. Musculoskeletal: General: No swelling, tenderness or signs of injury. Skin: Findings: Erythema, lesion and rash present. Comments: Right sided facial circumferential swelling , tender to touch Neurological: General: No focal deficit present. Mental Status: She is alert and oriented to person, place, and time. Mental status is at baseline. Psychiatric: Mood and Affect: Mood normal. Behavior: Behavior normal. Thought Content: Thought content normal. Judgment: Judgment normal. Investigations: Laboratory Testing: Recent Results (from the past 24 hour(s)) Basic Metabolic Panel w/ Reflex to MG Collection Time: 02/14/20 5:46 AM Result Value Ref Range Glucose 92 70 - 99 mg/dL BUN 15 8 - 23 mg/dL CREATININE 0.76 0.50 - 0.90 mg/dL Bun/Cre Ratio NOT REPORTED 9 - 20 Calcium 8.4 (L) 8.6 - 10.4 mg/dL Sodium 139 135 - 144 mmol/L Potassium 3.7 3.7 - 5.3 mmol/L Chloride 106 98 - 107 mmol/L CO2 23 20 - 31 mmol/L Anion Gap 10 9 - 17 mmol/L GFR Non- >60 >60 mL/min GFR >60 >60 mL/min GFR Comment GFR Staging NOT REPORTED CBC auto differential Collection Time: 02/14/20 5:46 AM Result Value Ref Range WBC 6.1 3.5 - 11.0 k/uL RBC 3.74 (L) 4.0 - 5.2 m/uL Hemoglobin 10.5 (L) 12.0 - 16.0 g/dL Hematocrit 32.6 (L) 36 - 46 % MCV 87.1 80 - 100 fL MCH 28.0 26 - 34 pg MCHC 32.2 31 - 37 g/dL RDW 14.9 11.5 - 14.9 % Platelets 257 150 - 450 k/uL MPV 7.2 6.0 - 12.0 fL NRBC Automated NOT REPORTED per 100 WBC Differential Type NOT REPORTED Seg Neutrophils 64 36 - 66 % Lymphocytes 24 24 - 44 % Monocytes 8 (H) 1 - 7 % Eosinophils % 3 0 - 4 % Basophils 1 0 - 2 % Immature Granulocytes NOT REPORTED 0 % Segs Absolute 3.90 1.3 - 9.1 k/uL Absolute Lymph # 1.50 1.0 - 4.8 k/uL Absolute Todd # 0.50 0.1 - 1.3 k/uL Absolute Eos # 0.20 0.0 - 0.4 k/uL Basophils Absolute 0.10 0.0 - 0.2 k/uL Absolute Immature Granulocyte NOT REPORTED 0.00 - 0.30 k/uL WBC Morphology NOT REPORTED RBC Morphology NOT REPORTED Platelet Estimate NOT REPORTED Imaging/Diagnostics: Xr Shoulder Right (min 2 Views) Result Date: 02/10/2020 EXAMINATION: THREE XRAY VIEWS OF THE RIGHT SHOULDER 02/10/2020 11:11 am COMPARISON: None. HISTORY: ORDERING SYSTEM PROVIDED HISTORY: Fall, pain TECHNOLOGIST PROVIDED HISTORY: Fall, pain Reason for Exam: fall today Acuity: Acute Type of Exam: Initial FINDINGS: No acute fracture is seen. There is widen ing of the AC joint at 14 mm. Alignment is maintained. The glenohumeral articulation is preserved. No periarticular soft tissue calcification. The visualized right hemithorax is unremarkable. Widened AC joint suggesting possible ligamentous injury. No acute osseous abnormality of the right shoulder. Ct Facial Bones W Contrast Result Date: 02/10/2020 EXAMINATION: CT OF THE FACE WITH CONTRAST 02/10/2020 TECHNIQUE: CT of the face was performed with the administration of intravenous contrast. Multiplanar reformatted images are provided for review. Dose modulation, iterative reconstruction, and/or weight based adjustment of the mA/kV was utilized to reduce the radiation dose to as low as reasonably achievable. COMPARISON: None. HISTORY: ORDERING SYSTEM PROVIDED HISTORY: facial swelling TECHNOLOGIST PROVIDED HISTORY: facial swelling Reason for Exam: patient states that she fell out of bed this morning Acuity: Unknown Type of Exam: Unknown FINDINGS: PHARYNX/LARYNX: No abnormality identified. SALIVARY GLANDS: The parotid and submandibular glands appear unremarkable. LYMPH NODES: Small nonspecific submental and upper jugular chain lymph nodes,favored to be reactive. SOFT TISSUES: Right periorbital soft tissue swelling. Mild apparent upper lip swelling. Mild skin thickening overlying the right mandible. BRAIN/ORBITS/SINUSES: The visualized portion of the intracranial contents appear unremarkable. The visualized portion of the orbits, paranasal sinuses and mastoid air cells demonstrate no acute abnormality. BONES: No facial fracture identified. Advanced periodontal disease in the maxillary teeth with periapical lucency in the right maxillary incisor. Dental disease is also noted involving the mandibular teeth. Mucosal thickening in the right maxillary sinus. No layering fluid. 1. Soft tissue swelling near the right orbit and upper lip, presumably related to history of fall. Underlying advanced periodontal disease in the maxillary teeth is also noted in the possibility of odontogenic should also be considered in the appropriate clinical setting. 2. No facial fracture identified. 3. Mild right maxillary sinus mucosal thickening, which also may be odontogenic. Xr Chest Portable Result Date: 02/10/2020 EXAMINATION: ONE XRAY VIEW OF THE CHEST 02/10/2020 11:11 am COMPARISON: 03 November 2018 HISTORY: ORDERING SYSTEM PROVIDED HISTORY: shortness of breath TECHNOLOGIST PROVIDED HISTORY: shortness of breath Reason for Exam: fall today Acuity: Acute Type of Exam: Initial FINDINGS: AP portable view of the chest time stamped at 1050 hours demonstrates overlying cardiac monitoring electrodes. Stable mild cardiomegaly is noted. Lung volumes are low with linear basilar stranding favoring atelectasis. No vascular congestion, focal consolidation, effusion or pneumothorax is noted. Osseous structures and mediastinal contours are unremarkable. Stable cardiomegaly. Probable basilar atelectasis. Assessment : Primary Problem Facial cellulitis Active Hospital Problems Diagnosis Date Noted Morbid obesity with BMI of 50.0-59.9, adult (HCC) [E66.01, Z68.43] 02/13/2020 Cellulitis [L03.90] 02/12/2020 Facial cellulitis [L03.211] 02/10/2020 Plan: Right- sided facial cellulitis likely 2/2 trauma from hard foods -IV Unasyn 3g q6h -CT facial bones - soft tissue swelling near right orbit and upper lip -Tylenol for pain control -BMP -CBC -Potassium replacement protocol in place Troponinemia likely 2/2 acute fall -Trop 76--->64 -Trend troponins Acute Kidney Injury- Resolved -Cr 0.84 from 1.05 -IV Fluids - 100 mL/hr Fall without loss of consciousness -Patient alert and oriented x3 -CT facial bones - swelling and tenderness Diet: General DVT Px: Heparin 5000 U SC TID Significant improvement on the right facial cellulitis Discharge planning on oral antibiotics to ECF Morbid obesity BMI 52.8 Dc plan to ecf placement pending Consultations: IP CONSULT TO GENERAL SURGERY IP CONSULT TO PRIMARY CARE PROVIDER IP CONSULT TO SOCIAL WORK IP CONSULT TO SPIRITUAL SERVICES Patient is admitted as inpatient status because of co-morbiditieslisted above, severity of signs and symptoms as outlined, requirement for current medical therapies and most importantly because of direct risk to patient if care not provided in a hospital setting. Rip Chinchilla MD 02/14/2020 12:24 PM Copy sent to Dr. Wisdom primary care provider on file. * Rip Chinchilla MD - 02/13/2020 10:36 AM EDT [facility] IN-PATIENT SERVICE [facility] PROGRESS NOTE Date: 02/13/2020 Patient name: Arleth Jenkins Date of admission: 02/10/2020 10:16 AM Account: [id number] Date of : 1945 PCP: No primary care provider on file. Room: [facility] [id number] Code Status: Full Code Chief Complaint: Chief Complaint Patient presents with Fall History Obtained From: patient Last 24 hour update Patient seen and examined at bedside this morning. No acute events overnight, no complaints. Patient currently on IV Unasyn, pre-CERT started for patient to go to penitentiary. Otherwise hemodynamically stable and afebrile. Past Medical History: Past Medical History: Diagnosis Date Arthritis bilateral knees Blood circulation, collateral Chronic kidney disease Hypertension Psychiatric problem depression Past SurgicalHistory: Past Surgical History: Procedure Laterality Date SECTION Medications Prior to Admission: Prior to Admission medications Medication Sig Start Date End Date Taking? Authorizing Provider lisinopril-hydroCHLOROthiazide (ZESTORETIC) 10-12.5 MG per tablet Take 1 tablet by mouth daily Yes Historical Provider, gabapentin (NEURONTIN) 100 MG capsule Take 100 mg by mouth 4 times daily. Yes Historical Provider, Multiple Vitamin (THERAPEUTIC MULTIVITAMIN PO) Take 1 tablet by mouth Yes Historical Provider, Allergies: Other Social History: Tobacco: reports that she has never smoked. She has never used smokeless tobacco. Alcohol: reports no history of alcohol use. Drug Use: reports no history of drug use. Family History: No family history on file. Review of Systems: Positive and Negative as described in HPI. Review of Systems Constitutional: Negative for activity change, appetite change and fatigue. HENT: Positive for facial swelling. Respiratory: Negative for apnea, cough, chest tightness and shortness of breath. Cardiovascular: Negative for chest pain, palpitations and leg swelling. Gastrointestinal: Negative for abdominal distention, abdominal pain, constipation, diarrhea, nauseaand vomiting. Genitourinary: Negative for difficulty urinating, frequency and urgency. Musculoskeletal: Negative for arthralgias, back pain and neck pain. Skin: Positive for color change and wound. Neurological: Negative for dizziness, tremors, light-headedness and headaches. Psychiatric/Behavioral: Negative for agitation, behavioral problems, confusion, decreased concentration, self-injury and sleep disturbance. The patient is not nervous/anxious. Physical Exam: BP (!) 144/69 Pulse 90 Temp 98.1 F (36.7 C) (Oral) Resp 17 Ht 5' 3 (1.6 m) Wt 297 lb 9.9oz (135 kg) SpO2 96% BMI 52.72 kg/m Temp (24hrs), Av.9 F (36.6 C), Min:97.3 F (36.3 C), Max:98.2 F (36.8 C) No results for input(s): POCGLU in the last 72 hours. Intake/Output Summary (Last 24 hours) at 02/13/2020 1036 Last data filed at 02/13/2020 0746 Gross per 24 hour Intake 3705 ml Output 1050 ml Net 2655 ml Physical Exam Constitutional: General: She is not in acute distress. Appearance: Normal appearance. She is obese. Eyes: General: Right eye: Discharge present. Cardiovascular: Rate and Rhythm: Normal rate and regular rhythm. Pulses: Normal pulses. Heart sounds: Normal heart sounds. Pulmonary: Effort: Pulmonary effort is normal. Breath sounds: Normal breath sounds. Abdominal: General: Abdomen is flat. Bowel sounds are normal. There is no distension. Palpations: Abdomen is soft. Tenderness: There is no abdominal tenderness. Musculoskeletal: General: No swelling, tenderness or signs of injury. Skin: Findings: Erythema, lesion and rash present. Comments: Right sided facial circumferential swelling , tender to touch Neurological: General: No focal deficit present. Mental Status: She is alert and oriented to person, place, and time. Mental status is at baseline. Psychiatric: Mood and Affect: Mood normal. Behavior: Behavior normal. Thought Content: Thought content normal. Judgment: Judgment normal. Investigations: Laboratory Testing: Recent Results (from the past 24 hour(s)) Basic Metabolic Panel w/ Reflex to MG Collection Time: 02/13/20 5:56 AM Result Value Ref Range Glucose 90 70 - 99 mg/dL BUN 17 8 - 23 mg/dL CREATININE 0.83 0.50 - 0.90 mg/dL Bun/Cre Ratio NOT REPORTED 9 - 20 Calcium 8.3 (L) 8.6 - 10.4 mg/dL Sodium 141 135 - 144 mmol/L Potassium 4.3 3.7 - 5.3 mmol/L Chloride 108 (H) 98 - 107 mmol/L CO2 23 20 - 31 mmol/L Anion Gap 10 9 - 17 mmol/L GFR Non- >60 >60 mL/min GFR >60 >60 mL/min GFR Comment GFR Staging NOT REPORTED CBC auto differential Collection Time: 02/13/20 5:56 AM Result Value Ref Range WBC 5.2 3.5 - 11.0 k/uL RBC 3.68 (L) 4.0 - 5.2 m/uL Hemoglobin 10.2 (L) 12.0 - 16.0 g/dL Hematocrit 31.7 (L) 36 - 46 % MCV 86.1 80 - 100 fL MCH 27.8 26 - 34 pg MCHC 32.2 31 - 37 g/dL RDW 14.9 11.5 - 14.9 % Platelets 234 150 - 450 k/uL MPV 7.5 6.0 - 12.0 fL NRBC Automated NOT REPORTED per 100 WBC Differential Type NOT REPORTED Seg Neutrophils 66 36 - 66 % Lymphocytes 22 (L) 24 - 44 % Monocytes 8 (H) 1 - 7 % Eosinophils % 3 0 - 4 % Basophils 1 0 - 2 % Immature Granulocytes NOT REPORTED 0 % Segs Absolute 3.40 1.3 - 9.1 k/uL Absolute Lymph # 1.10 1.0 - 4.8 k/uL Absolute Todd # 0.40 0.1 - 1.3 k/uL Absolute Eos # 0.20 0.0 - 0.4 k/uL Basophils Absolute 0.10 0.0 - 0.2 k/uL Absolute Immature Granulocyte NOT REPORTED 0.00 - 0.30 k/uL WBC Morphology NOT REPORTED RBC Morphology NOT REPORTED Platelet Estimate NOT REPORTED Imaging/Diagnostics: Xr Shoulder Right (min 2 Views) Result Date: 02/10/2020 EXAMINATION: THREE XRAY VIEWS OF THE RIGHT SHOULDER 02/10/2020 11:11 am COMPARISON: None. HISTORY: ORDERING SYSTEM PROVIDED HISTORY: Fall, pain TECHNOLOGIST PROVIDED HISTORY: Fall, pain Reason for Exam: fall today Acuity: Acute Type of Exam: Initial FINDINGS: No acute fracture is seen. There is widen ing of the AC joint at 14 mm. Alignment is maintained. The glenohumeral articulation is preserved. No periarticular soft tissue calcification. The visualized right hemithorax is unremarkable. Widened AC joint suggesting possible ligamentous injury. No acute osseous abnormality of the right shoulder. Ct Facial Bones W Contrast Result Date: 02/10/2020 EXAMINATION: CT OF THE FACE WITH CONTRAST 02/10/2020 TECHNIQUE: CT of the face was performed with the administration of intravenous contrast. Multiplanar reformatted images are provided for review. Dose modulation, iterative reconstruction, and/or weight based adjustment of the mA/kV was utilized to reduce the radiation dose to as low as reasonably achievable. COMPARISON: None. HISTORY: ORDERING SYSTEM PROVIDED HISTORY: facial swelling TECHNOLOGIST PROVIDED HISTORY: facial swelling Reason for Exam: patient states that she fell out of bed this morning Acuity: Unknown Type of Exam: Unknown FINDINGS: PHARYNX/LARYNX: No abnormality identified. SALIVARY GLANDS: The parotid and submandibular glands appear unremarkable. LYMPH NODES: Small nonspecific submental and upper jugular chain lymph nodes,favored to be reactive. SOFT TISSUES: Right periorbital soft tissue swelling. Mild apparent upper lip swelling. Mild skin thickening overlying the right mandible. BRAIN/ORBITS/SINUSES: The visualized portion of the intracranial contents appear unremarkable. The visualized portion of the orbits, paranasal sinuses and mastoid air cells demonstrate no acute abnormality. BONES: No facial fracture identified. Advanced periodontal disease in the maxillary teeth with periapical lucency in the right maxillary incisor. Dental disease is also noted involving the mandibular teeth. Mucosal thickening in the right maxillary sinus. No layering fluid. 1. Soft tissue swelling near the right orbit and upper lip, presumably related to history of fall. Underlying advanced periodontal disease in the maxillary teeth is also noted in the possibility of odontogenic should also be considered in the appropriate clinical setting. 2. No facial fracture identified. 3. Mild right maxillary sinus mucosal thickening, which also may be odontogenic. Xr Chest Portable Result Date: 02/10/2020 EXAMINATION: ONE XRAY VIEW OF THE CHEST 02/10/2020 11:11 am COMPARISON: 03 November 2018 HISTORY: ORDERING SYSTEM PROVIDED HISTORY: shortness of breath TECHNOLOGIST PROVIDED HISTORY: shortness of breath Reason for Exam: fall today Acuity: Acute Type of Exam: Initial FINDINGS: AP portable view of the chest time stamped at 1050 hours demonstrates overlying cardiac monitoring electrodes. Stable mild cardiomegaly is noted. Lung volumes are low with linear basilar stranding favoring atelectasis. No vascular congestion, focal consolidation, effusion or pneumothorax is noted. Osseous structures and mediastinal contours are unremarkable. Stable cardiomegaly. Probable basilar atelectasis. Assessment : Primary Problem Facial cellulitis Active Hospital Problems Diagnosis Date Noted Cellulitis [L03.90] 02/12/2020 Facial cellulitis [L03.211] 02/10/2020 Plan: Right- sided facial cellulitis likely 2/2 trauma from hard foods -IV Unasyn 3g q6h -CT facial bones - soft tissue swelling near right orbit and upper lip -Tylenol for pain control -BMP -CBC -Potassium replacement protocol in place Troponinemia likely 2/2 acute fall -Trop 76--->64 -Trend troponins Acute Kidney Injury- Resolved -Cr 0.84 from 1.05 -IV Fluids - 100 mL/hr Fall without loss of consciousness -Patient alert and oriented x3 -CT facial bones - swelling and tenderness Diet: General DVT Px: Heparin 5000 U SC TID Significant improvement on the right facial cellulitis Discharge planning on oral antibiotics to [facility]CF Morbid obesity BMI 52.8 Consultations: IP CONSULT TO GENERAL SURGERY IP CONSULT TO PRIMARY CARE PROVIDER IP CONSULT TO SOCIAL WORK IP CONSULT TO SPIRITUAL SERVICES Patient is admitted as inpatient status because of co-morbiditieslisted above, severity of signs and symptoms as outlined, requirement for current medical therapies and most importantly because of direct risk to patient if care not provided in a hospital setting. Rpi Chinchilla MD 02/13/2020 10:36 AM Copy sent to Dr. Wisdom primary care provider on file. * Nori Viramontes STATISTICIAN APPLIED - 02/12/2020 1:38 PM EDT Physical Therapy Facility/Department: [facility] Daily Treatment Note NAME: Arleth Jenkins : 1945 Date of Service: 02/12/2020 Discharge Recommendations: Patient would benefit from continued therapy after discharge PT Equipment Recommendations Equipment Needed: (TBD ) Assessment Body structures, Functions, Activity limitations: Decreased functional mobility ;Decreased strength;Decreased endurance;Decreased safe awareness;Decreased balance;Increased pain;Decreased ROM;Decreased ADL status Assessment: pt will need continued therapy at D/C due to weakness, currently requires 2 assist for rolling and transfers to the EOB and back. 4 assist to boost and reposition in bed; pt refusing to attempt standing next to the bed due to LE weakness. Pt fell OOB at home and was unable to get off the floor. Treatment Diagnosis: weakness, impaired mobility due to weakness Specific instructions for Next Treatment: advance to standing balance and sit <> stand transfers on the Davi Stedy, instruct in exercise program for strengthening Prognosis: Fair Decision Making: Medium Complexity History: admitted following a fall at home Exam: ROM, MMT, seated balance and mobility assessments Clinical Presentation: max x 2 for rolling either direction and supine > sit, dangled at the EOBx 10 minutes w/ close supervision, dep x 2 sit > supine, dep x $ to boost and reposition in bed,HIGH FALL RISK, 299# 5' 3 Barriers to Learning: none REQUIRES PT FOLLOW UP: Yes Activity Tolerance Activity Tolerance: Patient limited by fatigue;Patient limited by pain;Patient limited by endurance Patient Diagnosis(es): The primary encounter diagnosis was Facial cellulitis. Diagnoses of Fall, initial encounter, Acute renal insufficiency, and Elevated troponin were also pertinent to this visit. has a past medical history of Arthritis, Blood circulation, collateral, Chronic kidney disease, Hypertension, and Psychiatric problem. has a past surgical history that includes section. Restrictions Restrictions/Precautions Restrictions/Precautions: Fall Risk(peripheral IV right antecubital and right hand, external urinary catheter, 299#, 5' 3 ) Subjective Subjective Subjective: Pt in bed on phone upon entry, agreeable to therapy. General Comment Comments: Pt was very cooperative and worked w/ therapist well. Pain Assessment Pain Assessment: Faces Pain Level: 5 [place] Pain Rating: Hurts little more Patient's Stated Pain Goal: No pain Pain Type: Acute pain Pain Location: Shoulder Pain Orientation: Right Clinical Progression: Gradually improving Orientation Orientation Overall Orientation Status: Within Normal Limits Cognition Objective Bed mobility Scooting: Dependent/Total(boost up in bed w/ 4 assist) Transfers Comment: pt refused to attempt standing Ambulation Ambulation?: No(unable to attempt) Stairs/Curb Stairs?: No Balance Standing - Static: (NT) Standing - Dynamic: (NT) Other exercises Other exercises?: Yes Other exercises 1: Bed Mobility including rolling Left and right x e using bedrail and assist x 1 Other exercises 2: Glut/quadsets and ankle pumps x 10 Other exercises 3: Ther ex both U/E w/ MOD ([place]) t-band x 10 all plane w/ assist for proper placement of arm first.(Pt issued HEP) Other exercises 4: AA/AROM both L/E supine x 10 Other Activities: Other (see comment)(Attempted to work on bridging) Comment: Therapist waiting on assist to sit pt @ EOB, lunch arrived and pt decided she did not wantto attempt right now. G-Code OutComes Score AM-PAC Score Goals Short term goals Time Frame for Short term goals: 5-7 treatments/ week Short term goal 1: pt to tolerate 1/2 hour of therapuetic exercise and activity Short term goal 2: pt to demonstrate good technique for LE ROM, strengthening and balance activities. Short term goal 3: pt to demonstrate increased strength by 1/2 MMG bilateral LEs to assist positionchange and transfers Short term goal 4: pt to demonstrate rolling in bed and supine <> sit using a rail w/ mod x 2for position change Short term goal 5: pt to demonstrate good sitting balance at the EOB x 20 minutes w/ supervision toengage the core muscles Short term goal 6: pt to demonstrate ability to pull to stand on the Davi Stedy w/ mod x 2 and demonstrate ability to stand 2-3 minutes w/ knee control Short term goal 7: pt to advance to and demonstrate sit <> stand and bed <> chair usingw walker w/ max x 2 when able to demonstrate knee control on the Davi Stedy Short term goal 8: pt to advance to and demonstrate gait 10-20' using w walker w/ max x 2 and W/C follow when able to demonstrate knee control on the Davi Stedy Patient Goals Patient goals : [facility] Plan Plan Times per week: 5-7 treatments/ week Times per day: (5-7 treatments/ week) Specific instructions for Next Treatment: advance to standing balance and sit <> stand transfers on the Davi Stedy, instruct in exercise program for strengthening Current Treatment Recommendations: Strengthening, Transfer Training, Patient/Caregiver Education & Training, ROM, Equipment Evaluation, Education, & procurement, Balance Training, Gait Training, Home Exercise Program, Safety Education & Training, Functional Mobility Training, Wheelchair Mobility Training, Endurance Training Safety Devices Type of devices: All fall risk precautions in place, Gait belt, Patient at risk for falls, Left in bed, Call light within reach, Nurse notified(left w/ nurse Luisa and PCT Daisha) Therapy Time Individual Concurrent Group Co-treatment Time In 1105 Time Out 1148 Minutes 43 Nori Viramontes PTA * Rip Chinchilla MD - 02/12/2020 10:46 AM EDT [facility]PATIENT SERVICE [facility] IN-PATIENT SERVICE [facility] PROGRESS NOTE Date: 02/12/2020 Patient name: Arleth Jenkins Date of admission: 02/10/2020 10:16 AM Account: [id number] Date of : 1945 PCP: No primary care provider on file. Room: Code Status: Full Code Chief Complaint: Chief Complaint Patient presents with Fall History Obtained From: patient Last 24 hour update Patient seen and examined at bedside this morning. No acute events overnight, no complaints. Patient currently on IV Unasyn, pre-CERT started for patient to go to penit[facility]. Otherwise hemodynamically stable and afebrile. Past Medical History: Past Medical History: Diagnosis Date Arthritis bilateral knees Blood circulation, collateral Chronic kidney disease Hypertension Psychiatric problem depression Past SurgicalHistory: Past Surgical History: Procedure Laterality Date SECTION Medications Prior to Admission: Prior to Admission medications Medication Sig Start Date End Date Taking? Authorizing Provider lisinopril-hydroCHLOROthiazide (ZESTORETIC) 10-12.5 MG per tablet Take 1 tablet by mouth daily Yes Historical Provider, gabapentin (NEURONTIN) 100 MG capsule Take 100 mg by mouth 4 times daily. Yes Historical Provider, Multiple Vitamin (THERAPEUTIC MULTIVITAMIN PO) Take 1 tablet by mouth Yes Historical Provider, Allergies: Other Social History: Tobacco: reports that she has never smoked. She has never used smokeless tobacco. Alcohol: reports no history of alcohol use. Drug Use: reports no history of drug use. Family History: No family history on file. Review of Systems: Positive and Negative as described in HPI. Review of Systems Constitutional: Negative for activity change, appetite change and fatigue. HENT: Positive for facial swelling. Respiratory: Negative for apnea, cough, chest tightness and shortness of breath. Cardiovascular: Negative for chest pain, palpitations and leg swelling. Gastrointestinal: Negative for abdominal distention, abdominal pain, constipation, diarrhea, nauseaand vomiting. Genitourinary: Negative for difficulty urinating, frequency and urgency. Musculoskeletal: Negative for arthralgias, back pain and neck pain. Skin: Positive for color change and wound. Neurological: Negative for dizziness, tremors, light-headedness and headaches. Psychiatric/Behavioral: Negative for agitation, behavioral problems, confusion, decreased concentration, self-injury and sleep disturbance. The patient is not nervous/anxious. Physical Exam: BP 124/71 Pulse 93 Temp 98.2 F (36.8 C) (Oral) Resp 16 Ht 5' 3 (1.6 m) Wt 297 lb 9.9 oz (135 kg) SpO2 100% BMI 52.72 kg/m Temp (24hrs), Av.7 F (37.1 C), Min:98.2 F (36.8 C), Max:99 F (37.2 C) No results for input(s): POCGLU in the last 72 hours. Intake/Output Summary (Last 24 hours) at 02/12/2020 1058 Last data filed at 02/12/2020 0619 Gross per 24 hour Intake 3068 ml Output 1300 ml Net 1768 ml Physical Exam Constitutional: General: She is not in acute distress. Appearance: Normal appearance. She is obese. Eyes: General: Right eye: Discharge present. Cardiovascular: Rate and Rhythm: Normal rate and regular rhythm. Pulses: Normal pulses. Heart sounds: Normal heart sounds. Pulmonary: Effort: Pulmonary effort is normal. Breath sounds: Normal breath sounds. Abdominal: General: Abdomen is flat. Bowel sounds are normal. There is no distension. Palpations: Abdomen is soft. Tenderness: There is no abdominal tenderness. Musculoskeletal: General: No swelling, tenderness or signs of injury. Skin: Findings: Erythema, lesion and rash present. Comments: Right sided facial circumferential swelling , tender to touch Neurological: General: No focal deficit present. Mental Status: She is alert and oriented to person, place, and time. Mental status is at baseline. Psychiatric: Mood and Affect: Mood normal. Behavior: Behavior normal. Thought Content: Thought content normal. Judgment: Judgment normal. Investigations: Laboratory Testing: Recent Results (from the past 24 hour(s)) COVID-19 Collection Time: 02/11/20 4:00 PM Result Value Ref Range SARS-CoV-2 Not Detected Not Detected SARS-CoV-2, Rapid Source .NASOPHARYNGEAL SWAB SARS-CoV-2, PCR Basic Metabolic Panel w/ Reflex to MG Collection Time: 02/12/20 5:48 AM Result Value Ref Range Glucose 88 70 - 99 mg/dL BUN 20 8 - 23 mg/dL CREATININE 0.84 0.50 - 0.90 mg/dL Bun/Cre Ratio NOT REPORTED 9 - 20 Calcium 8.2 (L) 8.6 - 10.4 mg/dL Sodium 140 135 - 144 mmol/L Potassium 3.8 3.7 - 5.3 mmol/L Chloride 106 98 - 107 mmol/L CO2 23 20 - 31 mmol/L Anion Gap 11 9 - 17 mmol/L GFR Non- >60 >60 mL/min GFR >60 >60 mL/min GFR Comment GFR Staging NOT REPORTED CBC auto differential Collection Time: 02/12/20 5:48 AM Result Value Ref Range WBC 6.0 3.5 - 11.0 k/uL RBC 3.66 (L) 4.0 - 5.2 m/uL Hemoglobin 10.4 (L) 12.0 - 16.0 g/dL Hematocrit 31.6 (L) 36 - 46 % MCV 86.3 80 - 100 fL MCH 28.4 26 - 34 pg MCHC 32.9 31 - 37 g/dL RDW 14.9 11.5 - 14.9 % Platelets 216 150 - 450 k/uL MPV 7.6 6.0 - 12.0 fL NRBC Automated NOT REPORTED per 100 WBC Differential Type NOT REPORTED Immature Granulocytes NOT REPORTED 0 % Absolute Immature Granulocyte NOT REPORTED 0.00 - 0.30 k/uL WBC Morphology NOT REPORTED RBC Morphology NOT REPORTED Platelet Estimate NOT REPORTED Seg Neutrophils 67 (H) 36 - 66 % Lymphocytes 21 (L) 24 - 44 % Monocytes 9 (H) 1 - 7 % Eosinophils % 2 0 - 4 % Basophils 1 0 - 2 % Segs Absolute 4.00 1.3 - 9.1 k/uL Absolute Lymph # 1.20 1.0 - 4.8 k/uL Absolute Todd # 0.60 0.1 - 1.3 k/uL Absolute Eos # 0.10 0.0 - 0.4 k/uL Basophils Absolute 0.00 0.0 - 0.2 k/uL Imaging/Diagnostics: Xr Shoulder Right (min 2 Views) Result Date: 02/10/2020 EXAMINATION: THREE XRAY VIEWS OF THE RIGHT SHOULDER 02/10/2020 11:11 am COMPARISON: None. HISTORY: ORDERING SYSTEM PROVIDED HISTORY: Fall, pain TECHNOLOGIST PROVIDED HISTORY: Fall, pain Reason for Exam: fall today Acuity: Acute Type of Exam: Initial FINDINGS: No acute fracture is seen. There is widen ing of the AC joint at 14 mm. Alignment is maintained. The glenohumeral articulation is preserved. No periarticular soft tissue calcification. The visualized right hemithorax is unremarkable. Widened AC joint suggesting possible ligamentous injury. No acute osseous abnormality of the right shoulder. Ct Facial Bones W Contrast Result Date: 02/10/2020 EXAMINATION: CT OF THE FACE WITH CONTRAST 02/10/2020 TECHNIQUE: CT of the face was performed with the administration of intravenous contrast. Multiplanar reformatted images are provided for review. Dose modulation, iterative reconstruction, and/or weight based adjustment of the mA/kV was utilized to reduce the radiation dose to as low as reasonably achievable. COMPARISON: None. HISTORY: ORDERING SYSTEM PROVIDED HISTORY: facial swelling TECHNOLOGIST PROVIDED HISTORY: facial swelling Reason for Exam: patient states that she fell out of bed this morning Acuity: Unknown Type of Exam: Unknown FINDINGS: PHARYNX/LARYNX: No abnormality identified. SALIVARY GLANDS: The parotid and submandibular glands appear unremarkable. LYMPH NODES: Small nonspecific submental and upper jugular chain lymph nodes,favored to be reactive. SOFT TISSUES: Right periorbital soft tissue swelling. Mild apparent upper lip swelling. Mild skin thickening overlying the right mandible. BRAIN/ORBITS/SINUSES: The visualized portion of the intracranial contents appear unremarkable. The visualized portion of the orbits, paranasal sinuses and mastoid air cells demonstrate no acute abnormality. BONES: No facial fracture identified. Advanced periodontal disease in the maxillary teeth with periapical lucency in the right maxillary incisor. Dental disease is also noted involving the mandibular teeth. Mucosal thickening in the right maxillary sinus. No layering fluid. 1. Soft tissue swelling near the right orbit and upper lip, presumably related to history of fall. Underlying advanced periodontal disease in the maxillary teeth is also noted in the possibility of odontogenic should also be considered in the appropriate clinical setting. 2. No facial fracture identified. 3. Mild right maxillary sinus mucosal thickening, which also may be odontogenic. Xr Chest Portable Result Date: 02/10/2020 EXAMINATION: ONE XRAY VIEW OF THE CHEST 02/10/2020 11:11 am COMPARISON: 03 November 2018 HISTORY: ORDERING SYSTEM PROVIDED HISTORY: shortness of breath TECHNOLOGIST PROVIDED HISTORY: shortness of breath Reason for Exam: fall today Acuity: Acute Type of Exam: Initial FINDINGS: AP portable view of the chest time stamped at 1050 hours demonstrates overlying cardiac monitoring electrodes. Stable mild cardiomegaly is noted. Lung volumes are low with linear basilar stranding favoring atelectasis. No vascular congestion, focal consolidation, effusion or pneumothorax is noted. Osseous structures and mediastinal contours are unremarkable. Stable cardiomegaly. Probable basilar atelectasis. Assessment : Primary Problem Facial cellulitis Active Hospital Problems Diagnosis Date Noted Facial cellulitis [L03.211] 02/10/2020 Plan: Right- sided facial cellulitis likely 2/2 trauma from hard foods -IV Unasyn 3g q6h -CT facial bones - soft tissue swelling near right orbit and upper lip -Tylenol for pain control -BMP -CBC -Potassium replacement protocol in place Troponinemia likely 2/2 acute fall -Trop 76--->64 -Trend troponins Acute Kidney Injury- Resolved -Cr 0.84 from 1.05 -IV Fluids - 100 mL/hr Fall without loss of consciousness -Patient alert and oriented x3 -CT facial bones - swelling and tenderness Diet: General DVT Px: Heparin 5000 U SC TID Consultations: IP CONSULT TO GENERAL SURGERY IP CONSULT TO PRIMARY CARE PROVIDER IP CONSULT TO SOCIAL WORK IP CONSULT TO SPIRITUAL SERVICES Patient is admitted as inpatient status because of co-morbiditieslisted above, severity of signs and symptoms as outlined, requirement for current medical therapies and most importantly because of direct risk to patient if care not provided in a hospital setting. Belinda Bedolla MD 02/12/2020 10:58 AM Copy sent to Dr. Wisdom primary care provider on file. Attending Physician Statement I have discussed the care of Arleth Jenkins and I have examined the patient myselft and taken ros and hpi , including pertinent history and exam findings, with the resident. I have reviewed the coffey elements of all parts of the encounter with the resident. I agree with the assessment, plan and orders as documented by the resident. * Shira Cherry, PT - 02/11/2020 11:26 AM EDT Physical Therapy Facility/Department: [facility] Initial Assessment NAME: Arleth Jenkins : 1945 Date of Service: 02/11/2020 Discharge Recommendations: Patient would benefit from continued therapy after discharge PT Equipment Recommendations Equipment Needed: (TBD ) Assessment Body structures, Functions, Activity limitations: Decreased functional mobility ;Decreased strength;Decreased endurance;Decreased safe awareness;Decreased balance;Increased pain;Decreased ROM;Decreased ADL status Assessment: pt will need continued therapy at D/C due to weakness, currently requires 2 assist for rolling and transfers to the EOB and back. 4 assist to boost and reposition in bed; pt refusing to attempt standing next to the bed due to LE weakness. Pt fell OOB at home and was unable to get off the floor. Treatment Diagnosis: weakness, impaired mobility due to weakness Specific instructions for Next Treatment: advance to standing balance and sit <> stand transfers on the Davi Stedy, instruct in exercise program for strengthening Prognosis: Fair Decision Making: Medium Complexity History: admitted following a fall at home Exam: ROM, MMT, seated balance and mobility assessments Clinical Presentation: max x 2 for rolling either direction and supine > sit, dangled at the EOBx 10 minutes w/ close supervision, dep x 2 sit > supine, dep x $ to boost and reposition in bed,HIGH FALL RISK, 299# 5' 3 PT Education: Goals;PT Role;Plan of Care Barriers to Learning: none REQUIRES PT FOLLOW UP: Yes Activity Tolerance Activity Tolerance: Patient limited by fatigue;Patient limited by pain;Patient limited by endurance Patient Diagnosis(es): The primary encounter diagnosis was Facial cellulitis. Diagnoses of Fall, initial encounter, Acute renal insufficiency, and Elevated troponin were also pertinent to this visit. has a past medical history of Arthritis, Blood circulation, collateral, Chronic kidney disease, Hypertension, and Psychiatric problem. has a past surgical history that includes section. Restrictions Restrictions/Precautions Restrictions/Precautions: Fall Risk(peripheral IV right antecubital and right hand, external urinary catheter, 299#, 5' 3 ) Vision/Hearing Vision: Impaired Vision Exceptions: Wears glasses at all times Hearing: Within functional limits Subjective General Patient assessed for rehabilitation services?: Yes Additional Pertinent Hx: Arleth Jenkins is a 74 y.o. female who presents complaining of fall. Patient is here because she states she fell out of bed this morning was unable to get herself up. Patient does admit that she is not really been able to care for herself well recently. Patient states thatshe is able to get up and get food and get to the bathroom but is very difficult. Patient is unableto get up and get herself cleaned. Response To Previous Treatment: Not applicable Family / Caregiver Present: No Referring Practitioner: Dr. Aden Tsang Referral Date : 02/10/20 Diagnosis: facial cellulitis Follows Commands: Within Functional Limits Other (Comment): OK per nurse Luisa to proceed w/ PT evaluation General Comment Comments: pt fell out of bed at home yesterday and laid on the floor on the floor for 1 1/2 hours before rescue squad arrived. Pt reports that her 2 sons and shi were unable to assist her off the floor. Subjective Subjective: pt reports that she feel out of bed yesterday and fell again last month. Pt reports that last Saturday she felt light headed and almost passed out. Pain Screening Patient Currently in Pain: Yes Pain Assessment Pain Assessment: 0-10 Pain Level: 3 Patient's Stated Pain Goal: No pain Pain Type: Acute pain Pain Location: Shoulder Pain Orientation: Right Pain Descriptors: Aching;Dull( irritating ) Pain Frequency: Intermittent(increased pain when being moved) Pain Onset: On-going Clinical Progression: Gradually improving Non-Pharmaceutical Pain Intervention(s): Repositioned;Ambulation/Increased Activity Multiple Pain Sites: Yes Pain 2 Pain Rating 2: 5 Patient's Stated Pain Goal 2: no pain Pain Type 2: Acute Pain Pain Location 2: Face(cheek) Pain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 OMITTED. This clinical summary was aggregated from multiple sources. Caution should be exercised in using it in the provision of clinical care. This summary normalizes information from multiple sources, and as a consequence, information in this document may materially change the coding, format and clinical context of patient data. In addition, data may be omitted in some cases. CLINICAL DECISIONS SHOULD BE BASED ON THE PRIMARY CLINICAL RECORDS. [facility]. provides no warranty or guarantee of the accuracy or completeness of information in this document.
[2024-11-15 12:16] LABS: Basophils Absolute Auto 0.1 10^3/uL (0.0-0.1); Eosinophils Absolute Auto 0.4 10^3/uL (0.0-0.7); Eosinophils Percent Auto 6.6 % (0.9-7.0); Hematocrit 43.2 % (36.0-48.0); Hemoglobin 13.5 g/dL (12.0-16.0); Immature Granulocytes Abs Auto 0.02 10^3/uL (0.00-0.03); Immature Granulocytes Pct Auto 0.3 % (0.0-0.5); Lymphocytes Absolute Auto 1.4 10^3/uL (1.2-3.8); Lymphocytes Percent Auto 24.1 % (20.5-60.0); Mean Corpuscular HGB Conc 31.3 g/dL (29.9-35.2); Mean Corpuscular Hemoglobin 29.3 pg (26.7-34.0); Mean Corpuscular Volume 93.9 fL (81.0-99.0); Mean Platelet Volume 10.6 fL (9.5-13.5); Monocytes Absolute Auto 0.5 10^3/uL (0.3-0.8); Monocytes Percent Auto 7.6 % (1.7-12.0); Neutrophils Absolute Auto 3.6 10^3/uL (1.4-6.5); Neutrophils Percent Auto 60.4 % (43.0-75.0); Platelet Count 197 10^3/uL (150-450); Red Cell Distribution Width 14.9 % (11.0-15.0); White Blood Count 5.9 10^3/uL (4.0-11.0)
[2024-11-15 12:43] LABS: Alanine Aminotransferase 22 U/L (14-59); Albumin Globulin Ratio 0.8; Albumin Level 2.7 g/dL (3.4-5.0); Alkaline Phosphatase 58 U/L (46-116); Anion Gap 8.5; Aspartate Amino Transferase 25 U/L (15-37); BUN Creatinine Ratio 14.4; Bilirubin Total 0.3 mg/dL (0.2-1.0); Calcium 8.6 mg/dL (8.5-10.1); Carbon Dioxide 35.9 mmol/L (21.0-32.0); Chloride 105 mmol/L (98-107); Estimated GFR (African America 50 (>=60 mL/min/1.73m^2); Estimated GFR (Non-African Ame 41 (>=60 mL/min/1.73m^2); Globulin 3.5 g/dL; Glucose 113 mg/dL (74-106); Potassium 3.4 mmol/L (3.5-5.1); Sodium 146 mmol/L (136-145); Total Protein 6.2 g/dL (6.4-8.2)
== END 2024-11-15 12:08 | disposition home or self-care (01) ==
LOC: LAB 12:07
PROVIDERS: PCP Internal Medicine
DX: N95.0 Postmenopausal bleeding (principal)
CPT/HCPCS: 36415; 80053; 85025